=== PATIENT | female | born 1955 | race Caucasian/White ===

== ENCOUNTER → 2018-01-17 16:27 | Outpatient (CLI) | payer OTHER, SELFPAY ==
[2018-01-17 17:47] LABS: Absolute Lymphocyte Count 1.68 X10^3/ul (0.83-4.51); Basophil# 0.02 X10^3/uL; Basophil% 0.3 % (0-1); Eosinophil# 0.07 X10^3/uL; Eosinophils% 1.1 % (0-5); Hematocrit 35.9 % (37-47); Hemoglobin 11.5 g/dl (12.0-15.0); Lymphocyte # 1.68 X10^3/ul (4.0); Lymphocyte % 26.9 % (19-41); Mean Corpuscular Hgb 28.5 pg (27.0-32.0); Mean Corpuscular Volume 88.9 fL (81-99); Mean Platelet Vol. 10.3 fl (6.2-12.0); Monocyte# 0.44 X10^3/uL; Monocyte% 7.1 % (0-10); Neutrophil # 4.02 X10^3/uL (2.7-7.7); Neutrophil % 64.4 % (47-70); Platelet Count 242 K/mm3 (150-450); RBC Distribution Width CV 13.3 % (11.6-14.6); RBC Distribution Width SD 43.2 fl (35.1-43.9); Red Blood Count 4.04 M/mm3 (4.2-5.4); White Blood Count 6.2 K/mm3 (4.4-11.0)
[2018-01-17 17:53] LABS: POSITIVE COUNT NO; POSITIVE DIFFERENTIAL NO; POSITIVE MORPHOLOGY NO
[2018-01-17 18:08] LABS: AST(SGOT) 33 U/L (15-37); Alanine Aminotransfer ALT/SGPT 28 U/L (13-56); Albumin, Serum 3.5 g/dL (3.2-5.0); Alkaline Phosphatase 59 U/L (45-117); Anion Gap 8 (5-15); BUN 15 mg/dL (7-18); BUN/Creat Ratio 21.7 RATIO (10-20); Calcium,Total 9.1 mg/dL (8.5-10.1); Chloride 105 mmol/L (98-107); Creatinine, Serum 0.69 mg/dL (0.55-1.02); EST Glomerular Filtration Rate 92 mL/min (>60); Est Glom Filt Rate - Afr Amer 111 mL/min (>60); Globulin 3.4 g/dL (2.2-4.2); Glucose 102 mg/dL (74-106); Potassium 3.6 mmol/L (3.5-5.1); Protein, Total 6.9 g/dL (6.4-8.2); Sodium Level 141 mmol/L (136-145)
== END ==
PROVIDERS: Family Provider Family Medicine; PCP Family Medicine; Visit Provider Family Medicine
DX: T81.9XXA Unspecified complication of procedure, initial encounter (principal)
CPT/HCPCS: 36415; 80053; 85025

== ENCOUNTER → 2018-07-22 15:01 | Outpatient (CLI) | payer OTHER, SELFPAY ==
--- NOTE | 2018-07-22 15:04 | BI_ITS ---
MAMMOGRAPHY - BILATERAL SCREENING REASON FOR EXAM: Female, 62 years old. Routine annual screening examination. PERTINENT HISTORY: Grandmother with breast cancer. Remote right excisional breast biopsy. TECHNIQUE: Digital bilateral breast mayur (3D mammographic acquisition) in the CC and MLO projections. 2-D mediolateral oblique (MLO) and craniocaudad (CC) views of both breasts were obtained. CAD: Full Field Digital Mammography with Computer Added Detection was performed. COMPARISON: Comparison is made with prior study dated 2017 and November 26, 2015. FINDINGS: Breast Composition: The breasts are heterogeneously dense, which may obscure small masses. There are no dominant masses or suspicious calcifications. Stable appearance of the bilateral axillary lymph nodes. No other significant abnormalities are identified. There has been no significant change since the prior study. BI/SCREENING MAMM (CAD), BILAT IMPRESSION: Stable bilateral screening mammogram. Yearly follow-up mammogram recommended. (A) ASSESSMENT CATEGORY: BIRADS Category 2: Benign. A letter regarding these results will be sent to the patient by the facility within 30 days. Approximately 10% of breast cancers are not detected by mammography. A normal mammogram should not delay biopsy of a clinically suspicious abnormality. [id number] Electronically Signed: Manuel Scott, at 8:27 EDT , Service support ,
== END ==
PROVIDERS: Family Provider Family Medicine; PCP Family Medicine; Referring Provider Nurse Practitioner Women's Health; Visit Provider Nurse Practitioner Women's Health
DX: Z12.31 Encounter for screening mammogram for malignant neoplasm of breast (principal)
CPT/HCPCS: 77063; 77067

== ENCOUNTER 2019-04-04 08:21 | Day surgery (SDC) | payer OTHER, SELFPAY ==
--- NOTE | 2019-03-14 05:40 | HP_ITS ---
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 Is patient in pain?: No Allergies diphenhydramine HCl [From Benadryl] Adverse Reaction (Verified 03/14/19 15:09) Other Medications Cholecalciferol (VIT D3) [Vitamin D3] 2,000 unit PO DAILY 04/25/14 [History Confirmed 03/14/19] Multivitamins,Therapeutic [Multivitamin] 1 tab PO DAILY 04/25/14 [History Confirmed 03/14/19] Lisinopril [Zestril] 10 mg PO DAILY 02/07/17 [History Confirmed 03/14/19] lansoprazole 30 mg capsule,delayed release 30 mg PO DAILY 03/14/19 [History Confirmed 03/14/19] [facility] Medical History (Updated 03/14/19 @ 17:38 by Abhijit Rinaldi MD) Family history of colon cancer in father (Acute) Constipation (Acute) Constipation (Acute) HTN (hypertension) (Chronic) Surgical History History of breast lump/mass excision (Acute) S/P partial hysterectomy (Acute) Family History Father Colon cancer Heart disease Hypertension Thyroid disorder Social History (Updated 03/14/19 @ 17:40 by Abhijit Rinaldi MD) Smoking Status: Never smoker alcohol intake: current alcohol intake frequency: a few times a month HPI HPI HPI: CHAMP ROTH, is a 63 F who presents to the office today for HPI HPI Surgical H&P: Yes HPI: CHAMP ROTH, is a 63 F who presents to the office today for surgical consultation regarding severe progressive constipation. She states that there is been a problem for months. She was seen by her primary at that time Dr. Ellis Dawson who offered her consideration for a colonoscopy. The patient did not want to pursue that several months ago. Apparently because of her progressive problems with constipation she desires to proceed at this time. She presents my office for consultation. The patient already is on MiraLAX a capful daily. She drinks up to 84 ounces of fluid a day. She denies bright red blood per rectum or melena. She complains of some weight gain bloating. She states that she has a very significant problem moving her bowels. I assisted her on January 06, 2013 with a colonoscopy. At that time she was having diarrhea of undetermined origin. A few diverticula were identified. Scope was otherwise normal. It was recommended that she utilize a fiber supplement. She is not currently utilizing fiber supplementation in addition to her MiraLAX. She does have a family history with a father who had a cecal carcinoma. Exam Const General: cooperative, healthy appearing, comfortable, no acute distress Nutritional Appearance: average body habitus Orientation: alert, awake, oriented x3 HENMT Head: normal to inspection Eyes General: appearance normal, both eyes and all related structures Resp Effort & Inspection: normal respiratory effort Auscultation: clear to auscultation bilaterally Cardio Rate: regular rate Rhythm: regular rhythm GI Palpation: soft, no hepatosplenomegaly Auscultation: normal bowel sounds Skin General: no rashes or lesions noted Neuro Cognition: normal cognition Extrem General: no calf tenderness bilaterally Psych Affect: normal affect Assessment & Plan Problems 1. Constipation, unspecified constipation type K59.00 2. Family history of colon cancer in father Z80.0 Plan Severe progressive constipation. I recommended to the patient that she initiate a daily fiber supplementation in addition to her daily MiraLAX. I recommended the patient a colonoscopy with possible biopsy or polypectomy as indicated. Extraordinary careful inspection of the cecum will be pursued. Random biopsies will be obtained as indicated. She has had an opportunity to ask and have questions answered. I anticipate monitored anesthesia care. We will schedule and proceed at her discretion. I anticipate 2 days of bowel prep with magnesium citrate on day 1 and MiraLAX but prepped on day 2 because of her severe constipation. CC: Dr. Sachin Rinaldi M.D., F.A.C.S. Coding Level of Care Code Off vis,est,level 3 Diagnoses Constipation, unspecified constipation type K59.00 ??Constipation type: unspecified constipation type Family history of colon cancer in father Z80.0 03/14/19 1740 <Electronically signed by Abhijit martel MD> Date _ Abhijit Rinaldi MD I have re-examined the patient. There are no clinical changes since date of exam.
[2019-03-14 15:11] VITALS: BMI 25.2
--- NOTE | 2019-04-04 | COLBX_PTH ---
PATIENT: CHAMP ROTH LOC: EN U#:[id number] AGE/SX: 63/F ROOM: RE04/04/[address]: Dr. Abhijit Rinaldi MD : 1955 BED: DIS: 04/04/2019 SPEC #: [id number] RECD: 04/04/19 13:18 STATUS: SOPHY JEREMIAH #: [id number] RACHEL: 04/04/19 00:[address]: Abhijit Rinaldi DEPT: SURGICAL PATHOLOGY RECD BY: Ricky Ludwig ENTERED: 04/04/19 13:19 SP TYPE: COLON BX OTHR DR: Dr. Ellis Stephenson MD Tissues: COLON BIOPSY Procedures: Surgery Specimen Level IV HEADER OPERATION: Colonoscopy (MAC) PRE-OP DIAGNOSIS: Constipation TISSUE SUBMITTED: A - Random colon biopsies, B - Descending colon polyp biopsy MICROSCOPIC DIAGNOSIS A. Colon, random biopsy: Fragments of colonic mucosa, no pathologic diagnosis. B. Descending colon polyp, biopsy: A fragment of colonic mucosa with focal hyperplastic changes. DIANE:frannie 04/05/19 MICROSCOPIC DESCRIPTION Slides are reviewed. GROSS DESCRIPTION A - Received in fixative is one container labeled with the patient's name and designated random colon biopsy. The specimen consists of multiple irregular fragments of light cooper soft tissue that in aggregate measure 1.2 x 1 x 0.1 cm. The specimen is totally submitted in one cassette. B - Received in fixative is one container labeled with the patient's name and designated descending colon polyp. The specimen consists of one irregular fragment of light cooper soft tissue that measures 0.5 x 0.2 x 0.1 cm. The specimen is totally submitted in one cassette. / DIANE:frannie 04/04/19 TC:5 CPT: 55156 x2
[2019-04-04 08:58] VITALS: BP 101/75; PULSE 65; RESP 16; TEMP 36.8; O2SAT 99; BMI 25.2
[2019-04-04] MEDS: Lactated Ringers 1,000 ML 100 ML IV (09:09)
[2019-04-04 10:05] VITALS: BP 101/75; BP 90/65; PULSE 66; RESP 16; TEMP 36.4; O2SAT 98
--- NOTE | 2019-04-04 10:07 | OP.COLON_ITS ---
Patient Name: Leana Mancera Procedure Date: 04/04/2019 9:39 AM Date of : 1955 Age: 63 Procedure: Colonoscopy Indications: Family history of colon cancer in a first-degree relative Providers: Abhijit Rinaldi MD Referring MD: Ellis Stephenson Md Medicines: See the Anesthesia note for documentation of the administered medications Patient Profile: Last Colonoscopy: none. The patient's first colonoscopy is today. Complications: No immediate complications. Procedure: Pre-Anesthesia Assessment: - Prior to the procedure, a History and Physical was performed, and patient medications and allergies were reviewed. The patient's tolerance of previous anesthesia was also reviewed. The risks and benefits of the procedure and the sedation options and risks were discussed with the patient. All questions were answered, and informed consent was obtained. Prior Anticoagulants: The patient has taken no previous anticoagulant or antiplatelet agents. ASA Grade Assessment: II - A patient with mild systemic disease. After reviewing the risks and benefits, the patient was deemed in satisfactory condition to undergo the procedure. After I obtained informed consent, the scope was passed under direct vision. Throughout the procedure, the patient's blood pressure, pulse, and oxygen saturations were monitored continuously. The colonoscope was introduced through the anus and advanced to the cecum, identified by appendiceal orifice and ileocecal valve. The colonoscopy was performed without difficulty. The patient tolerated the procedure well. The quality of the bowel preparation was good. The ileocecal valve and the appendiceal orifice were photographed. Scope In: 9:43:52 AM Scope Withdrawal Time 0 hours 8 minutes 8 seconds Scope Out: 10:01:14 AM Total Procedure Duration Time 0 hours 17 minutes 22 seconds Findings: Hemorrhoids were found on perianal exam. A 7 mm polyp was found in the descending colon. The polyp was sessile. The polyp was removed with a cold biopsy forceps. Resection and retrieval were complete. Scattered diverticula were found in the sigmoid colon and descending colon. Impression: - Hemorrhoids found on perianal exam. - One 7 mm polyp in the descending colon, removed with a cold biopsy forceps. Resected and retrieved. Random biopsies were obtained throughout the colon investigating for microcytic colitis - Diverticulosis in the sigmoid colon and in the descending colon. Recommendation: - Discharge patient to home. - Resume previous diet. - Continue present medications. - Repeat colonoscopy in 5 years for surveillance based on pathology results. - Telephone my office for pathology results in 1 week. Procedure Code(s): --- Professional --- 18528, Colonoscopy, flexible; with biopsy, single or multiple Diagnosis Code(s): --- Professional --- K64.9, Unspecified hemorrhoids D12.4, Benign neoplasm of descending colon Z80.0, Family history of malignant neoplasm of digestive organs K57.30, Diverticulosis of large intestine without perforation or abscess without bleeding CPT copyright 2017 [employer]. All rights reserved. The codes documented in this report are preliminary and upon jewel hole finish opener review may be revised to meet current compliance requirements. Abhijit Rinaldi MD 04/04/2019 10:07:34 AM This report has been signed electronically. Number of Addenda: 0 Note Initiated On: 04/04/2019 9:39 AM
[2019-04-04 10:10] VITALS: BP 101/75; BP 99/56; PULSE 68; RESP 16; O2SAT 100
[2019-04-04 10:15] VITALS: BP 101/75; BP 106/66; PULSE 57; RESP 16; O2SAT 99
[2019-04-04 10:20] VITALS: BP 101/75; BP 113/67; PULSE 56; RESP 16; TEMP 36.6; O2SAT 100
[2019-04-04 10:41] VITALS: BP 101/75
== END 2019-04-04 10:43 | disposition home or self-care (01) ==
LOC: EN 08:22 → AC 08:24
PROVIDERS: Family Provider Family Medicine; PCP Family Medicine; Referring Provider Family Medicine; Visit Provider Surgery
PROC: 0DJD8ZZ Inspection of Lower Intestinal Tract, Via Natural or Artificial Opening Endoscopic (ICD-10-PCS; CPT 45378; principal; 2019-04-04 09:25)
DX: D12.4 Benign neoplasm of descending colon (principal); K64.9 Unspecified hemorrhoids; K57.30 Diverticulosis of large intestine without perforation or abscess without bleeding; K59.00 Constipation, unspecified; I10 Essential (primary) hypertension; G47.30 Sleep apnea, unspecified; Z78.0 Asymptomatic menopausal state; Z79.899 Other long term (current) drug therapy; Z88.8 Allergy status to other drugs, medicaments and biological substances; Z80.0 Family history of malignant neoplasm of digestive organs
CPT/HCPCS: 45380; 88305; J7120

== ENCOUNTER → 2019-06-26 07:55 | Outpatient (CLI) | payer OTHER, SELFPAY ==
[2019-06-26 10:35] LABS: ALB/GLOB Ratio 1.2 RATIO (0.9-2.4); AST(SGOT) 16 U/L (15-37); Alanine Aminotransfer ALT/SGPT 24 U/L (13-56); Albumin, Serum 3.6 g/dL (3.2-5.0); Alkaline Phosphatase 61 U/L (45-117); Anion Gap 4 (5-15); BUN 29 mg/dL (7-18); BUN/Creat Ratio 31.5 RATIO (10-20); Calcium,Total 8.9 mg/dL (8.5-10.1); Chloride 110 mmol/L (98-107); Cholesterol 204 mg/dL (200); Creatinine, Serum 0.92 mg/dL (0.55-1.02); EST Glomerular Filtration Rate 66 mL/min (>60); Est Glom Filt Rate - Afr Amer 79 mL/min (>60); Glucose 93 mg/dL (74-106); High Density Lipoprotein 91 mg/dL; Potassium 4.3 mmol/L (3.5-5.1); Protein, Total 6.6 g/dL (6.4-8.2); Sodium Level 143 mmol/L (136-145); Thyroid Stim Hormone (TSH) 4.73 uIU/mL (0.358-3.74); Triglycerides 63 mg/dL; Very Low Density Lipoprotein 13 mg/dL (5-40)
== END ==
PROVIDERS: PCP Family Medicine; Referring Provider Family Medicine; Visit Provider Family Medicine
DX: I10 Essential (primary) hypertension (principal); L65.9 Nonscarring hair loss, unspecified
CPT/HCPCS: 36415; 80053; 80061; 84443

== ENCOUNTER → 2020-06-28 15:22 | Outpatient (CLI) | payer OTHER, SELFPAY ==
[2020-06-28 17:41] LABS: Absolute Lymphocyte Count 1.79 X10^3/uL (0.83-4.51); Basophil# 0.05 X10^3/uL; Basophil% 0.9 % (0-1); Eosinophil# 0.12 X10^3/uL; Eosinophils% 2.2 % (0-5); Hematocrit 38.9 % (37-47); Hemoglobin 12.5 g/dL (12.0-15.0); Lymphocyte # 1.79 X10^3/ul (4.0); Mean Corp Hgb Conc 32.1 g/dL (32-36); Mean Corpuscular Hgb 29.1 pg (27.0-32.0); Mean Corpuscular Volume 90.7 fL (81-99); Mean Platelet Vol. 10.3 fl (6.2-12.0); Monocyte# 0.45 X10^3/uL; Monocyte% 8.3 % (0-10); NRBC Flagged by Analyzer 0 % (0-5); Neutrophil # 2.99 X10^3/uL (2.7-7.7); Neutrophil % 55.2 % (47-70); Platelet Count 261 K/mm3 (150-450); RBC Distribution Width CV 13.1 % (11.6-14.6); RBC Distribution Width SD 43.5 fl (35.1-43.9); Red Blood Count 4.29 M/mm3 (4.2-5.4); White Blood Count 5.4 K/mm3 (4.4-11.0)
[2020-06-28 17:56] LABS: ALB/GLOB Ratio 1.5 RATIO (0.9-2.4); AST(SGOT) 17 U/L (15-37); Alanine Aminotransfer ALT/SGPT 26 U/L (13-56); Alkaline Phosphatase 60 U/L (45-117); Anion Gap 6 (5-15); BUN 23 mg/dL (7-18); BUN/Creat Ratio 30.3 RATIO (10-20); Calcium,Total 9.2 mg/dL (8.5-10.1); Chloride 103 mmol/L (98-107); Creatinine, Serum 0.76 mg/dL (0.55-1.02); EST Glomerular Filtration Rate 82 mL/min (>60); Est Glom Filt Rate - Afr Amer 99 mL/min (>60); Globulin 2.6 g/dL (2.2-4.2); Glucose 75 mg/dL (74-106); Lipase 121 U/L (73-393); Protein, Total 6.6 g/dL (6.4-8.2); Sodium Level 139 mmol/L (136-145)
== END ==
PROVIDERS: PCP Family Medicine; Referring Provider Family Medicine; Visit Provider Family Medicine
DX: R19.7 Diarrhea, unspecified (principal); R10.9 Unspecified abdominal pain
CPT/HCPCS: 36415; 80053; 83690; 85025; 87506

== ENCOUNTER → 2020-07-04 11:57 | Outpatient (CLI) | payer OTHER, SELFPAY ==
--- NOTE | 2020-07-04 11:59 | CT_ITS ---
STUDY: CT ABDOMEN AND PELVIS WITH CONTRAST REASON FOR EXAM: Female, 64 years old. ABDOMINAL PAIN. 2 week history of diarrhea and vomiting. RADIATION DOSAGE (If Supplied By Facility): CTDIvol = ( 12.60 ) mGy, DLP = ( 785.11 ) mGycm TECHNIQUE: Transaxial images were obtained from the dome of the diaphragm to the symphysis pubis with oral contrast. Oral and amp;amp; IV Gastrografin and amp;amp; 100mL Isovue-300 was administered. Sagittal and coronal images were reconstructed. Individualized dose optimization techniques were used for this CT. COMPARISON: None. FINDINGS: Minimal increased linear markings at the lung bases suggestive of linear atelectasis and/or scarring. The visualized portions of the heart are within normal limits. There is a 1.4 cm x 1.3 cm hypodense nodule in the peripheral lateral aspect of the right lobe of the liver along its inferior aspect. This may represent either a cyst or hemangioma. Normal gallbladder and extrahepatic biliary system. Normal spleen. Normal pancreas. Normal bilateral adrenal glands. Mild degree of right hydronephrosis and right hydroureter down to the region of the pelvis although the distal portion of the right ureter cannot be assessed adequately due to the large amount of beam hardening artifacts. Normal left kidney. Normal visualized stomach. Normal small intestine. Normal colon. The appendix is visualized and appears normal. Normal abdominal aorta. Normal inferior vena cava. Normal retroperitoneum. Normal urinary bladder. Limited visualization of the pelvis due to beam hardening artifact from the bilateral hip prostheses. There is a small umbilical hernia containing fat. There are degenerative changes of the visualized lumbar spine. Grade 1 anterolisthesis of L4 on L5. CT/Abdomen/Pelvis WITH Contrast IMPRESSION: 1.4 cm x 1.3 cm hypodense nodule in the peripheral lateral aspect of the right lobe of liver suggestive of either a small cyst or possible hemangioma. Mild degree of right hydronephrosis and right hydroureter down to the region of the pelvis although the distal portion of the right ureter cannot be adequately assessed due to the large amount of beam hardening artifacts bilateral hip replacements. Electronically Signed: Manuel Scott MD at 14:46 EDT , Service support ,
== END ==
PROVIDERS: PCP Family Medicine; Visit Provider Family Medicine
DX: R10.9 Unspecified abdominal pain (principal)
CPT/HCPCS: 74177; Q9967

== ENCOUNTER → 2020-07-05 | Outpatient (CLI) | payer OTHER, SELFPAY ==
[2020-07-05 17:31] LABS: Bacteria 0 SEEN /hpf (None Seen); Mucous, Urine 0 SEEN /hpf (<or=2+); White Blood Cells 0 SEEN /hpf (0-5)
[2020-07-05 18:23] LABS: Color, Urine Yellow (Yellow); Glucose, Dipstick Normal (Normal); Ketone-Dipstick Negative (Negative); Leukocyte Esterase-Dipstick Negative /ul (Negative); Nitrite-Dipstick Negative (Negative); Occult Blood-Urine 10 /ul (Negative); Protein-Dipstick Negative (Negative); Specific Gravity, Urine 1.015 (1.002-1.030); Urine Bilirubin Dipstick Negative (Negative); Urine Clarity Clear (Clear); Urine Urobilinogen Normal (Normal)
[2020-07-05 18:34] LABS: Red Blood Cells-Urine 0-5 SEEN /hpf (0-5); Squamous Epithelial Cells - UA 0-5 SEEN /hpf (5-10)
== END | disposition home or self-care (01) ==
PROVIDERS: PCP Family Medicine; Referring Provider Family Medicine; Visit Provider Family Medicine
DX: R10.9 Unspecified abdominal pain (principal)
CPT/HCPCS: 81001; 87086

== ENCOUNTER → 2020-07-09 08:58 | Outpatient (CLI) | payer OTHER, SELFPAY ==
--- NOTE | 2020-07-09 09:02 | RAD_ITS ---
STUDY: X-RAY - ABDOMEN/PELVIS REASON FOR EXAM: Female, 64 years old. OTHER HYDRONEPHROSIS/ -- RIGHT HYDROURETERONEPHROSIS ON CT BUT DISTAL UTERER OBSCURED BY ARTIFACT TECHNIQUE: Single AP view of the abdomen / pelvis. COMPARISON: None. FINDINGS: Normal visualized lung bases. There is an abundance of fecal material throughout the colon. Calcified phlebolith in the right hemipelvis. Normal soft tissue structures. Status post bilateral total hip replacements disc space narrowing and degeneration at the L4-L5 level. RAD/Abdomen Single View IMPRESSION: Large amount of fecal material is seen in the colon. Calcified phleboliths in the right hemipelvis. Electronically Signed: Manuel Scott MD at 9:52 EDT , Service support ,
--- NOTE | 2020-07-09 13:35 | RAD_ITS ---
STUDY: INTRAVENOUS UROGRAM. BILATERAL REASON FOR EXAM: Female, 64 years old. OTHER HYDRONEPHROSIS, UNSPECIFIED ABD PAIN TECHNIQUE: 50 cc of ISOVUE 300 was injected intravenously. Intravenous urogram was then obtained. COMPARISON: None. FINDINGS: A bundle tier view was obtained. A large amount of fecal material is seen in the colon. A calcified phlebolith is seen in the right hemipelvis. The patient is status post bilateral total hip replacement. Following intravenous contrast demonstration, there is prompt bilateral symmetrical excretion of contrast. The ureters run a normal course. There is no evidence of obstruction. RAD/Pyelogram No Siddhartha IMPRESSION: No evidence of ureteral obstruction. Electronically Signed: Manuel Scott MD at 14:33 EDT , Service support ,
== END ==
PROVIDERS: PCP Family Medicine; Referring Provider Nurse Practitioner Adult Health; Visit Provider Nurse Practitioner Adult Health
DX: N13.39 Other hydronephrosis (principal); R10.9 Unspecified abdominal pain
CPT/HCPCS: 74018; 74410; Q9967

== ENCOUNTER → 2020-07-26 09:13 | Outpatient (CLI) | payer OTHER, SELFPAY ==
--- NOTE | 2020-07-26 09:19 | US_ITS ---
STUDY: ABDOMINAL ULTRASOUND - RIGHT UPPER QUADRANT REASON FOR VISIT: Female, 64 years old. Right upper quadrant pain TECHNIQUE: Ultrasound evaluation of the right upper quadrant was performed with real-time and static otero-scale imaging. TECHNICAL QUALITY: Adequate. COMPARISON: CT abdomen 04 July 2020, 26 Aug 2004 FINDINGS: Liver: The liver measures 14.3 cm. There is normal echogenicity of the liver. The bile ducts are within normal limits. There is hepatic color flow. The direction of portal flow is hepatopetal. There is a 2 cm hemangioma as seen on prior CT. Gallbladder: Normal distended gallbladder. The gallbladder wall measures 3 mm. There is a negative sonographic Rubio''s sign. There is no pericholecystic fluid. There are no gallstones. Common Bile Duct (C.B.D.): The common bile duct measures 5 mm. Pancreas: Normal size of the head, body and tail of the pancreas. There is normal echogenicity of the pancreas. There is no demonstrated pancreatic mass or cyst. Right Kidney: Normal size of the right kidney. The right kidney measures 10.7 x 5.9 x 4.5 cm. Normal renal cortex. The right cortex measures 1.5 cm. There is no demonstrated renal mass or cyst. There is no right hydronephrosis. There is a 4 mm calcification, possibly vascular versus stone. US/Abdomen Limited IMPRESSION: 1. Unremarkable right upper quadrant ultrasound. Electronically Signed: Yasmin Quiñonez MD at 20:33 EDT Tel , Service support ,
== END ==
PROVIDERS: PCP Family Medicine; Referring Provider Family Medicine; Visit Provider Family Medicine
DX: R10.11 Right upper quadrant pain (principal)
CPT/HCPCS: 76705

== ENCOUNTER → 2021-03-24 07:54 | Outpatient (CLI) | payer OTHER, SELFPAY ==
--- NOTE | 2021-03-24 07:56 | BI_ITS ---
MAMMOGRAPHY - BILATERAL SCREENING REASON FOR EXAM: Female, 65 years old. Routine annual screening examination. PERTINENT HISTORY: Grandmother with breast cancer. Prior right excisional breast biopsy. TECHNIQUE: Digital bilateral breast elida (3D mammographic acquisition) in the CC and MLO projections. 2-D mediolateral oblique (MLO) and craniocaudad (CC) views of both breasts were obtained. CAD: Full Field Digital Mammography with Computer Added Detection was performed. COMPARISON: Comparison is made with prior study dated 07/22/2018 and 04/20/2017. FINDINGS: Breast Composition: The breasts are heterogeneously dense, which may obscure small masses. There are no dominant masses or suspicious calcifications. Stable benign-appearing bilateral axillary lymph nodes. No other significant abnormalities are identified. There has been no significant change since the prior study. BI/SCRN MAMM (CAD)W/ELIDA BILAT IMPRESSION: Stable bilateral screening mammogram. Yearly follow-up mammogram recommended. (A) ASSESSMENT CATEGORY: BIRADS Category 2: Benign. A letter regarding these results will be sent to the patient by the facility within 30 days. Approximately 10% of breast cancers are not detected by mammography. A normal mammogram should not delay biopsy of a clinically suspicious abnormality. [id number] Electronically Signed: Manuel Scott MD at 9:27 EST , Service support ,
== END ==
PROVIDERS: PCP Family Medicine; Referring Provider Nurse Practitioner Women's Health; Visit Provider Nurse Practitioner Women's Health
DX: Z12.31 Encounter for screening mammogram for malignant neoplasm of breast (principal); Z80.3 Family history of malignant neoplasm of breast
CPT/HCPCS: 77063; 77067

== ENCOUNTER → 2021-04-16 10:51 | Outpatient (CLI) | payer OTHER, SELFPAY ==
[2021-04-16 11:56] LABS: NATERA MAILED SPECIMEN
== END ==
PROVIDERS: PCP Family Medicine; Referring Provider Nurse Practitioner Women's Health; Visit Provider Nurse Practitioner Women's Health
DX: Z78.0 Asymptomatic menopausal state (principal); Z80.3 Family history of malignant neoplasm of breast; Z80.0 Family history of malignant neoplasm of digestive organs
CPT/HCPCS: 36415

== ENCOUNTER 2021-07-23 12:41 | Outpatient (CLI) | payer OTHER, SELFPAY ==
[2021-07-23 14:59] LABS: Hematocrit 40.5 % (37-47); Mean Corp Hgb Conc 32.1 g/dL (32-36); Mean Corpuscular Hgb 29.7 pg (27.0-32.0); Mean Corpuscular Volume 92.7 fL (81-99); Mean Platelet Vol. 9.8 fl (6.2-12.0); Platelet Count 259 K/mm3 (150-450); RBC Distribution Width CV 12.7 % (11.6-14.6); RBC Distribution Width SD 43.4 fl (35.1-43.9); Red Blood Count 4.37 M/mm3 (4.2-5.4)
[2021-07-23 15:27] LABS: ALB/GLOB Ratio 1.1 RATIO (0.9-2.4); AST(SGOT) 15 U/L (15-37); Alanine Aminotransfer ALT/SGPT 26 U/L (13-56); Albumin, Serum 3.9 g/dL (3.2-5.0); Alkaline Phosphatase 50 U/L (45-117); Anion Gap 4 (5-15); BUN 21 mg/dL (7-18); BUN/Creat Ratio 26.3 RATIO (10-20); Calcium,Total 9.2 mg/dL (8.5-10.1); Chloride 101 mmol/L (98-107); EST Glomerular Filtration Rate 77 mL/min (>60); Est Glom Filt Rate - Afr Amer 93 mL/min (>60); Globulin 3.4 g/dL (2.2-4.2); Glucose 91 mg/dL (74-106); Potassium 3.9 mmol/L (3.5-5.1); Protein, Total 7.3 g/dL (6.4-8.2); Sodium Level 134 mmol/L (136-145); Thyroid Stim Hormone (TSH) 2.33 uIU/mL (0.358-3.74)
== END 2021-07-23 23:59 | disposition home or self-care (01) ==
LOC: MTLAB 12:42
PROVIDERS: PCP Nurse Practitioner Family; Referring Provider Nurse Practitioner Family; Visit Provider Nurse Practitioner Family
DX: I10 Essential (primary) hypertension (principal); E03.9 Hypothyroidism, unspecified
CPT/HCPCS: 36415; 80053; 84443; 85027

== ENCOUNTER → 2021-09-03 | Outpatient (CLI) | payer OTHER, SELFPAY ==
[2021-09-03 18:10] LABS: Vitamin B12 405 pg/mL (211-911); Vitamin D,25 Hydroxy 26.1 ng/mL
== END | disposition home or self-care (01) ==
LOC: MFPLAB 15:42
PROVIDERS: PCP Family Medicine; Referring Provider Family Medicine; Visit Provider Family Medicine
DX: R53.83 Other fatigue (principal)
CPT/HCPCS: 36415; 82306; 82607

== ENCOUNTER → 2022-01-27 | Outpatient (CLI) | payer MEDICARE, BC, SELFPAY ==
--- NOTE | 2022-01-27 07:43 | CT_ITS ---
STUDY: CT SCAN LOWER EXTREMITY RIGHT REASON FOR EXAM: Female, 66 years old. [facility] protocol RADIATION DOSAGE (If Supplied By Facility): CTDIvol = ( 18.71 ) mGy, DLP = ( 1130.13 ) mGycm. Individualized dose optimization techniques were used for this CT.? TECHNIQUE: Multiple axial tomographic images of the right hip, right knee and right ankle joints were obtained. Coronal and sagittal reconstruction was obtained as well. COMPARISON: None. FINDINGS: Imaging of the right hip joint was obtained. There is evidence of a total right hip replacement. There is good alignment. No significant abnormality is seen. Imaging of the right knee joint was obtained. Moderate degree of joint space narrowing involving both the medial and lateral compartments of the knee joint more prominent on the lateral side. Degenerative spur formation along the distal lateral femoral condyle. Small joint effusion. Imaging of the ankle joint was obtained. There is good alignment. No significant abnormality is seen. CT/Extremity Lower without Contra IMPRESSION: Moderate degree of joint space narrowing with degenerative changes involving the medial and lateral compartments of the knee joint with small joint effusion. Electronically Signed: Manuel Scott MD at 15:38 EDT ,
--- NOTE | 2022-01-27 08:37 | RAD_ITS ---
STUDY: X-RAY CHEST REASON FOR EXAM: Female, 66 years old. PRE-OP TECHNIQUE: PA or AP and lateral COMPARISON: None. FINDINGS: The lungs are clear and expanded. There is no demonstrated pleural abnormality. Normal size heart. Normal mediastinum and valeria. Normal visualized pulmonary arteries. Normal visualized aortic arch and descending thoracic aorta. Mild degenerative changes mid and lower thoracic spine. Normal visualized ribs, clavicles, and shoulders. There is no demonstrated abnormality of the visualized soft tissue structures of the upper abdomen. RAD/Chest PA and Lateral IMPRESSION: No acute cardiopulmonary disease. Electronically Signed: Brian Birmingham MD, JOELLE at 10:24 EDT ,
[2022-01-27 10:14] LABS: Absolute Lymphocyte Count 1.38 X10^3/uL (0.83-4.51); Absolute Neutrophil Count 2.2 X10^3/uL (2.0-7.7); Basophil# 0.03 X10^3/uL; Basophil% 0.7 % (0-1); Eosinophil# 0.09 X10^3/uL; Eosinophils% 2.2 % (0-5); Hematocrit 41.4 % (37-47); Hemoglobin 13.4 g/dL (12.0-15.0); Lymphocyte # 1.38 X10^3/ul (0.83-4.51); Lymphocyte % 33.7 % (19-41); Mean Corp Hgb Conc 32.4 g/dL (32-36); Mean Corpuscular Hgb 29.8 pg (27.0-32.0); Mean Corpuscular Volume 92.2 fL (81-99); Mean Platelet Vol. 9.8 fl (6.2-12.0); Monocyte# 0.34 X10^3/uL; Monocyte% 8.3 % (0-10); NRBC Flagged by Analyzer 0 % (0-5); Neutrophil # 2.24 X10^3/uL (2.7-7.7); Neutrophil % 54.9 % (47-70); Platelet Count 241 K/mm3 (150-450); RBC Distribution Width CV 13.1 % (11.6-14.6); RBC Distribution Width SD 44.2 fl (35.1-43.9); Red Blood Count 4.49 M/mm3 (4.2-5.4); White Blood Count 4.1 K/mm3 (4.4-11.0)
[2022-01-27 11:00] LABS: ALB/GLOB Ratio 1.1 RATIO (0.9-2.4); AST(SGOT) 15 U/L (15-37); Alanine Aminotransfer ALT/SGPT 33 U/L (13-56); Albumin, Serum 3.7 g/dL (3.2-5.0); Alkaline Phosphatase 59 U/L (45-117); BUN 29 mg/dL (7-18); BUN/Creat Ratio 35.5 RATIO (10-20); Calcium,Total 9.1 mg/dL (8.5-10.1); Chloride 105 mmol/L (98-107); Cholesterol 216 mg/dL (200); Creatinine, Serum 0.82 mg/dL (0.55-1.02); EST Glomerular Filtration Rate 75 mL/min (>60); Est Glom Filt Rate - Afr Amer 91 mL/min (>60); Globulin 3.4 g/dL (2.2-4.2); Glucose 85 mg/dL (74-106); Potassium 4.2 mmol/L (3.5-5.1); Protein, Total 7.1 g/dL (6.4-8.2); Sodium Level 140 mmol/L (136-145); Triglycerides 51 mg/dL
[2022-01-27 11:01] LABS: Anion Gap 5 (5-15); High Density Lipoprotein 91 mg/dL; Very Low Density Lipoprotein 10 mg/dL (5-40)
== END | disposition home or self-care (01) ==
PROVIDERS: Nurse Practitioner Family; PCP Family Medicine; Referring Provider Physician Assistant Surgical; Visit Provider Physician Assistant Surgical
DX: Z01.810 Encounter for preprocedural cardiovascular examination (principal); M21.061 Valgus deformity, not elsewhere classified, right knee
CPT/HCPCS: 36415; 71046; 73700; 80053; 80061; 85025

== ENCOUNTER → 2022-05-26 | Outpatient (CLI) | payer MEDICARE, BC, SELFPAY ==
[2022-05-26 12:40] LABS: Absolute Lymphocyte Count 1.17 X10^3/uL (0.83-4.51); Absolute Neutrophil Count 2.8 X10^3/uL (2.0-7.7); Basophil# 0.03 X10^3/uL; Basophil% 0.7 % (0-1); Eosinophil# 0.09 X10^3/uL; Hematocrit 39.6 % (37-47); Hemoglobin 12.4 g/dL (12.0-15.0); Lymphocyte # 1.17 X10^3/ul (0.83-4.51); Lymphocyte % 26.6 % (19-41); Mean Corp Hgb Conc 31.3 g/dL (32-36); Mean Corpuscular Hgb 28.6 pg (27.0-32.0); Mean Corpuscular Volume 91.5 fL (81-99); Mean Platelet Vol. 9.7 fl (6.2-12.0); Monocyte# 0.32 X10^3/uL; Monocyte% 7.3 % (0-10); NRBC Flagged by Analyzer 0 % (0-5); Neutrophil # 2.78 X10^3/uL (2.7-7.7); Neutrophil % 63.2 % (47-70); Platelet Count 240 K/mm3 (150-450); RBC Distribution Width CV 13.3 % (11.6-14.6); RBC Distribution Width SD 44.9 fl (35.1-43.9); Red Blood Count 4.33 M/mm3 (4.2-5.4); White Blood Count 4.4 K/mm3 (4.4-11.0)
[2022-05-26 12:41] LABS: Erythrocyte Sedimentation Rate 3 mm/hr (0-30)
[2022-05-26 13:07] LABS: Vitamin B12 475 pg/mL (211-911)
[2022-05-26 13:33] LABS: ALB/GLOB Ratio 1.2 RATIO (0.9-2.4); AST(SGOT) 12 U/L (15-37); Alanine Aminotransfer ALT/SGPT 21 U/L (13-56); Albumin, Serum 3.7 g/dL (3.2-5.0); Alkaline Phosphatase 66 U/L (45-117); Anion Gap 7 (5-15); BUN 19 mg/dL (7-18); BUN/Creat Ratio 30.6 RATIO (10-20); CRP 3.93 mg/L (0.0-3.0); Calcium,Total 9.2 mg/dL (8.5-10.1); Chloride 108 mmol/L (98-107); Creatinine, Serum 0.62 mg/dL (0.55-1.02); EST Glomerular Filtration Rate 103 mL/min (>60); Est Glom Filt Rate - Afr Amer 124 mL/min (>60); Globulin 3.2 g/dL (2.2-4.2); Glucose 89 mg/dL (74-106); Magnesium 2.3 mg/dL (1.6-2.6); Potassium 4.4 mmol/L (3.5-5.1); Protein, Total 6.9 g/dL (6.4-8.2); Rheumatoid Factor < 10.0 IU/mL (<15); Sodium Level 142 mmol/L (136-145); Thyroid Stim Hormone (TSH) 3.71 uIU/mL (0.358-3.74)
[2022-05-27 11:38] LABS: CCP IgG Antibodies 5 units (0-19)
[2022-05-27 18:48] LABS: ANTINUCLEAR ANTIBODIES DIRECT Negative (Negative)
== END | disposition home or self-care (01) ==
LOC: MFPLAB 10:33
PROVIDERS: PCP Family Medicine; Referring Provider Family Medicine; Visit Provider Family Medicine
DX: M79.10 Myalgia, unspecified site (principal)
CPT/HCPCS: 36415; 80053; 82607; 83735; 84443; 85025; 85652; 86038; 86140; 86200; 86431

== ENCOUNTER → 2022-06-23 | Outpatient (CLI) | payer MEDICARE, BC, SELFPAY ==
[2022-06-23] MEDS: Zolpidem Tartrate 5 MG Tablet PO (19:40)
== END | disposition home or self-care (01) ==
LOC: SL 20:04
PROVIDERS: PCP Family Medicine; Referring Provider Internal Medicine Critical Care Medicine; Visit Provider Internal Medicine Critical Care Medicine
DX: G47.33 Obstructive sleep apnea (adult) (pediatric) (principal)
CPT/HCPCS: 95810

== ENCOUNTER → 2022-08-18 | Outpatient (CLI) | payer MEDICARE, BC, SELFPAY | END | disposition home or self-care (01) | LOC: SL 14:26 | PROVIDERS: PCP Family Medicine; Referring Provider Nurse Practitioner Acute Care; Visit Provider Nurse Practitioner Acute Care | DX: G47.10 Hypersomnia, unspecified (principal) | CPT/HCPCS: 95806 ==

== ENCOUNTER → 2022-08-19 | Outpatient (CLI) | payer MEDICARE, BC, SELFPAY ==
--- NOTE | 2022-08-19 12:55 | RAD_ITS ---
STUDY: X-RAY - RIGHT WRIST REASON FOR EXAM: Female, 66 years old. pain and swelling TECHNIQUE: 3 view(s) of the wrist were obtained. COMPARISON: None. FINDINGS: Normal visualized distal radius and ulna. Normal radiocarpal articulation. Normal distal radioulnar articulation. Normal carpal bones. Normal carpal articulations. Normal carpometacarpal articulation of the thumb. Normal second through fifth carpometacarpal articulations. Normal visualized metacarpal bones. The soft tissue structures are unremarkable. There is no demonstrated acute fracture. RAD/Wrist min 3 Views IMPRESSION: No definite acute or significant abnormality seen. Electronically Signed: Cristopher Adkins MD at 21:38 EDT ,
[2022-08-19 15:31] LABS: Absolute Neutrophil Count 8.6 X10^3/uL (2.0-7.7); Basophil# 0.02 X10^3/uL; Basophil% 0.2 % (0-1); Hematocrit 39.3 % (37-47); Hemoglobin 12.7 g/dL (12.0-15.0); Lymphocyte % 5.4 % (19-41); Mean Corp Hgb Conc 32.3 g/dL (32-36); Mean Corpuscular Hgb 29.9 pg (27.0-32.0); Mean Corpuscular Volume 92.5 fL (81-99); Mean Platelet Vol. 10.2 fl (6.2-12.0); Monocyte# 0.16 X10^3/uL; Monocyte% 1.7 % (0-10); NRBC Flagged by Analyzer 0 % (0-5); Neutrophil # 8.59 X10^3/uL (2.7-7.7); Neutrophil % 92.5 % (47-70); POSITIVE DIFFERENTIAL YES; Platelet Count 247 K/mm3 (150-450); RBC Distribution Width CV 13.5 % (11.6-14.6); RBC Distribution Width SD 45.7 fl (35.1-43.9); Red Blood Count 4.25 M/mm3 (4.2-5.4); White Blood Count 9.3 K/mm3 (4.4-11.0)
[2022-08-19 15:39] LABS: Differential Indicated SCAN CRITERIA MET
[2022-08-19 16:03] LABS: Differential Comment SCANNED
== END | disposition home or self-care (01) ==
LOC: MTLAB 12:53
PROVIDERS: PCP Family Medicine; Referring Provider Family Medicine; Visit Provider Family Medicine
DX: M25.531 Pain in right wrist (principal); M25.431 Effusion, right wrist
CPT/HCPCS: 36415; 73110; 85025

== ENCOUNTER → 2022-08-20 | Outpatient (CLI) | payer MEDICARE, BC, SELFPAY ==
[2022-08-20 13:41] LABS: Erythrocyte Sedimentation Rate 20 mm/hr (0-30)
== END | disposition home or self-care (01) ==
LOC: LAB 12:47
PROVIDERS: PCP Family Medicine; Referring Provider Specialist; Visit Provider Specialist
DX: Z47.1 Aftercare following joint replacement surgery (principal); Z96.651 Presence of right artificial knee joint
CPT/HCPCS: 36415; 85652; 86140

== ENCOUNTER → 2022-08-21 | Outpatient (CLI) | payer MEDICARE, BC, SELFPAY ==
[2022-08-21 12:34] LABS: Pathologist Comment May follow
[2022-08-21 13:45] LABS: Synovial Fld Mononuclear WBC # 1.205 10^3/ul; Synovial Fld Mononuclear WBC % 47.4 %; Synovial Fld Polynuclear WBC # 1.339 10^3/uL; Synovial Fld Polynuclear WBC % 52.6 %
[2022-08-21 13:50] LABS: RBC /Synovial Fluid 0.017 10^6/uL (0)
[2022-08-21 14:43] LABS: AUTO B FLUID DILUENT BKGD CT WBC <0.1 RBC <0.01 (W<.1,R<.01); Lymph 16 %; Monocyte /Synovial Fluid 37 %; Neutrophil 46 % (0-25); Plasma Cell /Synovial Fluid 1 %
[2022-08-21 14:44] LABS: Appearance /Synovial Fluid Cloudy (CLEAR); Body Fluid QC Type(s) BF1Q; CRYSTALS, BODY FLUID NO CRYSTALS SEEN; Color / Synovial Fluid Yellow (Pale Yellow); Source / Synovial Fluid RIGHT KNEE; Source- Body Fluid SYNOVIAL
[2022-08-25 09:33] LABS: Pathologist Review Reviewed
== END | disposition home or self-care (01) ==
LOC: LABSPEC 12:27
PROVIDERS: PCP Family Medicine; Referring Provider Specialist; Visit Provider Specialist
DX: M25.561 Pain in right knee (principal); Z96.651 Presence of right artificial knee joint
CPT/HCPCS: 87015; 87070; 87075; 87101; 87116; 87205; 87206; 89050; 89051; 89060

== ENCOUNTER → 2023-02-24 | Outpatient (CLI) | payer MEDICARE, BC, SELFPAY ==
--- NOTE | 2023-02-24 10:24 | BI_ITS ---
MAMMOGRAPHY - BILATERAL SCREENING REASON FOR EXAM: Female, 67 years old. Routine annual screening examination. PERTINENT HISTORY: Sister with breast cancer. Grandmother with breast cancer. Prior right excisional breast biopsy. TECHNIQUE: Digital bilateral breast elida (3D mammographic acquisition) in the CC and MLO projections. 2-D mediolateral oblique (MLO) and craniocaudad (CC) views of both breasts were obtained. CAD: Full Field Digital Mammography with Computer Added Detection was performed. COMPARISON: Comparison is made with prior study dated March 24, 2021 and July 22, 2018. FINDINGS: Breast Composition: The breasts are heterogeneously dense, which may obscure small masses. There are no dominant masses or suspicious calcifications. Stable small bilateral benign-appearing axillary lymph nodes. No other significant abnormalities are identified. There has been no significant change since the prior study. BI/SCRN MAMM (CAD)W/ELIDA BILAT IMPRESSION: Stable bilateral screening mammogram. Yearly follow-up mammogram recommended. (A) ASSESSMENT CATEGORY: BIRADS Category 2: Benign. A letter regarding these results will be sent to the patient by the facility within 30 days. Approximately 10% of breast cancers are not detected by mammography. A normal mammogram should not delay biopsy of a clinically suspicious abnormality. [id number] Electronically Signed: Manuel Scott MD at 12:51 EST ,
== END | disposition home or self-care (01) ==
LOC: OPBI 10:23
PROVIDERS: PCP Family Medicine; Referring Provider Nurse Practitioner Women's Health; Visit Provider Nurse Practitioner Women's Health
DX: Z12.31 Encounter for screening mammogram for malignant neoplasm of breast (principal); Z80.3 Family history of malignant neoplasm of breast
CPT/HCPCS: 77063; 77067

== ENCOUNTER 2023-04-20 08:08 | Observation (INO) | payer MEDICARE, BC, SELFPAY ==
[2023-04-20] VITALS (14 sets, daily range): BP systolic 91–161; BP diastolic 57–92; PULSE 53–71; RESP 12–20; TEMP 36.4–37.1; O2SAT 95–99; BMI 28.4
--- NOTE | 2023-04-20 08:13 | NURSING ---
STROKE ALERT CALLED
--- NOTE | 2023-04-20 08:16 | ED.VIS.STROK ---
HPI History of Present Illness Chief Complaint: Neuro S/Sx Informant: patient Narrative Narrative: Patient presents with visual changes after a pop feeling in her head. She drove herself in. Patient went to work this morning. She was feeling normally. She felt a popping sensation in her left head somewhere. She states she lost some vision in both eyes but cannot tell if it was 1 quadrant or not. But it was more involving the left. That lasted very briefly. Now her vision is a little bit blurry on the left but very mild. She does not and never did have any other neurologic deficits. No nausea vomiting. No chest pain. Patient was seen quickly as she came into room 1. More details will be discussed when we get her back from CT which is being expedited due to her concerning story. [facility] Medical History Autoimmune disorder Constipation Constipation Family history of colon cancer in father HTN (hypertension) Palindromic rheumatism Sleep apnea Home Medications cholecalciferol (vitamin D3) 25 mcg (1,000 unit) tablet 2,000 unit PO DAILY 04/25/14 [History Last Taken Unknown] hydrochlorothiazide 25 mg tablet 25 mg PO DAILY 04/16/21 [History Last Taken 04/20/23] lisinopril 10 mg tablet 20 mg PO DAILY 04/16/21 [History Last Taken 04/20/23] hydroxychloroquine 200 mg tablet 200 mg PO DAILY 09/28/22 [History Last Taken 04/20/23] estradiol 0.01% (0.1 mg/gram) vaginal cream See Rx Instructions vaginal .COMPLEX #42.5 grams 03/23/23 [Rx Last Taken Unknown] Allergy/AdvReac Type Severity Reaction Status Date / Time diphenhydramine HCl AdvReac Other Verified 04/20/23 08:12 [From Benadryl] Family History Father Colon cancer Heart disease Hypertension Thyroid disorder Mother Breast cancer Unknown Breast cancer Brother Alcoholism Sister Autoimmune disease Aunt Breast cancer Sister Breast cancer, Onset Age: 60 Surgical History H/O bilateral hip replacements History of breast lump/mass excision History of tonsillectomy S/P partial hysterectomy Total knee replacement status Social History household members: significant other current occupational status: employed current occupation: [employer] Smoking Status: Never smoker alcohol intake: current alcohol intake frequency: a few times a month substance use type: does not use diet: other what type of physical activity do you participate in: walking, yoga and other frequency: 3-4 times per week seatbelt use: always do you feel safe at home: Yes additional social history: single ROS ROS ED Constitutional Constitutional ED: Denies chills or fever(s) Eyes Eyes: Reports change in vision ENT ENT ED: Denies sore throat Cardiovascular Cardiovascular: Denies chest pain, palpitations or racing heartbeat Respiratory/Chest Respiratory/Chest: Denies cough or dyspnea Gastrointestinal Gastrointestinal: Denies nausea or vomiting Musculoskeletal Musculoskeletal: Denies back pain or neck pain Integumentary Denies rash Neurologic Neurologic: Reports headache(s), paresthesias and other Details: Patient developed some left facial and arm paresthesias after she was here. But they also resolved over the later part of her stay to ; Denies weakness Endocrine Endocrinology: Denies polydipsia or polyuria Hematologic/Lymphatic Hematologic/Lymphatic: Denies easy bleeding or easy bruising Allergic/Immunologic Allergic/Immunologic ED: Denies urticaria EXAM Physical Exam Narrative Exam Narrative: CONSTITUTIONAL: Patient is nontoxic in appearance. The patient looks comfortable. Work of breathing looks normal. HEENT: No notable trauma. Mucous membranes moist. No facial drooping. EYES: No conjunctival injection. No proptosis. No notable photophobia. Range of motion is good. Gross visual kim are normal. She states that her left eye seems fuzzy but it is diffuse. But it is not a quadrant or hemianopsia. NECK:No JVD. No stridor. CARDIOVASCULAR: Regular rate. Regular rhythm. No notable murmur. No JVD. Not tachycardic or irregular. RESPIRATORY: No respiratory distress. Breathing is unlabored. No wheezes. No rhonchi. No rales. No pain with a deep breath. No chest wall tenderness. GASTROINTESTINAL: Not distended. Bowel sounds are normal. No tenderness. GENITOURINARY: No tenderness over the bladder. No CVA tenderness. MUSCULOSKELETAL: Atraumatic. No peripheral edema. No pallor. Normal pulses x 4. NEUROLOGICAL: Patient is alert and appropriate. No focal deficit noted. She looks concern for these symptoms which is understandable. Despite having complaints of some blurring vision she does not meet points on an NIH stroke scale. But her symptoms are still concerning and she is getting CT and CTA because aneurysm is also a possibility. SKIN: No noted rashes. No diaphoresis. PSYCHIATRIC: Patient is calm. Mood is appropriate. Const Vital Signs: 04/20/23 08:09 04/20/23 08:22 04/20/23 08:39 Temperature 97.7 F L Temperature Source Oral Pulse Rate 71 69 Respiratory Rate 14 20 H Blood Pressure 156/92 H 161/71 H Blood Pressure Mean 113 101 Pulse Ox 99 Oxygen Delivery Method Room Air 04/20/23 08:48 04/20/23 09:08 04/20/23 09:18 Temperature Temperature Source Pulse Rate 65 55 L 59 L Respiratory Rate 17 14 14 Blood Pressure 146/70 H 156/72 H 140/71 H Blood Pressure Mean 95 100 94 Pulse Ox 97 96 96 Oxygen Delivery Method Room Air Room Air Room Air 04/20/23 09:38 04/20/23 10:00 Temperature Temperature Source Pulse Rate 55 L 53 L Respiratory Rate 14 14 Blood Pressure 149/76 H 140/79 H Blood Pressure Mean 100 99 Pulse Ox 97 97 Oxygen Delivery Method Room Air MDM MDM MDM Narrative Medical decision making narrative: After I saw the patient she developed a little tingling sensation in her arm and face. But no weakness. At most she had an NIH of 1. But toward the end of her stay she had an NIH of 0. Stroke neurologist talk with her about possible considering TNK with the visual symptoms. But her visual symptoms are more a generalized sense of blurriness and no field cut. And her numbness is gone. We agreed not to use TNK at this time as her symptoms were improving and mild. Patient CBC is overall normal including platelets. Patient's electrolytes show minimally low potassium at 3.4 which is not likely the source of her symptoms. Her troponin is negative at 5. My independent interpretation of her CT of the head and her CT angiogram showed no acute process. I did look at both of these images as soon as they were done. Final reading is also negative. Patient will be admitted for further workup. Lab Data Attestation: I reviewed the patient's lab results. Labs: Laboratory Results - last 24 hr 04/20/23 08:15 WBC 4.7 RBC 4.56 Hgb 13.3 Hct 41.2 MCV 90.4 MCH 29.2 MCHC 32.3 RDW Std Deviation 41.5 RDW Coeff of Lucrecia 12.6 Plt Count 234 MPV 9.4 Immature Gran % (Auto) 0.400 Neut % (Auto) 58.9 Lymph % (Auto) 29.7 [place] % (Auto) 7.7 Eos % (Auto) 2.2 Baso % (Auto) 1.1 H Absolute Neuts (auto) 2.7 Absolute Lymphs (auto) 1.38 Nucleated RBC % 0 PT 12.2 INR 0.9 APTT 25.2 Sodium 136 Potassium 3.4 L Chloride 101 Carbon Dioxide 28.0 Anion Gap 7 BUN 34 H Creatinine 0.99 Estim Creat Clear Calc 58.42 Est GFR (MDRD) Af Amer 72 Est GFR (MDRD) Non-Af 60 BUN/Creatinine Ratio 34.4 H Glucose 110 H Calcium 9.4 Troponin I High Sens 5 Radiography Diagnostic Testing: Clinical Impression(s) from Imaging Studies Brain CT 04/20/23 08:18 IMPRESSION: 1. Chronic involutional changes of the brain. 2. Concern for stroke/positive symptomatology should be further evaluated with CT brain perfusion/CTA or MRI of the brain for further assessment. N.B. : The above Results were Read Back by Min Torres MD to Valeriy Ralph MD, and understanding confirmed on 04/20/2023 08:38:19 (ET). Electronically Signed: Min Torres MD at 8:39 EST Reading Location ID and State: [facility] / [place] , Service support , ADDENDUM: 04/20/23 0846 IMPRESSION: 1. Chronic involutional changes of the brain. 2. Concern for stroke/positive symptomatology should be further evaluated with CT brain perfusion/CTA or MRI of the brain for further assessment. N.B. : The above Results were Read Back by Min Torres MD to Valeriy Ralph MD, and understanding confirmed on 04/20/2023 08:38:19 (ET). Electronically Signed: Min Torres MD at 8:39 EST , Head/Neck CTA 04/20/23 08:18 IMPRESSION: 1. Normal [place] without a demonstrated aneurysm or thrombus or hemodynamically significant stenosis. 2. Normal bilateral cervical carotid and vertebral arteries. N.B. : The above Results were Read Back by Min Torres MD to Valeriy Ralph MD, and understanding confirmed on 04/20/2023 09:01:19 (ET). Electronically Signed: Min Torres MD at 9:02 EST , ADDENDUM: 04/20/23 0909 IMPRESSION: 1. Normal [place] without a demonstrated aneurysm or thrombus or hemodynamically significant stenosis. 2. Normal bilateral cervical carotid and vertebral arteries. N.B. : The above Results were Read Back by Min Torres MD to Valeriy Ralph MD, and understanding confirmed on 04/20/2023 09:01:19 (ET). Electronically Signed: Min Torres MD at 9:02 EST , Chest X-Ray 04/20/23 08:55 IMPRESSION: Cardiomegaly with mild hyperinflation and no acute or active cardiopulmonary disease. Electronically Signed: Asaf Stuart MD at 9:22 EST , EKG Initial EKG: Comments: My independent interpretation patient's EKG was sinus rhythm with slightly bradycardic rate at 52. No ventricular ectopy. No acute ST elevation or depression. VT interval is slightly long showing first-degree AV block. But QRS duration and QTc are normal. Management Discussion w/another healthcare provider: Hospitalist, Commissions Specialist and Radiologist Discharge Plan Triage Chief Complaint: Neuro S/Sx ED Provider: Valeriy Ralph Dx/Rx/DC Orders Clinical Impression: Brain TIA, Headache, History of hypertension Prescriptions: No Action hydrochlorothiazide 25 mg tablet 25 mg PO DAILY hydroxychloroquine 200 mg tablet 200 mg PO DAILY estradiol 0.01 % (0.1 mg/gram) cream See Rx Instructions vaginal .COMPLEX Qty: 42.5 2RF Rx Instructions: small amount as directed vaginal every other day X 4 weeks then twice a week; cholecalciferol (vitamin D3) 1,000 UNIT tablet 2,000 unit PO DAILY Patient Comments: vitamin D lisinopril 10 mg tablet 20 mg PO DAILY Primary Care Provider: Taylor Carbone Referrals: Taylor Carbone, DO [Primary Care Provider] - Disposition Disposition: Acute Care [facility]
--- NOTE | 2023-04-20 08:18 | CT_ITS ---
STUDY: CTA HEAD AND NECK WITH CONTRAST REASON FOR EXAM: Female, 67 years old. Neuro deficit, acute, stroke suspected RADIATION DOSAGE (If Supplied By Facility): CTDIvol = ( 16.89 ) mGy, DLP = ( 859.70 ) mGycm TECHNIQUE: CT angiography was performed with a multi-detector CT scanner. Data acquisition was obtained from the skull base through the vertex following intravenous administration of IV 100mL [id number]-[id number]. MIP images were reconstructed from the axial data set. Post-processing of the angiographic images was performed, with multiplanar reformation and 3D reconstruction. Individualized dose optimization techniques were used for this CT. COMPARISON: Head CT dated April 20, 2023. FINDINGS: A small hypodense nodule is present in the posterior aspect of the right lobe of the thyroid gland. Normal bilateral petrous carotid arteries. Normal right cavernous carotid artery with a normal supraclinoid bifurcation. There is calcified plaque formation of the left cavernous carotid artery, without a cross-sectional luminal stenosis. Normal right A1 segments of the anterior cerebral artery. Normal left A1 segments of the anterior cerebral artery. Normal intact anterior communicating artery (ACOM). Normal bilateral A2 segments of the anterior cerebral arteries. Normal right M1 and M2 segments of the middle cerebral arteries, with a normal M1 bifurcation. Normal left M1 and M2 segments of the middle cerebral arteries, with a normal M1 bifurcation. Normal right posterior communicating artery (PCOM). Normal left posterior communicating artery (PCOM). Normal bilateral vertebral arteries. Normal basilar artery with a normal basilar bifurcation. The visualized bilateral superior cerebellar (SCA) arteries are normal. Normal bilateral P1, P2 and visualized P3 segments of the posterior cerebral arteries. There is no demonstrated aneurysm of the [place]. There is no demonstrated abnormality of the visualized brain. AORTIC ARCH: Normal visualized aortic arch. Normal origins of the brachiocephalic, left common carotid, and left subclavian arteries. RIGHT CAROTID ARTERIES: Normal right common carotid artery (CCA). Normal right common carotid bulb. Normal origin of the right internal carotid (ICA) artery without a hemodynamically significant stenosis. Normal visualized cervical portion of the right internal carotid artery. Normal origin of the right external carotid artery (ECA). LEFT CAROTID ARTERIES: Normal left common carotid artery (CCA). Normal left common carotid bulb. Normal origin of the left internal carotid (ICA) artery without a hemodynamically significant stenosis. Normal visualized cervical portion of the left internal carotid artery. Normal origin of the left external carotid artery (ECA). VERTEBRAL ARTERIES: Normal bilateral vertebral arteries. CT/STROKE CTA Head AND Neck W/Con IMPRESSION: 1. Normal [place] without a demonstrated aneurysm or thrombus or hemodynamically significant stenosis. 2. Normal bilateral cervical carotid and vertebral arteries. N.B. : The above Results were Read Back by Min Torres MD to Valeriy Ralph MD, and understanding confirmed on 04/20/2023 09:01:19 (ET). Electronically Signed: Min Torres MD at 9:02 EST ,
--- NOTE | 2023-04-20 08:18 | CT_ITS ---
STUDY: STROKE PROTOCOL CT BRAIN WITHOUT CONTRAST REASON FOR EXAM: Female, 67 years old. Neuro deficit, acute, stroke suspected RADIATION DOSAGE (If Supplied By Facility): CTDIvol = ( ) mGy, DLP = ( ) mGycm TECHNIQUE: Transaxial CT imaging of the brain was performed without administration of intravenous contrast material. Individualized dose optimization techniques were used for this CT. COMPARISON: Head CT dated February 07, 2017 FINDINGS: Normal soft tissue structures. Normal calvarium. There is moderate cerebral atrophy with widening of the extra-axial spaces and ventricular dilatation and frontal lobe predominance. Normal white matter tracts of the cerebral hemispheres. Normal basal ganglia and thalami. Normal brainstem. Normal cerebellum. There is no demonstrated asymmetric dense artery sign or sulcal effacement or parenchymal edema. There is no intracranial hemorrhage. There are no findings of an acute ischemic infarction. Normal visualized paranasal sinuses. ASPECTS Score for Acute Strokes: 10 CT/STROKE Brain/Head without Cont IMPRESSION: 1. Chronic involutional changes of the brain. 2. Concern for stroke/positive symptomatology should be further evaluated with CT brain perfusion/CTA or MRI of the brain for further assessment. N.B. : The above Results were Read Back by Min Torres MD to Valeriy Ralph MD, and understanding confirmed on 04/20/2023 08:38:19 (ET). Electronically Signed: Min Torres MD at 8:39 EST ,
--- NOTE | 2023-04-20 08:19 | NURSING ---
FAXED FACESHEET TO [facility]
[2023-04-20 08:31] LABS: Absolute Lymphocyte Count 1.38 X10^3/uL (0.83-4.51); Absolute Neutrophil Count 2.7 X10^3/uL (2.0-7.7); Basophil# 0.05 X10^3/uL; Basophil% 1.1 % (0-1); Eosinophils% 2.2 % (0-5); Hematocrit 41.2 % (37-47); Hemoglobin 13.3 g/dL (12.0-15.0); Lymphocyte # 1.38 X10^3/ul (0.83-4.51); Lymphocyte % 29.7 % (19-41); Mean Corp Hgb Conc 32.3 g/dL (32-36); Mean Corpuscular Hgb 29.2 pg (27.0-32.0); Mean Corpuscular Volume 90.4 fL (81-99); Mean Platelet Vol. 9.4 fl (6.2-12.0); Monocyte# 0.36 X10^3/uL; Monocyte% 7.7 % (0-10); NRBC Flagged by Analyzer 0 % (0-5); Neutrophil # 2.74 X10^3/uL (2.7-7.7); Neutrophil % 58.9 % (47-70); Platelet Count 234 K/mm3 (150-450); RBC Distribution Width CV 12.6 % (11.6-14.6); RBC Distribution Width SD 41.5 fl (35.1-43.9); Red Blood Count 4.56 M/mm3 (4.2-5.4); White Blood Count 4.7 K/mm3 (4.4-11.0)
--- NOTE | 2023-04-20 08:38 | ED.RN ---
pt states that her vision gets fuzzy when her bp is elevated
--- NOTE | 2023-04-20 08:39 | ED.RN ---
pt states did not sleep well last night, when she did fall asleep she did not wear her mask.
--- OUTSIDE RECORDS SUMMARY | 2023-04-20 08:46 | XMS RPT_ITS | CCD ---
Author Name Unknown Address [address] [place] [address] [address] [place] [address] Organization [facility] Care Team Providers Care Corporate Accounting Manager Name Role Phone Taran Tyler MD Primary Care Provider [phone] JULIÁN EPPS Referring Unavailable TARAN TYLER Primary Care Unavailable TARAN TYLER Primary Care Unavailable JULIÁN EPPS Attending Unavailable TARAN TYLER Primary Care Unavailable JULIÁN EPPS Attending Unavailable Allergies Allergy Classification Reported Allergen(s) Allergy Type Date of Onset Reaction(s) Facility (4 sources) diphenhydrAMINE; Translations: [DIPHENHYDRAMINE HCL] Drug Allergy 12-15-2012 Other: See Comments [facility] Medications Completed/Discontinued Medications Medication Drug Class(es) Dates Sig (Normalized) Sig (Original) amLODIPine 2.5 mg oral tablet (1 source) Dihydropyridine Calcium Channel Jose Alejandro End: 08-31-2022 take 1 tablet by mouth once daily at bedtime amLODIPine (NORVASC) 2.5 mg tablet Take 2.5 mg by mouth daily at bedtime. 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 Other non-traumatic joint disorders (2 sources) Palindromic rheumatism, unspecified site; 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-2022 Chronic Residual codes; unclassified (2 sources) Obstructive sleep apnea (adult) (pediatric); Translations: [Obstructive sleep apnea (adult) (pediatric)] Onset: 08-28-2022 Chronic Past or Other Problems Problem Classification Problem Date Documented Da te Episodic/Chronic Nonmalignant breast conditions (2 sources) Solitary cyst of breast; Translations: [Solitary cyst of unspecified breast] Onset: 03-26-2014 03-26-2014 Episodic Other screening for suspected conditions (not mental disorders or infectious disease) (2 sources) Mammography abnormal; Translations: [Other abnormal and inconclusive findings on diagnostic imaging of breast] Onset: 09-11-2010 09-11-2010 Episodic Residual codes; unclassified (2 sources) Family history of polyp of colon; Translations: [Family history of colonic polyps] Onset: 12-15-2012 12-15-2012 Episodic Results Test Name Value Interpretation Reference Range Facil ity Vital Signs Date Time Vital Sign Value Performing Clinician Faci lity 08-31-2022 11:30-0400 Body height 172.7 cm Julián Epps MD Work Phone: [facility] 08-31-2022 11:30-0400 Body temperature 97.7 [degF] Julián Epps MD Work Phone: [facility] 08-31-2022 11:30-0400 Body weight 84.37 kg Julián Epps MD Work Phone: [facility] 08-31-2022 11:30-0400 Diastolic blood pressure 81 mm[Hg] Julián Epps MD Work Phone: [facility] 08-31-2022 11:30-0400 Heart rate 58 /min Julián Epps MD Work Phone: [facility] 08-31-2022 11:30-0400 Systolic blood pressure 121 mm[Hg] Julián Epps MD Work Phone: [facility] Encounters Encounter Date Encounter Type Care Provider Facility Start: 01-19-2023 Refill Julián ventura MD Work Phone: [facility] Procedures Date Procedure Procedure Detail Performing Clinician Start: 11-26-2015 Mammography Julián Epps MD Work Phone: Start: 12-20-2014 Lipid 1996 panel - S geena or Plasma Julián Epps MD Work Phone: Start: 01-06-2013 Colonoscopy Julián Epps MD Work Phone: Plan of Treatment Date Care Activity Detail Author Start: 09-01-2025 Diabetes Screening Diabetes Screenin g [facility] Start: 12-23-2023 BP Controlled (<130/80) BP Controlle d (<130/80) [facility] Start: 01-06-2023 Colonoscopy COLONOSCOPY [facility] Start: 01-06-2023 COLORECTAL CANCER SCREENING COLORECTAL CANCER SCREENING [facility] Start: 12-18-2022 Influenza vaccination C [facility] Start: 08-31-2022 End: 10-31-2022 C reactive protein [Mass/volume] in Serum or Plasma C-REACTIVE PROTEIN (CRP) Lab Routine Palindromic rheumatism Expected: 08/31/2022, Expires: 10/31/2022 [facility] Work Phone: Immunizations Immunization Date Immunization Notes Care Provider Fa cility 03-26-2021 influenza virus vacc ine, unspecified formulation Julián Epps MD Work Phone: [facility] Payers Date Payer Category Payer Medicare [id number] 2021 Medicare MEDICARE MEDICAR E A AND B [id number] 2021-Present [phone] [address] [address] [place] [address] Medicare [id number] 2021 Unknown [id number] 2021 Unknown ANTHE[place] DIC[place] SUPPLE[place] [id number] 2021-Present [phone] [address] [place] [address] Indemnity [id number] 1955 Unknown [id number] Social History Date Type Detail Facility Start: 06-12-2013 Tobacco smoking stat us CTIS Never smoked tobacco [facility] Start: 06-12-2013 Tobacco use and exposure Smoke less tobacco non-user [facility] Start: 08-31-2022 Alcohol intake Current drinke r of alcohol (finding) [facility] Start: 08-31-2022 Alcohol Comment Once a week: wine [facility] Start: 1955 Sex Assigned At Not on file [facility] Start: 08-31-2022 History of Social function [facility] Start: 08-31-2022 Tobacco use panel [facility] National Score (1-10 0), lower number is lower risk 66 [facility] Note 01-19-2023 Telephone Encounter - Homa Bass LPN - 01/19/2023 7:32 AM EDT Note Date & Type Note Facility 01-19-2023 Miscellaneous Notes Formattin g of this note is different from the original. Patient [facility] [employer] message requesting the following refill Refill(s) Requested: Requested Prescriptions Pending Prescriptions Disp Refills hydrOXYchloroQUINE (PLAQUENIL) 200 mg tablet 60 tablet 2 Sig: Take 1 tablet by mouth two times a day. ALLERGIES Allergen Reactions Benadryl [Diphenhyd* Other: See Comments knocks me out (home) [phone] (cell) Last Office Visit Date: 12/22/2022 Last Distance Health Visit: Visit date not found Future Appointment: Visit date not found The patients preferred pharmacy has been captured for this encounter? yes Request is for script(s) to be escript to pharmacy. Homa Bass LPN documented in this encounter [facility] Progress note 12-22-2022 Note Date & Type Note Facility 12-22-2022 Note HNO ID: [id number] Author: Julián Epps MD Service: ? Author Type: Physician Type: Progress Notes Filed: 12/22/2022 1:09 PM Note Text: This note was created using NoteWriter. Subjective Leana Mancera is a 67 year old female. Not sure how she is doing * Last three day not with pain Most of the pains she has are in the wrist hand More on left side Not used aleve in last few days Was doing yard work and not with any far Avoiding inflammatory food Not with any ETOH use .. Not with any of those severe Inflammatory polyarthropathy pain Chills easy now Now with 90 degree weather ad will still use sweater . Review of Systems Objective Blood Pressure 97/52 Pulse 67 Temperature 36.4 ?C (97.6 ?F) (Temporal) Height 172.7 cm (5' 8 ) Weight 84.4 kg (186 lb) Oxygen Saturation 95% Body Mass Index 28.28 kg/m? Physical Exam Vitals reviewed. Constitutional: General: She is not in acute distress. Appearance: Normal appearance. She is not ill-appearing or toxic-appearing. Cardiovascular: Rate and Rhythm: Normal rate and regular rhythm. Heart sounds: Normal heart sounds. No murmur heard. No friction rub. No gallop. Pulmonary: Effort: No respiratory distress. Breath sounds: Normal breath sounds. No stridor. No wheezing or rhonchi. Abdominal: General: There is no distension. Palpations: Abdomen is soft. There is no mass. Tenderness: There is no abdominal tenderness. Hernia: No hernia is present. Musculoskeletal: Right shoulder: Normal. Left shoulder: Normal. Right elbow: Normal. Left elbow: Normal. Right wrist: Normal. Left wrist: Normal. Right hand: Normal. Left hand: Normal. Cervical back: No rigidity or tenderness. Thoracic back: Normal. Lumbar back: Normal. Right hip: Normal. Left hip: Normal. Right knee: Normal. Left knee: Normal. Right ankle: Normal. Left ankle: Normal. Right foot: Normal. Left foot: Normal. Comments: Dip pip enlargement Lymphadenopathy: Cervical: No cervical adenopathy. Skin: Findings: No rash. Neurological: Mental Status: She is alert. Assessment and Plan First visit 08/31/22 right handed Palindromic Rheumatism ( pseudoseptic arthritis ) (cannot excluded pseudogout) Quantiferon M. Tuberculosis negative 09/08 2022 Hep C ab, Hep B S Ag neg. 08/25/21 right knee aspirate culture crystal neg, wbc 90968, esr 20 (<30 ) crp 54 ( <3 ) , wbc 9300 normal. 06/11 RF CCP TEMITOPE neg CRP 3.93 ( < 3 ) 2014 1,25 [place] D 63 normal 09/08 esr 10 crp normal, uric 5.7 '''' 2015 chest xr normal 02/07 chest xr Degenerative disc disease TS (( Eric 04/2020, retired from [employer] and did not get better) ( 09/08 severe pain in right wrist pain 08/18/22 onset , numbness, thought had gout and went to PCP, night before was playing pickle ball 08/17/22, no inj, but at home was shivering, could not get warm, took hot shower felt something was wrong, shivering better during night time in blanket , PCP thought may be infection , labs done, and then right knee which was replaced started hurting, and then she called ortho, labs ordered and then next day, right knee fluid drained, no infection but fluid in the knee inflammatory 08/31/22 (( Right knee replacement in 02/07 and dealing with eric, and has started napping, not a caron )) (( 09/08 thinks body is hurting all over, like in a flare ) (( left wrist hurting also not severe started few day, hand are not hurting ) (( wrist right is somewhat better, using aleve 2 ever 5-6 hour ) (( never with gout ) 09/08 would be diff in future to differentiate from infection, OK to suppress disease activity for now. TT plaquenil 200 mg bid 08/31/22 ( 18 month and see clinical course, if no flare 18 months stop ) 08/31/22 (01/09 not consuming sugar / gluten ) 12/22/22 see in one year and cut back to once a day and stop if not flare. Drug and disease monitoring 2015 wbc 4000 low diff not done. 2016 CK 70 09/08 cbc cmp normal 2014 Vit B 1 11 normal, B12 419 normal Neck pain (( 09/08 : ;05/11 onset , annoying pain, worse than low back pain, 8/10, all day long, worse in, wakes up with it. )) TT 08/31/22 Back pain (( 09/08: ;years, attributes to lifting patients, exercise stable ) 08/31/22 Shoulder pain (( 08/09 onset, crunching sound, no swelling , attributes to exercise ) ( no elbow pains ) 08/31/22 Hip replacement (( 2016 bilateral replaced ) (( 09/08 no pain ) Right knee replacement 02/07 done. (09/08 Initially hurt but then OK, has done proper rehab )) (( 08/20/22 right knee started hurting, was not red or hot, but twinges of needle kind of pain, 20 cc removed ) (08/31/22 still not better in right knee, still with pain on wt bearing ) 08/31/22 ( no left knee pain ) ( no ankle feet pain, never with gout ) Paresthesia 2014 ( ) 2015 myocardial perfusion scan normal EF 66% [address] head : Relatively mild white matter abnormalities involving the c (more content not included)... [facility] Progress note 08-31-2022 Note Date & Type Note Facility 08-31-2022 Note HNO ID: [id number] Author: Julián Epps MD Service: ? Author Type: Physician Type: Progress Notes Filed: 09/03/2022 6:31 PM Note Text: This note was created using Loopbackriter. Subjective Leana Mancera is a 66 year old female. ( 09/08 severe pain in right wrist pain 08/18/22 onset , numbness, thought had gout and went to PCP, night before was playing pickle ball 08/17/22, no inj, but at home was shivering, could not get warm, took hot shower felt something was wrong, shivering better during night time in blanket , PCP thought may be infection , labs done, and then right knee which was replaced started hurting, and then she called ortho, labs ordered and then next day, right knee fluid drained, no infection but fluid in the knee inflammatory 08/31/22 (( Right knee replacement in 02/07 and dealing with fatique, and has started napping, not a caron )) (( 09/08 thinks body is hurting all over, like in a flare ) (( left wrist hurting also not severe started few day, hand are not hurting ) (( wrist right is somewhat better, using aleve 2 ever 5-6 hour ) (( never with gout ) Never with this issue before in life . Not much in terms of medical fu before. No history of recurrent oral or genital ulcers, no history of superficial or deep vein thrombosis, no history of iritis, uveitis, no history of erythema nodosum is there. No history of Hidradenitis Suppurativa . Patient with no new onset headaches, jaw claudication, abnormal tongue sensation, scalp tenderness, or episodes of diplopia or visual loss. Is not running any low grade fevers etc. Review of Systems Objective Blood Pressure 121/81 Pulse (Abnormal) 58 Temperature 36.5 ?C (97.7 ?F) Height 172.7 cm (5' 8 ) Weight 84.4 kg (186 lb) Body Mass Index 28.28 kg/m? Physical Exam Vitals reviewed. Constitutional: General: She is not in acute distress. Appearance: Normal appearance. She is not ill-appearing or toxic-appearing. HENT: Nose: No congestion or rhinorrhea. Mouth/Throat: Pharynx: No oropharyngeal exudate or posterior oropharyngeal erythema. Eyes: General: Right eye: No discharge. Left eye: No discharge. Cardiovascular: Rate and Rhythm: Normal rate and regular rhythm. Heart sounds: Normal heart sounds. No murmur heard. No friction rub. No gallop. Pulmonary: Effort: No respiratory distress. Breath sounds: Normal breath sounds. No stridor. No wheezing or rhonchi. Abdominal: General: There is no distension. Palpations: There is no mass. Tenderness: There is no abdominal tenderness. Hernia: No hernia is present. Musculoskeletal: Right shoulder: Normal. Left shoulder: Normal. Right elbow: Normal. Left elbow: Normal. Right wrist: Normal. Left wrist: Normal. Right hand: Normal. Left hand: Normal. Cervical back: No rigidity or tenderness. Thoracic back: Normal. Lumbar back: Normal. Right hip: Normal. Left hip: Normal. Right knee: Normal. Left knee: Normal. Right lower leg: No edema. Left lower leg: No edema. Right ankle: Normal. Left ankle: Normal. Right foot: Normal. Left foot: Normal. Comments: Dip pip enlargement 1st cmc enlargement No sign of septic arthritis Right knee no warmth Lymphadenopathy: Cervical: No cervical adenopathy. Skin: Findings: No rash. Neurological: Mental Status: She is alert. Assessment and Plan First visit 08/31/22 Palindromic Rheumatism ( pseudoseptic arthritis ) (cannot excluded pseudogout / polyarticular gout either ) (( Eric 04/2020, retired from [employer] and did not get better) Quantiferon M. Tuberculosis negative 09/08 2022 Hep C ab, Hep B S Ag neg. 08/25/21 right knee aspirate culture crystal neg, wbc 25563, esr 20 (<30 ) crp 54 ( <3 ) , wbc 9300 normal. 06/11 RF CCP TEMITOPE neg CRP 3.93 ( < 3 ) 2014 1,25 [place] D 63 normal 09/08 esr 10 crp normal, uric acid 5.7 2015 chest xr normal 02/07 chest xr Degenerative disc disease TS ( 09/08 severe pain in right wrist pain 08/18/22 onset , numbness, thought had gout and went to PCP, night before was playing pickle ball 08/17/22, no inj, but at home was shivering, could not get warm, took hot shower felt something was wrong, shivering better during night time in blanket , PCP thought may be infection , labs done, and then right knee which was replaced started hurting, and then she called ortho, labs ordered and then next day, right knee fluid drained, no infection but fluid in the knee inflammatory 08/31/22 (( Right knee replacement in 02/07 and dealing with fatique, and has started napping, not a caron )) (( 09/08 thinks body is hurting all over, like in a flare ) (( left wrist hurting also not severe started few day, hand are not hurting ) (( wrist right is somewhat better, using aleve 2 ever 5-6 hour ) (( never with gout ) 09/08 would be diff in future to differentiate from infection, OK to suppress disease activity for now. TT plaquenil 200 (more content not included)... [facility] History of Present illness Narrative 08-31-2022 Julián Epps MD - 08/31/2022 11:33 AM EDT Note Date & Type Note Facility 08-31-2022 History of Presen t illness Narrative This note was created using Loopbackriter. Subjective Leana Mancera is a 66 year old female. ( 09/08 severe pain in right wrist pain 08/18/22 onset , numbness, thought had gout and went to PCP, night before was playing pickle ball 08/17/22, no inj, but at home was shivering, could not get warm, took hot shower felt something was wrong, shivering better during night time in blanket , PCP thought may be infection , labs done, and then right knee which was replaced started hurting, and then she called ortho, labs ordered and then next day, right knee fluid drained, no infection but fluid in the knee inflammatory 08/31/22 (( Right knee replacement in 02/07 and dealing with fatique, and has started napping, not a caron )) (( 09/08 thinks body is hurting all over, like in a flare ) (( left wrist hurting also not severe started few day, hand are not hurting ) (( wrist right is somewhat better, using aleve 2 ever 5-6 hour ) (( never with gout ) Never with this issue before in life . Not much in terms of medical fu before. No history of recurrent oral or genital ulcers, no history of superficial or deep vein thrombosis, no history of iritis, uveitis, no history of erythema nodosum is there. No history of Hidradenitis Suppurativa . Patient with no new onset headaches, jaw claudication, abnormal tongue sensation, scalp tenderness, or episodes of diplopia or visual loss. Is not running any low grade fevers etc. Review of Systems Objective Blood Pressure 121/81 Pulse (Abnormal) 58 Temperature 36.5 C (97.7 F) Height 172.7 cm (5' 8 ) Weight 84.4 kg (186 lb) Body Mass Index 28.28 kg/m Physical Exam Vitals reviewed. Constitutional: General: She is not in acute distress. Appearance: Normal appearance. She is not ill-appearing or toxic-appearing. HENT: Nose: No congestion or rhinorrhea. Mouth/Throat: Pharynx: No oropharyngeal exudate or posterior oropharyngeal erythema. Eyes: General: Right eye: No discharge. Left eye: No discharge. Cardiovascular: Rate and Rhythm: Normal rate and regular rhythm. Heart sounds: Normal heart sounds. No murmur heard. No friction rub. No gallop. Pulmonary: Effort: No respiratory distress. Breath sounds: Normal breath sounds. No stridor. No wheezing or rhonchi. Abdominal: General: There is no distension. Palpations: There is no mass. Tenderness: There is no abdominal tenderness. Hernia: No hernia is present. Musculoskeletal: Right shoulder: Normal. Left shoulder: Normal. Right elbow: Normal. Left elbow: Normal. Right wrist: Normal. Left wrist: Normal. Right hand: Normal. Left hand: Normal. Cervical back: No rigidity or tenderness. Thoracic back: Normal. Lumbar back: Normal. Right hip: Normal. Left hip: Normal. Right knee: Normal. Left knee: Normal. Right lower leg: No edema. Left lower leg: No edema. Right ankle: Normal. Left ankle: Normal. Right foot: Normal. Left foot: Normal. Comments: Dip pip enlargement 1st cmc enlargement No sign of septic arthritis Right knee no warmth Lymphadenopathy: Cervical: No cervical adenopathy. Skin: Findings: No rash. Neurological: Mental Status: She is alert. Assessment and Plan First visit 08/31/22 Palindromic Rheumatism ( pseudoseptic arthritis ) (cannot excluded pseudogout / polyarticular gout either ) (( Eric 04/2020, retired from [employer] and did not get better) 08/25/21 right knee aspirate culture crystal neg, wbc 58698, esr 20 (<30 ) crp 54 ( <3 ) , wbc 9300 normal. 06/11 RF CCP TEMITOPE neg CRP 3.93 ( < 3 ) 2014 1,25 [place] D 63 normal 2015 chest xr normal 02/07 chest xr Degenerative disc disease TS ( 09/08 severe pain in right wrist pain 08/18/22 onset , numbness, thought had gout and went to PCP, night before was playing pickle ball 08/17/22, no inj, but at home was shivering, could not get warm, took hot shower felt something was wrong, shivering better during night time in blanket , PCP thought may be infection , labs done, and then right knee which was replaced started hurting, and then she called ortho, labs ordered and then next day, right knee fluid drained, no infection but fluid in the knee inflammatory 08/31/22 (( Right knee replacement in 02/07 and dealing with fatique, and has started napping, not a caron )) (( 09/08 thinks body is hurting all over, like in a flare ) (( left wrist hurting also not severe started few day, hand are not hurting ) (( wrist right is somewhat better, using aleve 2 ever 5-6 hour ) (( never with gout ) 09/08 would be diff in future to differentiate from infection, OK to suppress disease activity for now. TT Rheumatoid arthritis 200 mg bid 08/31/22 ( 18 month and see clinical course, if no flare 18 months stop ) 08/31/22 Drug and disease monitoring 2015 wbc 4000 low diff not done. 2016 CK 70 2014 Vit B 1 11 normal, B12 419 normal Neck pain (( 09/08 : ;05/11 onset , annoying pain, worse than low back pain, 8/10, all day long, worse in, wakes up with it. 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 (09/08 Initially hurt but then OK, has done proper rehab )) (( 08/20/22 right knee started hurting, was not red or hot, but twinges of needle kind of pain, 20 cc removed ) (08/31/22 still not better in right knee, still with pain on wt bearing ) 08/31/22 ( no left knee pain ) ( no ankle feet pain, never with gout ) Paresthesia 2014 ( ) 2016 myocardial perfusion scan normal EF 66% [address] head : Relatively mild white matter abnormalities involving the cerebral and cerebellar hemispheres as described above. chronic microvascular disease ((2014 right side of face numb, could not talk, went to [facility], BP was jorge a high, stroke stephenson all negative ) TT 08/31/22 Episcleritis 12/08 ( left eye , used steroid eye drop, , ) 08/31/22 HTN 2014 onset JACK 2014 diagnosed on CPAP . Wt issue 08/31/22 Ht 5'8 186 08/31/22 Colonoscopy 2012 normal. Brief Personal and family history: ( same partner 2009 no chance of STD ) 08/31/22 Never smoked, parents smoked till she was in college 08/31/22 Diet : 09/08 watching diet , 09/08 few glasses of wine per day 09/08 physically active. 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 Gastrointestinal intolerance issues discussed, can take with food or after food to lessen the chances of same. Hepatic and hematologic toxicity of the drug explained. Rare cases of pancreatitis and hepatitis reported with the drug. Change in the color of the urine explained to patient. Headaches, dizziness also possible, hemolysis possible. Patient understood and verbalized understanding. sulfasalazine Risk and benefit of methotrexate discussed in detail with patient. Use the pill empty stomach. Do not use bactrim while on this pill. Stressed the total need for avoidance of alcohol. Possible side effects include but are not limited to rashes, GI distress, alopecia, infections, hematologic and hepatic toxicity, painful mucosal ulcerations. Photosensitivity can be there. Flu like symptoms, feeling tired on the day of ingestion. Stressed the need for close laboratory monitoring to access for hematologic and hepatic side effects. Blood test to be done initially every 4 weeks and then if doing good to be prolonged to every 8-12 weeks and not beyond that. ( [employer] [employer] recommends monitoring CBC, Creatinine and LFT at least every three months) . Risk and benefit of plaquenil treatment reinforced with patient including the need for yearly opthalmologic exam. Patient make aware of the risk of retinal toxicity with plaquenil. To take this pill with food. ( other rare side effects include hypo-hyper pigmentation, pyschosis ) ( exceptionally rare side effects are proximal muscle weakness and cardiomyopathy. Nausea and vomit are common side effects, can cut back on dose if this happens, if cannot tolerate nausea then may have to stop the drugs. [employer] [employer] guidelines:A baseline fundus examination should be performed to rule out preexisting maculopathy. Begin annual screening after 5 years for patients on acceptable doses and without major risk factors.( 5 mg per kg body wt or 6.5 mg per kg ideal body wt ) documented in this encounter [facility] Evaluation note Note Date & Type Note Facility documented in this encounter [facility] Summary Purpose Family History No Family History Records FoundNo Family History Records FoundNo Family History Records Found Advance Directives No Advanced Directives Records FoundNo Advanced Directives Records FoundNo Advanced Directives Records Found Additional Source Comments INFORMATION SOURCE (unrecogn ized section and content) DATE CREATED AUTHOR AUTHOR'S ORGANIZ ATION 09/02/2022 [facility] DATE CREATED AUTHOR AUTHOR'S ORGANIZ ATION 12/22/2022 [facility] Source Comments (unrecognize d section and content) In the event this informatio n is protected by the Federal Confidentiality of Alcohol and Drug Abuse Patient Records regulations: The Federal rules restrict any use of the information to criminally investigate or prosecute any alcohol or drug abuse patient[facility] event this information is protected by the Federal Confidentiality of Alcohol and Drug Abuse Patient Records regulations: The Federal rules restrict any use of the information to criminally investigate or prosecute any alcohol or drug abuse patient.[facility] Reason for Visit (unrecogniz ed section and content) Reason Onset Date Comments Refill Request 01/19/2023 Care Teams (unrecognized sec tion and content) Corporate Accounting Manager Relationship Specialty Start Date End Date Taran Tyler MD PCP - General Family Medicine 12/24/15 FOR RECORDS PERTAINING TO PATIENTS WHO ARE OR HAVE BEEN ENROLLED IN A CHEMICAL DEPENDENCY/SUBSTANCEABUSE PROGRAM, SOME INFORMATION MAY BE OMITTED. This clinical summary was aggregated from multiple sources. Caution should be exercised in using it in the provision of clinical care. This summary normalizes information from multiple sources, and as a consequence, information in this document may materially change the coding, format and clinical context of patient data. In addition, data may be omitted in some cases. CLINICAL DECISIONS SHOULD BE BASED ON THE PRIMARY CLINICAL RECORDS. [facility] [place] [facility]. provides no warranty or guarantee of the accuracy or completeness of information in this document.
[2023-04-20 08:52] LABS: Partial Thromboplast Time 25.2 Seconds (24.1-36.2)
--- NOTE | 2023-04-20 08:55 | RAD_ITS ---
STUDY: X-RAY CHEST REASON FOR EXAM: Female, 67 years old. Neurological deficit. Suspected stroke. TECHNIQUE: Single frontal view of the chest. COMPARISON: January 27, 2022 FINDINGS: Mild hyperinflation. There is no demonstrated pleural abnormality. Mild cardiomegaly. Normal mediastinum and valeria. Normal visualized pulmonary arteries. Aortic tortuosity. Normal visualized thoracic spine. Normal visualized ribs, clavicles, and shoulders. No abnormality of the visualized soft tissue structures of the upper abdomen. RAD/Chest 1 View IMPRESSION: Cardiomegaly with mild hyperinflation and no acute or active cardiopulmonary disease. Electronically Signed: Asaf Stuart MD at 9:22 EST ,
[2023-04-20 08:56] LABS: International Normalized Ratio 0.9; Prothrombin Time (Protime)PT. 12.2 SECONDS (11.7-14.9)
[2023-04-20 09:09] LABS: Anion Gap 7 (5-15); BUN 34 mg/dL (7-18); BUN/Creat Ratio 34.4 RATIO (10-20); Calcium,Total 9.4 mg/dL (8.5-10.1); Chloride 101 mmol/L (98-107); Creatinine, Serum 0.99 mg/dL (0.55-1.02); EST Glomerular Filtration Rate 60 mL/min (>60); Est Glom Filt Rate - Afr Amer 72 mL/min (>60); Estimated Creatinine Clearance 58.42 ml/min; Glucose 110 mg/dL (74-106); Potassium 3.4 mmol/L (3.5-5.1); Sodium Level 136 mmol/L (136-145); Troponin-I HS 5 pg/mL (3.0-54.0)
--- NOTE | 2023-04-20 10:06 | NURSING ---
DR EDWARD VERDE
--- NOTE | 2023-04-20 10:11 | NURSING ---
PCU OBS EDWARD TIA
--- NOTE | 2023-04-20 10:15 | MRI_ITS ---
STUDY: MRI BRAIN WITHOUT CONTRAST REASON FOR EXAM: Female, 67 years old. stroke, temporarily lost vision today in lt eye, headache, felt pop in head TECHNIQUE: Standardized multiplanar fat and water weighted pulse sequences were obtained. COMPARISON: Head CT dated April 20, 2023 FINDINGS: There is moderate cerebral atrophy with widening of the extra-axial spaces and ventricular dilatation. There are a limited number of small white matter hyperintensities, distributed throughout the deep white matter tracts of the cerebral hemispheres, consistent with mild chronic white matter ischemic changes. There is no evidence for recent intracranial ischemia or other cause of cytotoxic edema on diffusion weighted imaging (DWI). Normal T2* images of the brain without demonstrated susceptibility artifact. There is no demonstrated hemosiderin stain. Normal bilateral basal ganglia. Normal thalami. There is no extra-axial fluid accumulation. Normal flow voids within the major intracranial circulation suggesting patency by spin echo criteria. Normal sella turcica, pituitary gland, infundibular stalk, optic chiasm and hypothalamus. Normal tectal plate and pineal gland. Normal midbrain, adina and medulla. Normal cerebellum. Normal basal cisterns. Normal bilateral temporal bones. Normal bilateral internal auditory canals. No demonstrated orbital abnormality, within the constraints of a routine brain study. Normal visualized paranasal sinuses. Normal calvarium and skull base. Normal visualized soft tissue structures. Normal visualized upper cervical spine. MRI/Brain without Contrast IMPRESSION: Involutional changes of the brain, as described above. Electronically Signed: Min Torres MD at 13:01 EST ,
--- NOTE | 2023-04-20 10:15 | ECHOD_ITS ---
Reason For Study: TIA/STROKE Procedure This was a 2D Doppler, Color Flow transthoracic echocardiogram. Exam performed portable in patient room. Left Ventricle Normal size and thickness. The left ventricular ejection fraction is 65 %. Normal diastololic function. Right Ventricle Normal right ventricle. Atria The left and right atria are normal. Bubble contrast study is suspicious for tiny PFO. Mitral Valve The mitral valve is structurally normal. No prolapse or stenosis seen. Tricuspid Valve Trivial tricuspid valve insufficiency. Normal pulmonary artery pressure. Aortic Valve Trisinus/trileaflet aortic valve. Mild (1+) aortic valve insufficiency. Pulmonic Valve The pulmonic valve is not well visualized. Great Vessels Normal sized aortic root. Pericardium/Pleural No pericardial effusion. Medication Performed a rapid injection of agitated mix of 9 cc saline and 1cc air to assess for atrial septal defect. MMode/2D Measurements & Calculations LVIDd: 4.7 cm IVSd: 0.93 cm Ao root diam: 3.2 cm LVIDs: 3.0 cm LVPWd: 0.88 cm RVDd: 3.6 cm FS: 36.5 % LAV(MOD-bp): 33.0 ml LVAd ap4: 31.1 cm2 SV(MOD-sp4): 66.8 ml LAV(MOD-bp) Indexed: 16.3 ml/m2 LVLd ap4: 8.1 cm LAV(MOD-sp2): 36.8 ml EDV(MOD-sp4): 98.7 ml LAV(MOD-sp4): 28.8 ml EDV(sp4-el): 101.4 ml LVAs ap4: 15.7 cm2 LVLs ap4: 6.5 cm ESV(MOD-sp4): 31.9 ml ESV(sp4-el): 32.2 ml EF(MOD-sp4): 67.7 % EF(sp4-el): 68.2 % SV(sp4-el): 69.2 ml LA A4 area: 13.0 cm2 LA dimension(2D): 3.3 cm RA A4 area: 11.3 cm2 Time Measurements MV dec time: 0.22 sec Doppler Measurements & Calculations MV E max dayron: 80.9 cm/sec Lat Peak E' Dayron: 13.7 cm/sec Med Peak E' Dayron: 9.9 cm/sec MV A max dayron: 71.4 cm/sec E/E' lat: 5.9 E/E' med: 8.2 MV E/A: 1.1 Ao V2 max: 143.2 cm/sec AI max dayron: 395.3 cm/sec LV V1 max: 125.2 cm/sec Ao max P.2 mmHg AI max P.5 mmHg LV V1 max P.3 mmHg AI dec slope: 139.7 cm/sec2 AI P1/2t: 828.4 msec PA V2 max: 92.5 cm/sec TR max dayron: 268.9 cm/sec TR max P.9 mmHg ECHO/Echo Complete Interpretation Summary The left ventricular ejection fraction is 65 %. Bubble contrast study is suspicious for tiny PFO. Recommend GUILLE for further kayla luation if clinically indicated. Mild (1+) aortic valve insufficiency. Ordering Physician: Summer Ruiz Referring Physician: MAN DREW Performed By: Berenice Raphael RDCS
[2023-04-20 10:50] LABS: CRP < 2.90 mg/L (0.0-3.0)
[2023-04-20 10:53] LABS: Erythrocyte Sedimentation Rate 8 mm/hr (0-30)
--- OUTSIDE RECORDS SUMMARY | 2023-04-20 11:20 | XMS RPT_ITS | CCD ---
Author Name Unknown Address [address] [place] [address] [address] [place] [address] Organization [facility] Care Team Providers Care Backend Java Developer Name Role Phone Taran Tyler MD Primary Care Provider JULIÁN EPPS Referring Unavailable TARAN TYLER Primary Care Unavailable TARAN TYLER Primary Care Unavailable JULIÁN EPPS Attending Unavailable TARAN TYLER Primary Care Unavailable JULIÁN EPPS Attending Unavailable Allergies Allergy Classification Reported Allergen(s) Allergy Type Date of Onset Reaction(s) Facility (4 sources) diphenhydrAMINE; Translations: [DIPHENHYDRAMINE HCL] Drug Allergy 12-15-2012 Other: See Comments [facility] Medications Completed/Discontinued Medications Medication Drug Class(es) [...] 172.7 cm Julián Epps MD Work Phone: [facility] 08-31-2022 11:30-0400 Body temperature 97.7 [degF] Julián Epps MD Work Phone: [facility] 08-31-2022 11:30-0400 Body weight 84.37 kg Julián Epps MD Work Phone: [facility] 08-31-2022 11:30-0400 Diastolic blood pressure 81 mm[Hg] Julián Epps MD Work Phone: [facility] 08-31-2022 11:30-0400 Heart rate 58 /min Julián Epps MD Work Phone: [facility] 08-31-2022 11:30-0400 Systolic blood pressure 121 mm[Hg] Julián Epps MD Work Phone: [facility] Encounters Encounter Date Encounter Type Care Provider Facility Start: 01-19-2023 Refill Julián ventura MD Work Phone: [facility] Procedures Date Procedure Procedure Detail Performing Clinician Start: 11-26-2015 Mammography Julián Epps MD Work Phone: Start: 12-20-2014 Lipid 1996 panel - S geena or Plasma Julián Epps MD Work Phone: Start: 01-06-2013 Colonoscopy Julián Epps MD Work Phone: Plan of Treatment Date Care Activity Detail Author Start: 09-01-2025 Diabetes Screening Diabetes Screenin g [facility] Start: 12-23-2023 BP Controlled (<130/80) BP Controlle d (<130/80) [facility] Start: 01-06-2023 Colonoscopy COLONOSCOPY [facility] Start: 01-06-2023 COLORECTAL CANCER SCREENING COLORECTAL CANCER SCREENING [facility] Start: 12-18-2022 Influenza vaccination C [facility] Start: 08-31-2022 End: 10-31-2022 C reactive protein [Mass/volume] in Serum or Plasma C-REACTIVE PROTEIN (CRP) Lab Routine Palindromic rheumatism Expected: 08/31/2022, Expires: 10/31/2022 [facility] Work Phone: Immunizations Immunization Date Immunization Notes Care Provider Fa cility 03-26-2021 influenza virus vacc ine, unspecified formulation Julián Epps MD Work Phone: [facility] Payers Date Payer Category Payer Medicare [id number] 2021 Medicare MEDICARE MEDICAR E A AND B [id number] 2021-Present [phone] [address] [address] [place] [address] Medicare [id number] 2021 Unknown [id number] 2021 Unknown [place] [id number] 2021-Present [phone] [address] [place] [address] Indemnity [id number] 1955 Unknown [id number] Social History Date Type Detail Facility Start: 06-12-2013 Tobacco smoking stat us TNIS Never smoked tobacco [facility] Start: 06-12-2013 Tobacco use and exposure Smoke less tobacco non-user [facility] Start: 08-31-2022 Alcohol intake Current drinke r of alcohol (finding) [facility] Start: 08-31-2022 Alcohol Comment Once a week: wine [facility] Start: 1955 Sex Assigned At Not on file [facility] Start: 08-31-2022 History of Social function [facility] Start: 08-31-2022 Tobacco use panel [facility] National Score (1-10 0), lower number is lower risk 67 [facility] Note 01-19-2023 Telephone Encounter - Homa Bass LPN - 01/19/2023 7:32 AM EDT Note Date & Type Note Facility 01-19-2023 Miscellaneous Notes Formattin g of this note is different from the original. Patient BetterLessonhart message requesting the following refill Refill(s) Requested: Requested Prescriptions Pending Prescriptions Disp Refills hydrOXYchloroQUINE (PLAQUENIL) 200 mg tablet 60 tablet 2 Sig: Take 1 tablet by mouth two times a day. ALLERGIES Allergen Reactions Benadryl [Diphenhyd* Other: See Comments knocks me out (home) [phone] (cell) Last Office Visit Date: 12/22/2022 Last Distance Health Visit: Visit date not found Future Appointment: Visit date not found The patients preferred pharmacy has been captured for this encounter? yes Request is for script(s) to be escript to pharmacy. Homa Bass LPN documented in this encounter [facility] Progress note 12-22-2022 Note Date & Type Note Facility 12-22-2022 Note HNO ID: [id number] Author: Julián Epps MD Service: ? Author [...] right knee aspirate culture crystal neg, wbc 10360, esr 20 (<30 ) crp 54 ( <3 ) , wbc 9300 normal. 06/11 RF CCP TEMITOPE neg CRP 3.93 ( < 3 ) 2014 1,25 [place] D 63 normal 09/08 esr 10 crp normal, uric 5.7 '''' 2015 chest xr normal 02/07 chest xr Degenerative disc disease TS (( Eric 04/2020, retired from [employer] and did not get better) ( [...] Type Note Facility 08-31-2022 Note HNO ID: [id number] Author: Julián Epps MD Service: ? Author Type: Physician Type: Progress Notes Filed: 09/03/2022 6:31 PM Note Text: This note was created using [employer]. Subjective Leana Mancera is a 66 year [...] either ) (( Eric 04/2020, retired from [employer] and did not get better) Quantiferon M. Tuberculosis negative 09/08 2022 Hep C ab, Hep B S Ag neg. 08/25/21 right knee aspirate culture crystal neg, wbc 10232, esr 20 (<30 ) crp 54 ( [...] illness Narrative This note was created using [employer]. Subjective Lenaa Mancera is a 66 year old female. 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 ( [place] [employer] recommends monitoring CBC, Creatinine [...] then may have to stop the drugs. [employer] [employer] guidelines:A baseline fundus examination should be performed to rule out preexisting maculopathy. Begin annual screening after 5 years for patients on acceptable doses and without major risk factors.( 5 mg per kg body wt or 6.5 mg per kg ideal body wt ) documented in this encounter [facility] Evaluation note Note Date & Type Note Facility documented in this encounter [facility] Summary Purpose Family History No Family History Records FoundNo Family History Records FoundNo Family History Records Found Advance Directives No Advanced Directives Records FoundNo Advanced Directives Records FoundNo Advanced Directives Records Found Additional Source Comments INFORMATION SOURCE (unrecogn ized section and content) DATE CREATED AUTHOR AUTHOR'S ORGANIZ ATION 09/02/[address] [facility] DATE CREATED AUTHOR AUTHOR'S ORGANIZ ATION 12/22/2022 [facility] Source Comments (unrecognize d section and content) In the event this informatio n is protected by the Federal Confidentiality of Alcohol and Drug Abuse Patient Records regulations: The Federal rules restrict any use of the information to criminally investigate or prosecute any alcohol or drug abuse patient.[facility] event this information is protected by the Federal Confidentiality of Alcohol and Drug Abuse Patient Records regulations: The Federal rules restrict any use of the information to criminally investigate or prosecute any alcohol or drug abuse patient.[facility] Reason for Visit (unrecogniz ed section and content) Reason Onset Date Comments Refill Request 01/19/2023 Care Teams (unrecognized sec tion and content) Backend Java Developer Relationship Specialty Start Date End Date Taran [...] BE BASED ON THE PRIMARY CLINICAL RECORDS. [facility] [employer] [employer] [facility]. provides no warranty or guarantee of the accuracy or completeness of information in this document.
[2023-04-20] MEDS: LORazepam 1 MG Tablet PO (11:39)
[2023-04-20 11:50] LABS: Hemoglobin A1c 5.1 % (3.8-5.6)
[2023-04-20] MEDS: Potassium Chloride Oral Tablet 20 MEQ 40 MEQ PO (14:22)
--- NOTE | 2023-04-20 15:27 | PCM.HP.STD ---
HPI - General General Date of Admission: 04/20/23 Date of Service: 04/20/23 Chief Complaint: Blurred vision/left face tingling HPI Narrative CHAMP ROTH, is a 67 F who presented to the emergency department at [facility] on 04/20/2022 with acute onset blurred vision and left face tingling. 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 She did indicate she had a restless night sleep which is atypical for her but otherwise was feeling okay. When she got to work she was getting ready to scan the patient when she felt a pop in the left side of her head temporal region after which she had acute onset headache and blurred vision in her left eye. After arrival to the emergency department she developed some tingling in her left face. She stated she did scan the patient but when the pop occurred and her headache started she felt very lightheaded and it sounds as if she had vertiginous symptoms. She stated she almost passed out. She never lost consciousness and was able to scan her next patient and then came to the emergency department. NIH on arrival was 1 for left facial tingling. She had no visual field but did complain of blurred vision in the eye. By the time I evaluated her her headache was resolving and she was feeling much better. Her vision was almost back to baseline and the tingling in her left face had resolved. She does have a history of hyper tension and is with her antihypertensive regimen at home she was recently diagnosed with rheumatoid arthritis and takes Plaquenil at baseline. She does states she has a history of migraine headaches that started when she started her period. She did say she had improvement in her migraine history as she got older and at the time of menopause her migraines returned however they were visual impairment only with no resultant headache. She states the visual loss that she had with this event were nothing like the visual losses she had experienced previously with migraines. She also indicates she does not get headaches frequently. Vital signs on presentation showed a temperature of 97.7, blood pressure was 156/92, heart rate was 71, respiratory was 14 and oxygen saturation was 99% on room air was unremarkable. Coags were normal. Chemistry panel revealed mild hypokalemia with potassium of 3.4 but was otherwise unremarkable. We obtained a hemoglobin A1c which was 5.1. Troponin was 5. I added on inflammatory markers in the form of CRP and ESR. They were both completely normal at less than 2.9 and 8 respectively. EKG was normal sinus rhythm without any ST-T wave changes concerning for acute ischemia and normal intervals. CT of the brain showed chronic involutional changes but no acute findings. CT of the head and neck showed normal [place] without any demonstrated aneurysm or thrombus or hemodynamically significant stenosis and normal bilateral carotid and vertebral artery exam. Chest x-ray had no acute findings. Stroke alert was called at presentation and she was evaluated by stroke neurologist from [facility]. The risk and benefits of tenecteplase use in the setting of her presentation were discussed with the patient and they elected not to proceed with any tenecteplase. [facility] Medical History Autoimmune disorder Constipation Constipation Family history of colon cancer in father HTN (hypertension) Palindromic rheumatism Sleep apnea Home Medications cholecalciferol (vitamin D3) 25 mcg (1,000 unit) tablet 2,000 unit PO DAILY 04/25/14 [History Last Taken Unknown] hydrochlorothiazide 25 mg tablet 25 mg PO DAILY 04/16/21 [History Last Taken 04/20/23] lisinopril 10 mg tablet 20 mg PO DAILY 04/16/21 [History Last Taken 04/20/23] hydroxychloroquine 200 mg tablet 200 mg PO DAILY 09/28/22 [History Last Taken 04/20/23] estradiol 0.01% (0.1 mg/gram) vaginal cream See Rx Instructions vaginal .COMPLEX #42.5 grams 03/23/23 [Rx Last Taken Unknown] Allergy/AdvReac Type Severity Reaction Status Date / Time diphenhydramine HCl AdvReac Other Verified 04/20/23 08:12 [From Benadryl] Family History Father Colon cancer Heart disease Hypertension Thyroid disorder Mother Breast cancer Unknown Breast cancer Brother Alcoholism Sister Autoimmune disease Aunt Breast cancer Sister Breast cancer, Onset Age: 60 Surgical History H/O bilateral hip replacements History of breast lump/mass excision History of tonsillectomy S/P partial hysterectomy Total knee replacement status Social History household members: significant other current occupational status: employed current occupation: [employer] Smoking Status: Never smoker alcohol intake: current alcohol intake frequency: a few times a month substance use type: does not use diet: other what type of physical activity do you participate in: walking, yoga and other frequency: 3-4 times per week seatbelt use: always do you feel safe at home: Yes additional social history: single ROS Constitutional Constitutional: Denies anorexia, change in weight, chills, fatigue, fever(s), malaise, night sweats, weakness or other Eyes Eyes: Denies blurry vision, change in eye color, change in vision, discharge from eye(s), double vision, erythema, eye pain, loss of vision or other ENT HEENT: Denies abnormal hearing, dysphagia, ear pain, epistaxis, headache(s), hearing loss, nasal congestion, nasal discharge, post nasal drip, sinus pressure, sore throat or other Cardiovascular Cardiovascular: Reports other Details: Presyncope ; Denies chest pain, claudication, dyspnea on exertion, edema, lightheadedness, orthopnea, palpitations, paroxysmal nocturnal dyspnea, rapid heart rate or syncope Respiratory/Chest Respiratory/Chest: Denies cough, dyspnea, excessive phlegm production, hemoptysis, productive cough, shortness of breath at rest, shortness of breath with exertion, wheezing or other Gastrointestinal Gastrointestinal: Denies abdominal pain, coffee ground emesis, constipation, diarrhea, dyspepsia, hematemesis, hematochezia, loose stools, melena, nausea, vomiting or other Genitourinary Genitourinary: Denies burning urination, difficulty urinating, dysuria, hematuria, nocturia, urinary frequency, urinary hesitancy, urinary incontinence, urinary urgency or other Musculoskeletal Musculoskeletal: Denies arthralgias, back pain, joint pain, joint stiffness, joint swelling, myalgias, neck pain or other Neurologic Neurologic: Reports headache(s), tingling and other Details: Blurred vision predominantly in left eye and tingling in left face Psychiatric Psychiatric: Denies anxiety, depression, homicidal ideation, suicidal ideation or other Endocrine Endocrinology: Denies change in body appearance, cold intolerance, excessive sweating, heat intolerance, polydipsia, polyuria or other Hematologic/Lymphatic Hematologic/Lymphatic: Denies anemia, easy bleeding, easy bruising, lymphadenopathy or other Allergic/Immunologic Allergic/Immunologic: Denies rhinitis, hives, eczemia, asthma or other Vital Signs Vital Signs Vital Signs: 04/20/23 08:09 04/20/23 08:22 04/20/23 08:39 Temperature 97.7 F L Temperature Source Oral Pulse Rate 71 69 Respiratory Rate 14 20 H Respiratory Effort Respiratory Depth Respiratory Pattern Blood Pressure 156/92 H 161/71 H Blood Pressure Mean 113 101 Blood Pressure Source Blood Pressure Position Blood Pressure Location Pulse Ox 99 Oxygen Delivery Method Room Air 04/20/23 08:48 04/20/23 09:08 04/20/23 09:18 Temperature Temperature Source Pulse Rate 65 55 L 59 L Respiratory Rate 17 14 14 Respiratory Effort Respiratory Depth Respiratory Pattern Blood Pressure 146/70 H 156/72 H 140/71 H Blood Pressure Mean 95 100 94 Blood Pressure Source Blood Pressure Position Blood Pressure Location Pulse Ox 97 96 96 Oxygen Delivery Method Room Air Room Air Room Air 04/20/23 09:38 04/20/23 10:00 04/20/23 11:41 Temperature 97.7 F L Temperature Source Oral Pulse Rate 55 L 53 L 54 L Respiratory Rate 14 14 12 Respiratory Effort Respiratory Depth Respiratory Pattern Blood Pressure 149/76 H 140/79 H 139/76 H Blood Pressure Mean 100 99 97 Blood Pressure Source Monitor Blood Pressure Position Supine Blood Pressure Location Left Arm Pulse Ox 97 97 98 Oxygen Delivery Method Room Air Room Air 04/20/23 10:44 04/20/23 11:20 04/20/23 11:41 Temperature 97.7 F L Temperature Source Oral Pulse Rate 59 L 54 L Respiratory Rate 14 12 Respiratory Effort Respiratory Depth Respiratory Pattern Blood Pressure 140/71 H 139/76 H Blood Pressure Mean 94 97 Blood Pressure Source Monitor Blood Pressure Position Sitting Blood Pressure Location Left Arm Pulse Ox 96 98 98 Oxygen Delivery Method Room Air Room Air Room Air 04/20/23 14:00 Temperature Temperature Source Pulse Rate Respiratory Rate Respiratory Effort Normal Respiratory Depth Normal Respiratory Pattern Normal Blood Pressure Blood Pressure Mean Blood Pressure Source Blood Pressure Position Blood Pressure Location Pulse Ox Oxygen Delivery Method Room Air Weight Weight: 87.3 kg Body Mass Index (BMI) 28.4 Physical Exam Const alert, oriented x3, no apparent distress, healthy appearing and well nourished Constitutional Narrative: Overweight, upper middle-aged, white female, sitting up in bed, family at bedside, patient appears comfortable and nontoxic HEENT normocephalic, head/scalp atraumatic, hearing grossly normal bilaterally and moist oral mucous membranes HEENT Narrative: Mallampati 3, no thrush, dentition is good Eyes PERRL, EOMs intact bilaterally and conjunctivae normal Eyes Narrative: No scleral icterus Neck no lymphadenopathy and supple Neck Narrative: Trachea midline, no thyroid enlargement Resp normal respiratory effort, no retractions, no use of accessory muscles and clear to auscultation bilaterally Auscultation: Negative for rales, rhonchi or wheezes Cardio regular rate, regular rhythm, S1 normal heart sound, S2 normal heart sound, no murmurs, no rub, no gallops and no clicks GI normal to inspection, nondistended, normoactive bowel sounds, soft to palpation and non-tender Extremity no clubbing, cyanosis or edema Extremity Narrative: Pedal pulses are 2+ Skin no wounds, skin turgor normal, no jaundice, no petechiae and no mottling Neuro oriented x3, CN's II-XII intact bilaterally, moves all extremities and no focal motor deficits Speech: speech normal Motor Exam: strength 5/5 throughout Psych affect normal Psych Narrative: Eye contact is good, patient interacts appropriately Results Lab / Micro Data 04/20/23 08:15 04/20/23 08:15 Labs: Laboratory Results - last 24 hr 04/20/23 08:15: WBC 4.7, RBC 4.56, Hgb 13.3, Hct 41.2, MCV 90.4, MCH 29.2, MCHC 32.3, RDW Std Deviation 41.5, RDW Coeff of [place] 12.6, Plt Count 234, MPV 9.4, Immature Gran % (Auto) 0.400, Neut % (Auto) 58.9, Lymph % (Auto) 29.7, [place] % (Auto) 7.7, Eos % (Auto) 2.2, Baso % (Auto) 1.1 H, Absolute Neuts (auto) 2.7, Absolute Lymphs (auto) 1.38, Nucleated RBC % 0, ESR 8, PT 12.2, INR 0.9, APTT 25.2, Sodium 136, Potassium 3.4 L, Chloride 101, Carbon Dioxide 28.0, Anion Gap 7, BUN 34 H, Creatinine 0.99, Estim Creat Clear Calc 58.42, Est GFR (MDRD) Af Amer 72, Est GFR (MDRD) Non-Af 60, BUN/Creatinine Ratio 34.4 H, Glucose 110 H, Hemoglobin A1c 5.1, Calcium 9.4, Troponin I High Sens 5, C-React Prot Ext Range < 2.90 Imagaing Radiology Impression Brain CT 04/20/23 08:18 IMPRESSION: 1. Chronic involutional changes of the brain. 2. Concern for stroke/positive symptomatology should be further evaluated with CT brain perfusion/CTA or MRI of the brain for further assessment. N.B. : The above Results were Read Back by Min Torres MD to Valeriy Ralph MD, and understanding confirmed on 04/20/2023 08:38:19 (ET). Electronically Signed: Min Torres MD at 8:39 EST , ADDENDUM: 04/20/23 0846 IMPRESSION: 1. Chronic involutional changes of the brain. 2. Concern for stroke/positive symptomatology should be further evaluated with CT brain perfusion/CTA or MRI of the brain for further assessment. N.B. : The above Results were Read Back by Min Torres MD to Valeriy Ralph MD, and understanding confirmed on 04/20/2023 08:38:19 (ET). Electronically Signed: Min Torres MD at 8:39 EST , Head/Neck CTA 04/20/23 08:18 IMPRESSION: 1. Normal [place] without a demonstrated aneurysm or thrombus or hemodynamically significant stenosis. 2. Normal bilateral cervical carotid and vertebral arteries. N.B. : The above Results were Read Back by Min Torres MD to Valeriy Ralph MD, and understanding confirmed on 04/20/2023 09:01:19 (ET). Electronically Signed: Min Torres MD at 9:02 EST , ADDENDUM: 04/20/23 0909 IMPRESSION: 1. Normal [place] without a demonstrated aneurysm or thrombus or hemodynamically significant stenosis. 2. Normal bilateral cervical carotid and vertebral arteries. N.B. : The above Results were Read Back by Min Torres MD to Valeriy Ralph MD, and understanding confirmed on 04/20/2023 09:01:19 (ET). Electronically Signed: Min Torres MD at 9:02 EST , Chest X-Ray 04/20/23 08:55 IMPRESSION: Cardiomegaly with mild hyperinflation and no acute or active cardiopulmonary disease. Electronically Signed: Asaf Stuart MD at 9:22 EST , Brain MRI 04/20/23 10:15 IMPRESSION: Involutional changes of the brain, as described above. Electronically Signed: Min Torres MD at 13:01 EST , Assessment & Plan Assessment/Plan (1) Blurred vision: (2) Left facial numbness: PLAN: Plan Patient with blurred vision and left facial numbness -Vision is almost back to baseline and facial numbness has resolved -NIH on presentation was 1 and currently 0 -CT of the brain and CTA of the head and neck were unremarkable -Check MRI -Continue aspirin -Continue high intensity dose statin -Hemoglobin A1c was within normal limits -Echocardiogram is pending -Check lipids -Hold antihypertensives and allow for some permissive hypertension -PRNs available for stroke parameters -PT/OT consultation -Patient passed dysphagia screen -I did obtain inflammatory markers which were unremarkable -Neurology consultation pending Hypertension -Hold antihypertensives and allow for some permissive hypertension with the above -PRNs available -If no stroke found and NIH is are stable will restart antihypertensives tomorrow JACK -Patient is compliant with CPAP at baseline -Continue CPAP nocturnally RA -Continue home Plaquenil Vitamin D deficiency -Continue home vitamin D supplementation DVT prophylaxis -Subcu Lovenox -CODE STATUS Full code Charges/Coding Visit Charges Inpatient E&M: 24217 Init Hosp L2
[2023-04-20] MEDS: Atorvastatin Calcium 80 MG Tablet PO (20:38)
[2023-04-21 01:05] VITALS: BP 116/72; PULSE 50; RESP 16; TEMP 36.6; O2SAT 97
[2023-04-21] MEDS: Acetaminophen 325 MG Tablet 650 MG PO (02:39)
[2023-04-21 02:40] VITALS: BP 112/49; PULSE 50; RESP 16; TEMP 36.6; O2SAT 95
[2023-04-21 05:00] VITALS: BMI 27.8
[2023-04-21 05:32] VITALS: BMI 27.8
[2023-04-21 05:51] LABS: Absolute Lymphocyte Count 1.55 X10^3/uL (0.83-4.51); Absolute Neutrophil Count 2.4 X10^3/uL (2.0-7.7); Basophil# 0.04 X10^3/uL; Basophil% 0.9 % (0-1); Eosinophil# 0.18 X10^3/uL; Eosinophils% 3.9 % (0-5); Hematocrit 38.3 % (37-47); Hemoglobin 12.3 g/dL (12.0-15.0); Lymphocyte # 1.55 X10^3/ul (0.83-4.51); Lymphocyte % 33.8 % (19-41); Mean Corp Hgb Conc 32.1 g/dL (32-36); Mean Corpuscular Hgb 29.4 pg (27.0-32.0); Mean Corpuscular Volume 91.4 fL (81-99); Mean Platelet Vol. 9.8 fl (6.2-12.0); Monocyte# 0.42 X10^3/uL; Monocyte% 9.2 % (0-10); NRBC Flagged by Analyzer 0 % (0-5); Neutrophil # 2.38 X10^3/uL (2.7-7.7); Platelet Count 227 K/mm3 (150-450); RBC Distribution Width CV 12.8 % (11.6-14.6); RBC Distribution Width SD 42.6 fl (35.1-43.9); Red Blood Count 4.19 M/mm3 (4.2-5.4); White Blood Count 4.6 K/mm3 (4.4-11.0)
[2023-04-21 06:48] LABS: Anion Gap 2 (5-15); BUN 25 mg/dL (7-18); BUN/Creat Ratio 32.1 RATIO (10-20); Calcium,Total 8.7 mg/dL (8.5-10.1); Chloride 107 mmol/L (98-107); Cholesterol 201 mg/dL (200); Creatinine, Serum 0.78 mg/dL (0.55-1.02); EST Glomerular Filtration Rate 79 mL/min (>60); Est Glom Filt Rate - Afr Amer 95 mL/min (>60); Estimated Creatinine Clearance 57.83 ml/min; Glucose 113 mg/dL (74-106); High Density Lipoprotein 94 mg/dL; Magnesium 2.2 mg/dL (1.6-2.6); Phosphorus 3.4 mg/dL (2.5-4.9); Potassium 4.1 mmol/L (3.5-5.1); Sodium Level 139 mmol/L (136-145); Triglycerides 32 mg/dL; Very Low Density Lipoprotein 6 mg/dL (5-40)
[2023-04-21 08:26] VITALS: BP 118/67; PULSE 60; RESP 14; TEMP 36.1; O2SAT 97
[2023-04-21] MEDS: Aspirin 81 MG TAB.CHEW PO (09:48)
[2023-04-21] MEDS: Hydroxychloroquine 200 MG Tablet PO (09:48)
[2023-04-21] MEDS: Cholecalciferol (VIT D3) 25 MCG TABLET (1,000 UNITS) 50 MCG PO (09:48)
[2023-04-21 11:25] VITALS: BP 114/87; PULSE 55; RESP 12; TEMP 36.7; O2SAT 97
--- NOTE | 2023-04-21 12:01 | PN.NEURO_ITS ---
Objective Data Objective Data Vital Signs: Vital Signs Temp Pulse Resp BP Pulse Ox O2 Del Method 97.0 F L 60 14 118/67 97 Room Air 04/21/23 08:26 04/21/23 08:26 04/21/23 08:26 04/21/23 08:26 04/21/23 08:26 04/21/23 08:26 Oxygen Delivery Method Room Air Weight: 85.5 kg Body Mass Index (BMI) 27.8 Intake & Output: Intake and Output for Last 24 Hours 04/19/23 04/20/23 04/21/23 23:59 23:59 23:59 Intake Total 390 / 390 Balance 390 / 390 Lab / Micro Data 04/21/23 05:12 04/21/23 05:12 Labs: Laboratory Results - last 24 hr 04/21/23 05:12: WBC 4.6, RBC 4.19 L, Hgb 12.3, Hct 38.3, MCV 91.4, MCH 29.4, MCHC 32.1, RDW Std Deviation 42.6, RDW Coeff of [place] 12.8, Plt Count 227, MPV 9.8, Immature Gran % (Auto) 0.200, Neut % (Auto) 52.0, Lymph % (Auto) 33.8, [place] % (Auto) 9.2, Eos % (Auto) 3.9, Baso % (Auto) 0.9, Absolute Neuts (auto) 2.4, Absolute Lymphs (auto) 1.55, Nucleated RBC % 0, Sodium 139, Potassium 4.1, Chloride 107, Carbon Dioxide 30.0, Anion Gap 2 L, BUN 25 H, Creatinine 0.78, Estim Creat Clear Calc 57.83, Est GFR (MDRD) Af Amer 95, Est GFR (MDRD) Non-Af 79, BUN/Creatinine Ratio 32.1 H, Glucose 113 H, Calcium 8.7, Phosphorus 3.4, Magnesium 2.2, Triglycerides 32, Cholesterol 201 H, LDL Cholesterol 101, VLDL Cholesterol 6, HDL Cholesterol 94 Radiography Diagnostic Testing: Radiology Impression Brain MRI 04/20/23 10:15 IMPRESSION: Involutional changes of the brain, as described above. Electronically Signed: Min Torres MD at 13:01 EST , Echocardiogram 04/20/23 10:15 Interpretation Summary The left ventricular ejection fraction is 65 %. Bubble contrast study is suspicious for tiny PFO. Recommend GUILLE for further evaluation if clinically indicated. Mild (1+) aortic valve insufficiency. Ordering Physician: Summer Ruiz Referring Physician: MAN DREW Performed By: Berenice Raphael RDCS Physical Exam Narrative NIHSS-0 Neuro Neuro Narrative: Neurological examination: General: The patient appears nutritionally appropriate, well-groomed, and appears comfortable in no acute distress. Mental Status: The patient?s mental status was normal including orientation. Language was intact. Cranial nerves: Visual kim full, extra-ocular motion was intact. Face motion symmetric. Bilateral shoulder shrug was intact. Tongue was midline with normal movement. There was no dysarthria. Motor: Normal strength in all four extremities. No pronator drift. Sensation: Intact light touch bilaterally, no extinction. Coordination: Bilateral finger to nose was normal. There was no dysmetria. Gait: deferred Subject: Neurology Subjective No acute events. Patient feels back to baseline. She feels symptoms resolved after about 12 hours. Assessment and Plan: Stroke Assessment/Plan CHAMP ROTH is a 67 yo right handed F with a history of hypertension and remote complicated hormonal migraines (visual squiggly lines associated with her periods, decades ago) presents for evaluation of headache and left sided numbness, onset 04/21/2023 at 615a while at work ([employer]). She had a pop in her brain and then felt dizzy (light-headed) and felt her knees buckle and developed NAVA 10/10 and left face/arm numbness. She presented to [place] [facility] where initial NIHSS-[address] brain and CTA head/neck were negative. She was admitted. MRI DWI brain negative. Of note patient has a remote history of complicated migraines associated with her periods. Neurological examination shows nonfocal exam, NIHSS-0. Neuroimaging shows negative CT/CTA/MRI brain Assessment: Complicated migraine Plan: No change in home meds. Stroke ruled out with negative MRI brain DWI. No further stroke work-up recommended. Discharge home today with follow-up with PCP. No restrictions in activity recommended. Messaged primary team Dr. Summer Ruiz with my recommendations.
--- NOTE | 2023-04-21 13:20 | PCM.DC.SUM ---
Providers Date of Admission: 04/20/23 Date of Discharge: 04/21/23 Primary Care Physician: Man Carbone DO Consultations 04/20/23 11:24 Consult: Tele-Neurology Routine Consulting Provider: [facility] Reason for Consult: Acute Ischemic Stroke/TIA EMERGENT Consult: No MD Notified: Yes Date Notified: 04/20/23 Time Notified: 11:39 Method of Notification: Answering Service Reason For Visit: BLURRED VISION R/O STROKE Diagnosis Discharge Diagnosis (1) Blurred vision: Status: Acute Code(s): H53.8 - Other visual disturbances (2) Left facial numbness: Status: Acute Code(s): R20.0 - Anesthesia of skin Medications at Discharge Home Medications cholecalciferol (vitamin D3) 25 mcg (1,000 unit) tablet 2,000 unit PO DAILY 04/25/14 hydrochlorothiazide 25 mg tablet 25 mg PO DAILY 04/16/21 lisinopril 10 mg tablet 20 mg PO DAILY 04/16/21 hydroxychloroquine 200 mg tablet 200 mg PO DAILY 09/28/22 estradiol 0.01% (0.1 mg/gram) vaginal cream See Rx Instructions vaginal .COMPLEX #42.5 grams 03/23/23 Hospital Course Procedures 2-D Echocardiogram and - (MRI brain/CT brain/CTA head and neck) Summary of Care Provided Minutes Spent on Discharge: 37 Hospital Course: CHAMP ROTH, is a 67 F who presented to the emergency department at [facility] on 04/20/2022 with acute onset blurred vision and left face tingling. 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 She did indicate that she had a restless night sleep which is atypical for her but otherwise she was feeling okay. When she got to work, she indicated she was ready to scan the patient and felt a pop on the left side of her temporal region after which she had an acute onset headache and blurred vision in her left eye. After arrival to the emergency department she developed some tingling in her left face as well. She did report that she scanned the patient she was performing the MRI on after she heard the pop and then started feeling very lightheaded. It sounded as if that her symptoms were vertiginous however she does indicate she and was passed out. She never lost consciousness and was able to finish the scan and then came to the emergency department. NIH on arrival was 1 for left facial tingling. She had no visual field cut but did complain of blurred vision in the left eye predominantly. By the time I evaluated her her headache was resolving and she was feeling better overall. She still was complaining of some mild blurred vision however the tingling in her left face have resolved. She did report a history of migraine headache that started when she started menses. She did report improvement in her migraine history as she got older and by the time of menopause her migraines returned but were usually visual impairment only with scotomas and no resultant headache. She reported that her visual loss with this event is nothing like previous visual issues she has had with previous migraines. Vital signs on presentation showed a temperature of 97.7, blood pressure was 156/92, heart rate was 71, respiratory was 14 and oxygen saturation was 99% on room air was unremarkable. Coags were normal. Chemistry panel revealed mild hypokalemia with potassium of 3.4 but was otherwise unremarkable. We obtained a hemoglobin A1c which was 5.1. Troponin was 5. I added on inflammatory markers in the form of CRP and ESR. They were both completely normal at less than 2.9 and 8 respectively. EKG was normal sinus rhythm without any ST-T wave changes concerning for acute ischemia and normal intervals. CT of the brain showed chronic involutional changes but no acute findings. CT of the head and neck showed normal ho-chunk of [place] without any demonstrated aneurysm or thrombus or hemodynamically significant stenosis and normal bilateral carotid and vertebral artery exam. Chest x-ray had no acute findings. She was admitted to PCU and monitored on telemetry with no abnormal findings. MRI of the brain was performed and was negative for any acute infarct. Echocardiogram was performed and showed an EF of 65% with normal diastolic function. The patient does have a PFO that is small however in the absence of stroke no further workup needs performed at this time, and mild aortic valve insufficiency. She was reevaluated by neurology who feels that this is likely related to complex migraine and recommended discharge home with no changes in her home regimen. We did obtain a hemoglobin A1c and lipid panel per stroke workup. Hemoglobin A1c was 5.1, and her lipid panel showed a total cholesterol of 200, LDL of 100, HDL of 94 and triglycerides of 32. I did get CRP and sed rate and both were completely unremarkable. She was able to be discharged home with no medication changes on 04/21/2023. They did not recommend she have ongoing neurology follow-up and did recommend following up with her primary care physician within the next 2 to 4 weeks. Discharge diagnoses: Complex migraine-resolved Blurred vision-resolved Left facial tingling/numbness-resolved Hypertension JACK Rheumatoid arthritis Vitamin D deficiency Physical Exam Narrative Patient states her vision is back to baseline, no further face tingling/numbness and her headache has resolved. Const alert, oriented x3, no apparent distress, healthy appearing and well nourished Constitutional Narrative: Overweight, upper middle-aged, white female, sitting up in a chair at the bedside, watching television, appears comfortable and nontoxic General Appearance: cooperative, comfortable, well kempt and well developed Orientation / Consciousness: awake, oriented to person, oriented to place and oriented to time Exam Limitations: no limitations Nutritional Appearance: overweight HEENT normocephalic, head/scalp atraumatic, hearing grossly normal bilaterally and moist oral mucous membranes HEENT Narrative: Mallampati 3, no thrush Eyes PERRL and conjunctivae normal Eyes Narrative: No scleral icterus Neck no lymphadenopathy and supple Neck Narrative: Trachea midline, no thyroid enlargement Resp normal respiratory effort, no retractions, no use of accessory muscles and clear to auscultation bilaterally Auscultation: Negative for rales, rhonchi or wheezes Cardio regular rate, regular rhythm, S1 normal heart sound, S2 normal heart sound, no murmurs, no rub, no gallops and no clicks GI normal to inspection, nondistended, normoactive bowel sounds, soft to palpation and non-tender Extremity no clubbing, cyanosis or edema Extremity Narrative: Pedal pulses are 2+ Skin no wounds, skin turgor normal, no jaundice, no petechiae and no mottling Neuro oriented x3, CN's II-XII intact bilaterally, moves all extremities and no focal motor deficits Speech: speech normal Motor Exam: strength 5/5 throughout Psych affect normal Psych Narrative: Eye contact is good, patient interacts appropriately Weight / BMI Weight Weight: 85.5 kg Body Mass Index (BMI) 27.8 ABG / Lab / Microbiology Data 04/21/23 05:12 04/21/23 05:12 Laboratory: Laboratory Results - last 24 hr 04/21/23 05:12: WBC 4.6, RBC 4.19 L, Hgb 12.3, Hct 38.3, MCV 91.4, MCH 29.4, MCHC 32.1, RDW Std Deviation 42.6, RDW Coeff of Lucrecia 12.8, Plt Count 227, MPV 9.8, Immature Gran % (Auto) 0.200, Neut % (Auto) 52.0, Lymph % (Auto) 33.8, [place] % (Auto) 9.2, Eos % (Auto) 3.9, Baso % (Auto) 0.9, Absolute Neuts (auto) 2.4, Absolute Lymphs (auto) 1.55, Nucleated RBC % 0, Sodium 139, Potassium 4.1, Chloride 107, Carbon Dioxide 30.0, Anion Gap 2 L, BUN 25 H, Creatinine 0.78, Estim Creat Clear Calc 57.83, Est GFR (MDRD) Af Amer 95, Est GFR (MDRD) Non-Af 79, BUN/Creatinine Ratio 32.1 H, Glucose 113 H, Calcium 8.7, Phosphorus 3.4, Magnesium 2.2, Triglycerides 32, Cholesterol 201 H, LDL Cholesterol 101, VLDL Cholesterol 6, HDL Cholesterol 94 Radiography Diagnostic Testing: Radiology Impression Echocardiogram 04/20/23 10:15 Interpretation Summary The left ventricular ejection fraction is 65 %. Bubble contrast study is suspicious for tiny PFO. Recommend GUILLE for further evaluation if clinically indicated. Mild (1+) aortic valve insufficiency. Ordering Physician: Summer Ruiz Referring Physician: MAN CARBONE Performed By: Berenice Raphael RDCS D/C Instructions Discharge Diet: Low fat / Low cholesterol Discharge Activity: Return to Normal Activity Meaningful Use Info Meaningful Use Diagnoses (Choose all that apply): None applicable Discharge Plan Admission Admit Date/Time: 04/20/23 10:07 Primary Reason for Your Visit: Blurred vision/left facial tingling/numbness Attending Provider: Summer Ruiz Primary Care Provider: Man Carbone Consulting Providers: Aries Blair; Tiara Salcedo; Ava Alejandro; Diana Busby; Lakeisha Head; Alejandro Dickson; Chika Momin; Fahad Savage; Sharif Talavera; Marilee Bell; Ibrahima Sanders; Ruby Florence; Abdirizak Max; Elma Mehta; Valeriy Panchal; Constance Sainz; Rivas Hull; Ara Ruiz; Garfield Avila Discharge Orders/Prescriptions Prescriptions: Continued hydrochlorothiazide 25 mg tablet 25 mg PO DAILY hydroxychloroquine 200 mg tablet 200 mg PO DAILY estradiol 0.01 % (0.1 mg/gram) cream See Rx Instructions vaginal .COMPLEX Qty: 42.5 2RF Rx Instructions: small amount as directed vaginal every other day X 4 weeks then twice a week; cholecalciferol (vitamin D3) 1,000 UNIT tablet 2,000 unit PO DAILY Patient Comments: vitamin D lisinopril 10 mg tablet 20 mg PO DAILY Referrals / Follow Up: Man Carbone DO [Primary Care Provider] - Within 2 Weeks Disposition Disposition (needs filled in before D/C Order can be placed): Home, Self Care Charges/Coding Visit Charges Inpatient E&M: 64759 Disch Hosp >30min
[2023-04-21 13:22] VITALS: BP 114/87; PULSE 55; RESP 12; TEMP 36.7; O2SAT 97
--- NOTE | 2023-04-21 13:32 | CASEMGMT ---
Patient has order for discharge. RN CM in to discuss needs at discharge. Patient denies needs or help at discharge. Patient had no further questions or concerns.
--- NOTE | 2023-04-21 13:39 | CASEMGMT ---
Met with patient to complete CANTU form. CANTU form explained to patient who voiced understanding and signed form. Original form placed in pt?s chart and copy provided to patient. Ariadna Colmenares, Discharge Planning Asst
--- NOTE | 2023-04-21 13:47 | CHAPLAIN ---
Type of Pastoral Visit _x__ Initial Visit ___ Follow-up Visit ___ On-call Visit ___ General Patient Visit ___ Spiritual Assessment ___ Family Conference ___ Bereavement ___ Rapid Response ___ Code Blue ___ Other (describe below) Pastoral Care Referral From _x__ Patient ___ Family ___ Nurse ___ Physician ___ Vessel Operator ___ Heat And Vent Aircraft Mechanic ___ Other (describe below) Sacrament/Intervention _x__ Active listening ___ Anointing ___ Spiritism ___ Bereavement ___ Communion ___ [place] exploration ___ _x__ Life review _x__ Prayer ___ Reconciliation ___ Sacrament of Sick _x__ Supportive presence ___ Wedding ___ Other (describe below) Pastoral Comments patient was welcoming and began to ask questions of this supervisor tower; directing the conversation back to the patient the pt responds with details about reason of her admission, prospects of going home, and hopes of leaving tomorrow for [place]; SO came into the room and joined in the conversation; pt has some minimal remaining symptoms and will accept whatever will be even if postponing the trip ; prayer was requested;
--- NOTE | 2023-04-21 13:58 | CASEMGMT ---
SW did not complete a PHQ9 as patient did not have a Stroke. Damaris SALGADO
== END 2023-04-21 13:22 | disposition home or self-care (01) ==
LOC: ED 09:05 → PCU 10:28
PROVIDERS: Admitting Provider Internal Medicine; Emergency Provider Emergency Medicine; PCP Family Medicine; Visit Provider Internal Medicine
DX: G43.109 Migraine with aura, not intractable, without status migrainosus (principal); M06.9 Rheumatoid arthritis, unspecified; E87.6 Hypokalemia; I10 Essential (primary) hypertension; E55.9 Vitamin D deficiency, unspecified; H53.8 Other visual disturbances; G47.33 Obstructive sleep apnea (adult) (pediatric); R29.701 NIHSS score 1; Z79.899 Other long term (current) drug therapy
CPT/HCPCS: 36415; 70450; 70496; 70498; 70551; 71045; 80048; 80061; 83036; 83735; 84100; 84484; 85025; 85610; 85652; 85730; 86140; 93005; 93306; 94668; 99221; 99285; Q9967; A4216; G0378

== ENCOUNTER → 2023-04-26 | Outpatient (CLI) | payer MEDICARE, BC, SELFPAY ==
[2023-04-26 10:56] LABS: T4 Free Direct 0.96 ng/dL (0.76-1.46)
[2023-04-27 04:07] LABS: Thyroid Peroxidase AB < 9 IU/mL (0-34)
== END | disposition home or self-care (01) ==
LOC: LAB 10:06
PROVIDERS: PCP Family Medicine; Referring Provider Internal Medicine Endocrinology, Diabetes & Metabolism; Visit Provider Internal Medicine Endocrinology, Diabetes & Metabolism
DX: E04.1 Nontoxic single thyroid nodule (principal); D89.89 Other specified disorders involving the immune mechanism, not elsewhere classified
CPT/HCPCS: 36415; 84439; 84443; 86376

== ENCOUNTER → 2023-04-29 | Outpatient (CLI) | payer MEDICARE, BC, SELFPAY ==
--- NOTE | 2023-04-29 12:17 | US_ITS ---
EXAM: US SOFT TISSUES HEAD AND NECK, THYROID CLINICAL INDICATION: right nodule by CT -- TR classification please TECHNIQUE: Silva scale and color doppler imaging was performed of the thyroid gland. COMPARISON: No relevant prior studies available. FINDINGS: LEFT THYROID LOBE: Left thyroid lobe measures 4.6 x 1.5 x 1.4 cm. Normal echogenicity. 9 x 7 x 5 mm nodule noted posterior to the left thyroid lobe suggestive of enlarged parathyroid gland. RIGHT THYROID LOBE: Right thyroid lobe measures 5.6 x 1.7 x 1.9 cm. Normal echogenicity. Well-defined 1.6 x 1.1 x 1.1 cm solid tissue nodule noted posterior to the right thyroid lobe suggestive of an enlarged parathyroid gland. ISTHMUS: Normal. No thyroid nodules are present. US/Thyroid IMPRESSION: Enlarged parathyroid glands noted bilaterally suggestive of adenomas. Correlate with parathyroid hormone levels. Normal thyroid gland. Electronically Signed: aKne Castañeda MD at 13:15 EST ,
[2023-04-30 11:41] LABS: PTHIN 43.8 pg/mL (18.4-80.1)
== END | disposition home or self-care (01) ==
PROVIDERS: PCP Family Medicine; Referring Provider Internal Medicine Endocrinology, Diabetes & Metabolism; Visit Provider Internal Medicine Endocrinology, Diabetes & Metabolism
DX: E04.1 Nontoxic single thyroid nodule (principal); D35.1 Benign neoplasm of parathyroid gland; E55.9 Vitamin D deficiency, unspecified
CPT/HCPCS: 36415; 76536; 82306; 83970

== ENCOUNTER → 2023-05-11 | Outpatient (CLI) | payer MEDICARE, BC, SELFPAY ==
--- NOTE | 2023-05-11 14:22 | BD_ITS ---
STUDY: DUAL ENERGY X-RAY ABSORPTIOMETRY / DXA REASON FOR EXAM: Female, 67 years old. Screening for osteoporosis TECHNIQUE: Bone Mineral Density (BMD) measurements of lumbar spine and left forearm were obtained. COMPARISON: None. FINDINGS: Lumbar Spine (L1-L4): g/cm2 (1.161) / T-score (1.0) / Z-score (2.9) Findings are suggestive of normal bone density with a low fracture risk. Left Forearm: g/cm2 (0.689) / T-score (2.0) / Z-score (3.7) BD/Dexa Bone Density Study IMPRESSION: The patient is considered normal as outlined below according to World Evan Organization (WHO) criteria with a low fracture risk. Reference Information: The T-score is the number of standard deviations above or below the standard which is normal for young adults at their peak bone mineral density. The World Health Organization (WHO) interprets the T-scores as follows: Above -1 Normal bone density Between -1 and -2.5 Osteopenia Equal to / or below -2.5 Osteoporosis As a practical clinical guideline, osteopenia may be graded as follows: Mild -1 through -1.5 Moderate -1.6 through -2.0 Severe -2.1 through -2.4 The Z-score is the number of standard deviations above or below age-matched controls. A Z-score of less than -1.5 would be considered abnormal. References: 1. NIH Osteoporosis and Related Bone Diseases www osteo.org 2. International Society for Clinical Densitometry www iscd.org 3. National Osteoporosis Foundation www nof.org Electronically Signed: Manuel Scott MD at 16:20 EST ,
--- OUTSIDE RECORDS SUMMARY | 2023-05-11 14:44 | XMS RPT_ITS | CCD ---
Author Name Unknown Address [address] [place] [address] Organization [facility] Care Team Providers Care Coin Purse Framer Name Role Phone Taran Tyler MD Primary Care Provider TARAN TYLER Primary Care Unavailable JULIÁN EPPS Attending Unavailable TARAN TYLER Primary Care Unavailable JULIÁN EPPS Attending Unavailable JULIÁN EPPS Referring Unavailable TARAN TYLER Primary Care Unavailable CHRISTEL VINCENT Attending Unavailable TARAN TYLER Primary Care Unavailable Allergies Allergy Classification Reported Allergen(s) Allergy Type Date of Onset Reaction(s) Facility (5 sources) diphenhydrAMINE; Translations: [DIPHENHYDRAMINE HCL] Drug Allergy 12-15-2012 Other: See Comments [facility] Medications Completed/Discontinued Medications Medication Drug Class(es) Dates Sig (Normalized) Sig (Original) amLODIPine 2.5 mg oral tablet (1 source) Dihydropyridine Calcium Channel Jose Alejandro End: 08-31-2022 take 1 tablet by mouth once daily at bedtime amLODIPine (NORVASC) 2.5 mg tablet Take 2.5 mg by mouth daily at bedtime. 0 08/31/2022 Discontinued (Course of therapy completed) Problems Active Problems Problem Classification Problem Date Documented Date Episodic/Chronic Conditions associated with dizziness or vertigo (1 source) Dizziness and giddiness; Translations: [Dizziness] Onset: 04-23-2023 Episodic Essential hypertension (2 sources) Hypertensive disorder; Translations: [Essential (primary) hypertension] 12-24-2015 Chronic Headache; including migraine (1 source) Headache; including migraine; Translations: [Nonintractable episodic headache, unspecified headache type] Onset: 04-23-2023 Nonspecific chest pain (2 sources) Chest pain; Translations: [Chest pain, unspecified] 12-24-2015 Episodic Other nervous system disorders (1 source) Attention and concentration deficit; Translations: [Difficulty concentrating] Onset: 04-23-2023 Chronic Other nervous system disorders (1 source) Anesthesia of skin; Translations: [Left facial numbness] Onset: 04-23-2023 Episodic Other non-traumatic joint disorders (1 source) Palindromic rheumatism; 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, 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 Other non-traumatic joint disorders (2 sources) Palindromic rheumatism, unspecified site; 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-2022 Chronic Residual codes; unclassified (2 sources) Obstructive sleep apnea (adult) (pediatric); Translations: [Obstructive sleep apnea (adult) (pediatric)] Onset: 08-28-2022 Chronic Thyroid disorders (1 source) Nontoxic single thyroid nodule; Translations: [Right thyroid nodule] Onset: 04-23-2023 Chronic Past or Other Problems Problem Classification [...] 172.7 cm Julián Epps MD Work Phone: [facility] 08-31-2022 11:30-0400 Body temperature 97.7 [degF] Julián Epps MD Work Phone: [facility] 08-31-2022 11:30-0400 Body weight 84.37 kg Julián Epps MD Work Phone: [facility] 08-31-2022 11:30-0400 Diastolic blood pressure 81 mm[Hg] Julián Epps MD Work Phone: [facility] 08-31-2022 11:30-0400 Heart rate 58 /min Julián Epps MD Work Phone: [facility] 08-31-2022 11:30-0400 Systolic blood pressure 121 mm[Hg] Julián Epps MD Work Phone: [facility] Encounters Encounter Date Encounter Type Care Provider Facility Start: 04-23-2023 End: 04-23-2023 Emergency department patient visit CHRISTEL VINCENT Facility:[facility] Start: 01-19-2023 Refill Julián ventura MD Work Phone: [facility] Procedures Date Procedure Procedure Detail Performing Clinician Start: 11-26-2015 Mammography Julián Epps MD Work Phone: Start: 12-20-2014 Lipid 1996 panel - S geena or Plasma Julián Epps MD Work Phone: Start: 01-06-2013 Colonoscopy Julián Epps MD Work Phone: Plan of Treatment Date Care Activity Detail Author Start: 09-01-2025 Diabetes Screening Diabetes Screenin g [facility] Start: 12-23-2023 BP Controlled (<130/80) BP Controlle d (<130/80) [facility] Start: 01-06-2023 Colonoscopy COLONOSCOPY [facility] Start: 01-06-2023 COLORECTAL CANCER SCREENING COLORECTAL CANCER SCREENING [facility] Start: 12-18-2022 Influenza vaccination [facility] Start: 08-31-2022 End: 10-31-2022 C reactive protein [Mass/volume] in Serum or Plasma C-REACTIVE PROTEIN (CRP) Lab Routine Palindromic rheumatism Expected: 08/31/2022, Expires: 10/31/2022 [facility] Work Phone: Immunizations Immunization Date Immunization Notes Care Provider Fa cility 03-26-2021 influenza virus vacc ine, unspecified formulation Julián Epps MD Work Phone: [facility] Payers Date Payer Category Payer Medicare [id number] 2021 Medicare MEDICARE MEDICAR E A AND B [id number] 2021-Present [phone] [place] [address] Medicare [id number] 2021 Unknown [id number] 2021 Unknown [employer] DIC[employer] SUPPLEMENT [id number] 2021-Present [phone] [address] [place] [address] Indemnity [id number] 1955 Unknown [id number] Social History Date Type Detail Facility [facility]: [facility] Start: 06-12-2013 Tobacco use and exposure Smoke less tobacco non-user [facility] Start: 08-31-2022 Alcohol intake Current drinke r of alcohol (finding) [facility] Start: 08-31-2022 Alcohol Comment Once a week: wine Cl [facility] Start: 1955 Sex Assigned At Not on file [facility] Start: 08-31-2022 History of Social function [facility] Start: 08-31-2022 Tobacco use panel [facility] National Score (1-10 0), lower number is lower risk 66 [facility] Note 01-19-2023 Telephone Encounter - Homa Bass LPN - 01/19/2023 7:32 AM EDT Note Date & Type Note Facility 01-19-2023 Miscellaneous Notes Formattin g of this note is different from the original. Patient MyChart message requesting the following refill Refill(s) Requested: Requested Prescriptions Pending Prescriptions Disp Refills hydrOXYchloroQUINE (PLAQUENIL) 200 mg tablet 60 tablet 2 Sig: Take 1 tablet by mouth two times a day. ALLERGIES Allergen Reactions Benadryl [Diphenhyd* Other: See Comments knocks me out (home) [phone] (cell) Last Office Visit Date: 12/22/2022 Last [facility] Health Visit: Visit date not found Future Appointment: Visit date not found The patients preferred pharmacy has been captured for this encounter? yes Request is for script(s) to be escript to pharmacy. Homa Bass LPN documented in this encounter [facility] Progress note 12-22-2022 Note Date & Type Note Facility 12-22-2022 Note HNO ID: [id number] Author: Julián Epps MD Service: ? Author Type: Physician Type: Progress Notes Filed: 12/22/2022 1:09 PM Note Text: This note was created using [employer]. Subjective Champ Roth is a 67 year old female. Not [...] right knee aspirate culture crystal neg, wbc 06310, esr 20 (<30 ) crp 54 ( <3 ) , wbc 9300 normal. 06/11 RF CCP TEMITOPE neg CRP 3.93 ( < 3 ) 2014 1,25 [place] D 63 normal 09/08 esr 10 crp normal, uric 5.7 '''' 2015 chest xr normal 02/07 chest xr Degenerative disc disease TS (( Fatique 04/2020, retired from [employer] [facility] and did not get better) ( [...] annoying pain, worse than low back pain, 11/26, all day long, worse in, wakes up [...] 2015 myocardial perfusion scan normal EF 66% [address] head : Relatively mild white matter abnormalities involving the c (more content not included)... [facility] Progress note 08-31-2022 Note Date & Type Note Facility 08-31-2022 Note HNO ID: [id number] Author: Julián Epps MD Service: ? Author Type: Physician Type: Progress Notes Filed: 09/03/2022 6:31 PM Note Text: This note was created using NoteWriter. Severino Roth is a 66 year old female. ( [...] pseudogout / polyarticular gout either ) (( Fatique 04/2020, retired from [employer] [facility] and did not get better) Quantiferon M. Tuberculosis negative 09/08 2022 Hep C ab, Hep B S Ag neg. 08/25/21 right knee aspirate culture crystal neg, wbc 67602, esr 20 (<30 ) crp 54 ( [...] TT plaquenil 200 (more content not included)... [facility] History of Present illness Narrative 08-31-2022 Julián Epps MD - 08/31/2022 11:33 AM EDT Note Date & Type Note Facility 08-31-2022 History of Presen t illness Narrative This note was created using [employer]. Subjective Champ Roth is a 66 year old female. ( [...] pseudogout / polyarticular gout either ) (( Yael 04/2020, retired from [employer] and did not get better) 08/25/21 right knee aspirate culture crystal neg, wbc 82358, esr 20 (<30 ) crp 54 ( [...] low diff not done. 2016 CK 70 2015 Vit B 1 11 normal, B12 419 [...] feet pain, never with gout ) Paresthesia 2015 ( ) 2016 myocardial perfusion scan normal EF 66% [address] head : Relatively mild white matter abnormalities involving the cerebral and cerebellar hemispheres as described above. chronic microvascular disease ((2015 right side of face numb, could not talk, went to [facility], BP was jorge a high, stroke stephenson all negative ) TT 08/31/22 Episcleritis 12/08 ( left eye , used steroid eye drop, , ) 08/31/22 HTN 2015 onset JACK 2014 diagnosed on CPAP . Wt issue 08/31/22 Ht 5'8 186 08/31/22 Colonoscopy 2012 normal. Brief Personal and family history: ( same partner 2009 no chance of STD ) 08/31/22 Never smoked, parents smoked till she was in college 08/31/22 Diet : 09/08 watching diet , 09/08 few glasses of wine per day 09/08 physically active. [employer] :: ; Family member with autoimmune disease [...] 8-12 weeks and not beyond that. ( [employer] recommends monitoring CBC, Creatinine [...] then may have to stop the drugs. [employer] guidelines:A baseline fundus examination should be performed to rule out preexisting maculopathy. Begin annual screening after 5 years for patients on acceptable doses and without major risk factors.( 5 mg per kg body wt or 6.5 mg per kg ideal body wt ) documented in this encounter [facility] Evaluation note Note Date & Type Note Facility documented in this encounter [facility] Summary Purpose Family History No Family History Records FoundNo Family History Records FoundNo Family History Records FoundNo Family History Records Found Advance Directives No Advanced Directives Records FoundNo Advanced Directives Records FoundNo Advanced Directives Records FoundNo Advanced Directives Records Found Additional Source Comments INFORMATION SOURCE (unrecogn ized section and content) DATE CREATED AUTHOR AUTHOR'S ORGANIZ ATION 12/22/2022 [facility] DATE CREATED AUTHOR AUTHOR'S ORGANIZ ATION 04/24/2023 [facility] DATE CREATED AUTHOR AUTHOR'S ORGANIZ ATION 04/24/2023 [facility] Source Comments (unrecognize d section and content) In the event this informatio n is protected by the Federal Confidentiality of Alcohol and Drug Abuse Patient Records regulations: The Federal rules restrict any use of the information to criminally investigate or prosecute any alcohol or drug abuse patient.[facility] the event this information is protected by the Federal Confidentiality of Alcohol and Drug Abuse Patient Records regulations: The Federal rules restrict any use of the information to criminally investigate or prosecute any alcohol or drug abuse patient.[facility] Reason for Visit (unrecogniz ed section and content) Reason Onset Date Comments Refill Request 01/19/2023 Care Teams (unrecognized sec tion and content) Coin Purse Framer Relationship Specialty Start Date End Date Taran [...] BE BASED ON THE PRIMARY CLINICAL RECORDS. [employer] [facility]. provides no warranty or guarantee of the accuracy or completeness of information in this document.
== END | disposition home or self-care (01) ==
LOC: OPBD 14:19
PROVIDERS: PCP Family Medicine; Referring Provider Nurse Practitioner Women's Health; Visit Provider Nurse Practitioner Women's Health
DX: M81.0 Age-related osteoporosis without current pathological fracture (principal)
CPT/HCPCS: 77080

== ENCOUNTER → 2023-06-22 | Outpatient (CLI) | payer MEDICARE, BC, SELFPAY ==
--- OUTSIDE RECORDS SUMMARY | 2023-06-22 15:43 | XMS RPT_ITS | CCD ---
Author Name Unknown Address [address] [place] [address] Organization [facility] Care Team Providers Care Braille Operator Name Role Phone Taran Tyler MD Primary Care Provider TARAN TYLER Primary Care Unavailable JULIÁN EPPS Attending Unavailable TARAN TYLER Primary Care Unavailable JULIÁN EPPS Attending Unavailable TINA PALACIO Attending Unavailable TARAN TYLER Primary Care Unavailable TINA PALACIO Referring Unavailable TARAN TYLER Primary Care Unavailable OJ RON Attending Unavailable JULIÁN EPPS Referring Unavailable TARAN TYLER Primary Care Unavailable TARAN TYLER Primary Care Unavailable TARAN GALICIA Attending Unavailable Allergies Allergy Classification Reported Allergen(s) Allergy Type Date of Onset Reaction(s) Facility (5 sources) diphenhydrAMINE; Translations: [DIPHENHYDRAMINE HCL] Drug Allergy 3 Other: See Comments [facility] (1 source) [id number] ANTIMIGRAINE AGENTS; Translations: [[id number] ANTIMIGRAINE AGENTS] Propensity to adverse reactions to drug (disorder) 4 [facility] Repository Medications Completed/Discontinued Medications Medication Drug Class(es) Dates [...] Translations: [Dizziness] Onset: 04-23-2023 Episodic Essential hypertension (3 sources) Hypertensive disorder; Translations: [Essential (primary) hypertension] Onset: 12-24-2015 12-24-2015 Chronic Headache; including migraine (1 source) Migraine with aura, not intractable, without status migrainosus; Translations: [Complicated migraine] Onset: 05-15-2023 Chronic Headache; including migraine (1 source) Headache; [...] [Left facial numbness] Onset: 04-23-2023 Episodic Other nervous system disorders (1 source) Other symptoms and signs involving cognitive functions and awareness; Translations: [Brain fog] Onset: 05-15-2023 Episodic Other non-traumatic joint disorders (1 source) [...] Date Time Vital Sign Value Performing Clinician Frank mcdaniel 08-31-2022 11:30-0400 Body height 172.7 cm Julián Epps MD Work Phone: [facility] 08-31-2022 11:30-0400 Body temperature 97.7 [degF] Julián Epps MD Work Phone: [facility] 08-31-2022 11:30-0400 Body weight 84.37 kg Julián Epps MD Work Phone: [facility] 08-31-2022 11:30-0400 Diastolic blood pressure 81 mm[Hg] Julián Epps MD Work Phone: [facility] 08-31-2022 11:30-0400 Heart rate 58 /min Julián Epps MD Work Phone: [facility] 08-31-2022 11:30-0400 Systolic blood pressure 121 mm[Hg] Julián Epps MD Work Phone: [facility] Encounters Encounter Date Encounter Type Care Provider Facility Start: 05-15-2023 End: 05-16-2023 Emergency department patient visit TARAN TYLER Facility:[facility] Start: 04-26-2023 End: 04-26-2023 ambulatory TINA PALACIO Facility:[facility] Start: 04-23-2023 End: 04-23-2023 Emergency department patient visit TINA PALACIO Facility:[facility] Start: 01-19-2023 Refill Julián ventura MD Work Phone: [facility] [place] [facility] Procedures Date Procedure Procedure Detail Performing Clinician Start: 11-26-2015 Mammography Julián Epps MD Work Phone: Start: 12-20-2014 Lipid 1996 panel - S geena or Plasma Julián Epps MD Work Phone: Start: 01-06-2013 Colonoscopy Julián Epps MD Work Phone: Plan of Treatment Date Care Activity Detail Author Start: 09-01-2025 Diabetes Screening Diabetes Screenin g [facility] Start: 12-23-2023 BP Controlled (<130/80) BP Controlle d (<130/80) [facility] Start: 01-06-2023 Colonoscopy COLONOSCOPY [facility] Start: 01-06-2023 COLORECTAL CANCER SCREENING COLORECTAL CANCER SCREENING [facility] Start: 12-18-2022 Influenza vaccination C [facility] Start: 08-31-2022 End: 10-31-2022 C reactive protein [Mass/volume] in Serum or Plasma C-REACTIVE PROTEIN (CRP) Lab Routine Palindromic rheumatism Expected: 08/31/2022, Expires: 10/31/[address] [facility] Work Phone: Immunizations Immunization Date Immunization Notes Care Provider Fa cility 03-26-2021 influenza virus vacc ine, unspecified formulation Inderfarhat Epps MD Work Phone: [facility] Payers Date Payer Category Payer Medicare [id number] 2021 Medicare MEDICARE MEDICAR E A AND B [id number] 2021-Present [phone] [address] [address] [place] [address] Medicare [id number] 2021 Unknown [id number] 2021 Unknown [employer] DIC[employer] SUPPLEMENT [id number] 2021-Present [phone] [address] [place] [address] Indemnity [id number] 1955 Unknown [id number] Social History Date Type Detail Facility Start: 06-12-2013 Tobacco smoking stat us RIIS Never smoked tobacco [facility] Start: 06-12-2013 Tobacco use and exposure Smoke less tobacco non-user [facility] Start: 05-15-2023 Alcohol intake Current drinke r of alcohol (finding) [facility] Start: 08-31-2022 Alcohol Comment Once a week: wine [facility] Start: 1955 Sex Assigned At Not on file C [facility] Start: 08-31-2022 History of Social function [facility] Start: 08-31-2022 Tobacco use panel [facility] National Score (1-10 0), lower number is lower risk 66 [facility] Progress note 04-26-2023 Note Date & Type Note Facility 04-26-2023 Note HNO ID: [id number] Author: OJ RON MD Service: ? Author Type: Physician Type: Progress Notes Filed: 04/26/2023 13:58 Note Text: General Neurology Outpatient Clinic - new patient evaluation Date: April 26, 2023 Patient Name: Champ Roth Referring physician: Tina Palacio [facility]note 3[facility] [address] Primary physician: Taran Tyler ([facility]) [address] [place] [id number] Reason for Evaluation: Headaches HPI: The pt is a 67yo Right handed female with hx of - HTN - GERD - JACK - RA Presenting for ED follow-up of headaches. Accompanied by her partner, Jorge Per EMR, patient was at OSH 04/20/2023 for evaluation of acute onset blurred visoin, left facial tingling. Had felt a pop left temporal area followed by OS blurred vision and acute onset headahe. Facial tingling started in ED. patient went to [facility] 04/23/2023 with left sided facial numbness, dizziness, 'fuzzy headachness', difficulty walking (felt drunk). Had prior admission to [facility] 04/20/2023 for stroke eval, diagnosed with complex migraine given normal MRI brain. Patient woke on 04/23/2023 with headache associated with above symptoms as well as distorted vision, trouble concentrating, slow to find words. CTH NAP, CTA HANDN without LVO. Per patient, she has a history of ocular migraines as a teenager without any headache components. She gets them rarely now. The week before Chan, she did have bronchitis and was on a Z-pack antibiotics and OTC Nyquil night in it. She just took one dose of the Nyquil. She's had a chronic tendency for insomnia every 1-2x/week. On 04/19/2023 she had a typical insomnia bout and woke even more tired than usual on 04/20/2023. She went to work and was going to check in a patient when she felt a painless exploding sensation in her head associated with painless OS>OD vision loss and BLE weakness. [place] like a 'pop'. These symptoms lasted a few seconds.. The exploding sensation didn't hurt and wasn't associated with a sound but was so intense she physically went to her knees. They passed though and she was able to check in the patient. 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 She did feel like her legs still weren't 100% strong. A few minutes later, however, she did develop a headache, holocephalic but particular bilateral temples. Not throbbing or pulsating, just intense. She developed concurrent left face numbness and so decided to go to the ER for evaluation. Estimates facial numbness lasting 5 hours. She was checked out for a stroke but MRI was negative. She did receive Ativan for the MRI and had subsequent hypotension with SBP in the 90s which is atypical for her. Her headache was mostly resolved (intensity 1/10) when she was discharged. She felt well enough to attend a basketball game. On 04/21/2023 evening, she was packing for a trip to [place] when she started feeling off cognitively. She checked her BP and it was high at 165/96 so she took a dose of lisinopril. About 15min later, she felt nauseous, lightheaded, and like she'd faint. Her BP was 96/55. The headache returned at that time and she had facial numbness again for 2 days. She went back to the hospital and repeat CTH, CTA HANDN was unrevealing. She took one dose of maxalt on 04/22/2023 and felt that it helped. She started amitriptyline 10mg qhs for insomnia on 04/23/2023. The headache was going on 04/24/2023 and she has felt mostly (though not 100%) back to baseline since that time. 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 She had facial numbness associated with speech changes while working at [employer]. Prior neurological workup: 04/23/2023 CTH, CTA HANDN 12/19/14 MRI brain wwo OUTPATIENT MEDICATIONS Current Facility-Administered Medications on File Prior to Visit Medication iv contrast (radiology procedure) NaCl 0.9% 1,000 mL iv bolus NaCl 0.9% iv flush bag Current Outpatient Medications on File Prior to Visit Medication Sig hydrOXYchloroQUINE (PLAQUENIL) 200 mg tablet Take 1 tablet by mouth two times a day. naproxen sodium (ALEVE ORAL) Take 1 tablet by mouth once daily. ibuprofen (MOTRIN) 200 mg tablet Take 200 mg by mouth every 6 hours as needed for pain. lisinopril (ZESTRIL) 10 mg tablet Take 10 mg by mouth once daily. hydroCHLOROthiazide (HYDRODIURIL, ESIDRIX) 25 mg tablet Take 25 mg by mouth once daily. MEDICAL HISTORY PAST MEDICAL HISTORY Diagnosis Date Chest pain Esophageal reflux Gastroesophageal reflux Hypertension SURGICAL HISTORY PAST SURGICAL HISTORY Procedure Laterality Date ADENOIDECTOMY PRIMARY Adenoidectomy ARTHRP ACETBLR/PROX FEM PROSTC AGRFT/ALGRFT Bilateral COLONOSCOPY FLX DX W/COLLJ SPEC WHEN PFRMD normal colonscopy DILATION AND CURETTAGE DXAND/THER NONOBSTETRIC Dilation AND curettage EXC BREAST LES PREOP PLMT RAD MARKER OPEN 1 LES 04-30-14 RIGHT NUCLEAR STRESS L (more content not included)... [facility] Note 01-19-2023 Telephone Encounter - Homa Bass LPN - 01/19/2023 7:32 AM EDT Note Date & Type Note Facility 01-19-2023 Miscellaneous Notes Formattin g of this note is different from the original. Patient RedKLEVERhart message requesting the following refill Refill(s) Requested: Requested Prescriptions Pending Prescriptions Disp Refills hydrOXYchloroQUINE (PLAQUENIL) 200 mg tablet 60 tablet 2 Sig: Take 1 tablet by mouth two times a day. ALLERGIES Allergen Reactions Benadryl [Diphenhyd* Other: See Comments knocks me out (home) [phone] (cell) Last Office Visit Date: 12/22/2022 Last Distance Health Visit: Visit date not found Future Appointment: Visit date not found The patients preferred pharmacy has been captured for this encounter? yes Request is for script(s) to be escript to pharmacy. Homa Bass LPN documented in this encounter [facility] Progress note 12-22-2022 Note Date & Type Note Facility 12-22-2022 Note HNO ID: [id number] Author: Julián Epps MD Service: ? Author Type: Physician Type: Progress Notes Filed: 12/22/2022 1:09 PM Note Text: This note was created using [employer]. Subjective Champ Roth is a 67 year [...] right knee aspirate culture crystal neg, wbc [id number], esr 20 (<30 ) crp 54 ( <3 ) , wbc 9300 normal. 06/11 RF CCP TEMITOPE neg CRP 3.93 ( < 3 ) 2014 1,25 [place] D 63 normal 09/08 esr 10 crp normal, uric 5.7 '''' 2015 chest xr normal 02/07 chest xr Degenerative disc disease TS (( Fatique 04/2020, retired from [employer] and did not get better) ( [...] c (more content not included)... [facility] Progress note 08-31-2022 Note Date & Type Note Facility 08-31-2022 Note HNO ID: [id number] Author: Julián Epps MD Service: ? Author Type: Physician Type: Progress Notes Filed: 09/03/2022 6:31 PM Note Text: This note was created using [employer]. Severino Roth is a 66 year old [...] pseudogout / polyarticular gout either ) (( Ninorandal 04/2020, retired from [employer] and did not get better) Quantiferon M. Tuberculosis negative 09/08 2022 Hep C ab, Hep B S Ag neg. 08/25/21 right knee aspirate culture crystal neg, wbc 45859, esr 20 (<30 ) crp 54 ( [...] 200 (more content not included)... [facility] History of Present illness Narrative 08-31-2022 Julián Epps MD - 08/31/2022 11:33 AM EDT Note Date & Type Note Facility 08-31-2022 History of Presen t illness Narrative This note was created using [employer]. 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 ( [employer] recommends monitoring CBC, Creatinine [...] then may have to stop the drugs. [employer] guidelines:A baseline fundus examination should be performed to rule out preexisting maculopathy. Begin annual screening after 5 years for patients on acceptable doses and without major risk factors.( 5 mg per kg body wt or 6.5 mg per kg ideal body wt ) documented in this encounter [facility] Evaluation note Note Date & Type Note Facility documented in this encounter [facility] Summary Purpose Family History No Family History Records FoundNo Family History Records FoundNo Family History Records FoundNo Family History Records Found Advance Directives No Advanced Directives Records FoundNo Advanced Directives Records FoundNo Advanced Directives Records FoundNo Advanced Directives Records Found Additional Source Comments INFORMATION SOURCE (unrecogn ized section and content) DATE CREATED AUTHOR AUTHOR'S ORGANIZ ATION 12/22/2022 [facility] DATE CREATED AUTHOR AUTHOR'S ORGANIZ ATION 04/24/2023 [facility] DATE CREATED AUTHOR AUTHOR'S ORGANIZ ATION 05/19/2023 [facility] Source Comments (unrecognize d section and content) In the event this informatio n is protected by the Federal Confidentiality of Alcohol and Drug Abuse Patient Records regulations: The Federal rules restrict any use of the information to criminally investigate or prosecute any alcohol or drug abuse patient.[facility] the event this information is protected by the Federal Confidentiality of Alcohol and Drug Abuse Patient Records regulations: The Federal rules restrict any use of the information to criminally investigate or prosecute any alcohol or drug abuse patient.[facility] Reason for Visit (unrecogniz ed section and content) Reason Onset Date Comments Refill Request 01/19/2023 Care Teams (unrecognized sec tion and content) Braille Operator Relationship Specialty Start Date End Date Taran [...] BE BASED ON THE PRIMARY CLINICAL RECORDS. [facility]. provides no warranty or guarantee of the accuracy or completeness of information in this document.
--- NOTE | 2023-06-22 16:46 | STRESSREP ---
Stress Test Report Exercise stress test. 67-year-old lady with a history of dyspnea on exertion Stress protocol: Resting EKG demonstrates sinus bradycardia with a rate of 57 bpm resting blood pressure is 98/62 mmHg. The patient exercised according to the regular Yahir protocol for a total duration of 6 minutes attaining a maximum heart rate of 137 bpm which was 88% of maximum predicted heart rate; the maximum workload was 7 metabolic equivalents. At rest there were no ST or T wave changes noted to suggest ischemia and at peak exercise upsloping ST changes only were noted which did not meet the criteria for ischemia. Patient experienced mild shortness of breath with exertion. No clinical angina was noted the test was terminated due to the target heart rate being achieved/fatigue. The peak blood pressure was 150/72 mmHg. Rate-pressure product was 20,500. Conclusion: Stress test with no EKG criteria for ischemia at a moderate workload
== END | disposition home or self-care (01) ==
LOC: CVS 13:02
PROVIDERS: PCP Family Medicine; Referring Provider Internal Medicine Cardiovascular Disease; Visit Provider Internal Medicine Cardiovascular Disease
DX: R06.09 Other forms of dyspnea (principal); G47.30 Sleep apnea, unspecified; I10 Essential (primary) hypertension
CPT/HCPCS: 93017; 93788

== ENCOUNTER 2023-11-23 00:46 | Emergency (ER) | payer MEDICARE, BC, SELFPAY ==
[2023-11-23 00:48] VITALS: BP 109/81; PULSE 66; RESP 18; TEMP 35.8; O2SAT 94; BMI 29.3
--- NOTE | 2023-11-23 01:09 | CT_ITS ---
EXAM: CT ABDOMEN AND PELVIS WITH INTRAVENOUS CONTRAST CLINICAL INDICATION: vomiting, diffuse abd discomfort TECHNIQUE: Helically acquired images were obtained of the abdomen and pelvis with intravenous contrast. This CT exam was performed using one or more of the following dose reduction techniques: automated exposure control, adjustment of the mA and/or kV according to patient size, and/or use of iterative reconstruction technique. CONTRAST: 100 cc of Isovue-370 IV. RADIATION DOSE: CTDIvol = 16.39 mGy, DLP = 1004.72 mGy-cm COMPARISON: No relevant prior studies available. FINDINGS: LOWER THORAX: Unremarkable. Lung bases are clear. No cardiomegaly. No significant pericardial effusion. ABDOMEN: LIVER: Irregular subcapsular mass measuring 2 x 1.4 x 1.5 cm in the periphery of the right lobe of the liver in segment 5. This likely represents a hemangioma but imaging characteristics are not definitive. GALLBLADDER AND BILE DUCTS: Unremarkable. No calcified gallstones. No gallbladder distention or wall edema. No intra- or extrahepatic biliary ductal dilation. PANCREAS: Unremarkable. No focal cystic or solid mass. SPLEEN: Unremarkable. Normal size without focal cystic or solid mass. ADRENALS: Unremarkable. No nodules. KIDNEYS AND URETERS: Unremarkable. Normal renal size and position. No hydronephrosis. STOMACH AND BOWEL: Unremarkable. No stomach or bowel distention. No focal inflammatory change. PELVIS: APPENDIX: Normal appendix. BLADDER: Unremarkable. REPRODUCTIVE: Unremarkable as visualized. No mass. ABDOMEN and PELVIS: INTRAPERITONEAL SPACE: Unremarkable. No ascites or other fluid collection. No free air. BONES/JOINTS: Bilateral total hip arthroplasties. Components appear well seated. No suspicious lytic or blastic abnormality. SOFT TISSUES: Unremarkable. No discrete abdominal or pelvic wall hernia. VASCULATURE: Unremarkable. Abdominal aorta is non-dilated. LYMPH NODES: Unremarkable. No enlarged lymph nodes. CT/Abdomen/Pelvis W IV Cont ONLY IMPRESSION: 1. No acute abdominal pelvic abnormality. 2. Irregular subcapsular mass measuring 2 x 1.4 x 1.5 cm in the periphery of the right lobe of the liver in segment 5. This likely represents a hemangioma but imaging characteristics are not definitive. Consider hepatic MR for further evaluation. Electronically Signed: Bj De Los Santos MD at 3:00 EDT ,
--- NOTE | 2023-11-23 01:09 | EDS_ITS ---
HPI HPI - GI History of Present Illness Chief Complaint: Constipation Informant: patient Narrative Narrative: 67-year-old female presents because of abdominal fullness without pain, feels constipated, and states she has not had a bowel movement in 6 days. She has a longstanding history of constipation but usually able to deal with it by eating fiber, taking MiraLAX, but she has never gone this long without a bowel movement. She feels very uncomfortable. Today she started having nausea and vomiting. No hematemesis or bright red blood per rectum. She denies any anal pain or rectal discomfort right now. No fevers or chills. No problems urinating. No pain in her back. She has not tried any enemas. [facility] Medical History GERD (gastroesophageal reflux disease) Hypercholesteremia Depression Parathyroid adenoma Thyroid nodule History of hypertension Autoimmune disorder Palindromic rheumatism Sleep apnea Constipation HTN (hypertension) Home Medications ?Medication ?Instructions ?Recorded ?Last Taken ?Type cholecalciferol (vitamin D3) 25 2,000 unit PO DAILY vitamin 04/25/14 Unknown History mcg (1,000 unit) tablet estradiol 0.01% (0.1 mg/gram) See Rx Instructions vaginal 03/23/23 Unknown Rx vaginal cream .COMPLEX hormone #42.5 grams hydrochlorothiazide 25 mg tablet 12.5 mg PO DAILY PRN diuretic 06/16/23 Unknown History lisinopril 10 mg tablet 5 mg PO DAILY blood pressure 06/16/23 Unknown History Allergy/AdvReac Type Severity Reaction Status Date / Time diphenhydramine HCl (From AdvReac Other Verified 11/23/23 00:52 Benadryl) Family History Father Colon cancer Heart disease Hypertension Thyroid disorder Afib Hx of CABG Mother Breast cancer Afib Mitral valve disease Unknown Breast cancer Brother Alcoholism Sister Autoimmune disease Aunt Breast cancer Sister Breast cancer, Onset Age: 60 Surgical History Total knee replacement status H/O bilateral hip replacements History of tonsillectomy History of breast lump/mass excision S/P partial hysterectomy Social History household members: significant other current occupational status: employed current occupation: [employer] Smoking Status: Never smoker alcohol intake: current alcohol intake frequency: a few times a month substance use type: does not use diet: other what type of physical activity do you participate in: walking, yoga and other frequency: 3-4 times per week seatbelt use: always do you feel safe at home: Yes additional social history: single ROS ROS ED Constitutional Constitutional ED: Denies chills or fever(s) Eyes Eyes: Denies change in vision or diplopia ENT ENT ED: Denies rhinorrhea or sore throat Cardiovascular Cardiovascular: Denies chest pain or palpitations Respiratory/Chest Respiratory/Chest: Denies cough or dyspnea Gastrointestinal Gastrointestinal: Reports constipation, nausea and vomiting; Denies abdominal pain or diarrhea Genitourinary Genitourinary ED: Denies dysuria or hematuria Musculoskeletal Musculoskeletal: Denies back pain or neck pain Integumentary Denies abscess or rash Neurologic Neurologic: Denies headache(s), paresthesias or weakness Psychiatric Psychiatric: Denies suicidal thoughts EXAM Physical Exam Const Vital Signs: 11/23/23 00:48 Temperature 96.5 F L Temperature Source Temporal Pulse Rate 66 Respiratory Rate 18 Blood Pressure 109/81 H Blood Pressure Mean 90 Pulse Ox 94 Oxygen Delivery Method Room Air Positive well nourished and well developed General Appearance ED: well developed and NAD HEENT Reports moist mucous membranes normocephalic and atraumatic Eyes PERRL and EOMs intact bilaterally Neck full ROM and supple Resp normal respiratory effort and clear to auscultation bilaterally Cardio regular rate, regular rhythm and no murmurs GI non-tender and non-distended GI Narrative: Declines rectal Auscultation: normoactive bowel sounds Palpation: soft Back/Spine no CVA tenderness General Back: other FROM Extremity normal to inspection General Extremety ED: Negative for edema, pulses abnormal or tenderness General Extremity: Negative for edema or pulses abnormal Neuro oriented x3, CN's II-XII intact bilaterally and no sensory deficits noted Sensorium / Orientation: awake and alert Motor Exam: strength 5/5 throughout Psych mental status grossly normal and thought process normal Skin no rashes or lesions noted and no wounds MDM MDM MDM Narrative Medical decision making narrative: Discussed my recommendation for soapsuds enema. She does not want to do an enema here, she states she would prefer to do that at home, and is requesting a CT scan. I advised her that we can do that, but it is typically easier to treat constipation with a soapsuds enema, and if her symptoms improved she can avoid emergent CT scan. 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 She wants to know if there is any anatomic reason that she is having constipation and if she has a bowel obstruction. She tells me she has had no history of any abdominal surgeries, although her history shows a partial hysterectomy; we talked about the typical symptoms of a bowel obstruction, which usually cause significant pain and she is not having that, and in addition the fact that a normal CT scan does not rule out colon cancer which she states she also understands and still wants to have the CT scan which I am willing to perform for her. She states if it is normal and/or shows constipation, she prefers to be discharged home and to do an enema at home which certainly is okay too; I advised her that if we do the CT scan, it is best to do with IV contrast, hence obtaining some basic laboratories and placing an IV and she is amenable to that. Labs unremarkable, CT performed I reviewed the images and the result which I agree with. It is negative/normal except for a small subcapsular 2 cm right hepatic lobe peripheral mass that may be a hemangioma but according to the radiologist, imaging characteristics are not definitive and so he is recommending hepatic MRI for further evaluation. This can be done as an outpatient. Discussed with the patient she still does not want any emergent treatments here, we discussed increasing her dose of MiraLAX and drinking plenty of water to try to do a flush from above while doing an enema which she is amenable to doing at home and following up. Lab Data Attestation: I reviewed the patient's lab results. Labs: Laboratory Results - last 24 hr 11/23/23 01:21 WBC 5.3 RBC 4.16 L Hgb 12.2 Hct 37.5 MCV 90.1 MCH 29.3 MCHC 32.5 RDW Std Deviation 44.7 H RDW Coeff of Lucrecia 13.4 Plt Count 203 MPV 9.5 Immature Gran % (Auto) 0.200 Neut % (Auto) 52.2 Lymph % (Auto) 36.2 [place] % (Auto) 8.4 Eos % (Auto) 2.4 Baso % (Auto) 0.6 Absolute Neuts (auto) 2.8 Absolute Lymphs (auto) 1.93 Nucleated RBC % 0 Sodium 142 Potassium 4.0 Chloride 106 Carbon Dioxide 29.0 Anion Gap 7 BUN 23 H Creatinine 0.96 Estim Creat Clear Calc 62.43 Est GFR (MDRD) Af Amer 74 Est GFR (MDRD) Non-Af 61 BUN/Creatinine Ratio 23.8 H Glucose 100 Calcium 8.9 Total Bilirubin 0.30 AST 21 ALT 30 Alkaline Phosphatase 58 Total Protein 6.6 Albumin 3.5 Globulin 3.1 Albumin/Globulin Ratio 1.1 Radiography Diagnostic Testing: Clinical Impression(s) from Imaging Studies Abdomen/Pelvis CT 11/23/23 01:09 IMPRESSION: 1. No acute abdominal pelvic abnormality. 2. Irregular subcapsular mass measuring 2 x 1.4 x 1.5 cm in the periphery of the right lobe of the liver in segment 5. This likely represents a hemangioma but imaging characteristics are not definitive. Consider hepatic MR for further evaluation. Electronically Signed: Bj De Los Santos MD at 3:00 EDT , Discharge Plan Triage Chief Complaint: Constipation Other Complaint: Abd Pain ED Provider: Alek Saul Dx/Rx/DC Orders Clinical Impression: Constipation, Liver mass, right lobe Instructions: Understanding Hemangioma, ED Constipation (Adult) Prescriptions: No Action hydrochlorothiazide 25 mg tablet 12.5 mg PO DAILY PRN (Reason: diuretic) estradiol 0.01 % (0.1 mg/gram) cream See Rx Instructions vaginal .COMPLEX Qty: 42.5 2RF Rx Instructions: small amount as directed vaginal every other day X 4 weeks then twice a week; cholecalciferol (vitamin D3) 1,000 UNIT tablet 2,000 unit PO DAILY Patient Comments: vitamin D lisinopril 10 mg tablet 5 mg PO DAILY Primary Care Provider: Clement Oneal Referrals: Clement Oneal MD [Primary Care Provider] - As soon as possible Print Language: Kiswahili Disposition Disposition: Home, Self Care
[2023-11-23 01:29] LABS: Absolute Lymphocyte Count 1.93 X10^3/uL (0.83-4.51); Absolute Neutrophil Count 2.8 X10^3/uL (2.0-7.7); Basophil# 0.03 X10^3/uL; Basophil% 0.6 % (0-1); Eosinophil# 0.13 X10^3/uL; Eosinophils% 2.4 % (0-5); Hematocrit 37.5 % (37-47); Hemoglobin 12.2 g/dL (12.0-15.0); Lymphocyte # 1.93 X10^3/ul (0.83-4.51); Lymphocyte % 36.2 % (19-41); Mean Corp Hgb Conc 32.5 g/dL (32-36); Mean Corpuscular Hgb 29.3 pg (27.0-32.0); Mean Corpuscular Volume 90.1 fL (81-99); Mean Platelet Vol. 9.5 fl (6.2-12.0); Monocyte# 0.45 X10^3/uL; Monocyte% 8.4 % (0-10); NRBC Flagged by Analyzer 0 % (0-5); Neutrophil # 2.78 X10^3/uL (2.7-7.7); Neutrophil % 52.2 % (47-70); Platelet Count 203 K/mm3 (150-450); RBC Distribution Width CV 13.4 % (11.6-14.6); RBC Distribution Width SD 44.7 fl (35.1-43.9); Red Blood Count 4.16 M/mm3 (4.2-5.4); White Blood Count 5.3 K/mm3 (4.4-11.0)
[2023-11-23 02:06] LABS: ALB/GLOB Ratio 1.1 RATIO (0.9-2.4); AST(SGOT) 21 U/L (15-37); Alanine Aminotransfer ALT/SGPT 30 U/L (13-56); Albumin, Serum 3.5 g/dL (3.2-5.0); Alkaline Phosphatase 58 U/L (45-117); Anion Gap 7 (5-15); BUN 23 mg/dL (7-18); BUN/Creat Ratio 23.8 RATIO (10-20); Calcium,Total 8.9 mg/dL (8.5-10.1); Chloride 106 mmol/L (98-107); Creatinine, Serum 0.96 mg/dL (0.55-1.02); EST Glomerular Filtration Rate 61 mL/min (>60); Est Glom Filt Rate - Afr Amer 74 mL/min (>60); Estimated Creatinine Clearance 62.43 ml/min; Globulin 3.1 g/dL (2.2-4.2); Glucose 100 mg/dL (74-106); Protein, Total 6.6 g/dL (6.4-8.2); Sodium Level 142 mmol/L (136-145)
[2023-11-23 03:23] VITALS: BP 126/71; PULSE 71; RESP 16; TEMP 36.5; O2SAT 97
== END 2023-11-23 03:24 | disposition home or self-care (01) ==
PROVIDERS: Emergency Provider Emergency Medicine; PCP Family Medicine; Visit Provider Emergency Medicine
DX: K59.00 Constipation, unspecified (principal); R16.0 Hepatomegaly, not elsewhere classified; I10 Essential (primary) hypertension; Z79.899 Other long term (current) drug therapy; Z80.0 Family history of malignant neoplasm of digestive organs
CPT/HCPCS: 74177; 80053; 85025; 99283; Q9967; A4216

== ENCOUNTER → 2024-01-18 | Outpatient (CLI) | payer MEDICARE, BC, SELFPAY ==
[2024-01-18 12:19] LABS: Absolute Lymphocyte Count 1.28 X10^3/uL (0.83-4.51); Absolute Neutrophil Count 2.7 X10^3/uL (2.0-7.7); Basophil# 0.04 X10^3/uL; Basophil% 0.9 % (0-1); Eosinophils% 2.3 % (0-5); Hematocrit 40.6 % (37-47); Hemoglobin 13.4 g/dL (12.0-15.0); Lymphocyte # 1.28 X10^3/ul (0.83-4.51); Lymphocyte % 28.9 % (19-41); Mean Corpuscular Hgb 29.9 pg (27.0-32.0); Mean Corpuscular Volume 90.6 fL (81-99); Mean Platelet Vol. 9.7 fl (6.2-12.0); Monocyte# 0.28 X10^3/uL; Monocyte% 6.3 % (0-10); NRBC Flagged by Analyzer 0 % (0-5); Neutrophil # 2.71 X10^3/uL (2.7-7.7); Neutrophil % 61.1 % (47-70); Platelet Count 235 K/mm3 (150-450); RBC Distribution Width CV 12.9 % (11.6-14.6); RBC Distribution Width SD 42.5 fl (35.1-43.9); Red Blood Count 4.48 M/mm3 (4.2-5.4); White Blood Count 4.4 K/mm3 (4.4-11.0)
[2024-01-18 12:20] LABS: Erythrocyte Sedimentation Rate 5 mm/hr (0-30)
[2024-01-18 12:50] LABS: ALB/GLOB Ratio 1.2 RATIO (0.9-2.4); AST(SGOT) 19 U/L (15-37); Alanine Aminotransfer ALT/SGPT 33 U/L (13-56); Alkaline Phosphatase 68 U/L (45-117); Anion Gap 5 (5-15); BUN 23 mg/dL (7-18); BUN/Creat Ratio 26.5 RATIO (10-20); CRP < 2.90 mg/L (0.0-3.0); Calcium,Total 9.8 mg/dL (8.5-10.1); Chloride 102 mmol/L (98-107); Creatinine, Serum 0.87 mg/dL (0.55-1.02); EST Glomerular Filtration Rate 69 mL/min (>60); Est Glom Filt Rate - Afr Amer 84 mL/min (>60); Free T3 2.6 pg/mL (2.18-3.98); Globulin 3.3 g/dL (2.2-4.2); Glucose 89 mg/dL (74-106); LDH 181 U/L (84-246); Potassium 3.9 mmol/L (3.5-5.1); Protein, Total 7.3 g/dL (6.4-8.2); Sodium Level 137 mmol/L (136-145); T4 Free Direct 0.97 ng/dL (0.76-1.46)
[2024-01-21 14:10] LABS: ACCA 17 units (0-90); ALCA 2 units (0-60); AMCA 22 units (0-100); Albumin 4.1 g/dL (2.9-4.4); Alpha-1-Globulins 0.2 g/dL (0.0-0.4); Alpha-2-Globulins 0.8 g/dL (0.4-1.0); Cytoplasmic Ab (C-ANCA) <1:20 titer (Neg:<1:20); Endomysial Antibody IgA Negative (Negative); Gamma Globulin 0.8 g/dL (0.4-1.8); Immunoglobulin A 143 mg/dL (87-352); Immunoglobulin E 13 IU/mL (6-495); Immunoglobulin G 763 mg/dL (586-1602); Immunoglobulin M 93 mg/dL (26-217); Perinuclear Ab (P-ANCA) <1:20 titer (Neg:<1:20); gASCA 1 units (0-50); t-Transglutaminase IgA <2 U/mL (0-3)
[2024-01-21 15:08] LABS: Anti-Centromere B Ab <0.2 AI (0.0-0.9); Anti-Chromatin <0.2 AI (0.0-0.9); Anti-Jo <0.2 AI (0.0-0.9); Anti-Scleroderma-70 AB <0.2 AI (0.0-0.9); Anti-dsDNA Ab 3 IU/mL (0-9); Beef <0.10 kU/L (Class 0); Chocolate <0.10 kU/L (Class 0); Codfish <0.10 kU/L (Class 0); Corn <0.10 kU/L (Class 0); Egg, Whole <0.10 kU/L (Class 0); Milk (Cow) <0.10 kU/L (Class 0); Mussels <0.10 kU/L (Class 0); Peanut <0.10 kU/L (Class 0); Pork <0.10 kU/L (Class 0); RNP Ab <0.2 AI (0.0-0.9); SJOGREN'S Anti-SS-A test < 0.2 AI (0.0-0.9); SJOGREN'S Anti-SS-B test < 0.2 AI (0.0-0.9); Salmon <0.10 kU/L (Class 0); Shrimp <0.10 kU/L (Class 0); Smith Ab <0.2 AI (0.0-0.9); Soybean <0.10 kU/L (Class 0); Tuna <0.10 kU/L (Class 0); Wheat <0.10 kU/L (Class 0)
== END | disposition home or self-care (01) ==
LOC: LAB 11:20
PROVIDERS: PCP Family Medicine
DX: E03.9 Hypothyroidism, unspecified (principal); K59.00 Constipation, unspecified; K29.70 Gastritis, unspecified, without bleeding
CPT/HCPCS: 36415; 80053; 82784; 82785; 83516; 83615; 84165; 84439; 84443; 84481; 85025; 85652; 86003; 86005; 86036; 86037; 86140; 86225; 86235; 86255; 86334; 86671

== ENCOUNTER → 2024-01-22 | Outpatient (CLI) | payer MEDICARE, BC, SELFPAY ==
--- NOTE | 2024-01-22 10:30 | RAD_ITS ---
STUDY: X-RAY - ABDOMEN/PELVIS REASON FOR EXAM: Female, 68 years old. CONSTIPATION, STITZ MARKER CHECK TECHNIQUE: Single AP view of the abdomen / pelvis. COMPARISON: CT abdomen and pelvis November 23, 2023 FINDINGS: Normal visualized lung bases. Increased stool throughout the colon. Bilateral total hip arthroplasties. The visualized liver, spleen and kidneys are grossly normal in size and morphology. Normal soft tissue structures. Degenerative disc disease and spondylosis L4-5. RAD/Abdomen Single View IMPRESSION: Increased stool. No Sitzmarks markers are noted. Electronically Signed: Freddie Valencia MD at 23:58 EDT ,
[2024-01-24 20:07] LABS: Anti-Centromere B Ab <0.2 AI (0.0-0.9); Anti-Chromatin <0.2 AI (0.0-0.9); Anti-Jo <0.2 AI (0.0-0.9); Anti-Scleroderma-70 AB <0.2 AI (0.0-0.9); Anti-dsDNA Ab 3 IU/mL (0-9); RNP Ab <0.2 AI (0.0-0.9); SJOGREN'S Anti-SS-A test < 0.2 AI (0.0-0.9); SJOGREN'S Anti-SS-B test < 0.2 AI (0.0-0.9); Smith Ab <0.2 AI (0.0-0.9)
[2024-01-27 07:09] LABS: ACCA 67 units (0-90); ALCA 4 units (0-60); AMCA 28 units (0-100); Alpha-1-Globulins 0.2 g/dL (0.0-0.4); Alpha-2-Globulins 0.7 g/dL (0.4-1.0); Cytoplasmic Ab (C-ANCA) <1:20 titer (Neg:<1:20); Gamma Globulin 0.7 g/dL (0.4-1.8); Immunoglobulin A 132 mg/dL (87-352); Immunoglobulin G 758 mg/dL (586-1602); Immunoglobulin M 86 mg/dL (26-217); PROEL- TOTAL PROTEIN 6.5 g/dL (6.0-8.5); Perinuclear Ab (P-ANCA) <1:20 titer (Neg:<1:20); QNTFERON TB Mitogen Value > 10.00 IU/mL (.); QNTFERON TB Nil Value 0.03 IU/mL (.); QNTFERON TB1+ Ag Value 0.06 IU/mL (.); QNTFERON TB2+ Ag Value 0.08 IU/mL (.); QNTIFERON TB Positive Criteria Negative (Negative); gASCA 1 units (0-50)
== END | disposition home or self-care (01) ==
LOC: LAB 10:18 → RAD 10:28
PROVIDERS: PCP Family Medicine
DX: K59.04 Chronic idiopathic constipation (principal)
CPT/HCPCS: 36415; 74018; 82784; 83516; 84165; 86036; 86037; 86225; 86235; 86334; 86480; 86671

== ENCOUNTER → 2024-01-24 | Outpatient (CLI) | payer MEDICARE, BC, SELFPAY ==
[2024-01-27 19:07] LABS: Calprotectin, Stool 70 ug/g (0-120)
[2024-01-28 00:07] LABS: Pancreatic Elastase, Fecal > 800 (>200)
== END | disposition home or self-care (01) ==
LOC: LABSPEC 13:54
PROVIDERS: PCP Family Medicine
DX: E03.9 Hypothyroidism, unspecified (principal); K59.00 Constipation, unspecified; K58.9 Irritable bowel syndrome, unspecified
CPT/HCPCS: 82653; 83630; 83993

== ENCOUNTER 2024-03-07 05:55 | Day surgery (SDC) | payer MEDICARE, BC, SELFPAY ==
[2024-03-07 06:20] VITALS: BP 91/64; PULSE 75; RESP 16; TEMP 36.9; O2SAT 99; BMI 29.5
--- NOTE | 2024-03-07 06:37 | HP.PCM_ITS ---
History and Physical Date of Admission: 03/07/24 Chief Complaint: Constipation, bloating Details: CHAMP ROTH, is a 68 F who presents to the office today for establishment with [facility] with complaints abdominal bloating and constipation. She reports a visit to the emergency department on 11/23/23 for no bowel movement over [address] showed no acute abdominal or pelvic abnormality, but did show a subcapsular mass in the right lobe of the liver, possibly a hemangioma. ER physician offered SSE but she refused. 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 She was then advised to consume 1/2 a bottle of Miralax, as for a colonoscopy prep, and she reports clearing her abdomen of stool after that. Today, she states that it's been 6 days since her last BM and she's attempted to use Miralax daily dosing without results. She reports taking a probiotic, eating plenty of fiber with her meals and she is active with bicycling. She denies difficulty chewing, swallowing, excessive gas, hematochezia and melena. She reports history of GERD, last EGD showed small hiatal hernia, gastric polyps, and tissue changes at gastroesophageal junction(negative for Ascencio's). Colonoscopy showed diverticulosis, internal nonbleeding hemorrhoids, and 2 1-3mm polyps(one being tubular adenoma). ROS Const Constitutional: Positive for fatigue and decreased energy; No abnormal sleep pattern Eyes Eyes: No change in vision ENT ENT: No abnormal hearing or difficulty swallowing Resp Respiratory: No cough Cardio Cardiology: No chest pain at rest, chest pain with exertion or leg pain with exertion Gastro GI: Positive for bloating, change in bowel habits, constipation, heartburn and nausea/dyspepsia; No coffee ground emesis, diarrhea, difficulty swallowing, feeling full early, excessive flatus, incontinent of stools, Vomiting blood/hematemesis, Blood in stool, loose stools, Black,tarry stools, pain with swallowing or vomiting Genitourinary-Female: No difficulty urinating Musc Musculoskeletal: No abnormal gait or leg pain with exertion Skin Skin: No yellowing of the eye or itchy eyes Neuro Neurology: No abnormal gait or abnormal hearing Psych Psychiatric: No abnormal sleep pattern Endo Endocrine: Positive for change in body appearance and fatigue Aller/Imm Allergy/Immunologic: No food intolerance or itchy eyes Odilon/Lymp Hematologic/Lymphatic: No easy bleeding or easy bruising Exam Const General: cooperative, healthy appearing and comfortable Nutritional Appearance: average body habitus and overweight Orientation: alert HENMS Head: normal to inspection Ears: hearing grossly normal bilaterally Nose: external nose normal Face and sinus: normal facial exam and face symmetric Mouth: oral mucosae normal Eyes General: appearance normal, both eyes and all related structures Sclera: sclerae normal Neck Neck: normal visual inspection and full ROM Neck mass: No Chest Chest palpation & inspection: normal inspection of the chest Resp Effort & Inspection: normal respiratory effort, able to speak in complete sentences and symmetric chest movement GI Inspection: normal to inspection and distended Auscultation: normal bowel sounds Palpation: soft and no hepatosplenomegaly Skin General: no rashes or lesions noted Neuro General: patient alert, patient awake and patient oriented x3 Cognition: normal cognition Speech: speech normal Gait: normal gait Motor: muscle tone normal throughout Extrem General: full ROM Psych Appearance: well kempt Mood: congruent mood Affect: normal affect Speech and Movement: speech and movement normal Attitude: cooperative Thought Process: normal Assessment and Plan Assessment and Plan (1) Constipation: Status: Acute Qualifiers: Constipation type: unspecified constipation type Qualified Code(s): K59.00 - Constipation, unspecified Plan: CHAMP ROTH, is a 68 F who presents to the office today for establishment with [facility] with complaints abdominal bloating and constipation. She reports a visit to the emergency department on 11/23/23 for no bowel movement over [address] showed no acute abdominal or pelvic abnormality, but did show a subcapsular mass in the right lobe of the liver, possibly a hemangioma. Differential diagnoses include: pelvic floor dysfunction, IBS-D, IBD, CIC. * order blood for allergy, hormone, IBS/D panel, inflammatory markers * order stool for enzymes and inflammatory markers * sitz marker study to evaluate pelvic floor dysfunction * increase omeprazole to 40mg PO BID * recommend psyllium husk 1tsp PO daily x7days, then 1tsp PO BID x7days * continue probiotics daily * she will call office at end of 2wks of psyllium to notify of bowel status * call her with results * office follow-up Orders: Orders Allergen, Food Profile 14 Today E03.9 - Hypothyroidism, unspecified, K59.00 - Constipation, unspecified TEMITOPE Comprehensive Panel Today E03.9 - Hypothyroidism, unspecified, K59.00 - Constipation, unspecified ANCA Today E03.9 - Hypothyroidism, unspecified, K59.00 - Constipation, unspecified Calprotectin, Stool Today E03.9 - Hypothyroidism, unspecified, K59.00 - Constipation, unspecified CBC W/Diff, Automated Today E03.9 - Hypothyroidism, unspecified, K29.70 - Gastritis, unspecified, without bleeding, K59.00 - Constipation, unspecified Celiac Disease Profile Today E03.9 - Hypothyroidism, unspecified, K59.00 - Constipation, unspecified Comprehensive Metabolic Profil Today E03.9 - Hypothyroidism, unspecified, K59.00 - Constipation, unspecified CRP Today E03.9 - Hypothyroidism, unspecified, K59.00 - Constipation, unspecified Erythrocyte Sed Rate Today E03.9 - Hypothyroidism, unspecified, K59.00 - Constipation, unspecified Free T3 Today E03.9 - Hypothyroidism, unspecified, K59.00 - Constipation, unspecified IBD Expanded Profile Today E03.9 - Hypothyroidism, unspecified, K59.00 - Constipation, unspecified LICO + Protein Elect, Serum Today E03.9 - Hypothyroidism, unspecified, K59.00 - Constipation, unspecified Immunoglobulins G/A/M/E Today E03.9 - Hypothyroidism, unspecified, K59.00 - Constipation, unspecified LDH Today E03.9 - Hypothyroidism, unspecified, K59.00 - Constipation, unspecified Pancreatic Elastase, Fecal Today E03.9 - Hypothyroidism, unspecified, K59.00 - Constipation, unspecified Stool Lactoferrin/WBC Today E03.9 - Hypothyroidism, unspecified, K58.9 - Irritable bowel syndrome, unspecified, K59.00 - Constipation, unspecified T4 Free Direct Today E03.9 - Hypothyroidism, unspecified, K59.00 - Constipation, unspecified Thyroid Stim Hormone (TSH) Today E03.9 - Hypothyroidism, unspecified, K59.00 - Constipation, unspecified Abdomen Single View 01/22/24 K59.00 - Constipation, unspecified Abdomen Single View 01/24/24 K59.00 - Constipation, unspecified Medications: New omeprazole 40 mg PO BID 60 caps 2RF Coding Level of Care Code New Pt Off vis,new,level 4 Patient Type New Medical Decision Making Moderate Complexity Diagnoses Constipation, unspecified constipation type K59.00 Constipation type: unspecified constipation type I have examined the patient and the H&P has been reviewed. There are no clinical changes since date of exam.
[2024-03-07] MEDS: Lactated Ringers 1,000 ML 15 ML IV (06:48)
--- NOTE | 2024-03-07 06:54 | PCM.PRE.AN2 ---
ASA Classification* ASA Classification ASA Classification: 2 Assessment & Plan Anesthesia* Anesthesia Assessment Anesthesia Assessment: Discussed sedation and/or anesthesia options, risks, benefits, and alternatives with patient/parents/legal guardian/POA. Questions invited. The patient/parents/legal guardian/POA seems to understand and agrees to proceed with anesthesia plan. Reviewed the physical assessment, medical history, allergy history and patient home medications list prior to surgery/procedure/anesthetic and documented any changes. Performed airway and anesthesia risk assessments. Anesthesia Type Anesthesia Type: MAC Anesthesia Focused Assessment* Temperature: 98.4 F Pulse Rate: 75 Blood Pressure: 91/64 Respiratory Rate: 16 Pulse Ox: 99 Airway Assessment Mouth opens: >3 cm Mallampati Score: II Focused Labs Anesthesia Preop lab: CBC WBC 4.4 K/mm3 (4.4-11.0) 01/18/24 11:23 RBC 4.48 M/mm3 (4.2-5.4) 01/18/24 11:23 Hgb 13.4 g/dL (12.0-15.0) 01/18/24 11:23 Hct 40.6 % (37-47) 01/18/24 11:23 Plt Count 235 K/mm3 (150-450) 01/18/24 11:23 CHEMISTRY Potassium 3.9 mmol/L (3.5-5.1) 01/18/24 11:23 Sodium 137 mmol/L (136-145) 01/18/24 11:23 Magnesium 2.2 mg/dL (1.6-2.6) 04/21/23 05:12 Phosphorus 3.4 mg/dL (2.5-4.9) 04/21/23 05:12 BUN 23 mg/dL (7-18) H 01/18/24 11:23 Creatinine 0.87 mg/dL (0.55-1.02) 01/18/24 11:23 Glucose 89 mg/dL (74-106) 01/18/24 11:23 TSH 3.110 uIU/mL (0.358-3.740) 01/18/24 11:23 COAG PT 12.2 SECONDS (11.7-14.9) 04/20/23 08:15 Pre-Assessment Diagnosis/Proposed Procedure Planned Operative Procedure(s): cscope Anesthesia History Anesthesia History - child monitor: Anesthesia History - child monitor Hx Hospitalization Yes: 04/2023 - rule out 03/01/24 12:46 stroke Any Problems With Anesthesia Yes: ASPIRATION POST OP 03/01/24 12:46 AFTER TAKING BENADRYL, SEVERE N&V, SENSITIVE TO ANESTHES Cholinesterase deficiency No 03/01/24 12:46 You/Your Family Experience No 03/01/24 12:46 fever (hyperthermia) with Relationship Recent Exposure to Contagious No 03/07/24 06:20 Disease Does patient have nerve No 03/01/24 12:46 stimulator Patient instructed to have device shut off --Does patient have Pacemaker No 03/07/24 06:20 or ICD? When Was Last Pacemaker Check QUESTION #4 FULL TEXT: You/Your Family Experience fever (hyperthermia) with Anesthesia Last Oral Intake Last Oral intake: Last Oral Intake NPO since 23:00 03/07/24 06:20 Meds taken in AM with sips of No 03/07/24 06:20 water? Meds patient instructed to take am of surgery PONV PONV - child monitor: PONV - child monitor Female Yes 03/01/24 12:46 HX of Motion Sickness Yes 03/01/24 12:46 HX of N/V After Surgery Yes 03/01/24 12:46 Non-Smoker Yes 03/01/24 12:46 Duration of Surgery greater No 03/01/24 12:46 than 60 minutes Number of Risk Factors 4 03/01/24 12:46 PONV Score Severe Risk 03/01/24 12:46 Height & Weight Height & Weight: Anesthesia: Height & Weight Height 5 ft 6 in 03/07/24 06:20 Weight: 83 kg 03/07/24 06:20 Body Mass Index (BMI) 29.5 03/07/24 06:20 Respiratory Assessment Respiratory Assessment - child monitor: Respiratory Tract Infection Hx - child monitor Hx Respiratory Tract Infection No 03/01/24 12:46 STOP Sleep Apnea STOP Sleep Apnea - child monitor: STOP Sleep Apnea - child monitor Hx Hypertension Yes: CONTROLLED WITH MED 03/01/24 12:46 Hx Sleep Apnea Yes 03/01/24 12:46 CPAP Yes 03/01/24 12:46 BIPAP No 03/01/24 12:46 Do you snore loudly (louder than talking or can be heard Do you often feel tired/ fatigued/ sleepy during daytime? Has anyone observed you stop breathing during sleep? STOP Results Positive 03/01/24 12:46 QUESTION #5 FULL TEXT : Do you snore loudly (louder than talking or can be heard through closed doors)? 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 Specify any problems Hx of Preganancy in last 3 N/A 03/01/24 12:46 Months Nurse Filling Out Transfusion NBUCHER 03/01/24 12:46 & Questions: Date: 03/01/24 03/01/24 12:46 Time: 12:47 03/01/24 12:46 Patient unable to answer at this time (ie. confused, unrespo /Reproduction History /Reproductive History - child monitor: /Reproductive Hx- child monitor Hx Now Gestational Age (in weeks): EDC: Hx Hx Para Hx Section SAB No 03/01/24 12:46 Active Medications Active Medications: Current Medications Generic Name Dose Route Start Last Admin Trade Name Freq PRN Reason Stop Dose Admin Lactated Ringer's 1,000 mls @ 15 mls/hr 03/07/24 07:00 03/07/24 06:48 IV 03/10/24 01:39 15 mls/hr .Q48H NÉSTOR Administration Protocol PFS Medical History Wears glasses PONV (postoperative nausea and vomiting) CPAP (continuous positive airway pressure) dependence Non-smoker History of echocardiogram History of stress test Cardiology follow-up encounter GERD (gastroesophageal reflux disease) Hypercholesteremia Depression Parathyroid adenoma Thyroid nodule History of hypertension Autoimmune disorder Palindromic rheumatism Sleep apnea Constipation HTN (hypertension) Home Medications ?Medication ?Instructions ?Recorded ?Last Taken ?Type cholecalciferol (vitamin D3) 25 2,000 unit PO DAILY vitamin 04/25/14 Unknown History mcg (1,000 unit) tablet hydrochlorothiazide 25 mg tablet 12.5 mg PO DAILY PRN diuretic 06/16/23 Unknown History lisinopril 10 mg tablet 20 mg PO DAILY blood pressure 06/16/23 Unknown History omeprazole 40 mg capsule,delayed 40 mg PO BID #60 caps 01/18/24 Unknown Rx release Allergy/AdvReac Type Severity Reaction Status Date / Time diphenhydramine HCl (From AdvReac Other Verified 03/07/24 06:20 Benadryl) Family History Father Colon cancer Heart disease Hypertension Thyroid disorder Afib Hx of CABG Mother Breast cancer Afib Mitral valve disease Unknown Breast cancer Brother Alcoholism Sister Autoimmune disease Aunt Breast cancer Sister Breast cancer, Onset Age: 60 Surgical History Total knee replacement status H/O bilateral hip replacements History of tonsillectomy History of breast lump/mass excision S/P partial hysterectomy Social History household members: significant other current occupational status: employed current occupation: [employer] Smoking Status: Never smoker alcohol intake: current alcohol intake frequency: a few times a month substance use type: does not use diet: other what type of physical activity do you participate in: walking, yoga and other frequency: 3-4 times per week seatbelt use: always do you feel safe at home: Yes additional social history: single Review of Systems (Anesthesia) ROS Narrative System reviewed and no additional complaints, except as documented.
[2024-03-07 06:55] VITALS: BP 91/64; PULSE 75; RESP 16; TEMP 36.9; O2SAT 99
[2024-03-07 07:50] VITALS: BP 109/78; BP 125/72; BP 91/64; PULSE 64; PULSE 67; RESP 14; TEMP 36.7; O2SAT 100
--- NOTE | 2024-03-07 07:50 | OP.CCLET_ITS ---
03/07/2024 Clement Oneal Md Re : Colonoscopy procedure for Leana Castillor Kimmy This procedure was performed on Thursday, March 07, 2024. My impressions and recommendations are as follows: Impressions : - Diverticulosis in the recto-sigmoid colon and in the sigmoid colon. - The examination was otherwise normal on direct and retroflexion views. - No specimens collected. Recommendations : - Discharge patient to home. - Resume previous diet. - Continue present medications. - Repeat colonoscopy in 5 years for surveillance. My findings are described in the full procedure note, which is enclosed. If I can be of further assistance, please feel free to contact me at . Sincerely, Irineo Shepard, 03/07/2024 7:49:52 AM This report has been signed electronically.
--- NOTE | 2024-03-07 07:50 | OP.COLON_ITS ---
Patient Name: Leana Mancera Procedure Date: 03/07/2024 7:26 AM Date of : 1955 Age: 68 Procedure: Colonoscopy Indications: Change in bowel habits, Change in stool caliber, Constipation, Obstipation Providers: Irineo Shepard DO Referring MD: Clement Oneal Md Medicines: Monitored Anesthesia Care Patient Profile: This is a 68 year old female. Refer to note in patient chart for documentation of history and physical. Last Colonoscopy: within the past 6 months. Complications: No immediate complications. Procedure: Pre-Anesthesia Assessment: - Prior to the procedure, a History and Physical was performed, and patient medications and allergies were reviewed. The patient is competent. The risks and benefits of the procedure and the sedation options and risks were discussed with the patient. All questions were answered and informed consent was obtained. Patient identification and proposed procedure were verified by the physician in the pre-procedure area. Mental Status Examination: alert and oriented. Airway Examination: normal oropharyngeal airway and neck mobility. Respiratory Examination: clear to auscultation. CV Examination: normal. ASA Grade Assessment: II - A patient with mild systemic disease. After reviewing the risks and benefits, the patient was deemed in satisfactory condition to undergo the procedure. The anesthesia plan was to use monitored anesthesia care (MAC). Immediately prior to administration of medications, the patient was re-assessed for adequacy to receive sedatives. The heart rate, respiratory rate, oxygen saturations, blood pressure, adequacy of pulmonary ventilation, and response to care were monitored throughout the procedure. The physical status of the patient was re-assessed after the procedure. After I obtained informed consent, the scope was passed under direct vision. Throughout the procedure, the patient's blood pressure, pulse, and oxygen saturations were monitored continuously. The Colonoscope was introduced through the anus and advanced to the cecum, identified by appendiceal orifice and ileocecal valve. The colonoscopy was performed without difficulty. The patient tolerated the procedure well. The quality of the bowel preparation was adequate. The ileocecal valve, appendiceal orifice, and rectum were photographed. Scope In: 7:36:29 AM Scope Withdrawal Time 0 hours 8 minutes 24 seconds Scope Out: 7:46:58 AM Total Procedure Duration Time 0 hours 10 minutes 29 seconds Findings: The perianal and digital rectal examinations were normal. A few small and large-mouthed diverticula were found in the recto-sigmoid colon and sigmoid colon. The exam was otherwise without abnormality on direct and retroflexion views. Impression: - Diverticulosis in the recto-sigmoid colon and in the sigmoid colon. - The examination was otherwise normal on direct and retroflexion views. - No specimens collected. Recommendation: - Discharge patient to home. - Resume previous diet. - Continue present medications. - Repeat colonoscopy in 5 years for surveillance. Procedure Code(s): --- Professional --- 24285, Colonoscopy, flexible; diagnostic, including collection of specimen(s) by brushing or washing, when performed (separate procedure) CPT copyright 2021 [employer]. All rights reserved. The codes documented in this report are preliminary and upon die hardener review may be revised to meet current compliance requirements. Irineo Shepard DO 03/07/2024 7:49:52 AM This report has been signed electronically. Number of Addenda: 0 Note Initiated On: 03/07/2024 7:26 AM
--- NOTE | 2024-03-07 07:55 | PCM.POST.ANE ---
Anesthesia: Postop Eval I Current Vital Signs Temperature: 98 F Pulse Rate: 62 Blood Pressure: 109/78 Respiratory Rate: 16 Pulse Ox: 100 Oxygen Delivery Method: Room Air Assessment Airway patent: Yes Spontaneous unlabored respirations: Yes Mental status: Awake and Calm nausea: No Vomiting: No Anesthesia Complication: No Fluid Hydration Crystalloid volume administer (ml): 800 Total IV fluid infused: 800 Progress Note Anesthesia document: Postop Eval 1 completed: Yes
[2024-03-07 07:56] VITALS: BP 109/78; PULSE 62; RESP 16; TEMP 36.6; O2SAT 100
[2024-03-07 08:03] VITALS: BP 127/76; BP 91/64; PULSE 53; RESP 14; TEMP 36.5; O2SAT 100
[2024-03-07 08:19] VITALS: BP 91/64
--- NOTE | 2024-03-07 15:42 | PCM.POSTANE2 ---
Anesthesia Postop Eval I Sum Postop Eval Completion status Anesthesia document: Postop Eval 1 completed: Yes Anesthesia Postop Eval I Summary Anesthesia Postop Eval I Summary: Anesthesia Postop Eval I: Assessment Summary Airway patent Yes 03/07/24 07:56 [email or web address] Spontaneous unlabored Yes 03/07/24 07:56 [email or web address] respirations Mental status Awake,Calm 03/07/24 07:56 [email or web address] nausea No 03/07/24 07:56 [email or web address] Vomiting No 03/07/24 07:56 [email or web address] Anesthesia Postop Eval I: Fluid Summary Crystalloid volume administer 800 03/07/24 07:56 [email or web address] (ml) Colloids volume administered ( ml) Blood Product volume administered (ml) Total IV fluid infused 800 03/07/24 07:56 [email or web address] Anesthesia Postop Eval I: Summary Notes Anesthesia Complication No 03/07/24 07:56 [email or web address] Anesthesia Complication Comment: Post-operative progress note Anesthesia: Postop Eval II Evaluation Mental status: Awake and Calm Pain Level: 0 nausea: No Vomiting: No Complications Anesthesia Complication: No
== END 2024-03-07 08:24 | disposition home or self-care (01) ==
LOC: EN 05:57 → AC 05:58
PROVIDERS: PCP Family Medicine; Referring Provider Family Medicine; Visit Provider Internal Medicine Gastroenterology
PROC: 0DJD8ZZ Inspection of Lower Intestinal Tract, Via Natural or Artificial Opening Endoscopic (ICD-10-PCS; CPT 45378; principal; 2024-03-07 06:55)
DX: K57.30 Diverticulosis of large intestine without perforation or abscess without bleeding (principal); K59.00 Constipation, unspecified; K21.9 Gastro-esophageal reflux disease without esophagitis; R19.5 Other fecal abnormalities; I10 Essential (primary) hypertension; E66.3 Overweight; Z68.29 Body mass index [BMI] 29.0-29.9, adult; Z79.899 Other long term (current) drug therapy; Z80.0 Family history of malignant neoplasm of digestive organs
CPT/HCPCS: 45378; J7120; A4216

== ENCOUNTER → 2024-05-30 | Outpatient (CLI) | payer MEDICARE, BC, SELFPAY ==
--- NOTE | 2024-05-30 07:28 | MRI_ITS ---
PROCEDURE: MRI ABD WITH AND W/O CONTRAST REASON FOR EXAM: Liver hemangioma. TECHNIQUE: Multiplanar, multisequence MRI of the upper abdomen without and with intravenous gadolinium-based contrast. CONTRAST: 16 cc Clariscan. COMPARISON: CT abdomen/pelvis from 11/23/2023. FINDINGS: Lung bases are clear. There is a focal area of T2-weighted hyperintense signal in the lateral periphery of the right hepatic lobe measuring approximately 17 x 13 mm. The lesion demonstrates hypointense T1-weighted signal on precontrast imaging. On postcontrast imaging, there is mild nodular peripheral enhancement on early phase. Additional delayed imaging demonstrates central filling of the lesion on postcontrast imaging and most likely relates to a hemangioma. The spleen, pancreas, gallbladder, biliary system, and adrenal glands are unremarkable. Abdominal aorta demonstrates a normal caliber. Bilateral kidneys enhance homogeneously without hydronephrosis. No free fluid is seen within the abdomen. There is levoscoliosis of the lumbar spine. MRI/MRI Abd WITH and W/O Contrast IMPRESSION: Hepatic lesion as above most likely relates to a hemangioma. Reading Location: [facility]
== END | disposition home or self-care (01) ==
LOC: MRI 07:12
PROVIDERS: PCP Family Medicine; Referring Provider Nurse Practitioner Acute Care; Visit Provider Nurse Practitioner Acute Care
DX: K76.9 Liver disease, unspecified (principal); R14.0 Abdominal distension (gaseous)
CPT/HCPCS: 74183; A9575; A4216

== ENCOUNTER → 2024-06-07 | Outpatient (CLI) | payer MEDICARE, BC, SELFPAY ==
--- NOTE | 2024-06-07 13:39 | BI_ITS ---
PROCEDURE: SCRN MAMM (CAD)W/ELIDA BILAT REASON FOR EXAM: Screening mammogram TECHNIQUE: Bilateral diagnostic digital breast tomosynthesis with 2D and 3D images. Computer aided detection. COMPARISON: Prior exam(s) 02/24/2023 FINDINGS: There are scattered areas of fibroglandular density. No suspicious masses, suspicious cluster of calcifications, architectural distortion or secondary sign of malignancy is identified in either breast. Benign vascular calcifications are seen in both breasts. A stable, 6 mm, benign-appearing intramammary lymph node is seen in the superior outer, far posterior aspect of the right breast. BI/SCRN MAMM (CAD)W/ELIDA BILAT IMPRESSION: BI-RADS 2: BENIGN. RECOMMEND ANNUAL MAMMOGRAPHIC SCREENING. Follow-up code: Routine Follow-up Reading Location: [id number]
== END | disposition home or self-care (01) ==
LOC: OPBI 13:38
PROVIDERS: PCP Family Medicine; Referring Provider Nurse Practitioner Women's Health; Visit Provider Nurse Practitioner Women's Health
DX: Z12.31 Encounter for screening mammogram for malignant neoplasm of breast (principal)
CPT/HCPCS: 77063; 77067

== ENCOUNTER → 2025-04-11 | Outpatient (CLI) | payer MEDICARE, BC, SELFPAY ==
--- OUTSIDE RECORDS SUMMARY | 2025-04-11 10:43 | XMS RPT_ITS | CCD ---
Author Organization [facility] Care Team Providers Care Airway Controller Name Role Phone Dr. Taran Stephenson Primary Care Provider Dr. Taran Stephenson Referring Provider Segundo COMMISSION SPECIALIST, COMMISSION SPECIALIST-C Meg Attending Provider DO Man Carbone Primary Care Provider [phone] DO Man Carbone Referring Provider Dr. Celestino Bartholomew Attending Provider Bentley COMMISSION SPECIALIST, COMMISSION SPECIALIST-C Marie Attending Provider [phone] Taran Tyler MD Primary Care Provider DO Man Carbone Primary Care Provider DO Man Carbone Referring Provider Segundo COMMISSION SPECIALIST, COMMISSION SPECIALIST-C Meg Attending Provider [phone] Dr. Iris Garcia Attending Provider Dr. Valeriy Ralph Emergency Provider [phone] Dr. Summer Ruiz Admit Provider Dr. Summer Ruiz Attending Provider Dr. Summer Ruiz Other Provider MD Aries Blair Other Provider Unavailable Dr. Tiara Salcedo Other Provider MD Ava Alejandro Other Provider Unavailable Dr. Diana Busby Other Provider Dr. Lakeisha Head Other Provider Dr. Alejandro Dickson Other Provider [phone] Chika Momin Other Provider Dr. Fahad Savage Other Provider Dr. Sharif Talavera Other Provider MD Marilee Bell Other Provider Dr. Suzanne Sanders Other Provider Dr. Ruby Florence Other Provider Dr. Abdirizak Max Other Provider Dr. Elma Mehta Other Provider Dr. Valeriy Panchal Other Provider [phone] Constance Sainz Other Provider Dr. Rivas Hull Other Provider Dr. Ara Ruiz Other Provider Unavailable MD Damián Avilachristian Other Provider Unavailable Dr. Kevin Solomon Attending Provider Dr. Javier Hartman Attending Provider Dr. Javier Hartman Referring Provider [phone] Javier Hartman Other Provider Stefanie HARTLEY, [facility] Primary Care Provider JULIÁN NICHOLS Attending Unavailable NICHOLS, INDERPRMARICHUY Referring Unavailable STEFANIE, CHALON Primary Care Unavailable NICHOLS, AURORAPRMARICHUY Attending Unavailable JAYSON, TARAN Melissa Primary Care Unavailable LARA SEGAL Attending Unavailabl DEBBI Venegas Referring Unavailable STEFANIE, CHALON Primary Care Unavailable TINA VINCENT Attending Unavailable JAYSON, TARAN K Primary Care Unavailable OJ RON Attending Unavailable TINA VINCENT Referring Unavailable TYLER, TARAN K Primary Care Unavailable DEBBI PATEL Attending Unavailable STEFANIE, CHALON Primary Care Unavailable TARAN GALICIA Attending Unavailable TYLER, TARAN K Primary Care Unavailable DEBBI PATEL Attending Unavailable STEFANIE, CHALON Primary Care Unavailable Nu Swanson Attending Unavailable Sky, Nu Referring Unavailable Stefanie, Chalon Primary Care Unavailable Sky Nu Attending Unavailable Swanson, Nu Referring Unavailable Stefanie, Chalon Primary Care Unavailable Alek Saul Attending Unavailable Stefanie, Chalon Primary Care Unavailable Friend, Irineo Attending Unavailable Stefanie, Chalon Referring Unavailable Stefanie, Chalon Primary Care Unavailable Segundo COMMISSION SPECIALIST, Meg Attending Unavailable Segundo COMMISSION SPECIALIST, Meg Referring Unavailable Stefanie, Chalon Primary Care Unavailable Man Carbone Referring Unavailable Kvng COMMISSION SPECIALIST, Varsha Attending Unavailable Man Carbone Primary Care Unavailable Nu Swanson Attending Unavailable Stefanie, Chalon Primary Care Unavailable Stefanie, Chalon Referring Unavailable Tona, Man M Referring Unavailable Kevin Solomon Attending Unavailable Stefanie, Chalon Primary Care Unavailable Lara Smith Attending Unavailable Stefanie, Chalon Referring Unavailable Stefanie, Chalon Primary Care Unavailable Stefanie, Chalon Referring Unavailable Stefanie, Chalon Primary Care Unavailable Friend, Irineo Consulting Unavailable Friend, Irineo Attending Unavailable Kvng COMMISSION SPECIALIST, Varsha Attending Unavailable TonaMan Referring Unavailable Stefanie, Chalon Primary Care Unavailable Lara Smith Attending Unavailable Lara Smith Referring Unavailable Stefanie, Chalon Primary Care Unavailable Nu Swanson Attending Unavailable Swanson Nu Referring Unavailable Stefanie, Chalon Primary Care Unavailable North HARTLEY, Coco Masterson Unavailable [phone] NONE, NONE Unavailable Unavailable Jayson HARTLEY, Taran Torres Unavailable Allergies Allergy Classification Reported Allergen(s) Allergy Type Date of Onset Reaction(s) Facility (20 sources) diphenhydrAMINE; Translations: [DIPHENHYDRAMINE HCL] Drug Allergy 12-16-19 13 Other: See Comments [facility] (9 sources) [id number] Antimigraine Agents; Translations: [[id number]-[id number] ANTIMIGRAINE AGENTS] Propensity to adverse reactions to drug 04-26-19 24 Contraindicati on[facility] Work Phone: (2 sources) [id number] Antimigraine Agents Propensity to adverse reactions to drug 04-26-19 24 Contraindicati on[facility] Work Phone: (2 sources) diphenhydrAMINE Drug Allergy 12-15-19 14 [email or web address] (2 sources) GENERAL ANESTHETIC Drug allergy (disorder) 01-19-20 18 [facility] Medications Current Medications Medication Drug Class(es) Dates Sig (Normalized) Sig (Original) amitriptyline hydrochloride 10 mg oral tablet (11 sources) Tricyclic Antidepressant Start: 04-26-2023 End: 04-26-2023 Amitriptyline Discontinued MG PO April 26, 2023 12:00am April 26, 2023 9:39am Start: 04-22-2023 End: 11-25-2023 take 10 mg by mouth at bedtime Amitriptyline Active 10 MG PO AT BEDTIME April 26, 2023 9:37am aspirin 81 mg delayed release oral tablet (15 sources) Platelet Aggregation Inhibitor, Nonsteroidal Anti-inflammatory Drug Start: 05-19-2017 aspirin 81 mg tablet,delayed release (DR/EC) 1 tablet once a day active Donn Lucio LPN [facility] [place] [facility] Start: 02-07-2017 End: 03-14-2019 take 81 mg by mouth once daily Aspirin Discontinued 81 MG PO DAILY@0800 February 06, 2017 11:00pm March 14, 2019 3:10pm cholecalciferol 0.025 mg oral tablet (20 sources) Vitamin D Start: 04-25-2014 take 2000 [IU] by mouth once daily Cholecalciferol (Vitamin D3) Active 2000 UNIT PO DAILY April 25, 2014 12:00am Start: 09-11-2010 End: 08-31-2022 take 1 capsule by mouth once daily Cholecalciferol, Vitamin D3, 50 mcg (2,000 unit) cap Take 1 capsule by mouth once daily. 0 09/11/2010 08/31/2022 Discontinued (Course of therapy completed) take 1 tablet by ernie once daily cholecalciferol (VITAMIN D-3) 50 mcg (2,000 unit) tablet Take 2,000 Units by mouth once daily. Active Comment on above: Take 1 capsule by mo [facility] once daily. estradiol 0.1 mg/ml vaginal cream (15 sources) Estrogen Start: 03-23-2023 Estradiol Active 0 VAGINAL .COMPLEX 42.5 March 23, 2023 12:00am small amount as directed vaginal every other day X 4 weeks then twice a week; Start: 12-17-2015 End: 08-31-2022 estradiol (ESTRACE) 0.01 % ( 0.1 mg/gram) vaginal cream Indications: Postmenopausal atrophic vaginitis Use small amount at vaginal opening 2-3 nights per week 1 Tube 2 12/17/2015 08/31/2022 Discontinued (Course of therapy completed) estradiol (ESTRA CE) 0.01 % (0.1 mg/gram) vaginal cream Use 1 g vaginally one time a week. Active Comment on above: Use small amount at vaginal opening 2-3 nights per week hydroCHLOROthiazide 25 mg oral tablet (20 sources) Thiazide Diuretic Start: End: 024 take 12.5 mg by mouth once daily Hydrochlorothiazide Active 12.5 MG PO DAILY June 16, 2023 11:45am Start: 04-16-2021 End: 05-10-2023 take 25 mg by mouth once daily Hydrochlorothiazide Discontinued 25 MG PO DAILY April 16, 2021 12:00am May 10, 2023 10:58am Start: 02-07-2017 End: 03-14-2019 take 12.5 mg by mouth once daily Hydrochlorothiazide Discontinued 12.5 MG PO DAILY February 06, 2017 11:00pm March 14, 2019 3:10pm hydroCHLOROthiaz lino (HYDRODIURIL, ESIDRIX) 25 mg tablet Take 12.5 mg by mouth once daily. Active Comment on above: Take 25 mg by mouth once daily. hydroxychloroquine sulfate 200 mg oral tablet (14 sources) Antimalarial, Antirheumatic Agent Start: 2024 take 1 tablet by mouth twice daily hydrOXYchloroQUINE (PLAQUENIL) 200 mg tablet Take 1 tablet by mouth two times a day. 60 tablet 2 12/21/2024 Active Start: 05-10-2023 take 400 mg by mouth twice daily Hydroxychloroquine Active 400 MG PO TWICE A DAY May 10, 2023 10:55am Start: 09-28-2022 End: 05-10-2023 take 200 mg by mouth once daily Hydroxychloroquine Discontinued 200 MG PO DAILY September 27, 2022 11:00pm May 10, 2023 10:58am Start: 08-31-2022 End: 11-25-2023 take 1 tablet by mouth twice daily hydrOXYchloroQUINE (PLAQUENIL) 200 mg tablet Take 1 tablet by mouth two times a day. 60 tablet 2 01/19/2023 11/25/2023 Discontinued (Discontinued by Patient) Comment on above: Take 1 tablet by ernie th twice daily. Take 1 tablet by ernie th two times a day. Take 200 mg by mouth twice daily. levothyroxine sodium 0.075 mg oral tablet (3 sources) l-Thyroxine Start: 4 take 75 ug by mouth once daily Levothyroxine Active 75 MCG PO DAILY April 30, 2023 12:00am lisinopril 10 mg oral tablet (20 sources) Angiotensin Converting Enzyme Inhibitor Start: 4 take 5 mg by mouth once daily Lisinopril Active 5 MG PO DAILY June 16, 2023 11:46am Start: 04-16-2021 End: 06-16-2023 take 20 mg by mouth once daily Lisinopril Discontinued 20 MG PO DAILY April 16, 2021 10:10am June 16, 2023 11:47am Start: 04-16-2021 take 5 mg by mouth once daily Lisinopril Active 5 MG PO DAILY April 16, 2021 10:10am Start: 02-07-2017 End: 04-16-2021 take 10 mg by mouth once daily Lisinopril Discontinued 10 MG PO DAILY February 06, 2017 11:00pm April 16, 2021 10:10am Start: 06-23-2016 End: 08-31-2022 take 1 tablet by mouth once daily lisinopril (ZESTRIL, PRINIVIL) 5 mg tablet Take 1 tablet by mouth once daily. 90 tablet 3 06/23/2016 08/31/2022 Discontinued (Course of therapy completed) take 1 tablet by ernie th once daily lisinopril 20 mg tablet 1 tablet by mouth once a day active Donna Ryder [facility] take 5 mg by mouth once daily li sinopril (ZESTRIL) 10 mg tablet Take 5 mg by mouth once daily. Active Comment on above: Take 10 mg by mouth once daily. Take 1 tablet by ernie th once daily. Multivitamin With Folic Acid (13 sources) Start: 04-25-2014 take 1 tablet by mouth once daily Multivitamin With Folic Acid Active 1 TABLET PO DAILY April 25, 2014 4:08pm Start: 04-25-2014 End: 09-28-2022 take 1 tablet by mouth once daily Multivitamin With Folic Acid Discontinued 1 TABLET PO DAILY April 25, 2014 12:00am September 28, 2022 9:01am Start: 04-25-2014 take 1 tablet by ernie th once daily Multivitamin With Folic Acid Active 1 TABLET PO DAILY April 25, 2014 1:00am omeprazole 20 mg delayed release oral capsule (5 sources) Proton Pump Inhibitor Start: 01-10-2024 End: 05-09-2024 take 1 capsule by mouth once daily omeprazole (PRILOSEC) 20 mg capsule Take 1 capsule by mouth once daily. 30 capsule 3 01/10/2024 Active take 1 capsule by mouth once hawa ly omeprazole 40 mg capsule,delayed release 1 capsule by mouth once a day active Donna Ryder [facility] [place] [facility] phentermine hydrochloride 37.5 mg oral tablet (2 sources) Sympathomimetic Amine Anorectic take 1 tablet by mouth once daily phentermine 37.5 mg tablet TAKE 1 TABLET BY MOUTH EVERY DAY active Sariah Grewal [facility] polyethylene glycol 3350 611569 mg / potassium chloride 2970 mg / sodium bicarbonate 6740 mg / sodium chloride 5860 mg / sodium sulfate 42979 mg powder for oral solution (1 source) Osmotic Laxative Start: 11-25-19 End: 11-25-19 peg 3350-Electrolytes (GOLYTELY) 236-22.74-6.74 -5.86 gram suspension Indications: Constipation, unspecified constipation type Take 4,000 mL by mouth one time only for 1 dose. Refer to printed prep instructions from your provider. 4000 mL 0 11/25/2023 11/25/2023 Active predniSONE 20 mg oral tablet (1 source) Start: 01-04-20 25 take 3 tablets by mouth once daily, then take 3 tablets by mouth once daily, then take 2 tablets by mouth once daily, then take 1 tablet by mouth once daily prednisone 20 mg tablet Take 3 tablet by mouth once a day as directed Take 3 tablets by mouth daily for 6 days, then 2 tablets daily for 3 days, then 1 tablet daily for 3 days. Do not take other NSAIDs while taking prednisone active Lou Luna ARTILLERY SPECIALIST-TUBING SUPERVISOR, [address] [address] Spondylolisthesis, lumbar region [facility] Psyllium (2 sources) Start: 01-19-20 METAMUCIL CAPSULE once a day as directed active Donn Lucio LPN [facility] rizatriptan 10 mg oral tablet (5 sources) Serotonin-1b and Serotonin-1d Receptor Agonist Start: 06-16-19 Rizatriptan Active 10 MG PO June 16, 2023 11:46am Start: 04-26-2023 End: 06-16-2023 Rizatriptan Discontinued MG PO April 26, 2023 12:00am June 16, 2023 11:47am Vitamin D3 50 mcg (2,000 uni t) capsule (2 sources) Start: 2013 Vitamin D3 50 mcg (2,000 unit) capsule 1 capsule once a day active Donn Lucio LPN [facility] Completed/Discontinued Medications Medication Drug Class(es) Dates Sig (Normalized) Sig (Original) amLODIPine 2.5 mg oral tablet (1 source) Dihydropyridine Calcium Channel Jose Alejandro End: 08-31-2022 take 1 tablet by mouth once daily at bedtime amLODIPine (NORVASC) 2.5 mg tablet Take 2.5 mg by mouth daily at bedtime. 0 08/31/2022 Discontinued (Course of therapy completed) Comment on above: Take 2.5 mg by mouth daily at bedtime. B INFANTIS/B ANI/B JULIÁN/B BIFID (PROBIOTIC 4X ORAL) (1 source) End: 08-31-2022 B INFANTIS/B ANI/B JULIÁN/B BIFID (PROBIOTIC 4X ORAL) Take by mouth. 0 08/31/2022 Discontinued (Course of therapy completed) Comment on above: Take by mouth. Biotin (9 sources) Start: 05-10-2023 End: 06-16-2023 take 5000 ug by mouth once daily Biotin Discontinued 5000 MCG PO DAILY May 10, 2023 12:00am June 16, 2023 11:45am Start: 05-10-2023 take 5000 ug by mout h once daily Biotin Active 5000 MCG PO DAILY May 10, 2023 12:00am Start: 09-28-2022 End: 04-20-2023 take 1 mg by mouth once daily Biotin Discontinued 1 MG PO DAILY September 27, 2022 11:00pm April 20, 2023 9:39am calcium chloride 0.0014 meq/ml / potassium chloride 0.004 meq/ml / sodium chloride 0.103 meq/ml / sodium lactate 0.028 meq/ml injectable solution (1 source) Start: 12-31-2023 End: 12-31-2023 take 30 mL intravenously every hour 30 mL/hr, INTRAVENOUS, CONTINUOUS, Starting on Wed12/31/23 at 0700, Until Wed12/31/23 at 0939, Preprocedure folic acid 0.8 mg oral tablet (2 sources) Start: 05-10-2023 End: 06-16-2023 take 0.8 mg by mouth once daily Folic Acid Discontinued 0.8 MG PO DAILY May 10, 2023 12:00am June 16, 2023 11:45am ibuprofen 200 mg oral tablet (2 sources) Nonsteroidal Anti-inflammatory Drug End: 11-25-2023 take 1 tablet by mouth every six hours as needed ibuprofen (MOTRIN) 200 mg tablet Take 200 mg by mouth every 6 hours as needed for pain. 0 11/25/2023 Discontinued (Discontinued by Patient) Comment on above: Take 200 mg by mouth every 6 hours as needed for pain. lansoprazole 30 mg delayed release oral capsule (13 sources) Proton Pump Inhibitor Start: 03-14-2019 End: 04-16-2021 take 1 capsule by mouth once daily Lansoprazole (Prevacid) 30 mg capsule,delayed release(DR/EC) Discontinued 30 MG PO DAILY March 14, 2019 12:00am April 16, 2021 10:09am Multivitamin preparation (2 sources) Start: 05-10-2023 End: 06-16-2023 take 1 tablet by mouth once daily Multivitamin Discontinued 1 TABLET PO DAILY May 10, 2023 12:00am June 16, 2023 11:46am Start: 05-10-2023 take 1 tablet by ernie once daily Multivitamin Active 1 TABLET PO DAILY May 10, 2023 12:00am Naproxen (2 sources) Nonsteroidal Anti-inflammatory Drug End: 11-25-2023 take 1 tablet by mouth once daily naproxen sodium (ALEVE ORAL) Take 1 tablet by mouth once daily. 0 11/25/2023 Discontinued (Discontinued by Patient) take 1 tablet by mouth once junior y naproxen sodium (ALEVE ORAL) Take 1 tablet by mouth once daily. 0 Active Comment on above: Take 1 tablet by ernie th once daily. Polyethylene Glycols (1 source) End: 08-31-2022 POLYETHYLENE GLYCOL 3350 (MIRALAX ORAL) Take by mouth. Prn 0 08/31/2022 Discontinued (Course of therapy completed) Comment on above: Take by mouth. Prn Turmeric Root Extract (7 sources) Start: 09-28-2022 End: 04-20-2023 take 500 mg by mouth once daily Turmeric Root Extract Discontinued 500 MG PO DAILY September 27, 2022 11:00pm April 20, 2023 9:42am Start: 09-28-2022 take 500 mg by mouth once junior y Turmeric Root Extract Active 500 MG PO DAILY September 27, 2022 11:00pm Problems Active Problems Problem Classification Problem Date Documented Da te Episodic/Chronic Administrative/social admission (8 sources) General problem AND/OR complaint; Translations: [Persons encountering health services in other specified circumstances] 08-27-2022 Episodic Blindness and vision defects (10 sources) Blurring of visual image; Translations: [Other visual disturbances] 04-20-2023 Episodic Digestive congenital anomalies (1 source) Congenital redundant colon; Translations: [Other specified congenital malformations of intestine] 01-10-2024 Chronic Disorders of lipid metabolism (2 sources) Hypercholesterolemia; Translations: [Pure hypercholesterolemia, unspecified] 05-10-2023 Chronic Esophageal disorders (12 sources) Gastroesophageal reflux disease; Translations: [Gastro-esophageal reflux disease without esophagitis] Onset: 4 05-10-2023 Chronic Essential hypertension (20 sources) Elevated blood pressure; Translations: [Essential (primary) hypertension] Onset: 6 02-08-2017 Chronic Headache; including migraine (1 source) Migraine with aura, not intractable, without status migrainosus; Translations: [Complicated migraine] Onset: 4 Chronic Headache; including migraine (20 sources) Headache; Translations: [Headache] 02-08-2017 Episodic Headache; including migraine (1 source) Headache; including migraine; Translations: [Nonintractable episodic headache, unspecified headache type] Onset: 4 Immunity disorders (7 sources) Autoimmune disease; Translations: [Other specified disorders involving the immune mechanism, not elsewhere classified] 09-28-2022 Chronic Menopausal disorders (20 sources) Atrophic vaginitis; Translations: [Postmenopausal atrophic vaginitis] Chronic Mood disorders (2 sources) Depressive disorder; Translations: [Depression] 05-10-2023 Chronic Nonspecific chest pain (10 sources) Chest pain; Translations: [Chest pain, unspecified] 12-24-2015 Episodic Osteoarthritis (4 sources) Osteoarthritis of right knee joint; Translations: [Unilateral primary osteoarthritis, right knee] Onset: 8 02-19-2021 Chronic Other and unspecified benign neoplasm (4 sources) Parathyroid adenoma; Translations: [Benign neoplasm of parathyroid gland] 04-29-2023 Episodic Other and unspecified benign neoplasm (1 source) History of polyp of colon; Translations: [Personal history of colonic polyps] 12-31-2023 Episodic Other and unspecified benign neoplasm (1 source) Personal history of colonic polyps; Translations: [Personal history of colonic polyps] Onset: Episodic Other and unspecified benign neoplasm (1 source) Adenomatous polyp of colon ; Translations: [Benign neoplasm of colon, unspecified] 01-07-2024 Episodic Other and unspecified benign neoplasm (1 source) Benign neoplasm of colon, unspecified; Translations: [Adenomatous polyp of colon, unspecified part of colon] Onset: 4 Episodic Other circulatory disease (6 sources) H/O: hypertension; Translations: [Personal history of other diseases of the circulatory system] 04-20-2023 Episodic Other circulatory disease (2 sources) Personal history of other diseases of the circulatory system; Translations: [Personal history of other diseases of circulatory system] 04-20-2023 Episodic Other connective tissue disease (4 sources) History of repair of hip joint; Translations: [Presence of left artificial hip joint] Onset: 8 02-04-2018 Chronic Other disorders of stomach and duodenum (2 sources) Functional dyspepsia; Translations: [Upset stomach] Onset: 4 Episodic Other female genital disorders (2 sources) Pelvic hematoma; Translations: [Other specified conditions associated with female genital organs and menstrual cycle] Onset: 5 02-14-2025 Episodic Other gastrointestinal disorders (1 source) Chronic idiopathic constipation; Translations: [Chronic idiopathic constipation] Onset: 4 Chronic Other liver diseases (1 source) Liver disease, unspecified; Translations: [Liver disease, unspecified] Onset: 5 Chronic Other lower respiratory disease (1 source) Dyspnea on exertion; Translations: [Other forms of dyspnea] 06-17-2023 Episodic Other nervous system disorders (1 source) Attention and concentration deficit; Translations: [Difficulty concentrating] Onset: 4 Chronic Other nervous system disorders (5 sources) Numbness of face; Translations: [Anesthesia of skin] 04-20-2023 Episodic Other non-traumatic joint disorders (4 sources) Palindromic rheumatism; 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, 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 Other non-traumatic joint disorders (1 source) Palindromic rheumatism, unspecified site; 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] Onset: 4 Chronic Residual codes; unclassified (11 sources) Obstructive sleep apnea syndrome; Translations: [Obstructive sleep apnea (adult) (pediatric)] 06-04-2022 Chronic Residual codes; unclassified (6 sources) Obstructive sleep apnea (adult) (pediatric); Translations: [Obstructive sleep apnea (adult)(pediatric)] Onset: 3 06-04-2022 Chronic Residual codes; unclassified (3 sources) Hypersomnia, unspecified; Translations: [Hypersomnia, unspecified] 08-04-2022 Chronic Residual codes; unclassified (2 sources) Sleep apnea; Translations: [Sleep apnea, unspecified] 05-10-2023 Chronic Residual codes; unclassified (13 sources) Family history of breast cancer; Translations: [Family history of malignant neoplasm of breast] 05-05-2021 Episodic Residual codes; unclassified (13 sources) Family history of cancer of colon; Translations: [Family history of malignant neoplasm of digestive organs] 03-14-2019 Episodic Residual codes; unclassified (7 sources) Family history of malignant neoplasm of breast; Translations: [Family history of malignant neoplasm of breast] Episodic Residual codes; unclassified (1 source) Family history of malignant neoplasm of digestive organs; Translations: [Family history of malignant neoplasm of gastrointestinal tract] Episodic Thyroid disorders (10 sources) Thyroid nodule; Translations: [Nontoxic single thyroid nodule] Onset: 04-26-2023 Chronic Transient cerebral ischemia (4 sources) Transient cerebral ischemia; Translations: [Transient cerebral ischemic attack, unspecified] 04-20-2023 Chronic Past or Other Problems Problem Classification Problem Date Documented Da te Episodic/Chronic Conditions associated with dizziness or vertigo (1 source) Dizziness and giddiness; Translations: [Dizziness] Onset: 04-23-2023 Episodic Fracture of upper limb (2 sources) Elbow fracture; Translations: [Unspecified fracture of lower end of right humerus, initial encounter for closed fracture] Onset: 12-26-2018 12-26-2018 Episodic Gastritis and duodenitis (1 source) Gastritis, unspecified, without bleeding; Translations: [Gastritis, unspecified, without bleeding] Onset: 01-18-2024 Episodic Joint disorders and dislocations; trauma-related (2 sources) Acute meniscal tear, lateral; Translations: [Other tear of lateral meniscus, current injury, right knee, initial encounter] Onset: 02-19-2021 02-19-2021 Episodic Nausea and vomiting (9 sources) Nausea; Translations: [Nausea] Onset: 11-25-2023 11-25-2023 Episodic Nonmalignant breast conditions (20 sources) Solitary cyst of breast; Translations: [Solitary cyst of unspecified breast] Onset: 03-26-2014 03-26-2014 Episodic Other acquired deformities (2 sources) Lumbar spondylolisthesis; Translations: [Spondylolisthesis, lumbar region] Onset: 05-19-2017 05-19-2017 Episodic Other connective tissue disease (2 sources) Trochanteric bursitis, right hip; Translations: [Enthesopathy of hip region] Onset: 09-27-2024 09-28-2024 Episodic Other connective tissue disease (2 sources) Trochanteric bursitis of left hip; Translations: [Trochanteric bursitis, left hip] Onset: 09-18-2024 09-28-2024 Episodic Other disorders of stomach and duodenum (7 sources) Upset stomach; Translations: [Functional dyspepsia] Onset: 12-31-2023 11-25-2023 Episodic Other gastrointestinal disorders (20 sources) Constipation; Translations: [Constipation, unspecified] Onset: 12-31-2023 03-14-2019 Episodic Other gastrointestinal disorders (3 sources) Constipation, unspecified; Translations: [Constipation, unspecified constipation type] Onset: 11-25-2023 Episodic Other gastrointestinal disorders (1 source) Other fecal abnormalities; Translations: [Other fecal abnormalities] Onset: 04-04-2024 Episodic Other nervous system disorders (6 sources) Anesthesia of skin; Translations: [Disturbance of skin sensation] Onset: 04-23-2023 04-21-2023 Episodic Other nervous system disorders (1 source) Other symptoms and signs involving cognitive functions and awareness; Translations: [Brain fog] Onset: 05-15-2023 Episodic Other non-traumatic joint disorders (2 sources) Hip pain; Translations: [Pain in left hip] Onset: 11-29-2019 11-30-2019 Episodic Other screening for suspected conditions (not mental disorders or infectious disease) (13 sources) Mammography abnormal; Translations: [Other abnormal and inconclusive findings on diagnostic imaging of breast] Onset: 09-11-2010 09-11-2010 Episodic Residual codes; unclassified (11 sources) Family history of polyp of colon; Translations: [Family history of colonic polyps] Onset: 12-15-2012 12-15-2012 Episodic Residual codes; unclassified (1 source) Family history of colonic polyps; Translations: [Family history of colonic polyps] Onset: 12-15-2012 Episodic Residual codes; unclassified (2 sources) Menopause present; Translations: [Asymptomatic menopausal state] Onset: 11-29-2018 11-29-2018 Episodic Spondylosis; intervertebral disc disorders; other back problems (4 sources) Myofascial pain syndrome of lower back; Translations: [Low back pain] Onset: 05-12-2018 05-12-2018 Episodic Superficial injury; contusion (2 sources) Contusion of elbow; Translations: [Contusion of elbow] Onset: 12-26-2018 12-26-2018 Episodic Results Test Name Value Interpretation Reference Range Facility Relevant diagnostic tests/la boratory data Narrativeon 02-14-2025 Fall risk assessment yes LUIZA [facility] Work Phone: MEDS REVIEW Done [email or web address] Work Phone: [facility] REVIEWD Medications reviewed with changes [email or web address] Work Phone: MRI HX of the lumbar spine on 01/01/2025 at [facility] [email or web address] Work Phone: Relevant diagnostic tests/la boratory data Narrativeon 01-03-2025 Fall risk assessment no LUIZA [facility] [employer] Work Phone: MEDS REVIEW Done [email or web address] Work Phone: [facility] REVIEWD Medications reviewed without changes [employer] [facility] Work Phone: MRI HX of the back on 01/01/2025 at [facility] Work Phone: Cardiology Visit Reporton Cardiology Visit Report [facility] [address] [place] [address] OFFICE VISIT Date of Service: 07/25/24 MR#: [id number] Acct: [id number] Name: LEANA MANCERA Rep #: [id number] : 1955 Provider: GEM hebert Age/Sex: 68/F Location: [facility] Status: Signed HPI HPI History of Present Illness Details: This is a pleasant 68-year-old lady who presents to the office today for a cardiovascular follow-up visit. She has no previous cardiac history who says that she had presented to the emergency room in April of 2023 with blurred vision and left-sided headache and some nausea. Her blood pressure was noted to be elevated neurology consulted was executed and her MRI demonstrated no evidence of acute infarct. She had an echocardiogram which demonstrated a small PFO and she was discharged with a diagnosis of a complex migraine. She has continued to have blood pressures which have been fluctuating and she is concerned about this diagnosis of migraine. She had had some palpitations and wanted to investigate this further and therefore presented to cardiology for further evaluation and management. She underwent a stress test on which was noted to be normal. Patient's most recent event monitor demonstrated normal sinus rhythm with first-degree AV block, and an average heart rate of 71 bpm. She did have 3 episodes of atrial tachycardia with the longest/fastest 8 beats at average 107 bpm 235 bpm. PACs 0.1%, PVCs less than 0.1%. She did undergo a 24-hour ambulatory blood pressure monitor on 06/25/2023 which demonstrated an overall blood pressure of 115/65. From a cardiac standpoint, the patient is doing well. She does acknowledge a rare/occasional flutter. She denies chest pain, pressure or heaviness. She denies SOB, Orthopnea, and PND. She does not have bleeding issues; no blood in urine, stool, or nosebleeds. She denies any decrease in energy level, myalgias, or claudication. She does not have edema, or sudden weight gain. She denies lightheadedness, dizziness, syncopal or near syncopal episodes, and headaches. 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 Is patient in pain?: No Allergies diphenhydramine HCl (From Benadryl) Adverse Reaction (Verified 07/25/24 09:35) Other Medications ???Medication ???Instructions ???Recorded ???Confirmed ???Type cholecalciferol (vitamin D3) 25 2,000 unit PO DAILY vitamin 07/25/24 History mcg (1,000 unit) tablet lisinopril 10 mg tablet 20 mg PO DAILY blood pressure 05/2107/25/24 History omeprazole 40 mg capsule,delayed 40 mg PO BID #180 caps 05/10/24 Rx release NOW enzymes PO 07/25/24 History hydrochlorothiazide 12.5 mg capsule 12.5 mg PO QAM PRN 07/25/2412/11 History Ejection fraction %: 65 Have you fallen in the past year?: No PFSH Medical History (Reviewed 07/25/24 @ 09:35 by Varsha Calderon COMMISSION SPECIALIST, COMMISSION SPECIALIST-C) Steven's thyroiditis Wears glasses PONV (postoperative nausea and vomiting) CPAP (continuous positive airway pressure) dependence Non-smoker History of echocardiogram History of stress test Cardiology follow-up encounter GERD (gastroesophageal reflux disease) Hypercholesteremia Depression Parathyroid adenoma History of hypertension Autoimmune disorder Palindromic rheumatism Sleep apnea Constipation HTN (hypertension) Surgical History Total knee replacement status H/O bilateral hip replacements History of tonsillectomy History of breast lump/mass excision S/P partial hysterectomy Family History Father Colon cancer Heart disease Hypertension Thyroid disorder Afib Hx of CABG Mother Breast cancer Afib Mitral valve disease Unknown Breast cancer Brother Alcoholism Sister Autoimmune disease Aunt Breast cancer Sister Breast cancer, Onset Age: 60 Social History household members: significant other current occupational status: employed current occupation: [employer] Smoking Status: Never smoker alcohol intake: current alcohol intake frequency: a few times a month substance use type: does not use diet: other what type of physical activity do you participate in: walking, yoga and other frequency: 3-4 times per week seatbelt use: always do you feel safe at home: Yes additional social history: single ROS Const Const: Negat (more content not included)... Normal [facility] SCRN MAMM (CAD)W/ELIDA BILATo n 06-07-2024 SCRN MAMM (CAD)W/ELIDA BILAT [facility] Imaging Services [address] [place] [address] SCRN MAMM (CAD)W/ELIDA BILAT MR#: [id number] Acct: [id number] Name: LEANA MANCERA Rep #: [id number] : 1955 F 68 From: Gayathri Banks PCP: Dr. Clement Oneal MD Status: REG CLI Study: SCRN MAMM (CAD)W/ELIDA BILAT Date of Exam: 05/20 01/11 Exam# [id number] Ordering Dr: Meg Raymond NP COMMISSION SPECIALIST -C PROCEDURE: SCRN MAMM (CAD)W/ELIDA BILAT REASON FOR EXAM: Screening mammogram TECHNIQUE: Bilateral diagnostic digital breast tomosynthesis with 2D and 3D images. Computer aided detection. COMPARISON: Prior exam(s) 02/24/2023 FINDINGS: There are scattered areas of fibroglandular density. No suspicious masses, suspicious cluster of calcifications, architectural distortion or secondary sign of malignancy is identified in either breast. Benign vascular calcifications are seen in both breasts. A stable, 6 mm, benign-appearing intramammary lymph node is seen in the superior outer, far posterior aspect of the right breast. BI/SCRN MAMM (CAD)W/ELIDA BILAT IMPRESSION: BI-RADS 2: BENIGN. RECOMMEND ANNUAL MAMMOGRAPHIC SCREENING. Follow-up code: Routine Follow-up Reading Location: [id number] CC: GEM Raymond; Dr. Clement Oneal MD Evp General Counsel: Signed Normal [facility] MRI Abd WITH and W/O Contras ton 05-30-2024 MRI Abd WITH and W/O Contrast [facility] Imaging Services [address] [place] [id number] MRI Abd WITH and W/O Contrast MR#: [id number] Acct: [id number] Name: LEANA MANCERA Rep #: [id number] : 1955 F 68 From: [facility] DO PCP: Dr. Clement Oneal MD Status: REG CLI Study: MRI Abd WITH and W/O Contrast Date of Exam: Exam# [id number] Ordering Dr: Lara Smith PROCEDURE: MRI ABD WITH AND W/O CONTRAST REASON FOR EXAM: Liver hemangioma. TECHNIQUE: Multiplanar, multisequence MRI of the upper abdomen without and with intravenous gadolinium-based contrast. CONTRAST: 16 cc Clariscan. COMPARISON: CT abdomen/pelvis from 11/23/2023. FINDINGS: Lung bases are clear. There is a focal area of T2-weighted hyperintense signal in the lateral periphery of the right hepatic lobe measuring approximately 17 x 13 mm. The lesion demonstrates hypointense T1-weighted signal on precontrast imaging. On postcontrast imaging, there is mild nodular peripheral enhancement on early phase. Additional delayed imaging demonstrates central filling of the lesion on postcontrast imaging and most likely relates to a hemangioma. The spleen, pancreas, gallbladder, biliary system, and adrenal glands are unremarkable. Abdominal aorta demonstrates a normal caliber. Bilateral kidneys enhance homogeneously without hydronephrosis. No free fluid is seen within the abdomen. There is levoscoliosis of the lumbar spine. MRI/MRI Abd WITH and W/O Contrast IMPRESSION: Hepatic lesion as above most likely relates to a hemangioma. [facility] CC: GEM Smith; Dr. Clement Oneal MD Evp General Counsel: Signed Normal [facility] Endocrinology Visit Reporton 05-29-2024 Endocrinology Visit Report [facility] [address] [place] [address] OFFICE VISIT Date of Service: 05/29/24 MR#: [id number] Acct: [id number] Name: LEANA MANCERA Rep #: [id number] : 1955 Provider: Imelda Haider Age/Sex: 68/F [facility] Status: Signed Intake Vital Signs 04/26/23 09:14 03/07/24 06:20 05/10/24 13:04 05/29/24 13:29 Height 5 ft 9 in 5 ft 6 in 5 ft 6 in 5 ft 6 in Weight: 192 lb 6 oz BMI 31.0 BP 105/73 Blood Pressure Location Lt brachial Position Sitting Pulse 78 Pulse Source Monitor Pulse Oximetry (%) 94 Oxygen Delivery Method room air Intake Visit Reasons: 1 Y FU, RS 04/25 Chief Complaint: Steven's Is patient in pain?: No Allergies diphenhydramine HCl (From Benadryl) Adverse Reaction (Verified 05/29/24 13:30) Other Medications ???Medication ???Instructions ???Recorded ???Confirmed ???Type cholecalciferol (vitamin D3) 25 2,000 unit PO DAILY vitamin 05/29/24 History mcg (1,000 unit) tablet hydrochlorothiazide 25 mg tablet 12.5 mg PO DAILY PRN diuretic 05/2105/29/24 History lisinopril 10 mg tablet 20 mg PO DAILY blood pressure 05/2105/29/24 History diazepam 5 mg tablet (Valium) 5 mg PO ONCE MRI claustrophobia #1 05/10/24 05/29/24 Rx TAB omeprazole 40 mg capsule,delayed 40 mg PO BID #180 caps 05/10/24 Rx release Have you fallen in the past year?: No PFSH Medical History (Updated 05/30/24 @ 08:[address] Kevin Solomon MD) Steven's thyroiditis Wears glasses PONV (postoperative nausea and vomiting) CPAP (continuous positive airway pressure) dependence Non-smoker History of echocardiogram History of stress test Cardiology follow-up encounter GERD (gastroesophageal reflux disease) Hypercholesteremia Depression Parathyroid adenoma History of hypertension Autoimmune disorder Palindromic rheumatism Sleep apnea Constipation HTN (hypertension) Surgical History Total knee replacement status H/O bilateral hip replacements History of tonsillectomy History of breast lump/mass excision S/P partial hysterectomy Family History Father Colon cancer Heart disease Hypertension Thyroid disorder Afib Hx of CABG Mother Breast cancer Afib Mitral valve disease Unknown Breast cancer Brother Alcoholism Sister Autoimmune disease Aunt Breast cancer Sister Breast cancer, Onset Age: 60 Social History household members: significant other current occupational status: employed current occupation: [employer] Smoking Status: Never smoker alcohol intake: current alcohol intake frequency: a few times a month substance use type: does not use diet: other what type of physical activity do you participate in: walking, yoga and other frequency: 3-4 times per week seatbelt use: always do you feel safe at home: Yes additional social history: single Female Reproductive History Menstrual Ab spontaneous: 2 HPI HPI Chief Complaint: Steven's Details: LEANA MANCERA, is a 68 F who presents to the office today for follow up. She has Steven's thyroiditis. Ultrasound one year ago shows no nodules. TSH in January was normal. She tried taking levothyroxine, but it did not help her feel better. She has digestive issues and systemic arthritis. She is working on eating a healthier diet. ROS Const Constitutional: Positive for fatigue; No weight change ENT ENT: No dizziness/vertigo Cardio Cardiology: No chest pain at rest, chest pain with exertion, shortness of breath or palpitations Musc Musculoskeletal: Positive for myalgias Gastro GI: Positive for bloating and constipation Skin Skin: No wounds Endo Endocrine: Positive for fatigue; No weight change Exam Const General: cooperative, healthy appearing, comfortable, no acute distress, well developed and not cushingoid Nutritional Appearance: well nourished Orientation: alert, awake and oriented x3 HENMT Head: normal to inspection Ears: hearing grossly normal bilaterally Nose: external nose normal Mouth: oral mucosae normal Eyes General: appearance normal, both eyes and all related structures Alignment and Position: alignment normal Periorbital: periorbital findings normal Eyelids: eyelids normal Conjunctivae: conjunctivae normal Neck Neck: normal visual inspection Neck mass: No Thyroid: thyroid normal Lymphatic: no lymphadenopathy noted Chest Chest palpation inspection: normal inspection of the chest Resp Effort Inspection: normal respiratory effort, able to speak in complete sentences, symmetric chest (more content not included)... Normal [facility] Gastroenterology Visit Repor ton 05-10-2024 Gastroenterology Visit Report [facility] [address] 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 Is patient in pain?: No Allergies diphenhydramine HCl (From Benadryl) Adverse Reaction (Verified 05/10/24 13:03) Other Medications ???Medication ???Instructions ???Recorded ???Confirmed ???Type cholecalciferol (vitamin D3) 25 2,000 unit PO DAILY vitamin 04/25/14 05/10/24 History mcg (1,000 unit) tablet hydrochlorothiazide 25 mg tablet 12.5 mg PO DAILY PRN diuretic 06/16/23 05/10/24 History lisinopril 10 mg tablet 20 mg PO DAILY blood pressure 06/16/23 05/10/24 History diazepam 5 mg tablet (Valium) 5 mg PO ONCE MRI claustrophobia #1 05/10/24 05/10/24 Rx TAB omeprazole 40 mg capsule,delayed 40 mg PO BID #180 caps 05/10/24 05/10/24 Rx release Have you fallen in the past year?: No Nurse's Note: Still having constipation and bloating. Changed her diet and is starting to figure out what she can eat. Is losing inches and some weight, not alot. Saw Dr. Martinez regarding her cough recently and he thought it was related to acid reflux. [facility] Medical History Wears glasses PONV (postoperative nausea and vomiting) CPAP (continuous positive airway pressure) dependence Non-smoker History of echocardiogram History of stress test Cardiology follow-up encounter GERD (gastroesophageal reflux disease) Hypercholesteremia Depression Parathyroid adenoma Thyroid nodule History of hypertension Autoimmune disorder Palindromic rheumatism Sleep apnea Constipation HTN (hypertension) Surgical History Total knee replacement status H/O bilateral hip replacements History of tonsillectomy History of breast lump/mass excision S/P partial hysterectomy Family History Father Colon cancer Heart disease Hypertension Thyroid disorder Afib Hx of CABG Mother Breast cancer Afib Mitral valve disease Unknown Breast cancer Brother Alcoholism Sister Autoimmune disease Aunt Breast cancer Sister Breast cancer, Onset Age: 60 Social History household members: significant other current occupational status: employed current occupation: [employer] Smoking Status: Never smoker alcohol intake: current alcohol intake frequency: a few times a month substance use type: does not use diet: other what type of physical activity do you participate in: walking, yoga and other frequency: 3-4 times per week seatbelt use: always do you feel safe at home: Yes additional social history: single Female Reproductive History Menstrual Ab spontaneous: 2 HPI HPI Chief Complaint: Constipation, bloating Details: LEANA MANCERA, is a 68 F who presents to the office today for IBD panel - revealed positive pANCA - and she was told she has UC and colonoscopy was to stage it Colon 03/07/2024 - Diverticulosis in the recto-sigmoid colon and in the sigmoid colon. - The examination was otherwise normal on direct and retroflexion views. - No specimens collected. Cough is from acid reflux After a lab test revealed a positive pANCA she was told she has Ulcerative Colitis. COLON 12/31/2023 poor bowel prep cecal tubular adenoma EGD 12/31/2023 neg. for Ascencio's, H. pylori and celiac sprue; fundic gland polyp - small hiatal hernia - gastric polyps - went to [facility] [place] October 2023 - this is when she developed constipation - prior to this her bowel habits were like clockwork every day - she complains of abdominal distension - no matter what she eats she has bloating - she reports this was a biking trip and was eating a lot of fruits and vegetables, fish and nuts - denies any diarrhea - Metamucil BID (powder 1-2tbsp) - because she was thinking she had UC she has been concentrating on her fiber intake - with high fruits and vegetables - the past 2 weeks she reports having a BM every day 2-3x, formed stools, 75% of her stools are nice and formed - drinking 60-80 ounces of water daily - bloating is not improving with a BM - nausea infrequent - cough and loss of voice at time - saw ENT who (more content not included)... Normal [facility] Colonoscopy Reporton 024 Colonoscopy Report [facility] Medical Records Department [address] [place] [address] Colonoscopy Report MR#: [id number] Acct: [id number] Name: LEANA MANCERA Rep #: [id number] : 1955 68 From: Irineo Friend DO PCP: Dr. Clement Oneal MD Status:REG [facility] Patient Name: Leana Mancera Procedure Date: 03/07/2024 7:26 AM Date of : 1955 Age: 68 Procedure: Colonoscopy Indications: Change in bowel habits, Change in stool caliber, Constipation, Obstipation Providers: Irineo Shepard DO Referring MD: Clement Oneal Md Medicines: Monitored Anesthesia Care Patient Profile: This is a 68 year old female. Refer to note in patient chart for documentation of history and physical. Last Colonoscopy: within the past 6 months. Complications: No immediate complications. Procedure: Pre-Anesthesia Assessment: - Prior to the procedure, a History and Physical was performed, and patient medications and allergies were reviewed. The patient is competent. The risks and benefits of the procedure and the sedation options and risks were discussed with the patient. All questions were answered and informed consent was obtained. Patient identification and proposed procedure were verified by the physician in the pre-procedure area. Mental Status Examination: alert and oriented. Airway Examination: normal oropharyngeal airway and neck mobility. Respiratory Examination: clear to auscultation. CV Examination: normal. ASA Grade Assessment: II - A patient with mild systemic disease. After reviewing the risks and benefits, the patient was deemed in satisfactory condition to undergo the procedure. The anesthesia plan was to use monitored anesthesia care (MAC). Immediately prior to administration of medications, the patient was re-assessed for adequacy to receive sedatives. The heart rate, respiratory rate, oxygen saturations, blood pressure, adequacy of pulmonary ventilation, and response to care were monitored throughout the procedure. The physical status of the patient was re-assessed after the procedure. After I obtained informed consent, the scope was passed under direct vision. Throughout the procedure, the patient's blood pressure, pulse, and oxygen saturations were monitored continuously. The Colonoscope was introduced through the anus and advanced to the cecum, identified by appendiceal orifice and ileocecal valve. The colonoscopy was performed without difficulty. The patient tolerated the procedure well. The quality of the bowel preparation was adequate. The ileocecal valve, appendiceal orifice, and rectum were photographed. Scope In: 7:36:29 AM Scope Withdrawal Time 0 hours 8 minutes 24 seconds Scope Out: 7:46:58 AM Total Procedure Duration Time 0 hours 10 minutes 29 seconds Findings: The perianal and digital rectal examinations were normal. A few small and large-mouthed diverticula were found in the recto-sigmoid colon and sigmoid colon. The exam was otherwise without abnormality on direct and retroflexion views. Impression: - Diverticulosis in the recto-sigmoid colon and in the sigmoid colon. - The examination was otherwise normal on direct and retroflexion views. - No specimens collected. Recommendation: - Discharge patient to home. - Resume previous diet. - Continue present medications. - Repeat colonoscopy in 5 years for surveillance. Procedure Code(s): --- Professional --- 10863, Colonoscopy, flexible; diagnostic, including collection of specimen(s) by brushing or washing, when performed (separate procedure) CPT copyright 2021 [employer]. All rights reserved. The codes documented in this report are preliminary and upon data coder operator review may be revised to meet current compliance requirements. Irineo Shepard DO 03/07/2024 7:49:52 AM This report has been signed electronically. Number of Addenda: 0 Note Initiated On: 03/07/2024 7:26 AM 03/07/24 0750 Date Irineo Shepard DO Cosigner Signature: Date (if indicated) CC: Dr. Clement Oneal MD; Irineo Shepard DO Date Dictated: 03/07/24 0726 Date Transcribed: Evp General Counsel: YVETTE Signed [facility] MR/POSTOP.Mercedes 03-07-2024 [facility] Medical Records Department [address] [place] [address] Anesthesia Postop Eval I 03/07/24 0755 MR#: [id number] Acct: [id number] Name: LEANA MANCERA Rep #: [id number] : 1955 68 From: Asaf Keenan PCP: Dr. Clement Oneal MD Status:REG SD Y Race: C Location: [place] [address] Anesthesia: Postop Eval I Current Vital Signs Temperature: 98 F Pulse Rate: 62 Blood Pressure: 109/78 Respiratory Rate: 16 Pulse Ox: 100 Oxygen Delivery Method: Room Air Assessment Airway patent: Yes Spontaneous unlabored respirations: Yes Mental status: Awake and Calm nausea: No Vomiting: No Anesthesia Complication: No Fluid Hydration Crystalloid volume administer (ml): 800 Total IV fluid infused: 800 Progress Note Anesthesia document: Postop Eval 1 completed: Yes 03/07/24 075 Date Asaf Rsos Signature: Date CC: Signed Normal [facility] MR/[id number] 03-07-2024 [facility] Medical Records Department [address] [place] [address] Anesthesia Postop Eval II 03/07/24 1542 MR#: [id number] Acct: [id number] Name: LEANA MANCERA Rep #: [id number] : 1955 68 From: Kevin Francis MD PCP: Dr. Clement Oneal MD Status:[facility] Y Race: C Location: EN Anesthesia Postop Eval I Sum Postop Eval Completion status Anesthesia document: Postop Eval 1 completed: Yes Anesthesia Postop Eval I Summary Anesthesia Postop Eval I Summary: Anesthesia Postop Eval I: Assessment Summary Airway patent Yes 03/07/24 07:56 [email or web address] Spontaneous unlabored Yes 03/07/24 07:56 [email or web address] respirations Mental status Awake,Calm 03/07/24 07:56 [email or web address] nausea No 03/07/24 07:56 [email or web address] Vomiting No 03/07/24 07:56 [email or web address] Anesthesia Postop Eval I: Fluid Summary Crystalloid volume administer 800 03/07/24 07:56 [email or web address] (ml) Colloids volume administered ( ml) Blood Product volume administered (ml) Total IV fluid infused 800 03/07/24 07:56 [email or web address] Anesthesia Postop Eval I: Summary Notes Anesthesia Complication No 03/07/24 07:56 [email or web address] Anesthesia Complication Comment: Post-operative progress note Anesthesia: Postop Eval II Evaluation Mental status: Awake and Calm Pain Level: 0 nausea: No Vomiting: No Complications Anesthesia Complication: No 03/07/24 1543 Date Kevin Tito HARTLEY Cosigner Signature: Date CC: Signed Normal [facility] L7000.0750on 01-28-2024 P ELASTASE,FECA > 800 Normal >200 [facility] Comment on above: Result Comment: Resu lt Units: ug Elast./g Severe Pancreatic Insufficiency: <100 Moderate Pancreatic Insufficiency: 100 - 200 Normal: >200 Performed at: [address] [id number] [employer]: Rigo Pyle MD, Phone: [phone] Performed By: #### L 7000.0750, L7000.0700, M100.0605 ####[facility] [address] [place], [address] ANCAon 01-27-2024 Atypical pANCA 1:160 Abnormal Neg:<1:20 [facility] Comment on above: Order Comment: N Result Comment: The atypical pANCA pattern has been observed in a significant percentage of patients with ulcerative colitis, primary sclerosing cholangitis and autoimmune hepatitis. Performed at: [address] [id number] [employer]: Vic Rodriguez PhD, Phone: [phone] Performed at: [address] [id number] [employer]: Rigo Pyle MD, Phone: [phone] Performed By: #### L 2100.0000, L3100.3425, L3100.5440, L3300.1200, L3400.8000 ####[facility] [address] [place], [address] Cytoplasmic Ab <1:20 Normal Neg:<1:20 [facility] Comment on above: Order Comment: N Performed By: #### L 2100.0000, L3100.3425, L3100.5440, L3300.1200, L3400.8000 ####[facility] [address] [place], [address] Perinuclear Ab. <1:20 Normal Neg:<1:20 [facility] Comment on above: Order Comment: N Result Comment: The presence of positive fluorescence exhibiting P-ANCA or C-ANCA patterns alone is not specific for the diagnosis of Iggy's Granulomatosis (WG) or microscopic polyangiitis. Decisions about treatment should not be based solely on ANCA IFA results. The International ANCA Group Consensus recommends follow up testing of positive sera with both VT- 3 and MPO-ANCA enzyme immunoassays. As many as 5% serum samples are positive only by EIA. Ref. AM J Clin Pathol 1999;111:507-513. Performed By: #### L 2100.0000, L3100.3425, L3100.5440, L3300.1200, L3400.8000 ####[facility] [address] [place], [address] Calprotectin, Stoolon [address] 70 ug/g Normal 0-120 [facility] Comment on above: Result Comment: Conc entration Interpretation Follow-Up < 5 - 50 ug/g Normal None >50 -120 ug/g Borderline Re-evaluate in 4-6 weeks >120 ug/g Abnormal Repeat as clinically indicated Performed at: [facility] [address] [id number] [employer]: Rigo Pyle MD, Phone: [phone] Performed By: #### L 7000.0750, L7000.0700, M100.0605 ####[facility] [address] [place], [address] LICO + Protein Elect, Serumon 01-27-2024 Albumin [Mass/Vol] 4.0 g/dL Normal 2.9-4.4 [facility] Comment on above: Order Comment: N Performed By: #### L 2100.0000, L3100.3425, L3100.5440, L3300.1200, L3400.8000 ####[facility] [address] [place], [address] Albumin/Globulin [Mass ratio] 1.7 {ratio} Normal 0.7-1.7 [facility] Comment on above: Order Comment: N Performed By: #### L 2100.0000, L3100.3425, L3100.5440, L3300.1200, L3400.8000 ####[facility] [address] [place], [address] IIRON-7-URXP 0.2 g/dL Normal 0.0-0.4 [facility] Comment on above: Order Comment: N Performed By: #### L 2100.0000, L3100.3425, L3100.5440, L3300.1200, L3400.8000 ####[facility] [address] [place], [address] AUCSX-0-GLGG 0.7 g/dL Normal 0.4-1.0 [facility] Comment on above: Order Comment: N Performed By: #### L 2100.0000, L3100.3425, L3100.5440, L3300.1200, L3400.8000 ####[facility] [address] [place], [address] BETA GLOBULIN 1.0 g/dL Normal 0.7-1.3 [facility] Comment on above: Order Comment: N Performed By: #### L 2100.0000, L3100.3425, L3100.5440, L3300.1200, L3400.8000 ####[facility] [address] [place], [address] GAMMA GLOBULIN 0.7 g/dL Normal 0.4-1.8 [facility] Comment on above: Order Comment: N Performed By: #### L 2100.0000, L3100.3425, L3100.5440, L3300.1200, L3400.8000 ####[facility] [address] [place], [address] Globulin (S) [Mass/Vol] 2.5 g/dL Normal 2.2-3.9 [facility] Comment on above: Order Comment: N Performed By: #### L 2100.0000, L3100.3425, L3100.5440, L3300.1200, L3400.8000 ####[facility] [address] [place], [place], [phone] LICO RESULT,S Comment Normal . [facility] Comment on above: Order Comment: N Result Comment: No m onoclonality detected. Performed By: #### L 2100.0000, L3100.3425, L3100.5440, L3300.1200, L3400.8000 ####[facility] [address] [place], [place], [phone] IMMUNOGLOB A QN 132 mg/dL Normal 87-352 [facility] Comment on above: Order Comment: N Performed By: #### L 2100.0000, L3100.3425, L3100.5440, L3300.1200, L3400.8000 ####[facility] [address] [place], [phone] IMMUNOGLOB G QN 758 mg/dL Normal 586-1602 [facility] Comment on above: Order Comment: N Performed By: #### L 2100.0000, L3100.3425, L3100.5440, L3300.1200, L3400.8000 ####[facility] [address] [place], [address] IMMUNOGLOB M QN 86 mg/dL Normal 26-217 [facility] Comment on above: Order Comment: N Performed By: #### L 2100.0000, L3100.3425, L3100.5440, L3300.1200, L3400.8000 ####[facility] [address] [place], [address] M-Servando Not Observed Normal Not Observed [facility] Comment on above: Order Comment: N Performed By: #### L 2100.0000, L3100.3425, L3100.5440, L3300.1200, L3400.8000 ####[facility] [address] [place], [address] NOTE: Comment Normal . [facility] Comment on above: Order Comment: N Result Comment: Prot ein electrophoresis scan will follow via computer, mail, or cleaner and trimmer delivery. Performed By: #### L 2100.0000, L3100.3425, L3100.5440, L3300.1200, L3400.8000 ####[facility] [address] [place], [phone] Protein [Mass/Vol] 6.5 g/dL Normal 6.0-8.5 [facility] Comment on above: Order Comment: N Performed By: #### L 2100.0000, L3100.3425, L3100.5440, L3300.1200, L3400.8000 ####[facility] [address] [place], [phone] L2100.0000on 01-27-2024 ACCA 67 units Normal 0-90 [facility] Comment on above: Order Comment: N Result Comment: Nega tive: <80 Equivocal: 80-90 Positive: >90 Performed By: #### L 2100.0000, L3100.3425, L3100.5440, L3300.1200, L3400.8000 ####[facility] [address] [place], [address] ALCA 4 units Normal 0-60 [facility] Comment on above: Order Comment: N Result Comment: Nega tive:<55 Equivocal: 55-60 Positive: >60 Performed By: #### L 2100.0000, L3100.3425, L3100.5440, L3300.1200, L3400.8000 ####[facility] [address] [place], [address] AMCA 28 units Normal 0-100 [facility] Comment on above: Order Comment: N Result Comment: Nega tive: <90 Equivocal: 90-100 Positive: >100 This test was developed and its performance characteristics determined by [facility]. It has not been cleared or approved by the Food and Drug Administration. The FDA has determined that such clearance or approval is not necessary. Performed By: #### L 2100.0000, L3100.3425, L3100.5440, L3300.1200, L3400.8000 ####[facility] [address] [place], [address] Atypical pANCA Positive Abnormal Negative [facility] Comment on above: Order Comment: N Performed By: #### L 2100.0000, L3100.3425, L3100.5440, L3300.1200, L3400.8000 ####[facility] [address] [place], [address] COMMENT Comment Abnormal . [facility] Comment on above: Order Comment: N Result Comment: Sugg estive of Ulcerative Colitis Performed By: #### L 2100.0000, L3100.3425, L3100.5440, L3300.1200, L3400.8000 ####[facility] [address] [place], [address] Tyler 1 units Normal 0-50 [facility] Comment on above: Order Comment: N Result Comment: Nega tive: <45 Equivocal: 45-50 Positive: >50 Performed By: #### L 2100.0000, L3100.3425, L3100.5440, L3300.1200, L3400.8000 ####[facility] [address] [place], [address] Quantiferon TB-Gold+on 01-26 QFT MITOGEN CLEMENTE > 10.00 Normal . [facility] Comment on above: Order Comment: N Performed By: #### L 2100.0000, L3100.3425, L3100.5440, L3300.1200, L3400.8000 ####[facility] [address] [place], [address] QFT NIL VALUE 0.03 IU/mL Normal . [facility] Comment on above: Order Comment: N Performed By: #### L 2100.0000, L3100.3425, L3100.5440, L3300.1200, L3400.8000 ####[facility] [address] [place], [address] QFT TB GOLD+ Comment Normal . [facility] Comment on above: Order Comment: N Result Comment: Trip tiFERON-TB Gold Plus is a qualitative indirect test for M tuberculosis infection (including disease) and is intended for use in conjunction with risk assessment, radiography, and other medical and diagnostic evaluations. The QuantiFERON-TB Gold Plus result is determined by subtracting the Nil value from either TB antigen (Ag) value. The Mitogen tube serves as a control for the test. Performed By: #### L 2100.0000, L3100.3425, L3100.5440, L3300.1200, L3400.8000 ####[facility] [address] [place], [address] QFT TB POS CRIT Negative Normal Negative [facility] Comment on above: Order Comment: N Result Comment: No r esponse to M tuberculosis antigens detected. Infection with M tuberculosis is unlikely, but high risk individuals should be considered for additional testing (ATS/IDSA/CDC Clinical Practice Guidelines, 2017). The reference range is an Antigen minus Nil result of <0.35 IU/mL. The specimen received for QuantiFERON testing was incubated by the ordering institution. Specific procedures outlined in our Directory of Services and in the package insert for the QuantiFERON Gold (In Tube) test must be followed to enable for proper stimulation of cells for the production of interferon gamma. Chemiluminescence immunoassay methodology Performed By: #### L 2100.0000, L3100.3425, L3100.5440, L3300.1200, L3400.8000 ####[facility] [address] [place], [address] QFT TB1+ AG CLEMENTE 0.06 IU/mL Normal . [facility] Comment on above: Order Comment: N Performed By: #### L 2100.0000, L3100.3425, L3100.5440, L3300.1200, L3400.8000 ####[facility] [address] [place], [address] QFT TB2+ AG CLEMENTE 0.08 IU/mL Normal . [facility] Comment on above: Order Comment: N Performed By: #### L 2100.0000, L3100.3425, L3100.5440, L3300.1200, L3400.8000 ####[facility] [address] [place], [address] TEMITOPE Comprehensive Panelon TEMITOPE TABLE Comment Normal . [facility] Comment on above: Result Comment: Auto antibody Disease Association Condition Frequency --------- Antinuclear Antibody, SLE, mixed connective Direct (TEMITOPE-D) tissue diseases --------- dsDNA SLE 40 - 60% --------- Chromatin Drug induced SLE 90% SLE 48 - 97% --------- SSA (Ro) SLE 25 - 35% Sjogren's Syndrome 40 - 70% Lupus 100% --------- SSB (La) SLE 10% Sjogren's Syndrome 30% --------- Sm (anti-Mace) SLE 15 - 30% --------- ELECTRIC SYSTEM OPERATOR Mixed Connective Tissue Disease 95% (U1 nRNP, SLE 30 - 50% anti-ribonucleoprotein) Polymyositis and/or Dermatomyositis 20% --------- Scl-70 (antiDNA Scleroderma (diffuse) 20 - 35% topoisomerase) Crest 13% --------- Mendy-1 Polymyositis and/or Dermatomyositis 20 - 40% --------- Centromere B Scleroderma - Crest variant 80% Performed at: [facility] [id number] [employer]: Vic Rodriguez PhD, Phone: [phone] Performed By: #### L 2100.0000, L3100.3425, L3100.5440, L3300.1200, L3400.8000 ####[facility] [address] [place], [address] ANTI-CENT B AB <0.2 Normal 0.0-0.9 [facility] Comment on above: Performed By: #### L 2100.0000, L3100.3425, L3100.5440, L3300.1200, L3400.8000 ####[facility] [address] [place], [address] ANTI-DNA (DS)AB 3 IU/mL Normal 0-9 [facility] Comment on above: Result Comment: Nega tive <5 Equivocal 5 - 9 Positive >9 Performed By: #### L 2100.0000, L3100.3425, L3100.5440, L3300.1200, L3400.8000 ####[facility] [address] [place], [address] ANTI-MENDY-1 <0.2 Normal 0.0-0.9 [facility] Comment on above: Performed By: #### L 2100.0000, L3100.3425, L3100.5440, L3300.1200, L3400.8000 ####[facility] [address] [place], [address] ANTI-SS-A < 0.2 Normal 0.0-0.9 [facility] Comment on above: Performed By: #### L 2100.0000, L3100.3425, L3100.5440, L3300.1200, L3400.8000 ####[facility] [address] [place], [address] ANTI-SS-B < 0.2 Normal 0.0-0.9 [facility] Comment on above: Performed By: #### L 2100.0000, L3100.3425, L3100.5440, L3300.1200, L3400.8000 ####[facility] [address] [place], [address] ANTICHROMATIN <0.2 Normal 0.0-0.9 [facility] Comment on above: Performed By: #### L 2100.0000, L3100.3425, L3100.5440, L3300.1200, L3400.8000 ####[facility] [address] [place], [address] ANTISCLERODERM <0.2 Normal 0.0-0.9 [facility] Comment on above: Performed By: #### L 2100.0000, L3100.3425, L3100.5440, L3300.1200, L3400.8000 ####[facility] [address] [place], [address] ELECTRIC SYSTEM OPERATOR Ab <0.2 Normal 0.0-0.9 [facility] Comment on above: Performed By: #### L 2100.0000, L3100.3425, L3100.5440, L3300.1200, L3400.8000 ####[facility] [address] [place], [address] MACE Ab <0.2 Normal 0.0-0.9 [facility] Comment on above: Performed By: #### L 2100.0000, L3100.3425, L3100.5440, L3300.1200, L3400.8000 ####[facility] [address] [place], [address] Stool Lactoferrin/WBCon 10-0 WBCST Normal Reference Ran ge = Negative Fecal WBC Lactoferrin Negative: No Fecal WBC Lactoferrin present Normal [facility] Comment on above: Performed By: #### L 7000.0750, L7000.0700, M100.0605 ####[facility] [address] [place], [address] Abdomen Single Viewon 2023 Abdomen Single View [facility] Imaging Services [address] [place], [place] [address] Abdomen Single View MR#: [id number] Acct: [id number] Name: LEANA MANCERA Rep #: [id number] : 1955 F 68 From: Freddie Moralez PCP: Dr. Clement Oneal MD Status: REG CLI Study: Abdomen Single View Date of Exam: 01/22/24 Exam# [id number] Ordering Dr: Nu Swanson [id number] STUDY: X-RAY - ABDOMEN/PELVIS REASON FOR EXAM: Female, 68 years old. CONSTIPATION, STITZ MARKER CHECK TECHNIQUE: Single AP view of the abdomen / pelvis. COMPARISON: CT abdomen and pelvis November 23, 2023 FINDINGS: Normal visualized lung bases. Increased stool throughout the colon. Bilateral total hip arthroplasties. The visualized liver, spleen and kidneys are grossly normal in size and morphology. Normal soft tissue structures. Degenerative disc disease and spondylosis L4-5. RAD/Abdomen Single View IMPRESSION: Increased stool. No Sitzmarks markers are noted. Electronically Signed: Freddie Vlaencia MD at 23:58 EDT , CC: GEM Swanson; Dr. Clement Oneal MD Evp General Counsel: Signed Normal [facility] ETMITOPE Comprehensive Panelon TEMITOPE TABLE Comment Normal . [facility] Comment on above: Result Comment: Auto antibody Disease Association Condition Frequency --------- Antinuclear Antibody, SLE, mixed connective Direct (TEMITOPE-D) tissue diseases --------- dsDNA SLE 40 - 60% --------- Chromatin Drug induced SLE 90% SLE 48 - 97% --------- SSA (Ro) SLE 25 - 35% Sjogren's Syndrome 40 - 70% Lupus 100% --------- SSB (La) SLE 10% Sjogren's Syndrome 30% --------- Sm (anti-Mace) SLE 15 - 30% --------- ELECTRIC SYSTEM OPERATOR Mixed Connective Tissue Disease 95% (U1 nRNP, SLE 30 - 50% anti-ribonucleoprotein) Polymyositis and/or Dermatomyositis 20% --------- Scl-70 (antiDNA Scleroderma (diffuse) 20 - 35% topoisomerase) Crest 13% --------- Mendy-1 Polymyositis and/or Dermatomyositis 20 - 40% --------- Centromere B Scleroderma - Crest variant 80% Performed By: #### L 101.9900, L500.4050, L100.0100, L3300.1200, L501.13653, L3200.1100, L501.9520, L506.0400, L2100.0000, L504.2610, L3100.3425, L5500.0550, L3410.2400, L501.6710, L3100.5440 ####[facility] [address] [facility] [place], [address] ANTI-CENT B AB <0.2 Normal 0.0-0.9 [facility] Comment on above: Performed By: #### L 101.9900, L500.4050, L100.0100, L3300.1200, L501.18909, L3200.1100, L501.9520, L506.0400, L2100.0000, L504.2610, L3100.3425, L5500.0550, L3410.2400, L501.6710, L3100.5440 ####[facility] [address] [facility] [place], [address] ANTI-DNA (DS)AB 3 IU/mL Normal 0-9 [facility] Comment on above: Result Comment: Nega tive <5 Equivocal 5 - 9 Positive >9 Performed By: #### L 101.9900, L500.4050, L100.0100, L3300.1200, L501.91471, L3200.1100, L501.9520, L506.0400, L2100.0000, L504.2610, L3100.3425, L5500.0550, L3410.2400, L501.6710, L3100.5440 ####[facility] [address] [place], [address] ANTI-MENDY-1 <0.2 Normal 0.0-0.9 [facility] Comment on above: Performed By: #### L 101.9900, L500.4050, L100.0100, L3300.1200, L501.93823, L3200.1100, L501.9520, L506.0400, L2100.0000, L504.2610, L3100.3425, L5500.0550, L3410.2400, L501.6710, L3100.5440 ####[facility] [address] [place], [address] ANTI-SS-A < 0.2 Normal 0.0-0.9 [facility] Comment on above: Performed By: #### L 101.9900, L500.4050, L100.0100, L3300.1200, L501.94267, L3200.1100, L501.9520, L506.0400, L2100.0000, L504.2610, L3100.3425, L5500.0550, L3410.2400, L501.6710, L3100.5440 ####[facility] [address] [place], [address] ANTI-SS-B < 0.2 Normal 0.0-0.9 [facility] Comment on above: Performed By: #### L 101.9900, L500.4050, L100.0100, L3300.1200, L501.52934, L3200.1100, L501.9520, L506.0400, L2100.0000, L504.2610, L3100.3425, L5500.0550, L3410.2400, L501.6710, L3100.5440 ####[facility] [address] [place], [place], [address] ANTICHROMATIN <0.2 Normal 0.0-0.9 [facility] Comment on above: Performed By: #### L 101.9900, L500.4050, L100.0100, L3300.1200, L501.37294, L3200.1100, L501.9520, L506.0400, L2100.0000, L504.2610, L3100.3425, L5500.0550, L3410.2400, L501.6710, L3100.5440 ####[facility] [address] [place], [address] ANTISCLERODERM <0.2 Normal 0.0-0.9 [facility] Comment on above: Performed By: #### L 101.9900, L500.4050, L100.0100, L3300.1200, L501.64282, L3200.1100, L501.9520, L506.0400, L2100.0000, L504.2610, L3100.3425, L5500.0550, L3410.2400, L501.6710, L3100.5440 ####[facility] [address] [place], [place], [address] ELECTRIC SYSTEM OPERATOR Ab <0.2 Normal 0.0-0.9 [facility] Comment on above: Performed By: #### L 101.9900, L500.4050, L100.0100, L3300.1200, L501.71170, L3200.1100, L501.9520, L506.0400, L2100.0000, L504.2610, L3100.3425, L5500.0550, L3410.2400, L501.6710, L3100.5440 ####[facility] [address] [place], [place], [address] MACE Ab <0.2 Normal 0.0-0.9 [facility] Comment on above: Performed By: #### L 101.9900, L500.4050, L100.0100, L3300.1200, L501.97951, L3200.1100, L501.9520, L506.0400, L2100.0000, L504.2610, L3100.3425, L5500.0550, L3410.2400, L501.6710, L3100.5440 ####[facility] [address] [place], [address] ANCAon 01-21-2024 Atypical pANCA <1:20 Normal Neg:<1:20 [facility] Comment on above: Order Comment: N Result Comment: The atypical pANCA pattern has been observed in a significant percentage of patients with ulcerative colitis, primary sclerosing cholangitis and autoimmune hepatitis. Performed at: [facility] [address] [id number] [employer]: Vic Rodriguez PhD, Phone: [phone] Performed at: [facility] [address] [id number] [employer]: Rigo Pyle MD, Phone: [phone] Performed By: #### L 101.9900, L500.4050, L100.0100, L3300.1200, L501.87726, L3200.1100, L501.9520, L506.0400, L2100.0000, L504.2610, L3100.3425, L5500.0550, L3410.2400, L501.6710, L3100.5440 ####[facility] [address] [place], [place], [id number] Cytoplasmic Ab <1:20 Normal Neg:<1:20 [facility] Comment on above: Order Comment: N Performed By: #### L 101.9900, L500.4050, L100.0100, L3300.1200, L501.28033, L3200.1100, L501.9520, L506.0400, L2100.0000, L504.2610, L3100.3425, L5500.0550, L3410.2400, L501.6710, L3100.5440 ####[facility] [address] [address] [place], [place], [id number] Perinuclear Ab. <1:20 Normal Neg:<1:20 [facility] Comment on above: Order Comment: N Result Comment: The presence of positive fluorescence exhibiting P-ANCA or C-ANCA patterns alone is not specific for the diagnosis of Iggy's Granulomatosis (WG) or microscopic polyangiitis. Decisions about treatment should not be based solely on ANCA IFA results. The International ANCA [employer] Consensus recommends follow up testing of positive sera with both VT- 3 and MPO-ANCA enzyme immunoassays. As many as 5% serum samples are positive only by EIA. Ref. AM J Clin Pathol 1999;111:507-513. Performed By: #### L 101.9900, L500.4050, L100.0100, L3300.1200, L501.37465, L3200.1100, L501.9520, L506.0400, L2100.0000, L504.2610, L3100.3425, L5500.0550, L3410.2400, L501.6710, L3100.5440 ####[facility] [address] [place], [address] Celiac Disease Profileon ENDOMYSIAL IGA Negative Normal Negative [facility] Comment on above: Order Comment: N Performed By: #### L 101.9900, L500.4050, L100.0100, L3300.1200, L501.63166, L3200.1100, L501.9520, L506.0400, L2100.0000, L504.2610, L3100.3425, L5500.0550, L3410.2400, L501.6710, L3100.5440 ####[facility] [address] [place], [place], [id number] tTG IGA <2 Normal 0-3 [facility] Comment on above: Order Comment: N Result Comment: Nega tive 0 - 3 Weak Positive 4 - 10 Positive >10 Tissue Transglutaminase (tTG) has been identified as the endomysial antigen. Studies have demonstr- ated that endomysial IgA antibodies have over 99% specificity for gluten sensitive enteropathy. Performed By: #### L 101.9900, L500.4050, L100.0100, L3300.1200, L501.15862, L3200.1100, L501.9520, L506.0400, L2100.0000, L504.2610, L3100.3425, L5500.0550, L3410.2400, L501.6710, L3100.5440 ####[facility] [address] [place], [address] LICO + Protein Elect, Serumon 01-21-2024 Albumin [Mass/Vol] 4.1 g/dL Normal 2.9-4.4 [facility] Comment on above: Order Comment: N Performed By: #### L 101.9900, L500.4050, L100.0100, L3300.1200, L501.29829, L3200.1100, L501.9520, L506.0400, L2100.0000, L504.2610, L3100.3425, L5500.0550, L3410.2400, L501.6710, L3100.5440 ####[facility] [address] [place], [place], [address] Albumin/Globulin [Mass ratio] 1.5 {ratio} Normal 0.7-1.7 [facility] Comment on above: Order Comment: N Performed By: #### L 101.9900, L500.4050, L100.0100, L3300.1200, L501.69507, L3200.1100, L501.9520, L506.0400, L2100.0000, L504.2610, L3100.3425, L5500.0550, L3410.2400, L501.6710, L3100.5440 ####[facility] [address] [place], [address](951) BLDMU-2-WBWV 0.2 g/dL Normal 0.0-0.4 [facility] Comment on above: Order Comment: N Performed By: #### L 101.9900, L500.4050, L100.0100, L3300.1200, L501.63045, L3200.1100, L501.9520, L506.0400, L2100.0000, L504.2610, L3100.3425, L5500.0550, L3410.2400, L501.6710, L3100.5440 ####[facility] [address] [place], [address] JSGCH-6-VZBA 0.8 g/dL Normal 0.4-1.0 [facility] Comment on above: Order Comment: N Performed By: #### L 101.9900, L500.4050, L100.0100, L3300.1200, L501.30545, L3200.1100, L501.9520, L506.0400, L2100.0000, L504.2610, L3100.3425, L5500.0550, L3410.2400, L501.6710, L3100.5440 ####[facility] [address] [place], [phone] BETA GLOBULIN 1.1 g/dL Normal 0.7-1.3 [facility] Comment on above: Order Comment: N Performed By: #### L 101.9900, L500.4050, L100.0100, L3300.1200, L501.59121, L3200.1100, L501.9520, L506.0400, L2100.0000, L504.2610, L3100.3425, L5500.0550, L3410.2400, L501.6710, L3100.5440 ####[facility] [address] [place], [place], [address] GAMMA GLOBULIN 0.8 g/dL Normal 0.4-1.8 [facility] Comment on above: Order Comment: N Performed By: #### L 101.9900, L500.4050, L100.0100, L3300.1200, L501.10609, L3200.1100, L501.9520, L506.0400, L2100.0000, L504.2610, L3100.3425, L5500.0550, L3410.2400, L501.6710, L3100.5440 ####[facility] [address] [place], [place], [address] Globulin (S) [Mass/Vol] 2.9 g/dL Normal 2.2-3.9 [facility] Comment on above: Order Comment: N Performed By: #### L 101.9900, L500.4050, L100.0100, L3300.1200, L501.07713, L3200.1100, L501.9520, L506.0400, L2100.0000, L504.2610, L3100.3425, L5500.0550, L3410.2400, L501.6710, L3100.5440 ####[facility] [address] [place], [place], [address] LICO RESULT,S Comment Normal . [facility] Comment on above: Order Comment: N Result Comment: No m onoclonality detected. Performed By: #### L 101.9900, L500.4050, L100.0100, L3300.1200, L501.57910, L3200.1100, L501.9520, L506.0400, L2100.0000, L504.2610, L3100.3425, L5500.0550, L3410.2400, L501.6710, L3100.5440 ####[facility] [address] [place], [address] IMMUNOGLOB A QN 143 mg/dL Normal 87-352 [facility] Comment on above: Order Comment: N Performed By: #### L 101.9900, L500.4050, L100.0100, L3300.1200, L501.59829, L3200.1100, L501.9520, L506.0400, L2100.0000, L504.2610, L3100.3425, L5500.0550, L3410.2400, L501.6710, L3100.5440 ####[facility] [address] [place], [address] IMMUNOGLOB G QN 763 mg/dL Normal 586-1602 [facility] Comment on above: Order Comment: N Performed By: #### L 101.9900, L500.4050, L100.0100, L3300.1200, L501.30937, L3200.1100, L501.9520, L506.0400, L2100.0000, L504.2610, L3100.3425, L5500.0550, L3410.2400, L501.6710, L3100.5440 ####[facility] [address] [place], [address] IMMUNOGLOB M QN 93 mg/dL Normal 26-217 [facility] Comment on above: Order Comment: N Performed By: #### L 101.9900, L500.4050, L100.0100, L3300.1200, L501.30394, L3200.1100, L501.9520, L506.0400, L2100.0000, L504.2610, L3100.3425, L5500.0550, L3410.2400, L501.6710, L3100.5440 ####[facility] [address] [place], [place], [phone] M-Servando Not Observed Normal Not Observed [facility] Comment on above: Order Comment: N Performed By: #### L 101.9900, L500.4050, L100.0100, L3300.1200, L501.26303, L3200.1100, L501.9520, L506.0400, L2100.0000, L504.2610, L3100.3425, L5500.0550, L3410.2400, L501.6710, L3100.5440 ####[facility] [address] [place], [place], [address] NOTE: Comment Normal . [facility] Comment on above: Order Comment: N Result Comment: Prot ein electrophoresis scan will follow via computer, mail, or cleaner and trimmer delivery. Performed By: #### L 101.9900, L500.4050, L100.0100, L3300.1200, L501.03171, L3200.1100, L501.9520, L506.0400, L2100.0000, L504.2610, L3100.3425, L5500.0550, L3410.2400, L501.6710, L3100.5440 ####[facility] [address] [place], [place], [phone] Protein [Mass/Vol] 7.0 g/dL Normal 6.0-8.5 [facility] Comment on above: Order Comment: N Performed By: #### L 101.9900, L500.4050, L100.0100, L3300.1200, L501.34666, L3200.1100, L501.9520, L506.0400, L2100.0000, L504.2610, L3100.3425, L5500.0550, L3410.2400, L501.6710, L3100.5440 ####[facility] [address] [place], [place], [address] Immunoglobulins G/A/M/Jude IMMUNOGLOB E QN 13 IU/mL Normal 6-495 [facility] Comment on above: Order Comment: N Performed By: #### L 101.9900, L500.4050, L100.0100, L3300.1200, L501.83293, L3200.1100, L501.9520, L506.0400, L2100.0000, L504.2610, L3100.3425, L5500.0550, L3410.2400, L501.6710, L3100.5440 ####[facility] [address] [place], [place], [address] L2100.0000on 01-21-2024 ACCA 17 units Normal 0-90 [facility] Comment on above: Order Comment: N Result Comment: Nega tive: <80 Equivocal: 80-90 Positive: >90 Performed By: #### L 101.9900, L500.4050, L100.0100, L3300.1200, L501.99622, L3200.1100, L501.9520, L506.0400, L2100.0000, L504.2610, L3100.3425, L5500.0550, L3410.2400, L501.6710, L3100.5440 ####[facility] [address] [place], [place], [id number] ALCA 2 units Normal 0-60 [facility] Comment on above: Order Comment: N Result Comment: Nega tive:<55 Equivocal: 55-60 Positive: >60 Performed By: #### L 101.9900, L500.4050, L100.0100, L3300.1200, L501.32294, L3200.1100, L501.9520, L506.0400, L2100.0000, L504.2610, L3100.3425, L5500.0550, L3410.2400, L501.6710, L3100.5440 ####[facility] [address] [place], [address] AMCA 22 units Normal 0-100 [facility] Comment on above: Order Comment: N Result Comment: Nega tive: <90 Equivocal: 90-100 Positive: >100 This test was developed and its performance characteristics determined by [facility]. It has not been cleared or approved by the Food and Drug Administration. The FDA has determined that such clearance or approval is not necessary. Performed By: #### L 101.9900, L500.4050, L100.0100, L3300.1200, L501.19429, L3200.1100, L501.9520, L506.0400, L2100.0000, L504.2610, L3100.3425, L5500.0550, L3410.2400, L501.6710, L3100.5440 ####[facility] [address] [place], [address] Atypical pANCA Positive Abnormal Negative [facility] Comment on above: Order Comment: N Performed By: #### L 101.9900, L500.4050, L100.0100, L3300.1200, L501.77725, L3200.1100, L501.9520, L506.0400, L2100.0000, L504.2610, L3100.3425, L5500.0550, L3410.2400, L501.6710, L3100.5440 ####[facility] [address] [place], [place], [phone] COMMENT Comment Abnormal . [facility] Comment on above: Order Comment: N Result Comment: Sugg estive of Ulcerative Colitis Performed By: #### L 101.9900, L500.4050, L100.0100, L3300.1200, L501.60337, L3200.1100, L501.9520, L506.0400, L2100.0000, L504.2610, L3100.3425, L5500.0550, L3410.2400, L501.6710, L3100.5440 ####[facility] [address] [place], [place], [address] Tyler 1 units Normal 0-50 [facility] Comment on above: Order Comment: N Result Comment: Nega tive: <45 Equivocal: 45-50 Positive: >50 Performed By: #### L 101.9900, L500.4050, L100.0100, L3300.1200, L501.94751, L3200.1100, L501.9520, L506.0400, L2100.0000, L504.2610, L3100.3425, L5500.0550, L3410.2400, L501.6710, L3100.5440 ####[facility] [address] [place], [place], [address] L5500.0550on 01-21-2024 BEEF <0.10 Normal Class 0 [facility] Comment on above: Performed By: #### L 101.9900, L500.4050, L100.0100, L3300.1200, L501.87526, L3200.1100, L501.9520, L506.0400, L2100.0000, L504.2610, L3100.3425, L5500.0550, L3410.2400, L501.6710, L3100.5440 ####[facility] [address] [place], [address] CHOCOLATE <0.10 Normal Class 0 [facility] Comment on above: Performed By: #### L 101.9900, L500.4050, L100.0100, L3300.1200, L501.64211, L3200.1100, L501.9520, L506.0400, L2100.0000, L504.2610, L3100.3425, L5500.0550, L3410.2400, L501.6710, L3100.5440 ####[facility] [address] [place], [place], [address] CODFISH <0.10 Normal Class 0 [facility] Comment on above: Performed By: #### L 101.9900, L500.4050, L100.0100, L3300.1200, L501.22697, L3200.1100, L501.9520, L506.0400, L2100.0000, L504.2610, L3100.3425, L5500.0550, L3410.2400, L501.6710, L3100.5440 ####[facility] [address] [place], [place], [address] COMMENT Comment Normal . [facility] Comment on above: Result Comment: Julio tello of Specific IgE Class Description of Class ----- < 0.10 0 Negative 0.10 - 0.31 0/I Equivocal/Low 0.32 - 0.55 I Low 0.56 - 1.40 II Moderate 1.41 - 3.90 III High 3.91 - 19.00 IV Very High 19.01 - 100.00 V Very High >100.00 Very High Performed By: #### L 101.9900, L500.4050, L100.0100, L3300.1200, L501.91577, L3200.1100, L501.9520, L506.0400, L2100.0000, L504.2610, L3100.3425, L5500.0550, L3410.2400, L501.6710, L3100.5440 ####[facility] [address] [place], [address] CORN <0.10 Normal Class 0 [facility] Comment on above: Performed By: #### L 101.9900, L500.4050, L100.0100, L3300.1200, L501.03726, L3200.1100, L501.9520, L506.0400, L2100.0000, L504.2610, L3100.3425, L5500.0550, L3410.2400, L501.6710, L3100.5440 ####[facility] [address] [place], [address] EGG, WHOLE <0.10 Normal Class 0 [facility] Comment on above: Result Comment: Perf ormed at: [address] [id number] [employer]: Vci Rodriguez PhD, Phone: [phone] Performed at: [facility] [address] [id number] [employer]: Rigo Pyle MD, Phone: [phone] Performed By: #### L 101.9900, L500.4050, L100.0100, L3300.1200, L501.45587, L3200.1100, L501.9520, L506.0400, L2100.0000, L504.2610, L3100.3425, L5500.0550, L3410.2400, L501.6710, L3100.5440 ####[facility] [address] [facility] [place], [address] MILK (COW) <0.10 Normal Class 0 [facility] Comment on above: Performed By: #### L 101.9900, L500.4050, L100.0100, L3300.1200, L501.32690, L3200.1100, L501.9520, L506.0400, L2100.0000, L504.2610, L3100.3425, L5500.0550, L3410.2400, L501.6710, L3100.5440 ####[facility] [address] [facility] [place], [address] MUSSELS <0.10 Normal Class 0 [facility] Comment on above: Performed By: #### L 101.9900, L500.4050, L100.0100, L3300.1200, L501.76547, L3200.1100, L501.9520, L506.0400, L2100.0000, L504.2610, L3100.3425, L5500.0550, L3410.2400, L501.6710, L3100.5440 ####[facility] [address] [place], [place], [address] PEANUT <0.10 Normal Class 0 [facility] Comment on above: Performed By: #### L 101.9900, L500.4050, L100.0100, L3300.1200, L501.25590, L3200.1100, L501.9520, L506.0400, L2100.0000, L504.2610, L3100.3425, L5500.0550, L3410.2400, L501.6710, L3100.5440 ####[facility] [address] [place], [place], [id number] PORK <0.10 Normal Class 0 [facility] Comment on above: Performed By: #### L 101.9900, L500.4050, L100.0100, L3300.1200, L501.18454, L3200.1100, L501.9520, L506.0400, L2100.0000, L504.2610, L3100.3425, L5500.0550, L3410.2400, L501.6710, L3100.5440 ####[facility] [address] [place], [place], [address] SALMON <0.10 Normal Class 0 [facility] Comment on above: Performed By: #### L 101.9900, L500.4050, L100.0100, L3300.1200, L501.55199, L3200.1100, L501.9520, L506.0400, L2100.0000, L504.2610, L3100.3425, L5500.0550, L3410.2400, L501.6710, L3100.5440 ####[facility] [address] [place], [place], [address] SHRIMP <0.10 Normal Class 0 [facility] Comment on above: Performed By: #### L 101.9900, L500.4050, L100.0100, L3300.1200, L501.39765, L3200.1100, L501.9520, L506.0400, L2100.0000, L504.2610, L3100.3425, L5500.0550, L3410.2400, L501.6710, L3100.5440 ####[facility] [address] [place], [place], [address] SOYBEAN <0.10 Normal Class 0 [facility] Comment on above: Performed By: #### L 101.9900, L500.4050, L100.0100, L3300.1200, L501.77428, L3200.1100, L501.9520, L506.0400, L2100.0000, L504.2610, L3100.3425, L5500.0550, L3410.2400, L501.6710, L3100.5440 ####[facility] [address] [place], [place], [address] TUNA <0.10 Normal Class 0 [facility] Comment on above: Performed By: #### L 101.9900, L500.4050, L100.0100, L3300.1200, L501.85415, L3200.1100, L501.9520, L506.0400, L2100.0000, L504.2610, L3100.3425, L5500.0550, L3410.2400, L501.6710, L3100.5440 ####[facility] [address] [place], [place], [address] WHEAT <0.10 Normal Class 0 [facility] Comment on above: Performed By: #### L 101.9900, L500.4050, L100.0100, L3300.1200, L501.29469, L3200.1100, L501.9520, L506.0400, L2100.0000, L504.2610, L3100.3425, L5500.0550, L3410.2400, L501.6710, L3100.5440 ####[facility] [address] [place], [address] CBC W/Diff, Automatedon 10-0 -2023 Absolute Lymph 1.28 X10 3/uL Normal 0.83-4.51 [facility] Comment on above: Performed By: #### L 101.9900, L500.4050, L100.0100, L3300.1200, L501.16576, L3200.1100, L501.9520, L506.0400, L2100.0000, L504.2610, L3100.3425, L5500.0550, L3410.2400, L501.6710, L3100.5440 #### [facility] [address] [place], [address] Absolute Neut 2.7 X10 3/uL Normal 2.0-7.7 [facility] Comment on above: Performed By: #### L 101.9900, L500.4050, L100.0100, L3300.1200, L501.74194, L3200.1100, L501.9520, L506.0400, L2100.0000, L504.2610, L3100.3425, L5500.0550, L3410.2400, L501.6710, L3100.5440 #### [facility] [address] [place], [address] Basophils/100 WBC (Bld) 0.9 % Normal 0-1 [facility] Comment on above: Performed By: #### L 101.9900, L500.4050, L100.0100, L3300.1200, L501.51646, L3200.1100, L501.9520, L506.0400, L2100.0000, L504.2610, L3100.3425, L5500.0550, L3410.2400, L501.6710, L3100.5440 #### [facility] [address] [facility] [place], [address] Eosinophils/100 WBC (Bld) 2.3 % Normal 0-5 [facility] Comment on above: Performed By: #### L 101.9900, L500.4050, L100.0100, L3300.1200, L501.43136, L3200.1100, L501.9520, L506.0400, L2100.0000, L504.2610, L3100.3425, L5500.0550, L3410.2400, L501.6710, L3100.5440 #### [facility] [address] [place], [address] Erythrocyte distribution width (RBC) [Ratio] 12.9 % Normal 11.6-14.6 [facility] Comment on above: Performed By: #### L 101.9900, L500.4050, L100.0100, L3300.1200, L501.81832, L3200.1100, L501.9520, L506.0400, L2100.0000, L504.2610, L3100.3425, L5500.0550, L3410.2400, L501.6710, L3100.5440 #### [facility] [address] [place], [address] Hematocrit (Bld) [Volume fraction] 40.6 % Normal 37-47 [facility] Comment on above: Performed By: #### L 101.9900, L500.4050, L100.0100, L3300.1200, L501.20791, L3200.1100, L501.9520, L506.0400, L2100.0000, L504.2610, L3100.3425, L5500.0550, L3410.2400, L501.6710, L3100.5440 #### [facility] [address] [facility] [place], [address] Hemoglobin (Bld) [Mass/Vol] 13.4 g/dL Normal 12.0-15.0 [facility] Comment on above: Performed By: #### L 101.9900, L500.4050, L100.0100, L3300.1200, L501.53253, L3200.1100, L501.9520, L506.0400, L2100.0000, L504.2610, L3100.3425, L5500.0550, L3410.2400, L501.6710, L3100.5440 #### [facility] [address] [place], [address] IG% 0.500 Normal 0.0-0.9 [facility] Comment on above: Result Comment: IG% - Immature Granulocytes (promyelocytes, myelocytes and metamyelocytes) > 1% indicates that a LEFT SHIFT is Present. Performed By: #### L 101.9900, L500.4050, L100.0100, L3300.1200, L501.64222, L3200.1100, L501.9520, L506.0400, L2100.0000, L504.2610, L3100.3425, L5500.0550, L3410.2400, L501.6710, L3100.5440 #### [facility] [address] [place], [address] Lymphocytes/100 WBC (Bld) 28.9 % Normal 19-41 [facility] Comment on above: Performed By: #### L 101.9900, L500.4050, L100.0100, L3300.1200, L501.38405, L3200.1100, L501.9520, L506.0400, L2100.0000, L504.2610, L3100.3425, L5500.0550, L3410.2400, L501.6710, L3100.5440 #### [facility] [address] [place], [address] MCH (RBC) [Entitic mass] 29.9 pg Normal 27.0-32.0 [facility] Comment on above: Performed By: #### L 101.9900, L500.4050, L100.0100, L3300.1200, L501.99720, L3200.1100, L501.9520, L506.0400, L2100.0000, L504.2610, L3100.3425, L5500.0550, L3410.2400, L501.6710, L3100.5440 #### [facility] [address] [facility] [place], [address] MCHC (RBC) [Mass/Vol] 33.0 g/dL Normal 32-36 [facility] Comment on above: Performed By: #### L 101.9900, L500.4050, L100.0100, L3300.1200, L501.19397, L3200.1100, L501.9520, L506.0400, L2100.0000, L504.2610, L3100.3425, L5500.0550, L3410.2400, L501.6710, L3100.5440 #### [facility] [address] [facility] [place], [address] MCV (RBC) [Entitic vol] 90.6 fL Normal 81-99 [facility] Comment on above: Performed By: #### L 101.9900, L500.4050, L100.0100, L3300.1200, L501.75871, L3200.1100, L501.9520, L506.0400, L2100.0000, L504.2610, L3100.3425, L5500.0550, L3410.2400, L501.6710, L3100.5440 #### [facility] [address] [facility] [place], [address] Monocytes/100 WBC (Bld) 6.3 % Normal 0-10 [facility] Comment on above: Performed By: #### L 101.9900, L500.4050, L100.0100, L3300.1200, L501.70924, L3200.1100, L501.9520, L506.0400, L2100.0000, L504.2610, L3100.3425, L5500.0550, L3410.2400, L501.6710, L3100.5440 #### [facility] [address] [place], [address] Neutrophils/100 WBC (Bld) 61.1 % Normal 47-70 [facility] Comment on above: Performed By: #### L 101.9900, L500.4050, L100.0100, L3300.1200, L501.40831, L3200.1100, L501.9520, L506.0400, L2100.0000, L504.2610, L3100.3425, L5500.0550, L3410.2400, L501.6710, L3100.5440 #### [facility] [address] [place], [address] Nucleated RBC (Bld) [#/Vol] 0 10*3/uL Normal 0-5 [facility] Comment on above: Performed By: #### L 101.9900, L500.4050, L100.0100, L3300.1200, L501.54841, L3200.1100, L501.9520, L506.0400, L2100.0000, L504.2610, L3100.3425, L5500.0550, L3410.2400, L501.6710, L3100.5440 #### [facility] [address] [place], [address] Platelet mean volume (Bld) [Entitic vol] 9.7 fL Normal 6.2-12.0 [facility] Comment on above: Performed By: #### L 101.9900, L500.4050, L100.0100, L3300.1200, L501.88058, L3200.1100, L501.9520, L506.0400, L2100.0000, L504.2610, L3100.3425, L5500.0550, L3410.2400, L501.6710, L3100.5440 #### [facility] [address] [place], [address] Platelets (Bld) [#/Vol] 235 10*3/uL Normal 150-450 [facility] Comment on above: Performed By: #### L 101.9900, L500.4050, L100.0100, L3300.1200, L501.03093, L3200.1100, L501.9520, L506.0400, L2100.0000, L504.2610, L3100.3425, L5500.0550, L3410.2400, L501.6710, L3100.5440 #### [facility] [address] [place], [address] RBC (Bld) [#/Vol] 4.48 10*6/uL Normal 4.2-5.4 [facility] Comment on above: Performed By: #### L 101.9900, L500.4050, L100.0100, L3300.1200, L501.64254, L3200.1100, L501.9520, L506.0400, L2100.0000, L504.2610, L3100.3425, L5500.0550, L3410.2400, L501.6710, L3100.5440 #### [facility] [address] [place], [address] RDW SD 42.5 fl Normal 35.1-43.9 [facility] Comment on above: Performed By: #### L 101.9900, L500.4050, L100.0100, L3300.1200, L501.42998, L3200.1100, L501.9520, L506.0400, L2100.0000, L504.2610, L3100.3425, L5500.0550, L3410.2400, L501.6710, L3100.5440 #### [facility] [address] [place], [address] WBC (Bld) [#/Vol] 4.4 10*3/uL Normal 4.4-11.0 [facility] Comment on above: Performed By: #### L 101.9900, L500.4050, L100.0100, L3300.1200, L501.66409, L3200.1100, L501.9520, L506.0400, L2100.0000, L504.2610, L3100.3425, L5500.0550, L3410.2400, L501.6710, L3100.5440 #### [facility] [address] [place], [address] CRPon 01-18-2024 C-REACTIVE PROT < 2.90 Normal 0.0-3.0 [facility] Comment on above: Order Comment: 1 Result Comment: C-Re active Protein (CRP) provides useful information for the diagnosis, therapy and monitoring of inflammatory processes and associated diseases. For the evaluation of Relative Risk for Cardiovascular Disease, a High Sensitivity CRP (HSCRP) should be ordered. Performed By: #### L 101.9900, L500.4050, L100.0100, L3300.1200, L501.40645, L3200.1100, L501.9520, L506.0400, L2100.0000, L504.2610, L3100.3425, L5500.0550, L3410.2400, L501.6710, L3100.5440 ####[facility] [facility] [address] [place], [address] Comprehensive Metabolic Prof ilon 01-18-2024 Albumin [Mass/Vol] 4.0 g/dL Normal 3.2-5.0 [facility] Comment on above: Order Comment: 1 Performed By: #### L 101.9900, L500.4050, L100.0100, L3300.1200, L501.81842, L3200.1100, L501.9520, L506.0400, L2100.0000, L504.2610, L3100.3425, L5500.0550, L3410.2400, L501.6710, L3100.5440 ####[facility] [address] [place], [address] Albumin/Globulin [Mass ratio] 1.2 {ratio} Normal 0.9-2.4 [facility] Comment on above: Order Comment: 1 Performed By: #### L 101.9900, L500.4050, L100.0100, L3300.1200, L501.43957, L3200.1100, L501.9520, L506.0400, L2100.0000, L504.2610, L3100.3425, L5500.0550, L3410.2400, L501.6710, L3100.5440 ####[facility] [address] [place], [address] ALK P 68 U/L Normal 45-117 [facility] Comment on above: Order Comment: 1 Performed By: #### L 101.9900, L500.4050, L100.0100, L3300.1200, L501.09632, L3200.1100, L501.9520, L506.0400, L2100.0000, L504.2610, L3100.3425, L5500.0550, L3410.2400, L501.6710, L3100.5440 ####[facility] [address] [place], [address] ALT [Catalytic activity/Vol] 33 U/L Normal 13-56 [facility] Comment on above: Order Comment: 1 Performed By: #### L 101.9900, L500.4050, L100.0100, L3300.1200, L501.36461, L3200.1100, L501.9520, L506.0400, L2100.0000, L504.2610, L3100.3425, L5500.0550, L3410.2400, L501.6710, L3100.5440 ####[facility] [address] [place], [place], [phone] AST [Catalytic activity/Vol] 19 U/L Normal 15-37 [facility] Comment on above: Order Comment: 1 Performed By: #### L 101.9900, L500.4050, L100.0100, L3300.1200, L501.51417, L3200.1100, L501.9520, L506.0400, L2100.0000, L504.2610, L3100.3425, L5500.0550, L3410.2400, L501.6710, L3100.5440 ####[facility] [address] [place], [place], [phone] Bilirubin [Mass/Vol] 0.50 mg/dL Normal 0.20-1.00 [facility] Comment on above: Order Comment: 1 Result Comment: For patients on eltrombopag therapy, use of Dimension [place] TBIL is not recommended. Performed By: #### L 101.9900, L500.4050, L100.0100, L3300.1200, L501.47219, L3200.1100, L501.9520, L506.0400, L2100.0000, L504.2610, L3100.3425, L5500.0550, L3410.2400, L501.6710, L3100.5440 ####[facility] [address] [place], [address](105) BUN/CRE 26.5 RATIO High 10-20 [facility] Comment on above: Order Comment: 1 Performed By: #### L 101.9900, L500.4050, L100.0100, L3300.1200, L501.94270, L3200.1100, L501.9520, L506.0400, L2100.0000, L504.2610, L3100.3425, L5500.0550, L3410.2400, L501.6710, L3100.5440 ####[facility] [address] [place], [place], [phone](882) CA,Total 9.8 mg/dL Normal 8.5-10.1 [facility] Comment on above: Order Comment: 1 Performed By: #### L 101.9900, L500.4050, L100.0100, L3300.1200, L501.19865, L3200.1100, L501.9520, L506.0400, L2100.0000, L504.2610, L3100.3425, L5500.0550, L3410.2400, L501.6710, L3100.5440 ####[facility] [address] [place], [place], [phone] Chloride [Moles/Vol] 102 mmol/L Normal 98-107 [facility] Comment on above: Order Comment: 1 Performed By: #### L 101.9900, L500.4050, L100.0100, L3300.1200, L501.33572, L3200.1100, L501.9520, L506.0400, L2100.0000, L504.2610, L3100.3425, L5500.0550, L3410.2400, L501.6710, L3100.5440 ####[facility] [address] [place], [place], [phone](216) CO2 [Moles/Vol] 30.0 mmol/L Normal 21.0-32.0 [facility] Comment on above: Order Comment: 1 Performed By: #### L 101.9900, L500.4050, L100.0100, L3300.1200, L501.29138, L3200.1100, L501.9520, L506.0400, L2100.0000, L504.2610, L3100.3425, L5500.0550, L3410.2400, L501.6710, L3100.5440 ####[facility] [address] [place], [place], [phone] Creatinine [Mass/Vol] 0.87 mg/dL Normal 0.55-1.02 [facility] Comment on above: Order Comment: 1 Result Comment: The validity of the calculated GFR GFRAA in patients over 70 years has not been determined. Clinical correlation is essential. Performed By: #### L 101.9900, L500.4050, L100.0100, L3300.1200, L501.69254, L3200.1100, L501.9520, L506.0400, L2100.0000, L504.2610, L3100.3425, L5500.0550, L3410.2400, L501.6710, L3100.5440 ####[facility] [address] [place], [place], [phone] EST GFR - AA 84 mL/min Normal >60 [facility] Comment on above: Order Comment: 1 Result Comment: Afri can [place] GFR Calc Performed By: #### L 101.9900, L500.4050, L100.0100, L3300.1200, L501.29337, L3200.1100, L501.9520, L506.0400, L2100.0000, L504.2610, L3100.3425, L5500.0550, L3410.2400, L501.6710, L3100.5440 ####[facility] [address] [place], [place], [phone] GAP 5 Normal 5-15 [facility] Comment on above: Order Comment: 1 Performed By: #### L 101.9900, L500.4050, L100.0100, L3300.1200, L501.38244, L3200.1100, L501.9520, L506.0400, L2100.0000, L504.2610, L3100.3425, L5500.0550, L3410.2400, L501.6710, L3100.5440 ####[facility] [address] [place], [address] GFR/1.73 sq M.predicted among non-blacks MDRD (S/P/Bld) [Vol rate/Area] 69 mL/min/{1.73_m2} Normal >60 [facility] Comment on above: Order Comment: 1 Result Comment: Non- GFR Calc Performed By: #### L 101.9900, L500.4050, L100.0100, L3300.1200, L501.33602, L3200.1100, L501.9520, L506.0400, L2100.0000, L504.2610, L3100.3425, L5500.0550, L3410.2400, L501.6710, L3100.5440 ####[facility] [address] [place], [address] Globulin (S) [Mass/Vol] 3.3 g/dL Normal 2.2-4.2 [facility] Comment on above: Order Comment: 1 Performed By: #### L 101.9900, L500.4050, L100.0100, L3300.1200, L501.80503, L3200.1100, L501.9520, L506.0400, L2100.0000, L504.2610, L3100.3425, L5500.0550, L3410.2400, L501.6710, L3100.5440 ####[facility] [address] [place], [address] Glucose [Mass/Vol] 89 mg/dL Normal 74-106 [facility] Comment on above: Order Comment: 1 Performed By: #### L 101.9900, L500.4050, L100.0100, L3300.1200, L501.63045, L3200.1100, L501.9520, L506.0400, L2100.0000, L504.2610, L3100.3425, L5500.0550, L3410.2400, L501.6710, L3100.5440 ####[facility] [address] [place], [address] Potassium [Moles/Vol] 3.9 mmol/L Normal 3.5-5.1 [facility] Comment on above: Order Comment: 1 Performed By: #### L 101.9900, L500.4050, L100.0100, L3300.1200, L501.85742, L3200.1100, L501.9520, L506.0400, L2100.0000, L504.2610, L3100.3425, L5500.0550, L3410.2400, L501.6710, L3100.5440 ####[facility] [address] [place], [place], [phone] Sodium [Moles/Vol] 137 mmol/L Normal 136-145 [facility] Comment on above: Order Comment: 1 Performed By: #### L 101.9900, L500.4050, L100.0100, L3300.1200, L501.81594, L3200.1100, L501.9520, L506.0400, L2100.0000, L504.2610, L3100.3425, L5500.0550, L3410.2400, L501.6710, L3100.5440 ####[facility] [address] [place], [address] T PROT 7.3 g/dL Normal 6.4-8.2 [facility] Comment on above: Order Comment: 1 Performed By: #### L 101.9900, L500.4050, L100.0100, L3300.1200, L501.12401, L3200.1100, L501.9520, L506.0400, L2100.0000, L504.2610, L3100.3425, L5500.0550, L3410.2400, L501.6710, L3100.5440 ####[facility] [address] [place], [place], [phone] Urea nitrogen [Mass/Vol] 23 mg/dL High 7-18 [facility] Comment on above: Order Comment: 1 Performed By: #### L 101.9900, L500.4050, L100.0100, L3300.1200, L501.72148, L3200.1100, L501.9520, L506.0400, L2100.0000, L504.2610, L3100.3425, L5500.0550, L3410.2400, L501.6710, L3100.5440 ####[facility] [address] [place], [address] Erythrocyte Sed Rateon 01-17 SED RATE 5 mm/hr Normal 0-30 [facility] Comment on above: Performed By: #### L 101.9900, L500.4050, L100.0100, L3300.1200, L501.35584, L3200.1100, L501.9520, L506.0400, L2100.0000, L504.2610, L3100.3425, L5500.0550, L3410.2400, L501.6710, L3100.5440 #### [facility] [address] [place], [place], [address] Free T3on 01-18-2024 Free T3 [Mass/Vol] 2.6 pg/mL Normal 2.18-3.98 [facility] Comment on above: Order Comment: 1 Performed By: #### L 101.9900, L500.4050, L100.0100, L3300.1200, L501.24634, L3200.1100, L501.9520, L506.0400, L2100.0000, L504.2610, L3100.3425, L5500.0550, L3410.2400, L501.6710, L3100.5440 ####[facility] [address] [place], [place], [address] Gastroenterology Visit Repor ton 01-18-2024 Gastroenterology Visit Report [facility] [address] [place] [address] OFFICE VISIT Date of Service: 01/18/24 MR#: [id number] Acct: [id number] Name: LEANA MANCERA Rep #: [id number] : 1955 Provider: GEM blount Age/Sex: 68/F Location: [facility] Status: Signed Intake Vital Signs 11/23/23 00:48 Height 5 ft 6 in Intake Visit Reasons: REDUNDANT COLON, CONSTIPATION Chief Complaint: Constipation, bloating Allergies diphenhydramine HCl (From Benadryl) Adverse Reaction (Verified 11/23/23 00:52) Other Have you fallen in the past year?: No Nurse's Note: OV 01.18.24 Pt here for constipation. Had a colonoscopy and EGD . Takes miralax and senna prn. PFSH Medical History GERD (gastroesophageal reflux disease) Hypercholesteremia Depression Parathyroid adenoma Thyroid nodule History of hypertension Autoimmune disorder Palindromic rheumatism Sleep apnea Constipation HTN (hypertension) Surgical History Total knee replacement status H/O bilateral hip replacements History of tonsillectomy History of breast lump/mass excision S/P partial hysterectomy Family History (Reviewed 07/27/23 @ 09:25 by Varsha Calderon COMMISSION SPECIALIST, COMMISSION SPECIALIST-C) Father Colon cancer Heart disease Hypertension Thyroid disorder Afib Hx of CABG Mother Breast cancer Afib Mitral valve disease Unknown Breast cancer Brother Alcoholism Sister Autoimmune disease Aunt Breast cancer Sister Breast cancer, Onset Age: 60 Social History household members: significant other current occupational status: employed current occupation: [employer] Smoking Status: Never smoker alcohol intake: current alcohol intake frequency: a few times a month substance use type: does not use diet: other what type of physical activity do you participate in: walking, yoga and other frequency: 3-4 times per week seatbelt use: always do you feel safe at home: Yes additional social history: single Female Reproductive History Menstrual Ab spontaneous: 2 HPI HPI Chief Complaint: Constipation, bloating Details: LEANA MANCERA, is a 68 F who presents to the office today for establishment with [facility] with complaints abdominal bloating and constipation. She reports a visit to the emergency department on 11/23/23 for no bowel movement over [address] showed no acute abdominal or pelvic abnormality, but did show a subcapsular mass in the right lobe of the liver, possibly a hemangioma. ER physician offered SSE but she refused. 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 She was then advised to consume 1/2 a bottle of Miralax, as for a colonoscopy prep, and she reports clearing her abdomen of stool after that. Today, she states that it's been 6 days since her last BM and she's attempted to use Miralax daily dosing without results. She reports taking a probiotic, eating plenty of fiber with her meals and she is active with bicycling. She denies difficulty chewing, swallowing, excessive gas, hematochezia and melena. She reports history of GERD, last EGD showed small hiatal hernia, gastric polyps, and tissue changes at gastroesophageal junction(negative for Ascencio's). Colonoscopy showed diverticulosis, internal nonbleeding hemorrhoids, and 2 1-3mm polyps(one being tubular adenoma). ROS Const Constitutional: Positive for fatigue and decreased energy; No abnormal sleep pattern Eyes Eyes: No change in vision ENT ENT: No abnormal hearing or difficulty swallowing Resp Respiratory: No cough Cardio Cardiology: No chest pain at rest, chest pain with exertion or leg pain with exertion Gastro GI: Positive for bloating, change in bowel habits, constipation, heartburn and nausea/dyspepsia; No coffee ground emesis, diarrhea, difficulty swallowing, feeling full early, excessive flatus, incontinent of stools, Vomiting blood/hematemesis, Blood in stool, loose stools, Black,tarry stools, pain with swallowing or vomiting Genitourinary-Female: No difficulty urinating Musc Musculoskeletal: No abnormal gait or leg pain with exertion Skin Skin: No yellowing of the eye or itchy eyes Neuro Neurology: No abnormal gait or abnormal hearing Psych Psychiatric: No abnormal sleep pattern Endo Endocrine: Positive for change in body appearance and fatigue Aller/Imm Allergy/Immunologic: No food intolerance or itchy eyes Odilon/Lymp Hematologic/Lymphatic: No easy bleeding or easy bruising Exam Const General: cooperative, healthy appearing and comfortable Nutritional Appearance: average body habitus and overweight Orientation: alert HENFL Head: normal t (more content not included)... Normal [facility] LDHon 01-18-2024 LDH 181 U/L Normal 84-246 [facility] Comment on above: Order Comment: 1 Performed By: #### L 101.9900, L500.4050, L100.0100, L3300.1200, L501.84892, L3200.1100, L501.9520, L506.0400, L2100.0000, L504.2610, L3100.3425, L5500.0550, L3410.2400, L501.6710, L3100.5440 ####[facility] [address] [place], [place], [phone] T4 Free Directon 01-18-2024 T4 FREE DIRECT 0.97 ng/dL Normal 0.76-1.46 [facility] Comment on above: Order Comment: 1 Performed By: #### L 101.9900, L500.4050, L100.0100, L3300.1200, L501.42222, L3200.1100, L501.9520, L506.0400, L2100.0000, L504.2610, L3100.3425, L5500.0550, L3410.2400, L501.6710, L3100.5440 ####[facility] [address] [place], [place], [phone] Thyroid Stim Hormone (TSH)on 01-18-2024 TSH 3.110 uIU/mL Normal 0.358-3.740 [facility] Comment on above: Order Comment: 1 Performed By: #### L 101.9900, L500.4050, L100.0100, L3300.1200, L501.67270, L3200.1100, L501.9520, L506.0400, L2100.0000, L504.2610, L3100.3425, L5500.0550, L3410.2400, L501.6710, L3100.5440 ####[facility] [address] [place], [place], [phone] CNOVon 01-10-2024 CNOV Office Visit ([facility] ) RAUS,LEANA R ([id number]) 1955 F [facility] Date Time Provider Department 01/10/24 1:30 PM DEBBI PATEL During your visit today, we recorded the following information about you: Debbi Patel APRN.TUBING SUPERVISOR 01/10/2024 1:59 PM Signed FOLLOW UP VISIT - ENDOSCOPY Leana Mancera 1955 [id number] REFERRING PHYSICIAN: No referring provider defined for this encounter. Leana Mancera is a patient I am following for constipation, nausea, GERD. Dr. Pate performed upper and lower endoscopy on 12/31/23. EGD Impression: - Normal nasopharynx. - Small hiatal hernia. - [place]-colored mucosa suspicious for short-segment Ascencio's esophagus. Biopsied. - Gastritis. Biopsied. - Multiple gastric polyps. Biopsied. - Normal ampulla, duodenal bulb, first portion of the duodenum and second portion of the duodenum. Biopsied. COLONOSCOPY Impression: - Preparation of the colon was poor. - Hemorrhoids found on perianal exam. - Two 1 to 3 mm polyps in the cecum, removed with a cold snare. Resected and retrieved. - The examination was otherwise normal. PATHOLOGY FINAL DIAGNOSIS A. Duodenum, biopsy: - Small bowel mucosa with no diagnostic abnormality. B. Stomach, antrum, biopsy: - Gastric antral-type mucosa with mild reactive gastropathy. C. Stomach, polyp, biopsy: - Fundic gland polyp. D. Esophagogastric junction, biopsy: - Gastric cardia-type mucosa with chronic inflammation, negative for intestinal metaplasia or dysplasia. - Squamous mucosa with mild reactive/hyperplastic changes suggestive of gastroesophageal reflux. E. Cecal polyps, biopsies: - One tubular adenoma. - Separate fragments of colonic mucosa with intramucosal lymphoid aggregates. JEL 01/03/2024 Diagnosis Comment B. No Helicobacter pylori organisms are identified. The patient notes continued problems with constipation. Leana refers she is getting 35-40g of fiber daily through her diet. She notes bloating. She has started to use Miralax often with more bowel regularity. She plays [employer] ball 4x a week and walks on the off days. She refers adequate water intake. VITALS: There were no vitals taken for this visit. General: patient is alert, cooperative, pleasant and in no acute distress On examination, the abdomen is benign. Assessment ASSESSMENT/PLAN: 1. Gastroesophageal reflux disease, unspecified whether esophagitis present - ICD9: 530.81, ICD10: K21.9 (primary diagnosis) - Start Prilosec 20mg daily x 3 months - Work on lifestyle factors that increase GERD - Consult to GI d/t chronic constipation not relieved with lifestyle adjustments like exercise, fiber, adequate water intake, OTC supplements 2. Adenomatous polyp of colon, unspecified part of colon - ICD9: 211.3, ICD10: D12.6 - Repeat colonoscopy in 2 years The operative findings and pathology report were reviewed with the patient, and the patient has had the opportunity to ask questions and have questions answered. If the patient notes any problems or changes in bowel function, the patient should contact me immediately. Otherwise I recommend follow up EGD AND colonoscopy in 2 years d/t poor prep. HM updated and recall letter generated. Discussed treatment plan and patient voices understanding. Patient's questions answered appropriately. Medications and potential side effects were discussed and patient voices understanding. Return to the office as scheduled or as needed for worsening/no improvement. Debbi Patel APRN.Debbi Obrien APRN.DANN 01/10/2024 1:56 PM Signed GASTRITIS/GERD I discussed with you the findings of your upper endoscopy. Your upper endoscopy demonstrated signs of peptic ulcer disease or irritation. This can be seen as a range of issues from actual ulcers in the stomach or duodenum (first part of the small bowel) or irritation ranging from redness to more significant irritation with erosions of the stomach or duodenum. These conditions are usually caused from a combination of too much acid production or too little protective mucus production in the stomach. Factors that increase acid production include smoking and stress. If you smoke, stopping smoking will often cure these issues without needing other medications. Factors that decrease the stomach's production of protective mucus include alcohol consumption, smoking, aspirin and other anti-inflammatory use. Over the counter medications including antiacids and acid reducing medications including H2 blockers (Zantac and the like) and proton pump inhibitors (prilosec, prevacid and the like) neutralize or prevent acid production. Avoiding smoking, alcohol and antiinflammatory medications are important in the successful treatment of peptic diseases. (more content not included)... Normal [facility] 01-10-2024 SERAFIN Telephone (GENSWS) LEANA MANCERA ([id number]) 1955 F T Date Time Provider Department 01/10/24 DEBBI PATEL During your visit today, we recorded the following information about you: Debbi Patel APRN.CNP 01/10/2024 1:57 PM Signed Please fax GI consult to Dr. Shepard's office at [facility]. 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 - cholecalciferol (VITAMIN D-3) 50 mcg (2,000 unit) tablet Take 2,000 Units by mouth once daily. - estradiol (ESTRACE) 0.01 % (0.1 mg/gram) vaginal cream Use 1 g vaginally one time a week. - lisinopril (ZESTRIL) 10 mg tablet Take 5 mg by mouth once daily. - hydroCHLOROthiazide (HYDRODIURIL, ESIDRIX) 25 mg tablet Take 12.5 mg by mouth once daily. Problem List As Of Date 01/10/2024 Noted Resolved Abnormal mammogram, unspecified [R92.8] 09/11/2010 Family history of colonic polyps [Z83.719] 12/15/2012 Solitary cyst of breast [N60.09] 03/26/2014 Chest pain [R07.9] Hypertension [I10] Constipation [K59.00] 12/31/2023 Gastroesophageal reflux disease [K21.9] 12/31/2023 Nausea [R11.0] 12/31/2023 Upset stomach [K30] 12/31/2023 Encounter Status:Closed by FRITZ ROYAL on 01/10/24 [facility] ANES POSTPROC EVALon 024 ANES POSTPROC EVAL HNO ID: [id number] Author: LARA SEGAL MD Service: Anesthesiology Author Type: Anesthesiologist Type: Anesthesia Postprocedure Evaluation Filed: 12/31/2023 09:53 Note Text: POST ANESTHESIA EVALUATION NOTE : 1955 Procedure Summary Date: 12/31/23 Room / Location: [facility] Endoscopy Anesthesia Start: 832 Anesthesia Stop: 938 Procedures: COLONOSCOPY DIAGNOSTIC EGD DIAGNOSTIC Diagnosis: Constipation, unspecified constipation type Nausea Upset stomach Gastroesophageal reflux disease, unspecified whether esophagitis present (Heartburn) (High risk colon cancer surveillance: Personal history of colonic polyps) (FH of Colon Cancer - multiple 1st degree relatives) Scheduled Providers: Shaina Pate DO; Asaf De La Torre, ARTILLERY SPECIALIST.BILLET BED OPERATOR; Lara Segal MD Responsible Provider: Lara Segal MD Anesthesia Type: MAC ASA Status: 2 Anesthesia Type: MAC Last Vitals Vitals Value Taken Time BP 106/59 12/31/23 0945 Temp 36.1 ?C (97 ?F) 12/31/23 0938 Pulse 48 12/31/23 0951 Resp 24 12/31/23 0951 SpO2 98 % 12/31/23 0951 Vitals shown include unfiled device data. Post Anesthesia Patient Status Patient Evaluation: PACU. PACU/ICU Patient Condition: stable. Anticipated Disposition: phase 2 then home. Neurological Status: aware and responsive. Pulmonary Status: breathing comfortably on room air Airway Control: returned to baseline unsupported. Cardiovascular Status: stable. Pain Management: clinically adequate - multimodal analgesia pain management approach Postoperative Hydration: acceptable. Intraoperative Events: no significant anesthesia events Post Operative Nausea/Vomiting Status: no significant post operative nausea or vomiting Recommendation: continue current plan of care. Anesthesia Observations No Documentation SIGNATURE: Lara Segal MD PATIENT NAME: Leana Mancera DATE: December 31, 2023 TIME: 9:52 AM CSN: [id number] Normal [facility] ANES PRE-OPon 12-31-2023 ANES PRE-OP HNO ID: [id number] Author: LARA SEGAL MD Service: Anesthesiology Author Type: Anesthesiologist Type: Anesthesia Preprocedure Evaluation Filed: 12/31/2023 07:44 Note Text: ANESTHESIOLOGY DAY OF SURGERY NOTE : 1955 Procedure Information Date/Time: 12/31/23 0830 Scheduled providers: Shaina Pate DO; Asaf De La Torre, ARTILLERY SPECIALIST.BILLET BED OPERATOR; Lara Segal MD Procedures: COLONOSCOPY DIAGNOSTIC EGD DIAGNOSTIC Location: [facility] Endoscopy Estimated body mass index is 26.73 kg/m? as calculated from the following: Height as of this encounter: 175.3 cm (5' 9). Weight as of this encounter: 82.1 kg (181 lb). Most recent hematocrit and potassium results: Hematocrit 38.1 05/15/2023 Potassium 4.1 05/15/2023 Relevant Problems No relevant active problems I - PHYSICAL EVALUATION AIRWAY Patient intubated: No. Tracheostomy tube not present Mallampati: II. TM distance: >3 FB. Neck ROM: full ROM without neurological symptoms. Mouth opening: adequate. Short neck: no. Thick neck: no DENTAL Dental findings: teeth intact. Additional exam findings: yes. CARDIOVASCULAR Rhythm: regular Rate: normal PULMONARY Breath sounds clear to auscultation. II - ANESTHESIA PLAN ASA Score: 2 Anesthetic Plan: MAC The patient is not a current smoker. NPO Status: adequate Beta Jose Alejandro Monitoring Plan Monitoring plan: standard ASA. Post Procedure Analgesic Plan Postoperative analgesic plan: multimodal analgesia. Informed Consent Anesthetic risks, benefits, alternatives and personnel discussed. Consent obtained from: patient. Anesthetic risks, benefits, alternatives, personnel and consent discussed: yes. Patient / Responsible Constitution Party agrees to proceed: yes Patient / Surrogate agrees to blood products: blood products not planned DNR status not reviewed with patient and/or family prior to surgery. Significant changes in the patient condition since the History and Physical, not otherwise documented in primary service progress note: no. Potential Anesthesia issues that may suggest increased risk of complications or contraindication to planned procedure: none. Vitals Value Taken Time BP 103/57 12/31/23716 Pulse Resp 18 12/31/23716 Temp 37.1 ?C (98.8 ?F) 12/31/23716 SpO2 94 % 12/31/23716 Outpatient Medications as of 12/31/2023 Medication Sig estradiol (ESTRACE) 0.01 % (0.1 mg/gram) vaginal cream Use 1 g vaginally one time a week. lisinopril (ZESTRIL) 10 mg tablet Take 5 mg by mouth once daily. cholecalciferol (VITAMIN D-3) 50 mcg (2,000 unit) tablet Take 2,000 Units by mouth once daily. hydroCHLOROthiazide (HYDRODIURIL, ESIDRIX) 25 mg tablet Take 12.5 mg by mouth once daily. Facility-Administered Medications as of 12/31/2023 Medication Dose Route Frequency lidocaine (PF) 10 mg/mL (1 %) 1-2 mg injection (XYLOCAINE) 0.1-0.2 mL INTRADERMAL PRN lactated ringers iv infusion 30 mL/hr INTRAVENOUS CONTINUOUS I have interviewed and examined the patient. I have reviewed the medical record and/or the pre-anesthesia evaluation, pertinent labs, and test results. This contains updated information obtained within 48 hours of Surgery/Procedure. SIGNATURE: Lara Segal MD PATIENT NAME: Leana Mancera DATE: December 31, 2023 TIME: 7:44 AM CSN: [id number] Normal [facility] Colonoscopyon 12-31-2023 Colonoscopy [facility] Gastrointestinal Endoscopy Patient Name: Leana Mancera Procedure Date: 12/31/2023 8:20 AM Date of : 1955 Admit Type: Outpatient Age: 68 Room: [facility] A Gender: Female Note Status: Finalized Attending MD: Shaina Pate , , [id number] Procedure: Colonoscopy Indications: High risk colon cancer surveillance: Personal history of colonic polyps, Family history of colon cancer in multiple first-degree relatives Providers: Shaina Pate Patient Profile: This is a 68 year old female. Refer to note in patient chart for documentation of history and physical. Last Colonoscopy: 5 years ago. Referring Physician: Debbi Patel (Referring MD) Medicines: See the Anesthesia note for documentation of the administered medications Complications: No immediate complications. Requesting Provider: Procedure: Pre-Anesthesia Assessment: - Prior to the procedure, a History and Physical was performed, and patient medications and allergies were reviewed. The patient is competent. The risks and benefits of the procedure and the sedation options and risks were discussed with the patient. All questions were answered and informed consent was obtained. Patient identification and proposed procedure were verified by the physician, the nurse, the anesthesiologist and the airport operations supervisor in the pre-procedure area in the endoscopy suite. Mental Status Examination: alert and oriented. Airway Examination: normal oropharyngeal airway and neck mobility. Respiratory Examination: clear to auscultation. CV Examination: normal. Prophylactic Antibiotics: The patient does not require prophylactic antibiotics. Prior Anticoagulants: The patient has taken no anticoagulant or antiplatelet agents. ASA Grade Assessment: II - A patient with mild systemic disease. After reviewing the risks and benefits, the patient was deemed in satisfactory condition to undergo the procedure. The anesthesia plan was to use monitored anesthesia care (MAC). Immediately prior to administration of medications, the patient was re-assessed for adequacy to receive sedatives. The heart rate, respiratory rate, oxygen saturations, blood pressure, adequacy of pulmonary ventilation, and response to care were monitored throughout the procedure. The physical status of the patient was re-assessed after the procedure. After I obtained informed consent, the scope was passed under direct vision. Throughout the procedure, the patient's blood pressure, pulse, and oxygen saturations were monitored continuously. The Colonoscope was introduced through the anus and advanced to the terminal ileum, with identification of the appendiceal orifice and IC valve. The colonoscopy was somewhat difficult due to poor bowel prep with stool present. Successful completion of the procedure was aided by lavage. The patient tolerated the procedure well. The colonoscopy was somewhat difficult due to a redundant colon. The patient tolerated the procedure well. The quality of the bowel preparation was poor. The terminal ileum, the ileocecal valve, the appendiceal orifice and the rectum were photographed. Scope Withdrawal Time: 0 hours 20 minutes 35 seconds Moderate Sedation: See the other procedure note for documentation of moderate sedation with intraservice time. MAC anesthesia was administered by the anesthesia team. Total Procedure Duration: 0 hours 34 minutes 5 seconds Findings: Hemorrhoids were found on perianal exam. Two sessile polyps were found in the cecum. The polyps were 1 to 3 mm in size. These polyps were removed with a cold snare. Resection and retrieval were complete. Verification of patient identification for the specimen was done by the physician and nurse using the patient's name, date and medical record number. Estimated blood loss was minimal. The exam was otherwise without abnormality. Impression: - Preparation of the colon was poor. - Hemorrhoids found on perianal exam. - Two 1 to 3 mm polyps in the cecum, removed with a cold snare. Resected and retrieved. - The examination was otherwise normal. Recommendation: - Written discharge instructions were provided to the patient. - The signs and symptoms of potential delayed complications were discussed with the patient. - Patient has a contact number available for emergencies. - Return to normal activities tomorrow. - Resume previous diet. - Await pathology results. - Repeat colonoscopy after studies are complete for surveillance based on pathology results. - Return to referring physician after studies are complete. - Patient has a contact number available for emergencies. The signs and symptoms of potential delayed complications were discussed with the patient. Return to normal activities tomorrow. Written discharge instructions were provided to the patient. - Contin (more content not included)... Normal [facility] EGD Study observation Narrat promise 12-31-2023 [facility] Gastrointestinal Endoscopy Patient Name: Leana Mancera Procedure Date: 12/31/2023 8:20 AM Date of : 1955 Admit Type: Outpatient Age: 68 Room: [facility] Gender: Female Note Status: Finalized Attending MD: Shaina Pate , , [phone] Procedure: Colonoscopy Indications: High risk colon cancer surveillance: Personal history of colonic polyps, Family history of colon cancer in multiple first-degree relatives Providers: Shaina Pate Patient Profile: This is a 68 year old female. Refer to note in patient chart for documentation of history and physical. Last Colonoscopy: 5 years ago. Referring Physician: Debbi Patel (Referring MD) Medicines: See the Anesthesia note for documentation of the administered medications Complications: No immediate complications. Requesting Provider: Procedure: Pre-Anesthesia Assessment: - Prior to the procedure, a History and Physical was performed, and patient medications and allergies were reviewed. The patient is competent. The risks and benefits of the procedure and the sedation options and risks were discussed with the patient. All questions were answered and informed consent was obtained. Patient identification and proposed procedure were verified by the physician, the nurse, the anesthesiologist and the airport operations supervisor in the pre-procedure area in the endoscopy suite. Mental Status Examination: alert and oriented. Airway Examination: normal oropharyngeal airway and neck mobility. Respiratory Examination: clear to auscultation. CV Examination: normal. Prophylactic Antibiotics: The patient does not require prophylactic antibiotics. Prior Anticoagulants: The patient has taken no anticoagulant or antiplatelet agents. ASA Grade Assessment: II - A patient with mild systemic disease. After reviewing the risks and benefits, the patient was deemed in satisfactory condition to undergo the procedure. The anesthesia plan was to use monitored anesthesia care (MAC). Immediately prior to administration of medications, the patient was re-assessed for adequacy to receive sedatives. The heart rate, respiratory rate, oxygen saturations, blood pressure, adequacy of pulmonary ventilation, and response to care were monitored throughout the procedure. The physical status of the patient was re-assessed after the procedure. After I obtained informed consent, the scope was passed under direct vision. Throughout the procedure, the patient's blood pressure, pulse, and oxygen saturations were monitored continuously. The Colonoscope was introduced through the anus and advanced to the terminal ileum, with identification of the appendiceal orifice and IC valve. The colonoscopy was somewhat difficult due to poor bowel prep with stool present. Successful completion of the procedure was aided by lavage. The patient tolerated the procedure well. The colonoscopy was somewhat difficult due to a redundant colon. The patient tolerated the procedure well. The quality of the bowel preparation was poor. The terminal ileum, the ileocecal valve, the appendiceal orifice and the rectum were photographed. Scope Withdrawal Time: 0 hours 20 minutes 35 seconds Moderate Sedation: See the other procedure note for documentation of moderate sedation with intraservice time. MAC anesthesia was administered by the anesthesia team. Total Procedure Duration: 0 hours 34 minutes 5 seconds Findings: Hemorrhoids were found on perianal exam. Two sessile polyps were found in the cecum. The polyps were 1 to 3 mm in size. These polyps were removed with a cold snare. Resection and retrieval were (more content not included)... [facility] Radiology Study observation (narrative) [facility] Flexible sigmoidoscopy study on 12-31-2023 [facility] Gastrointestinal Endoscopy Patient Name: Leana Mancera Procedure Date: 12/31/2023 8:21 AM Date of : 1955 Admit Type: Outpatient Age: 68 Room: [facility] Gender: Female Note Status: Finalized Attending MD: Shaina Pate , , [phone] Procedure: Upper GI endoscopy Indications: Heartburn, Suspected gastro-esophageal reflux disease Providers: Shaina Pate Patient Profile: This is a 68 year old female. Refer to note in patient chart for documentation of history and physical. Patient has symptoms of acute epigastric abdominal pain, acute heartburn and acute nausea. The symptoms first began within the past few months. Referring Physician: Debbi Patel (Referring MD) Medicines: See the Anesthesia note for documentation of the administered medications Complications: No immediate complications. Requesting Provider: Procedure: Pre-Anesthesia Assessment: - Prior to the procedure, a History and Physical was performed, and patient medications and allergies were reviewed. The patient is competent. The risks and benefits of the procedure and the sedation options and risks were discussed with the patient. All questions were answered and informed consent was obtained. Patient identification and proposed procedure were verified by the physician, the nurse, the anesthesiologist and the airport operations supervisor in the pre-procedure area in the endoscopy suite. Mental Status Examination: alert and oriented. Airway Examination: normal oropharyngeal airway and neck mobility. Respiratory Examination: clear to auscultation. CV Examination: normal. Prophylactic Antibiotics: The patient does not require prophylactic antibiotics. Prior Anticoagulants: The patient has taken no anticoagulant or antiplatelet agents. ASA Grade Assessment: II - A patient with mild systemic disease. After reviewing the risks and benefits, the patient was deemed in satisfactory condition to undergo the procedure. The anesthesia plan was to use monitored anesthesia care (MAC). Immediately prior to administration of medications, the patient was re-assessed for adequacy to receive sedatives. The heart rate, respiratory rate, oxygen saturations, blood pressure, adequacy of pulmonary ventilation, and response to care were monitored throughout the procedure. The physical status of the patient was re-assessed after the procedure. After obtaining informed consent, the endoscope was passed under direct vision. Throughout the procedure, the patient's blood pressure, pulse, and oxygen saturations were monitored continuously. The was introduced through the mouth, and advanced to the second part of duodenum. The upper GI endoscopy was accomplished with ease. The patient tolerated the procedure well. Moderate Sedation: See the other procedure note for documentation of moderate sedation with intraservice time. MAC anesthesia was administered by the anesthesia team. Total Procedure Duration: 0 hours 7 minutes 35 seconds Findings: The nasopharynx was normal. A small hiatal hernia was present. Circumferential salmon-colored mucosa was present at 45 cm. Ulcerations were present at 45 cm. Biopsies were taken with a cold forceps for histology. Verification of patient identification for the specimen was done by the physician and nurse using the patient's name, date and medical record number. Estimated blood loss was minimal. A small hiatal hernia was present. Scattered mild inflammation characterized by erosions and erythema was found in the gastric antrum. Biopsies were taken with a cold forceps for histology. Verification of patient identification for the specimen was done by the physician and nurse using the patient's name, date and medical record number. (more content not included)... PR[facility]ATION [facility] Radiology Study observation (narrative) [facility] HISTORY PHYSICALon HISTORY PHYSICAL HNO ID: [id number] Author: SHAINA PATE DO Service: General Surgery Author Type: Physician Type: H&P Filed: 12/31/2023 08:37 Note Text: PROCEDURAL SEDATION HISTORY AND PHYSICAL EXAM SERVICE DATE: 12/31/2023 SERVICE TIME: 8:36 AM Subjective HPI: This is a 68 year old female who presents for surveillance colonoscopy and EGD. Personal history of polyps and family history of colon cancer. 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 Sleep apnea Thyroid nodule PAST SURGICAL HISTORY Procedure Laterality Date ADENOIDECTOMY PRIMARY Adenoidectomy ARTHRP ACETBLR/PROX FEM PROSTC AGRFT/ALGRFT Bilateral COLONOSCOPY 2019 repeat 5 years COLONOSCOPY FLX DX W/COLLJ SPEC WHEN PFRMD 09/11/2006 normal colonscopy DILATION AND CURETTAGE DXAND/THER NONOBSTETRIC Dilation AND curettage EXC BREAST LES PREOP PLMT RAD MARKER OPEN 1 LES 04/30/2014 RIGHT NUCLEAR STRESS LEXISCAN (CARD) 2015 TONSILLECTOMY PRIMARY/SECONDARY Tonsillectomy TOTAL KNEE REPLACEMENT VAGINAL HYSTERECTOMY UTERUS 250 GM/< 2006 Hysterectomy, vaginal Prior to Admission medications as of 12/31/23 0710 Medication Sig Last Dose Taking estradiol (ESTRACE) 0.01 % (0.1 mg/gram) vaginal cream Use 1 g vaginally one time a week. Past Week Yes lisinopril (ZESTRIL) 10 mg tablet Take 5 mg by mouth once daily. 12/30/2023 Yes cholecalciferol (VITAMIN D-3) 50 mcg (2,000 unit) tablet Take 2,000 Units by mouth once daily. 12/27/2023 hydroCHLOROthiazide (HYDRODIURIL, ESIDRIX) 25 mg tablet Take 12.5 mg by mouth once daily. 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 AIRWAY: Airway Visualization of Uvula: Yes Mouth opening greater than 2 fingerbreadths: Yes Neck Full Range of Motion: Yes LUNGS: Lungs clear to auscultation CARDIAC: Regular rhythm,Regular rate Assessment/Plan ASA Class: ASA Class: Patient with mild systemic disease Active Problems: * No active hospital problems. * Resolved Problems: * No resolved hospital problems. * Medication and Non-Pharmacologic VTE Prophylaxis/Anticoagul ants VTE Prophylaxis: NA Provisional Diagnosis/Treatment Plan: EGD and colonoscopy Sedation Goal: Anesthesia (MAC) SIGNATURE: Shaina Pate DO PATIENT NAME: Leana Mancera DATE: December 31, 2023 TIME: 8:36 AM [facility] SURGICAL PATHOLOGYon 024 CASE REPORT [facility] Comment on above: Order Comment: [facility] Type: TISSUE SPECIMENOrdering Facility: [facility] Address: [address] [place] [address] Result Comment: Surg [facility] Pathology Report Case: [id number] Authorizing Provider: Shaina Pate DO Collected: 12/31/2023 08:47 AM Ordering Location: [facility] Endoscopy Received: 12/31/2023 10:19 AM Pathologist: Sharif Ramirez MD Specimens: A) - Small Bowel, Duodenum, Biopsy, R/O Celiac Sprue B) - Stomach, Antrum, Biopsy, R/O H. Pylori C) - Stomach, Polyp, Biopsy D) - Esophagogastric Junction, Biopsy E) - Colon, Cecum, Polyp, Cecal Polyps times 2 Performed By: #### S ####[email or web address] LABORATORYCLIA [id number] [address] DIAGNOSIS COMMENT B. No Helicobacter pylori organisms are identified. [facility] Comment on above: Order Comment: [facility]i [facility] Type: TISSUE SPECIMENOrdering Facility: [facility] Address: [address] [place] [address] Performed By: #### S ####[email or web address] LABORATORYCLIA [id number] [address] FINAL DIAGNOSIS [facility] Comment on above: Order Comment: [facility] Type: TISSUE SPECIMENOrdering Facility: [facility] Address: [address] [place] [address] Result Comment: A. D uodenum, biopsy: - Small bowel mucosa with no diagnostic abnormality. B. Stomach, antrum, biopsy: - Gastric antral-type mucosa with mild reactive gastropathy. C. Stomach, polyp, biopsy: - Fundic gland polyp. D. Esophagogastric junction, biopsy: - Gastric cardia-type mucosa with chronic inflammation, negative for intestinal metaplasia or dysplasia. - Squamous mucosa with mild reactive/hyperplastic changes suggestive of gastroesophageal reflux. E. Cecal polyps, biopsies: - One tubular adenoma. - Separate fragments of colonic mucosa with intramucosal lymphoid aggregates. JEL 01/03/2024 Performed By: #### S ####[facility] LABORATORYCLIA [id number] [address] [place] FINAL PERFORMING LAB Normal [facility] Comment on above: Order Comment: Speci men Type: TISSUE SPECIMENOrdering Facility: [facility] Address: [address] [place] [address] Result Comment: Diag nostic interpretation performed at [facility], [address] [place] [address] CLIA# [id number] Quenching Car Operator: Brian Santamaria M.D. Performed By: #### S ####[facility] LABORATORYCLIA [id number] [address] [place] GROSS DESCRIPTION Normal [facility] Comment on above: Order Comment: Speci men Type: TISSUE SPECIMENOrdering Facility: [facility] Address: [address] [place] [address] Result Comment: A. S mall Bowel, Duodenum, Biopsy Received in formalin are two pieces of cooper, soft tissue aggregating to 0.4 x 0.2 x 0.1 cm. Totally submitted in one cassette. B. Stomach, Antrum, Biopsy Received in formalin are two pieces of cooper, soft tissue aggregating to 0.8 x 0.2 x 0.1 cm. Totally submitted in one cassette. C. Stomach, Polyp, Biopsy Received in formalin is one piece of cooper, soft tissue measuring 0.3 x 0.2 x 0.1 cm. Totally submitted in one cassette. D. Esophagogastric Junction, Biopsy Received in formalin is one piece of cooper, soft tissue measuring 0.2 x 0.2 x 0.1 cm. Totally submitted in one cassette. E. Colon, Cecum, Polyp Received in formalin are multiple pieces of cooper, soft tissue aggregating to 0.9 x 0.2 x 0.1 cm. Totally submitted in one cassette. [facility] December 31, 2023 2:05 PM Gross examination performed at [facility], [address] [place] [address] Performed By: #### S ####[facility] LABORATORYCLIA [id number] [place] [id number] [facility] [place] Upper GI endoscopyon 024 Upper GI endoscopy [facility] Gastrointestinal Endoscopy Patient Name: Leana Mancera Procedure Date: 12/31/2023 8:21 AM Date of : 1955 Admit Type: Outpatient Age: 68 Room: [facility] Gender: Female Note Status: Finalized Attending MD: Shaina Pate , , [id number] Procedure: Upper GI endoscopy Indications: Heartburn, Suspected gastro-esophageal reflux disease Providers: Shaina Pate Patient Profile: This is a 68 year old female. Refer to note in patient chart for documentation of history and physical. Patient has symptoms of acute epigastric abdominal pain, acute heartburn and acute nausea. The symptoms first began within the past few months. Referring Physician: Debbi Patel (Referring MD) Medicines: See the Anesthesia note for documentation of the administered medications Complications: No immediate complications. Requesting Provider: Procedure: Pre-Anesthesia Assessment: - Prior to the procedure, a History and Physical was performed, and patient medications and allergies were reviewed. The patient is competent. The risks and benefits of the procedure and the sedation options and risks were discussed with the patient. All questions were answered and informed consent was obtained. Patient identification and proposed procedure were verified by the physician, the nurse, the anesthesiologist and the airport operations supervisor in the pre-procedure area in the endoscopy suite. Mental Status Examination: alert and oriented. Airway Examination: normal oropharyngeal airway and neck mobility. Respiratory Examination: clear to auscultation. CV Examination: normal. Prophylactic Antibiotics: The patient does not require prophylactic antibiotics. Prior Anticoagulants: The patient has taken no anticoagulant or antiplatelet agents. ASA Grade Assessment: II - A patient with mild systemic disease. After reviewing the risks and benefits, the patient was deemed in satisfactory condition to undergo the procedure. The anesthesia plan was to use monitored anesthesia care (MAC). Immediately prior to administration of medications, the patient was re-assessed for adequacy to receive sedatives. The heart rate, respiratory rate, oxygen saturations, blood pressure, adequacy of pulmonary ventilation, and response to care were monitored throughout the procedure. The physical status of the patient was re-assessed after the procedure. After obtaining informed consent, the endoscope was passed under direct vision. Throughout the procedure, the patient's blood pressure, pulse, and oxygen saturations were monitored continuously. The was introduced through the mouth, and advanced to the second part of duodenum. The upper GI endoscopy was accomplished with ease. The patient tolerated the procedure well. Moderate Sedation: See the other procedure note for documentation of moderate sedation with intraservice time. MAC anesthesia was administered by the anesthesia team. Total Procedure Duration: 0 hours 7 minutes 35 seconds Findings: The nasopharynx was normal. A small hiatal hernia was present. Circumferential salmon-colored mucosa was present at 45 cm. Ulcerations were present at 45 cm. Biopsies were taken with a cold forceps for histology. Verification of patient identification for the specimen was done by the physician and nurse using the patient's name, date and medical record number. Estimated blood loss was minimal. A small hiatal hernia was present. Scattered mild inflammation characterized by erosions and erythema was found in the gastric antrum. Biopsies were taken with a cold forceps for histology. Verification of patient identification for the specimen was done by the physician and nurse using the patient's name, date and medical record number. Estimated blood loss was minimal. Biopsies were taken with a cold forceps for Helicobacter pylori testing. Verification of patient identification for the specimen was done by the physician and nurse using the patient's name, date and medical record number. Estimated blood loss was minimal. Multiple 1 to 10 mm hyperplastic polyps with no stigmata of recent bleeding were found on the greater curvature of the stomach. Biopsies were taken with a cold forceps for histology. Verification of patient identification for the specimen was done by the physician and nurse using the patient's name, date and medical record number. Estimated blood loss was minimal. The ampulla, duodenal bulb, first portion of the duodenum and second portion of the duodenum were normal. Biopsies were taken with a cold forceps for histology. Verification of patient identification for the specimen was done by the physician and nurse using the patient's name, date and medical record number. Estimated blood loss was minimal. The exam was otherwise without abnormality. Impression (more content not included)... Normal [facility] 12-30-2023 [facility] Telephone (Surface TensionJimmy) LEANA MANCERA ([id number]) 1955 F T Date Time Provider Department 12/30/23 SHAINA PATE During your visit today, we recorded the following information about you: María Elena Lobo RN 12/30/2023 11:52 AM Signed Patient call. She has colonoscopy AND EGDtomorrow morning with Dr Pate. She takes lisinopril once daily in am for her B/P She was told that her colonoscopy is to be done under general anesthesia and not twilight. She is not sure if she should take or hold the lisinopril in the morning. She did not take it today either Please advise if she should take it to day or tomorrow at all. [phone] (home) [phone] (cell) María Elena Lobo RN 12/30/2023 11:58 AM Signed Spoke with Pretty Geiger Pa-C Advised to take lisinopril today. Hold lisinopril in the morning. Advised to drink plenty of fluids today up until midnight to keep her BP form dropping Advised that if B/P is high when checking her B/P in hospital tomorrow they can give her some lisinopril before she goes to OR. Patient verbalizes understanding and has no further questions or concerns at this time. Was advised to call as needed for future problems. Encounter closed. 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 - estradiol (ESTRACE) 0.01 % (0.1 mg/gram) vaginal cream Use 1 g vaginally one time a week. - lisinopril (ZESTRIL) 10 mg tablet Take 5 mg by mouth once daily. - hydroCHLOROthiazide (HYDRODIURIL, ESIDRIX) 25 mg tablet Take 12.5 mg by mouth once daily. Problem List As Of Date 12/30/2023 Noted Resolved Abnormal mammogram, unspecified [R92.8] 09/11/2010 Family history of colonic polyps [Z83.719] 12/15/2012 Solitary cyst of breast [N60.09] 03/26/2014 Chest pain [R07.9] Hypertension [I10] Encounter Status:Closed by MARÍA ELENA LOBO on 12/30/23 [facility] CNOVon 12-21-2023 CNOV Office Visit (AGRHEUHWN) GUILLERMO MANCERATy Perla ([id number]) 1955 F [facility] Date Time Provider Department 12/21/23 1:00 PM JULIÁN NICHOLS During your visit today, we recorded the following information about you: Temperature Pulse Blood pressure Weight 98.3 degrees 62/minute 132/82 85.4 kg Julián Nichols MD 12/21/2023 1:26 PM Signed This note was created using [employer]. Subjective Leana Mancera is a 68 year old female. I am good I am not in pain Intermittent left wrist , at time is stiff Still playing pickle ball Riding bike Rare use of aleve Review of Systems Objective BP 132/82 Pulse 62 Temp 36.8 ?C (98.3 ?F) (Temporal) Wt 85.4 kg (188 lb 4.8 oz) SpO2 97% BMI 27.81 kg/m? Physical Exam Vitals reviewed. Constitutional: General: She is not in acute distress. Appearance: She is not ill-appearing or toxic-appearing. Cardiovascular: [...] No cervical adenopathy. Skin: Findings: No rash. Assessment and Plan First visit 08/31/22 right handed Palindromic Rheumatism ( pseudoseptic arthritis ) (cannot excluded pseudogout) 2023 Quantiferon M. Tb neg 2022 Hep C ab, Hep B S Ag neg. 2021 right knee aspirate culture crystal neg, wbc 62154, esr 20 (<30 ) crp 54 ( <3 ) , wbc 9300 normal. 2022 RF CCP TEMITOPE neg CRP 3.93 ( < 3 ) 2014 1,25 [place] D 63 normal 2023 esr 10 crp normal, uric 5.7 '''' 2015 chest xr normal 02/07 chest xr Degenerative disc disease TS (( Fatique 04/2020 onset, retired from [employer] and did not get better) ( [...] fluid in the knee inflammatory 08/31/22 (( was tt with antibiotic oral 10 day ) (( Right knee replacement in 02/07 and [...] a day and stop if not flare. 12/21/2023 pt off plaquenil since 04/2023 (thunder clap headache and went off all med ) , see as needed, if flare to call us will bring her in right away. Drug and disease monitoring 2015 wbc 4000 low diff not done. 2015 CK 70 09/08 cbc cmp normal 2023 cbc dfif cmp cr 0.79 tsh normal 2014 Vit B 1 11 normal, [...] ) Paresthesia 2014 ( ) 2016 myocardial (more content not included)... Normal [facility] CNOVon 11-25-2023 CNOV Office Visit (GENSWS ) LEANA MARQUEZ ([id number]) 1955 [facility] Date Time Provider Department 11/25/23 10:00 AM DEBBI PATEL During your visit today, we recorded the following information about you: Temperature Pulse Blood pressure Weight 97.2 degrees 66/minute 118/68 84.5 kg Height 1.753 m Debbi Patel APRN.TUBING SUPERVISOR 11/25/2023 11:17 AM Signed HISTORY AND PHYSICAL Leana Mancera : 1955 REFERRING PHYSICIAN: No referring provider defined for this encounter. CHIEF COMPLAINT: Patient presents with: Consult: Chronic constipation HPI: Leana is a 67 year old female referred for endoscopy. Leana notes chronic constipation. When he was at [facility] ER on 11/23/2019 for after not having a bowel movement for 6 days. She refers that she struggles with constipation but typically can relieve herself at home by eating fiber AND taking MiraLAX and that she has never gone this long. The morning she arrived to the emergency room she had developed nausea and vomiting. Leana requested a CT scan in the emergency department which was negative for any intestinal abnormality. It did show a irregular subcapsular mass in the right lobe of the liver. Since the emergency room visit she did 3 capfuls of MiraLAX per ED physician recommendation and she states this has helped. Bowel movements are typically daily with MiraLAX daily. Before she became constipated during this episode her stools were thin and skinny Patient denies weight changes, blood in stools, black tarry stools or abdominal pain. Refers family history of colon issues.-Father with colon cancer in father sister both had colon cancer at the cecum. Leana notes some upper GI complaints. She refers she gets reflux a lot, and she gets full and must eat small meals. She uses Tums, Pepto, and [place] for relief. She denies dysphagia. Leana also refers that her father has something called watermelon stomach and has frequent GI bleeds. In April 2023 Leana presented to [facility] ED with blurred vision and left-sided headache and nausea. There was no evidence of stroke, however part of the workup included an echo which showed a small PFO. She complained of palpitations and wanted to see cardiology she follows with [facility] last visit was 07/27/2023. Last echo 04/20/2023 with an EF of 65%, stress test completed 06/22/2023 which was normal. No concerns from cardiology at this time. Leana denies EP, SOB, palpitations, dizziness, syncope Leana has undergone prior endoscopy. Last colonoscopy was 04/04/2019 at [facility] with Dr. Rinaldi. She has never had an EGD. Impression: -Hemorrhoids found in the perianal exam. -One 7 mm polyp in the descending colon, removed with cold biopsy forceps. Resected and retrieved -Diverticulosis in the sigmoid colon and in the descending colon Pathology: A. Colon, random biopsy -Fragments of colonic mucosa, no pathologic diagnosis B. Descending colon polyp, biopsy -Fragment of colonic mucosa with focal hyperplastic changes Current Outpatient Medications Medication Sig cholecalciferol (VITAMIN D-3) 50 mcg (2,000 unit) tablet Take 2,000 Units by mouth once daily. estradiol (ESTRACE) 0.01 % (0.1 mg/gram) vaginal cream Use 1 g vaginally one time a week. lisinopril (ZESTRIL) 10 mg tablet Take 5 mg by mouth once daily. hydroCHLOROthiazide (HYDRODIURIL, ESIDRIX) 25 mg tablet Take 12.5 mg by mouth once daily. peg 3350-Electrolytes (GOLYTELY) 236-22.74-6.74 -5.86 gram suspension Take 4,000 mL by mouth one time only for 1 dose. Refer to printed prep instructions from your provider. No current facility-administered medications for this visit. ALLERGIES: Benadryl [Diphenhydramine Hcl] and Dopgxbvd-1-Dc5 Antimigraine Agents PAST MEDICAL HISTORY No date: Chest pain No date: Esophageal reflux Comment: Gastroesophageal reflux No date: Hypertension PAST SURGICAL HISTORY No date: ADENOIDECTOMY PRIMARY Comment: Adenoidectomy No date: ARTHRP ACETBLR/PROX FEM PROSTC AGRFT/ALGRFT; Bilateral : COLONOSCOPY FLX DX W/COLLJ SPEC WHEN PFRMD Comment: normal colonscopy No date: DILATION AND CURETTAGE DXAND/THER NONOBSTETRIC Comment: Dilation AND curettage 04-30-14: EXC BREAST LES PREOP PLMT RAD MARKER OPEN 1 LES Comment: RIGHT 2015: NUCLEAR STRESS LEXISCAN (CARD) No date: TONSILLECTOMY PRIMARY/SECONDARY Comment: Tonsillectomy 2006: VAGINAL HYSTERECTOMY UTERUS 250 GM/< Comment: Hysterectomy, vaginal FAMILY HISTORY Problem Relation Age of Onset Hypertension Father Heart Father Coronary Artery Disease Father Colon Cancer Father 82 Allergies Father Diabetes Maternal Grandfather Breast Cancer Maternal Grandmother Colon Cancer Maternal Grandmother 50 Allergies Mother Colon Cancer Maternal Aunt 79 Social History Tobacco Use Smoking status: Never Smokeless tobacco: Never Vaping Use (more content not included)... Normal [facility] Abdomen/Pelvis W IV Cont ONL Yon 11-23-2023 Abdomen/Pelvis W IV Cont ONLY [facility] Imaging Services [address] [place] [id number] Abdomen/Pelvis W IV Cont ONLY MR#: [id number] Acct: [id number] Name: LEANA MANCERA Rep #: [id number] : 1955 F 67 From: Bj Moralez PCP: Dr. Clement Oneal MD Status: DEP ER Study: Abdomen/Pelvis W IV Cont ONLY Date of Exam: Exam# [id number] Ordering Dr: Alek Saul MD [id number] EXAM: CT ABDOMEN AND PELVIS WITH INTRAVENOUS CONTRAST CLINICAL INDICATION: vomiting, diffuse abd discomfort TECHNIQUE: Helically acquired images were obtained of the abdomen and pelvis with intravenous contrast. This CT exam was performed using one or more of the following dose reduction techniques: automated exposure control, adjustment of the mA and/or kV according to patient size, and/or use of iterative reconstruction technique. CONTRAST: 100 cc of Isovue-370 IV. RADIATION DOSE: CTDIvol = 16.39 mGy, DLP = 1004.72 mGy-cm COMPARISON: No relevant prior studies available. FINDINGS: LOWER THORAX: Unremarkable. Lung bases are clear. No cardiomegaly. No significant pericardial effusion. ABDOMEN: LIVER: Irregular subcapsular mass measuring 2 x 1.4 x 1.5 cm in the periphery of the right lobe of the liver in segment 5. This likely represents a hemangioma but imaging characteristics are not definitive. GALLBLADDER AND BILE DUCTS: Unremarkable. No calcified gallstones. No gallbladder distention or wall edema. No intra- or extrahepatic biliary ductal dilation. PANCREAS: Unremarkable. No focal cystic or solid mass. SPLEEN: Unremarkable. Normal size without focal cystic or solid mass. ADRENALS: Unremarkable. No nodules. KIDNEYS AND URETERS: Unremarkable. Normal renal size and position. No hydronephrosis. STOMACH AND BOWEL: Unremarkable. No stomach or bowel distention. No focal inflammatory change. PELVIS: APPENDIX: Normal appendix. BLADDER: Unremarkable. REPRODUCTIVE: Unremarkable as visualized. No mass. ABDOMEN and PELVIS: INTRAPERITONEAL SPACE: Unremarkable. No ascites or other fluid collection. No free air. BONES/JOINTS: Bilateral total hip arthroplasties. Components appear well seated. No suspicious lytic or blastic abnormality. SOFT TISSUES: Unremarkable. No discrete abdominal or pelvic wall hernia. VASCULATURE: Unremarkable. Abdominal aorta is non-dilated. LYMPH NODES: Unremarkable. No enlarged lymph nodes. CT/Abdomen/Pelvis W IV Cont ONLY IMPRESSION: 1. No acute abdominal pelvic abnormality. 2. Irregular subcapsular mass measuring 2 x 1.4 x 1.5 cm in the periphery of the right lobe of the liver in segment 5. This likely represents a hemangioma but imaging characteristics are not definitive. Consider hepatic MR for further evaluation. Electronically Signed: Bj De Los Santos MD at 3:00 EDT , CC: Dr. Alek Saul MD; Dr. Clement Oneal MD Evp General Counsel: Signed Normal [facility] CBC W/Diff, Automatedon Absolute Lymph 1.93 X10 3/uL Normal 0.83-4.51 [facility] Comment on above: Performed By: #### L 500.4050, L100.0100 ####[facility] [address] [place], [address] Absolute Neut 2.8 X10 3/uL Normal 2.0-7.7 [facility] Comment on above: Performed By: #### L 500.4050, L100.0100 ####[facility] [address] [place], [address] Basophils/100 WBC (Bld) 0.6 % Normal 0-1 [facility] Comment on above: Performed By: #### L 500.4050, L100.0100 ####[facility] [address] [place], [address] Eosinophils/100 WBC (Bld) 2.4 % Normal 0-5 [facility] Comment on above: Performed By: #### L 500.4050, L100.0100 ####[facility] [address] [place], [address] Erythrocyte distribution width (RBC) [Ratio] 13.4 % Normal 11.6-14.6 [facility] Comment on above: Performed By: #### L 500.4050, L100.0100 ####[facility] [address] [place], [address] Hematocrit (Bld) [Volume fraction] 37.5 % Normal 37-47 [facility] Comment on above: Performed By: #### L 500.4050, L100.0100 ####[facility] [address] [place], [address] Hemoglobin (Bld) [Mass/Vol] 12.2 g/dL Normal 12.0-15.0 [facility] Comment on above: Performed By: #### L 500.4050, L100.0100 ####[facility] [address] [place], [address] IG% 0.200 Normal 0.0-0.9 [facility] Comment on above: Result Comment: IG% - Immature Granulocytes (promyelocytes, myelocytes and metamyelocytes) > 1% indicates that a LEFT SHIFT is Present. Performed By: #### L 500.4050, L100.0100 ####[facility] [address] [place], [address] Lymphocytes/100 WBC (Bld) 36.2 % Normal 19-41 [facility] Comment on above: Performed By: #### L 500.4050, L100.0100 ####[facility] [address] [place], [address] MCH (RBC) [Entitic mass] 29.3 pg Normal 27.0-32.0 [facility] Comment on above: Performed By: #### L 500.4050, L100.0100 ####[facility] [address] [place], [address] MCHC (RBC) [Mass/Vol] 32.5 g/dL Normal 32-36 [facility] Comment on above: Performed By: #### L 500.4050, L100.0100 ####[facility] [address] [place], [address] MCV (RBC) [Entitic vol] 90.1 fL Normal 81-99 [facility] Comment on above: Performed By: #### L 500.4050, L100.0100 ####[facility] [address] [place], [address] Monocytes/100 WBC (Bld) 8.4 % Normal 0-10 [facility] Comment on above: Performed By: #### L 500.4050, L100.0100 ####[facility] [address] [place], [address] Neutrophils/100 WBC (Bld) 52.2 % Normal 47-70 [facility] Comment on above: Performed By: #### L 500.4050, L100.0100 ####[facility] [address] [place], [address] Nucleated RBC (Bld) [#/Vol] 0 10*3/uL Normal 0-5 [facility] Comment on above: Performed By: #### L 500.4050, L100.0100 ####[facility] [address] [place], [address] Platelet mean volume (Bld) [Entitic vol] 9.5 fL Normal 6.2-12.0 [facility] Comment on above: Performed By: #### L 500.4050, L100.0100 ####[facility] [address] [place], [address] Platelets (Bld) [#/Vol] 203 10*3/uL Normal 150-450 [facility] Comment on above: Performed By: #### L 500.4050, L100.0100 ####[facility] [address] [place], [address] RBC (Bld) [#/Vol] 4.16 10*6/uL Low 4.2-5.4 [facility] Comment on above: Performed By: #### L 500.4050, L100.0100 ####[facility] [address] [place], [address] RDW SD 44.7 fl High 35.1-43.9 [facility] Comment on above: Performed By: #### L 500.4050, L100.0100 ####[facility] [address] [place], [address] WBC (Bld) [#/Vol] 5.3 10*3/uL Normal 4.4-11.0 [facility] Comment on above: Performed By: #### L 500.4050, L100.0100 ####[facility] [address] [place], [address] Comprehensive Metabolic Prof ilon 11-23-2023 Albumin [Mass/Vol] 3.5 g/dL Normal 3.2-5.0 [facility] Comment on above: Performed By: #### L 500.4050, L100.0100 ####[facility] [address] [place], [address] Albumin/Globulin [Mass ratio] 1.1 {ratio} Normal 0.9-2.4 [facility] Comment on above: Performed By: #### L 500.4050, L100.0100 ####[facility] [address] [place], [address] ALK P 58 U/L Normal 45-117 [facility] Comment on above: Performed By: #### L 500.4050, L100.0100 ####[facility] [address] [place], [address] ALT [Catalytic activity/Vol] 30 U/L Normal 13-56 [facility] Comment on above: Performed By: #### L 500.4050, L100.0100 ####[facility] [address] [place], [address] AST [Catalytic activity/Vol] 21 U/L Normal 15-37 [facility] Comment on above: Performed By: #### L 500.4050, L100.0100 ####[facility] [address] [place], [address] Bilirubin [Mass/Vol] 0.30 mg/dL Normal 0.20-1.00 [facility] Comment on above: Result Comment: For patients on eltrombopag therapy, use of Dimension [place] TBIL is not recommended. Performed By: #### L 500.4050, L100.0100 ####[facility] [address] [place], [address] BUN/CRE 23.8 RATIO High 10-20 [facility] Comment on above: Performed By: #### L 500.4050, L100.0100 ####[facility] [address] [place], [address] CA,Total 8.9 mg/dL Normal 8.5-10.1 [facility] Comment on above: Performed By: #### L 500.4050, L100.0100 ####[facility] [address] [place], [address] Chloride [Moles/Vol] 106 mmol/L Normal 98-107 [facility] Comment on above: Performed By: #### L 500.4050, L100.0100 ####[facility] [address] [place], [address] CO2 [Moles/Vol] 29.0 mmol/L Normal 21.0-32.0 [facility] Comment on above: Performed By: #### L 500.4050, L100.0100 ####[facility] [address] [place], [address] Creatinine [Mass/Vol] 0.96 mg/dL Normal 0.55-1.02 [facility] Comment on above: Result Comment: The validity of the calculated GFR GFRAA in patients over 70 years has not been determined. Clinical correlation is essential. Performed By: #### L 500.4050, L100.0100 ####[facility] [address] [place], [address] ECRCL 62.43 ml/min Normal [facility] Comment on above: Performed By: #### L 500.4050, L100.0100 ####[facility] [address] [place], [address] EST GFR - AA 74 mL/min Normal >60 [facility] Comment on above: Result Comment: Afri can [place] GFR Calc Performed By: #### L 500.4050, L100.0100 ####[facility] [address] [place], [address] GAP 7 Normal 5-15 [facility] Comment on above: Performed By: #### L 500.4050, L100.0100 ####[facility] [address] [place], [address] GFR/1.73 sq M.predicted among non-blacks MDRD (S/P/Bld) [Vol rate/Area] 61 mL/min/{1.73_m2} Normal >60 [facility] Comment on above: Result Comment: Non- GFR Calc Performed By: #### L 500.4050, L100.0100 ####[facility] [address] [place], [address] Globulin (S) [Mass/Vol] 3.1 g/dL Normal 2.2-4.2 [facility] Comment on above: Performed By: #### L 500.4050, L100.0100 ####[facility] [address] [place], [address] Glucose [Mass/Vol] 100 mg/dL Normal 74-106 [facility] Comment on above: Result Comment: Fast ing Glucose result from 100 to 125 mg/dL suggests IMPAIRED HOMEOSTASIS per A.D.A. criteria. Performed By: #### L 500.4050, L100.0100 ####[facility] [address] [place], [address] Potassium [Moles/Vol] 4.0 mmol/L Normal 3.5-5.1 [facility] Comment on above: Performed By: #### L 500.4050, L100.0100 ####[facility] [address] [place], [address] Sodium [Moles/Vol] 142 mmol/L Normal 136-145 [facility] Comment on above: Performed By: #### L 500.4050, L100.0100 ####[facility] [address] [place], [address] T PROT 6.6 g/dL Normal 6.4-8.2 [facility] Comment on above: Performed By: #### L 500.4050, L100.0100 ####[facility] [address] [place], [address] Urea nitrogen [Mass/Vol] 23 mg/dL High 7-18 [facility] Comment on above: Performed By: #### L 500.4050, L100.0100 ####[facility] [address] [place], [address] Emergency Department Summary on 11-23-2023 Emergency Department Summary [facility] Medical Records Department [address] [place] [address] Emergency Department Summary 11/23/23 MR#: [id number] Acct: [id number] Name: LEANA MANCERA Rep #: [id number] : 1955 67 From: Alek Saul MD PCP: Dr. Clement Oneal MD Status:REG ER Location: ED HPI HPI - GI History of Present Illness Chief Complaint: Constipation Informant: patient Narrative Narrative: 67-year-old female presents because of abdominal fullness without pain, feels constipated, and states she has not had a bowel movement in 6 days. She has a longstanding history of constipation but usually able to deal with it by eating fiber, taking MiraLAX, but she has never gone this long without a bowel movement. She feels very uncomfortable. Today she started having nausea and vomiting. No hematemesis or bright red blood per rectum. She denies any anal pain or rectal discomfort right now. No fevers or chills. No problems urinating. No pain in her back. She has not tried any enemas. [facility] Medical History GERD (gastroesophageal reflux disease) Hypercholesteremia Depression Parathyroid adenoma Thyroid nodule History of hypertension Autoimmune disorder Palindromic rheumatism Sleep apnea Constipation HTN (hypertension) Home Medications ???Medication ???Instructions ???Recorded ???Last Taken ???Type cholecalciferol (vitamin D3) 25 2,000 unit PO DAILY vitamin 04/25/14 Unknown History mcg (1,000 unit) tablet estradiol 0.01% (0.1 mg/gram) See Rx Instructions vaginal 03/23/23 Unknown Rx vaginal cream .COMPLEX hormone #42.5 grams hydrochlorothiazide 25 mg tablet 12.5 mg PO DAILY PRN diuretic 06/16/23 Unknown History lisinopril 10 mg tablet 5 mg PO DAILY blood pressure 06/16/23 Unknown History Allergy/AdvReac Type Severity Reaction Status Date / Time diphenhydramine HCl (From AdvReac Other Verified 11/23/23 00:52 Benadryl) Family History Father Colon cancer Heart disease Hypertension Thyroid disorder Afib Hx of CABG Mother Breast cancer Afib Mitral valve disease Unknown Breast cancer Brother Alcoholism Sister Autoimmune disease Aunt Breast cancer Sister Breast cancer, Onset Age: 60 Surgical History Total knee replacement status H/O bilateral hip replacements History of tonsillectomy History of breast lump/mass excision S/P partial hysterectomy Social History household members: significant other current occupational status: employed current occupation: [employer] Smoking Status: Never smoker alcohol intake: current alcohol intake frequency: a few times a month substance use type: does not use diet: other what type of physical activity do you participate in: walking, yoga and other frequency: 3-4 times per week seatbelt use: always do you feel safe at home: Yes additional social history: single ROS ROS ED Constitutional Constitutional ED: Denies chills or fever(s) Eyes Eyes: Denies change in vision or diplopia ENT ENT ED: Denies rhinorrhea or sore throat Cardiovascular Cardiovascular: Denies chest pain or palpitations Respiratory/Chest Respiratory/Chest: Denies cough or dyspnea Gastrointestinal Gastrointestinal: Reports constipation, nausea and vomiting; Denies abdominal pain or diarrhea Genitourinary Genitourinary ED: Denies dysuria or hematuria Musculoskeletal Musculoskeletal: Denies back pain or neck pain Integumentary Denies abscess or rash Neurologic Neurologic: Denies headache(s), paresthesias or weakness Psychiatric Psychiatric: Denies suicidal thoughts EXAM Physical Exam Const Vital Signs: 11/23/23 00:48 Temperature 96.5 F L Temperature Source Temporal Pulse Rate 66 Respiratory Rate 18 Blood Pressure 109/81 H Blood Pressure Mean 90 Pulse Ox 94 Oxygen Delivery Method Room Air Positive well nourished and well developed General Appearance ED: well developed and NAD HEENT Reports moist mucous membranes normocephalic and atraumatic Eyes PERRL and EOMs intact bilaterally Neck full ROM and supple Resp normal respiratory effort and clear to auscultation bilaterally Cardio regular rate, regular rhythm and no murmurs GI non-tender and non-distended GI Narrative: Declines rectal Auscultation: normoactive bowel sounds Palpation: soft Back/Spine no CVA tenderness General Back: other FROM Extremity normal to inspection General Extremety ED: Negative for edema, pulses abnormal or tenderness General Extremity: Negative for edema or pulses abnormal Neuro oriented x3, CN's II-XII intact bilat (more content not included)... Normal [facility] Cardiology Visit Reporton Cardiology Visit Report [facility] [address] [place] [address]. [address] [place] [address] OFFICE VISIT Date of Service: 07/27/23 MR#: [id number] Acct: [id number] Name: LEANA MANCERA Rep #: [id number] : 1955 Provider: GEM hebert Age/Sex: 67/F Location: [facility] Status: Signed [facility] History of Present Illness Details: This is a pleasant 67-year-old lady who presents to the office today for a cardiovascular follow-up visit. She has no previous cardiac history who says that she had presented to the emergency room in April of this year with blurred vision and left-sided headache and some nausea. Her blood pressure was noted to be elevated neurology consulted was executed and her MRI demonstrated no evidence of acute infarct. She had an echocardiogram which demonstrated a small PFO and she was discharged with a diagnosis of a complex migraine. She has continued to have blood pressures which have been fluctuating and she is concerned about this diagnosis of migraine. She had had some palpitations and wanted to investigate this further and therefore presented to cardiology for further evaluation and management. She underwent a stress test on which was noted to be normal. Patient's most recent event monitor demonstrated normal sinus rhythm with first-degree AV block, and an average heart rate of 71 bpm. She did have 3 episodes of atrial tachycardia with the longest/fastest 8 beats at average 107 bpm 235 bpm. PACs 0.1%, PVCs less than 0.1%. She did undergo a 24-hour ambulatory blood pressure monitor on 06/25/2023 which demonstrated an overall blood pressure of 115/65. From a cardiac standpoint, the patient is doing well. She does acknowledge occasional palpitations. She denies chest pain, pressure or heaviness. She denies SOB, Orthopnea, and PND. She does not have bleeding issues; no blood in urine, stool or nosebleeds. She denies any decrease in energy level, myalgias, or claudication. She does not have edema, or sudden weight gain. She denies dizziness, lightheadedness, syncopal or near syncopal episodes, and headaches. 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 Is patient in pain?: No Allergies diphenhydramine HCl [From Benadryl] Adverse Reaction (Verified 07/27/23 10:25) Other Medications cholecalciferol (vitamin D3) 25 mcg (1,000 unit) tablet 2,000 unit PO DAILY vitamin 04/25/14 [History Confirmed 07/27/23] estradiol 0.01% (0.1 mg/gram) vaginal cream See Rx Instructions vaginal .COMPLEX hormone #42.5 grams 03/23/23 [Rx Confirmed 07/27/23] amitriptyline 10 mg tablet 10 mg PO QHS 04/26/23 [History Confirmed 07/27/23] hydroxychloroquine 200 mg tablet 400 mg PO BID 05/10/23 [History Confirmed 07/27/23] hydrochlorothiazide 25 mg tablet 12.5 mg PO DAILY PRN diuretic 06/16/23 [History Confirmed 07/27/23] lisinopril 10 mg tablet 5 mg PO DAILY blood pressure 06/16/23 [History Confirmed 07/27/23] PFSH Medical History (Reviewed 07/27/23 @ 09:24 by Varsha Calderon COMMISSION SPECIALIST, COMMISSION SPECIALIST-C) Autoimmune disorder Constipation Depression GERD (gastroesophageal reflux disease) History of hypertension HTN (hypertension) Hypercholesteremia Palindromic rheumatism Parathyroid adenoma Sleep apnea Thyroid nodule Surgical History H/O bilateral hip replacements History of breast lump/mass excision History of tonsillectomy S/P partial hysterectomy Total knee replacement status Family History Father Colon cancer Heart disease Hypertension Thyroid disorder Afib Hx of CABG Mother Breast cancer Afib Mitral valve disease Unknown Breast cancer Brother Alcoholism Sister Autoimmune disease Aunt Breast cancer Sister Breast cancer, Onset Age: 60 Social History household members: significant other current occupational status: employed current occupation: [employer] Smoking Status: Never smoker alcohol intake: current alcohol intake frequency: a few times a month substance use type: does not use diet: other what type of physical activity do you participate in: walking, yoga and other frequency: 3-4 times per week seatbelt use: always do you feel safe at home: Yes additional social history: single ROS Const Const: Negative for fatigue, weakness, fever(s), headache(s), chills, frequent falls, weight gain or weight loss Eyes Eyes: Negative for blind spots, loss of peripheral vision, transient loss (more content not included)... Normal [facility] CBC W Auto Differential pane l (Bld)on 05-15-2023 Basophils (Bld) [#/Vol] 0.03 10*3/uL Normal <0.11 [facility] Comment on above: Order Comment: Speci men Type: BLOOD SPECIMENOrdering Facility: [facility] Address: [address] [place] [address] Performed By: #### 5 7021-8 ####[facility] LABCLIA [id number] [place] [address] [place] Basophils/100 WBC (Bld) 0.7 % Normal [facility] Comment on above: Order Comment: Speci men Type: BLOOD SPECIMENOrdering Facility: [facility] Address: [address] [place] [address] Performed By: #### 5 7021-8 ####[facility] LABCLIA [id number] [place] [address] [place] Differential cell count method Nom (Bld) Auto Normal [facility] Comment on above: Order Comment: Speci men Type: BLOOD SPECIMENOrdering Facility: [facility] Address: [address] [place] [address] Performed By: #### 5 7021-8 ####[facility] LABCLIA [id number] [place] [address] [place] Eosinophils (Bld) [#/Vol] 0.10 10*3/uL Normal <0.46 [facility] Comment on above: Order Comment: Speci men Type: BLOOD SPECIMENOrdering Facility: [facility] Address: [address] [place] [address] Performed By: #### 5 7021-8 ####[facility] LABCLIA [id number] [place] [address] [place] Eosinophils/100 WBC (Bld) 2.3 % Normal [facility] Comment on above: Order Comment: Speci men Type: BLOOD SPECIMENOrdering Facility: [facility] Address: [address] [place] [address] Performed By: #### 5 7021-8 ####[facility] LABCLIA [id number] [place] [address] [place] Erythrocyte distribution width (RBC) [Ratio] 12.8 % Normal 11.5-15.0 [facility] Comment on above: Order Comment: Speci men Type: BLOOD SPECIMENOrdering Facility: [facility] Address: [address] [place] [address] Performed By: #### 5 7021-8 ####[facility] LABIA [id number] [place] [address] [place] Hematocrit (Bld) [Volume fraction] 38.1 % Normal 36.0-46.0 [facility] Comment on above: Order Comment: Speci men Type: BLOOD SPECIMENOrdering Facility: [facility] Address: [address] [place] [address] Performed By: #### 5 7021-8 ####[facility] LABIA [id number] [place] [address] [place] Hemoglobin (Bld) [Mass/Vol] 12.6 g/dL Normal 11.5-15.5 [facility] Comment on above: Order Comment: Speci men Type: BLOOD SPECIMENOrdering Facility: [facility] Address: [address] [place] [address] Performed By: #### 5 7021-8 ####[facility] LABIA [id number] [place] [address] [place] Immature granulocytes (Bld) [#/Vol] 10*3/uL Normal <0.10 [facility] Comment on above: Order Comment: Speci men Type: BLOOD SPECIMENOrdering Facility: [facility] Address: [address] [place] [address] Performed By: #### 5 7021-8 ####[facility] LABIA [id number] [place] [address] [place] Immature granulocytes/100 WBC (Bld) 0.0 % Normal [facility] Comment on above: Order Comment: Speci men Type: BLOOD SPECIMENOrdering Facility: [facility] Address: [address] [place] [address] Performed By: #### 5 7021-8 ####[facility] LABCLIA [id number] [place] [address] [place] Lymphocytes (Bld) [#/Vol] 1.54 10*3/uL Normal 1.00-4.00 [facility] Comment on above: Order Comment: Speci men Type: BLOOD SPECIMENOrdering Facility: [facility] Address: [address] [place] [address] Performed By: #### 5 7021-8 ####[facility] LABCLIA [id number] [place] [address] [place] Lymphocytes/100 WBC (Bld) 35.5 % Normal [facility] Comment on above: Order Comment: Speci men Type: BLOOD SPECIMENOrdering Facility: [facility] Address: [address] [place] [address] Performed By: #### 5 7021-8 ####[facility] LABIA [id number] [place] [address] [place] MCH (RBC) [Entitic mass] 29.6 pg Normal 26.0-34.0 [facility] Comment on above: Order Comment: Speci men Type: BLOOD SPECIMENOrdering Facility: [facility] Address: [address] [place] [address] Performed By: #### 5 7021-8 ####[facility] LABIA [id number] [place] [address] [place] MCHC (RBC) [Mass/Vol] 33.1 g/dL Normal 30.5-36.0 [facility] Comment on above: Order Comment: Speci men Type: BLOOD SPECIMENOrdering Facility: [facility] Address: [address] [place] [address] Performed By: #### 5 7021-8 ####[facility] LABIA [id number] [place] [address] [place] MCV (RBC) [Entitic vol] 89.6 fL Normal 80.0-100.0 [facility] Comment on above: Order Comment: Speci men Type: BLOOD SPECIMENOrdering Facility: [facility] Address: [address] [place] [address] Performed By: #### 5 7021-8 ####[facility] LABCLIA [id number] [place] [address] [place] Monocytes (Bld) [#/Vol] 0.34 10*3/uL Normal <0.87 [facility] Comment on above: Order Comment: Speci men Type: BLOOD SPECIMENOrdering Facility: [facility] Address: [address] [place] [address] Performed By: #### 5 7021-8 ####[facility] LABCLIA [id number] [place] [address] [place] Monocytes/100 WBC (Bld) 7.8 % Normal [facility] Comment on above: Order Comment: Speci men Type: BLOOD SPECIMENOrdering Facility: [facility] Address: [address] [place] [address] Performed By: #### 5 7021-8 ####[facility] LABCLIA [id number] [place] [address] [place] Neutrophils (Bld) [#/Vol] 2.33 10*3/uL Normal 1.45-7.50 [facility] Comment on above: Order Comment: Speci men Type: BLOOD SPECIMENOrdering Facility: [facility] Address: [address] [place] [address] Performed By: #### 5 7021-8 ####[facility] LABCLIA [id number] [place] [address] [place] Neutrophils/100 WBC (Bld) 53.7 % Normal [facility] Comment on above: Order Comment: Speci men Type: BLOOD SPECIMENOrdering Facility: [facility] Address: [address] [place] [address] Performed By: #### 5 7021-8 ####[facility] LABCLIA [id number] [place] [address] [place] Nucleated RBC (Bld) [#/Vol] 10*3/uL Normal <0.01 [facility] Comment on above: Order Comment: Speci men Type: BLOOD SPECIMENOrdering Facility: [facility] Address: [address] [place] [address] Performed By: #### 5 7021-8 ####[facility] LABCLIA [id number] [place] [address] [place] Nucleated RBC/100 WBC (Bld) [Ratio] 0.0 /100 WBC Normal [facility] Comment on above: Order Comment: Speci men Type: BLOOD SPECIMENOrdering Facility: [facility] Address: [address] [place] [address] Performed By: #### 5 7021-8 ####[facility] LABIA [id number] [place] [address] [place] Platelet mean volume (Bld) [Entitic vol] 9.5 fL Normal 9.0-12.7 [facility] Comment on above: Order Comment: Speci men Type: BLOOD SPECIMENOrdering Facility: [facility] Address: [address] [place] [address] Performed By: #### 5 7021-8 ####[facility] LABCLIA [id number] [place] [address] [place] Platelets (Bld) [#/Vol] 227 10*3/uL Normal 150-400 [facility] Comment on above: Order Comment: Speci men Type: BLOOD SPECIMENOrdering Facility: [facility] Address: [address] [place] [address] Performed By: #### 5 7021-8 ####[facility] LABCLIA [id number] [place] [address] [place] RBC (Bld) [#/Vol] 4.25 10*6/uL Normal 3.90-5.20 [facility] Comment on above: Order Comment: Speci men Type: BLOOD SPECIMENOrdering Facility: [facility] Address: [address] [place] [address] Performed By: #### 5 7021-8 ####[facility] LABCLIA [id number] [place] [address] [place] WBC (Bld) [#/Vol] 4.34 10*3/uL Normal 3.70-11.00 [facility] Comment on above: Order Comment: Speci men Type: BLOOD SPECIMENOrdering Facility: [facility] Address: [address] [place] [address] Performed By: #### 5 7021-8 ####[facility] LABCLIA [id number] [place] [address] [place] Carboxyhemoglobin (BldCoV) [ Mass fraction]on 05-15-2023 Carboxyhemoglobin (BldV) [Mass fraction] 2.3 % High 0.0-2.0 [facility] Comment on above: Order Comment: Speci men Type: BLOOD SPECIMENOrdering Facility: [facility] Address: [address] [place] [address] Result Comment: Carb oxyhemoglobin Reference Range for Smokers: 2.0-8.0% Performed By: #### 6 3524-3 ####[facility] LABCLIA [id number] [place] [id number] [place] Comprehensive metabolic 2000 panelon 05-15-2023 Albumin [Mass/Vol] 4.3 g/dL Normal 3.9-4.[address] [facility] Comment on above: Order Comment: Speci men Type: BLOOD SPECIMENOrdering Facility: [facility] Address: [address] [place] [address] Performed By: #### 3 3762-6, [id number], 62902-0, 17978-7 ####[facility] LABCLIA [id number] [address] [address] [place] ALP [Catalytic activity/Vol] 62 U/L Normal 34-123 [facility] Comment on above: Order Comment: Speci men Type: BLOOD SPECIMENOrdering Facility: [facility] Address: [address] [place] [address] Performed By: #### 3 3762-6, [id number], , ####[facility] LABCLIA [id number] [place] [address] [place] ALT [Catalytic activity/Vol] 25 U/L Normal 7-38 [facility] Comment on above: Order Comment: Speci men Type: BLOOD SPECIMENOrdering Facility: [facility] Address: [address] [place] [address] Performed By: #### 3 3762-6, [id number], , ####[facility] LABCLIA [id number] [place] [address] [place] Anion gap [Moles/Vol] 10 mmol/L Normal 9-18 [facility] Comment on above: Order Comment: Speci men Type: BLOOD SPECIMENOrdering Facility: [facility] Address: [address] [place] [address] Performed By: #### 3 3762-6, [id number], , ####[facility] LABCLIA [id number] [place] [address] [place] AST [Catalytic activity/Vol] 18 U/L Normal 13-35 [facility] Comment on above: Order Comment: Speci men Type: BLOOD SPECIMENOrdering Facility: [facility] Address: [address] [place] [address] Performed By: #### 3 3762-6, [id number], , ####[facility] LABCLIA [id number] [address] [address] [place] Bilirubin [Mass/Vol] 0.4 mg/dL Normal 0.2-1.3 [facility] Comment on above: Order Comment: Speci men Type: BLOOD SPECIMENOrdering Facility: [facility] Address: [address] [place] [address] Performed By: #### 3 3762-6, [id number], , ####[facility] LABCLIA [id number] [place] [address] [place] Calcium [Mass/Vol] 9.8 mg/dL Normal 8.5-10.[address] [facility] Comment on above: Order Comment: Speci men Type: BLOOD SPECIMENOrdering Facility: [facility] Address: [address] [place] [address] Performed By: #### 3 3762-6, [id number], , ####[facility] LABCLIA [id number] [place] [address] [place] Chloride [Moles/Vol] 106 mmol/L High 97-105 [facility] Comment on above: Order Comment: Speci men Type: BLOOD SPECIMENOrdering Facility: [facility] Address: [address] [place] [address] Performed By: #### 3 3762-6, [id number], , ####[facility] LABCLIA [id number] [place] [id number] [place] CO2 [Moles/Vol] 25 mmol/L Normal 22-30 [facility] Comment on above: Order Comment: Speci men Type: BLOOD SPECIMENOrdering Facility: [facility] Address: [address] [place] [address] Performed By: #### 3 3762-6, [id number], , ####[facility] LABCLIA [id number] [place] [address] [place] Creatinine [Mass/Vol] 0.79 mg/dL Normal 0.58-0.96 [facility] Comment on above: Order Comment: Khanh chapman Type: BLOOD SPECIMENOrdering Facility: [facility] Address: [address] [place] [address] Performed By: #### 3 3762-6, [id number], , ####[facility] LABCLIA [id number] [place] [address] [place] Creatinine and Glomerular filtration rate.predicted panel (S/P/Bld) 83 mL/min/1.73m??? Normal >=60 [facility] Comment on above: Order Comment: Khanh chapman Type: BLOOD SPECIMENOrdering Facility: [facility] Address: [address] [place] [address] Result Comment: Ariana mated Glomerular Filtration Rate (eGFR) is calculated using the 2020 CKD-EPI creatinine equation. This equation utilizes serum creatinine, sex, and age as parameters. The creatinine assay has traceable calibration to isotope dilution-mass spectrometry. Refer to KDIGO guidelines for clinical interpretation. In patients with unstable renal function, e.g. those with acute kidney injury, the eGFR may not accurately reflect actual GFR. Performed By: #### 3 3762-6, [id number], , ####[facility] LABCLIA [id number] [place] [id number] [place] Glucose [Mass/Vol] 94 mg/dL Normal 74-[address] [facility] Comment on above: Order Comment: Khanh chapman Type: BLOOD SPECIMENOrdering Facility: [facility] Address: [address] [place] [address] Result Comment: The [place] [employer] (ADA) provides guidance for cutoff values for fasting glucose and random glucose. The ADA defines fasting as no caloric intake for at least 8 hours. Fasting plasma glucose results between 100 to 125 mg/dL indicate increased risk for diabetes (prediabetes). Fasting plasma glucose results greater than or equal to 126 mg/dL meet the criteria for diagnosis of diabetes. In the absence of unequivocal hyperglycemia, results should be confirmed by repeat testing. In a patient with classic symptoms of hyperglycemia or hyperglycemic crisis, random plasma glucose results greater than or equal to 200 mg/dL meet the criteria for diagnosis of diabetes. Reference: Standards of Medical Care in Diabetes 2016, [place] [employer]. Diabetes Care. 2016.39(Suppl 1). Performed By: #### 3 3762-6, [id number], 82586-0, 20117-9 ####[facility] LABCLIA [id number] [place] [address] [place] Potassium [Moles/Vol] 4.1 mmol/L Normal 3.7-5.1 [facility] Comment on above: Order Comment: Khanh chapman Type: BLOOD SPECIMENOrdering Facility: [facility] Address: [address] [place] [address] Performed By: #### 3 3762-6, [id number], , ####[facility] LABCLIA [id number] [place] [address] [place] Protein [Mass/Vol] 6.5 g/dL Normal 6.3-8.[address] [facility] Comment on above: Order Comment: Khanh chapman Type: BLOOD SPECIMENOrdering Facility: [facility] Address: [address] [place] [address] Performed By: #### 3 3762-6, [id number], , ####[facility] LABCLIA [id number] [place] [address] [place] Sodium [Moles/Vol] 141 mmol/L Normal 136-[address] [facility] Comment on above: Order Comment: Kirtii men Type: BLOOD SPECIMENOrdering Facility: [facility] Address: [address] [place] [address] Performed By: #### 3 3762-6, [id number], , 80880-7 ####[facility] LABCLIA [id number] [place] [address] [place] Urea nitrogen [Mass/Vol] 17 mg/dL Normal 7-21 [facility] Comment on above: Order Comment: Speci men Type: BLOOD SPECIMENOrdering Facility: [facility] Address: [address] [place] [address] Performed By: #### 3 3762-6, [id number], 06156-1, 14815-3 ####[facility] LABCLIA [id number] [place] [address] [place] ECG COMPLETEon 05-15-2023 ECG COMPLETE Ventricular Rate : 5 4 BPM Atrial Rate : 54 BPM P-R Interval : 210 ms QRS Duration : 90 ms Q-T Interval : 454 ms QTC Calculation(Bazett) : 430 ms Calculated P [place] : 24 degrees Calculated R [place] : -16 degrees Calculated T [place] : 23 degrees SINUS BRADYCARDIA WITH 1ST DEGREE AV BLOCK MINIMAL VOLTAGE CRITERIA FOR LVH, MAY BE NORMAL VARIANT BORDERLINE ECG 2047 Confirmed by Precious GALICIA JOHN ([id number]), editor department CEDRICK BENDER ([id number]) on 05/18/2023 8:18:40 AM NAME : LEANA MANCERA PID : [id number] : 1955 Gender : Female Race : ORD : [id number] Procedure Date : May 15 2023 20:45:41 Edit Date : May 18 2023 08:18:41 Diagnosis: SINUS BRADYCARDIA WITH 1ST DEGREE AV BLOCK MINIMAL VOLTAGE CRITERIA FOR LVH, MAY BE NORMAL VARIANT BORDERLINE ECG 2047 Confirmed by Precious GALICIA JOHN ([id number]), editor department CEDRICK BENDER ([id number]) on 05/18/2023 8:18:40 AM Test Reason : Chest Pain Location : 2 : EDNS E018 Overread By : Precious GALICIA JOHN Edited By : CEDRICK BENDER Referred By : , Acquired by : Zaid FRANCOIS [facility] ED NOTEon 05-15-2023 ED NOTE HNO ID: [id number] Author: SINGH BARKER, RN Service: Emergency Medicine Author Type: Registered Nurse Type: ED Notes Filed: 05/18/2023 09:37 Note Text: Emergency Services: ED Call Back Questionnaire SERVICE DATE: 05/15/2023 Are you feeling better? Yes Any questions about discharge instructions and follow-up care? No Were you able to make a follow up appointment? Yes Do you have any further questions? No Is there anything that we could have done differently to improve your ED visit? No SIGNATURE: Singh Barker RN PATIENT NAME: Leana Mancera DATE: May 18, 2023 TIME: 9:37 AM Normal [facility] ED NOTE HNO ID: [id number] Author: PRECIOUS MACE RN Service: Emergency Medicine Author Type: Registered Nurse Type: ED Notes Filed: 05/15/2023 22:47 Note Text: IV DC cath intact, 2x2 placed, bleeding controlled, pt awaiting DC instructions Normal [facility] ED NOTE HNO ID: [id number] Author: PRECIOUS MACE RN Service: Emergency Medicine Author Type: Registered Nurse Type: ED Notes Filed: 05/15/2023 22:22 Note Text: Report received from Stevie COLUNGA, introduction provided, pt and spouse updated on care, snack provided, lights dimmed, call light in reach, no distress noted Normal [facility] ED NOTE HNO ID: [id number] Author: VAISHALI WAYNE RN Service: ? Author Type: Registered Nurse Type: ED Notes Filed: 05/15/2023 18:06 Note Text: Bed: E18-08 Expected date: Expected time: Means of arrival: Comments: Triage Normal [facility] ED PROV NOTEon 05-15-2023 ED PROV NOTE HNO ID: [id number] Author: TARAN GALICIA MD Service: Emergency Medicine Author Type: Physician Type: ED Provider Notes Filed: 05/16/2023 16:07 Note Text: ED Provider Note Patient Name: Leana Mancera : 1955 SERVICE DATE: 05/15/23 History Patient presents with: Neurologic Problem: Pt presents with c/o NAVA, difficulty finding words, and fogginess. This is 3rd ED visit in the past week for same complaint. Also saw neuro and was diagnosed with complex migraines. Took elavil last night but has not been taking it every night. Reports left side facial numbness which started today around noon--same presentation as previous events. 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 Pt reports that she awoke this morning feeling cognitively foggy, fatigued. She went about her day but in the afternoon began having a sharp, stabbing leftsided headache, associated difficulty focusing her vision. She took a nap and an aspirin, and her sxs have since improved. She denies any flashers or floaters to vision, slurred speech, numbness, tingling, weakness to extremities, neck pain or stiffness. She denies preceding head injury, illness. Pt states that this is not her first headache of this type, reporting that on 04/20 she began having new headache type. The initial headache was while she was at work, she felt a pop inher head followed by vision chagnes, pain, lightheadedness. She was admitted at [facility], had workup including MRI which was negative and was diagnosed with complex migraines. She was seen at [facility] ED for same on 04/23, had negative CTA head and neck and improved with medications. She saw neurology 04/26 who agreed with dx of complex migraine. She has been on Elavil since the initial visit, states she was doing well for the last week and a half but then had return of sxs today. Pt also reports she has improved her diet and has avoided sugar and other dietary migraine triggers. She was previously prescribed antihypertensive medications and plaquenil, but has been off of these since her admission, reporting she just restarted them two days ago. PAST MEDICAL HISTORY Diagnosis Date Chest pain Esophageal reflux Gastroesophageal reflux Hypertension PAST SURGICAL HISTORY Procedure Laterality Date ADENOIDECTOMY PRIMARY Adenoidectomy ARTHRP ACETBLR/PROX FEM PROSTC AGRFT/ALGRFT Bilateral COLONOSCOPY FLX DX W/COLLJ SPEC WHEN PFRMD normal colonscopy DILATION AND CURETTAGE DXAND/THER NONOBSTETRIC Dilation AND curettage EXC BREAST LES PREOP PLMT RAD MARKER OPEN 1 LES 04-30-14 RIGHT NUCLEAR STRESS LEXISCAN (CARD) 2015 TONSILLECTOMY PRIMARY/SECONDARY Tonsillectomy VAGINAL HYSTERECTOMY UTERUS 250 GM/< 2006 Hysterectomy, vaginal FAMILY HISTORY Problem Relation Age of Onset Hypertension Father Heart Father Coronary Artery Disease Father Colon Cancer Father 82 Allergies Father Diabetes Maternal Grandfather Breast Cancer Maternal Grandmother Colon Cancer Maternal Grandmother 50 Allergies Mother Colon Cancer Maternal Aunt 79 Social History Tobacco Use Smoking status: Never Smokeless tobacco: Never Vaping Use Vaping Use: Never used Substance and Sexual Activity Alcohol use: Yes Comment: Once a week: wine Drug use: No Sexual activity: Yes Partners: Male ALLERGIES Allergen Reactions Benadryl [Diphenhyd* Other: See Comments knocks me out [id number] Anti* Contraindication-Medic al Surgical 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 Constitutional: Appearance: She is well-developed. Comments: Nontoxic appearing female sitting reclined in bed in no apparent distress HENT: Head: Normocephalic and atraumatic. Comments: No temporal tenderness. TMJ intact. Eyes: Extraocular Movements: Extraocular movements intact. Conjunctiva/sclera: Conjunctivae normal. Pupils: Pupils are equal, round, and reactive to light. Comments: No conjunctival injection, drainage or discharge Cardiovascular: Rate and Rhythm: Normal rate and regular rhythm. Heart sounds: Normal heart sounds. Pulmonary: Effort: Pulmonary effort is normal. Breath sounds: Normal breath sounds. Abdominal: General: Bowel sounds are normal. Palpations: Abdomen is soft. Tenderness: There is no abdominal tenderness. Musculoskeletal: General: Normal range of motion. Cervical back: Normal range of motion and neck supple. No rigidity. Skin: General: Skin is warm and dry. Neurological: Mental Status: She is alert and oriented to person, place, and time. GCS: GCS eye subscore (more content not included)... Normal [facility] FLUABV+SARS-CoV-2+RSV Pnl Re sp JOHN+probeon 05-15-2023 FLUABV+SARS-CoV-2+RSV Pnl Resp JOHN+probe COVID 19 RESULT: Not detected The method used is RT-PCR or an equivalent NAAT method. Reference Range(the expected result in uninfected individuals): Not detected INFLUENZA A PCR: Not detected INFLUENZA B PCR: Not detected RSV PCR: Not detected Normal [facility] Comment on above: Performed By: #### 9 5941-1 ####[facility] LABCLIA [id number] [place] [address] [place] HIGH SENSITIVITY TROPONIN T (INITIAL)on 05-15-2023 Troponin T.cardiac High sensitivity method [Mass/Vol] <6 Normal <12 [facility] Comment on above: Order Comment: Speci men Type: BLOOD SPECIMENOrdering Facility: [facility] Address: [address] [place] [address] Result Comment: When assessing risk for acute coronary syndromes: In patients undergoing blood draw greater than or equal to 2 hours from symptom onset, with history of very low to moderate risk and non-ischemic ECG, an initial hs-Troponin T less than 12 ng/L AND a 1 hour delta hs-Troponin T less than 3 ng/L should be considered very low risk for 30 day MACE. Performed By: #### 3 3762-6, [id number], 75874-8, 38189-7 ####[facility] LABCLIA [id number] [place] [address] [place] HIGH SENSITIVITY TROPONIN T (SECOND)on 05-15-2023 Troponin T.cardiac High sensitivity method [Mass/Vol] <6 Normal <12 [facility] Comment on above: Order Comment: Speci men Type: BLOOD SPECIMENOrdering Facility: [facility] Address: [address] [place] [address] Result Comment: When assessing risk for acute coronary syndromes: In patients undergoing blood draw greater than or equal to 2 hours from symptom onset, with history of very low to moderate risk and non-ischemic ECG, an initial hs-Troponin T less than 12 ng/L AND a 1 hour delta hs-Troponin T less than 3 ng/L should be considered very low risk for 30 day MACE. Performed By: #### L [id number] ####[facility] LABCLIA [id number] [place] [id number] [place] Magnesium SerPl-mCncon 05-15 Magnesium [Mass/Vol] 2.2 mg/dL Normal 1.7-2.3 [facility] Comment on above: Order Comment: Khanh men Type: BLOOD SPECIMENOrdering Facility: [facility] Address: [address] [place] [address] Performed By: #### 3 3762-6, [id number], 94645-4, 99477-1 ####[facility] LABCLIA [id number] [place] [address] [place] NT-proBNP [facility] 05-15 Natriuretic peptide.B prohormone N-Terminal [Mass/Vol] 119 pg/mL Normal <125 [facility] Comment on above: Order Comment: Khanh adela Type: BLOOD SPECIMENOrdering Facility: [facility] Address: [address] [place] [address] Performed By: #### 3 3762-6, [id number], 21286-8, 96049-1 ####[facility] LABCLIA [id number] [place] [address] [place] No Panel InformationOrdered By: Kevin Solomon on 04-29-2023 Parathyroid Hormone (Intact) 43.8 pg/mL 18.4-80.1 [facility] Vitamin D 25-Hydroxy 43.0 ng/mL [facility] Comment on above: Vitamin D 25(OH) Sta tus Range Deficiency <20 ng/mL (50nmol/L) Insufficiency 20 - 30 ng/mL (50 - 75 nmol/L) Sufficiency 30 - 100 ng/mL (75 - 250 nmol/L) Toxicity >100 ng/mL (>250 nmol/L) CNOVon 04-26-2023 CNOV Office Visit (NEURMM ) LEANA MANCERA ([id number]) 1955 F CHT Date Time Provider Department 04/26/23 1:00 PM OJ RON During your visit today, we recorded the following information about you: Pulse Respiration Blood pressure Weight 60/minute 16/minute 91/58 83.5 kg Oj Ron MD 04/26/2023 1:58 PM Signed [facility] - new patient evaluation Date: April 26, 2023 Patient Name: Leana Mancera Referring physician: Tina Vincent [address] [facility] [address] Primary physician: Taran Tyler ([facility]) [address] [place] [address] Reason for Evaluation: Headaches HPI: The pt [...] tingling started in ED. patient went to [facility] ED 04/23/2023 with left sided facial numbness, dizziness, 'fuzzy headachness', difficulty walking (felt drunk). Had prior admission to [facility] 04/20/2023 for stroke eval, diagnosed with complex migraine given normal MRI brain. Patient woke on 04/23/2023 with headache associated with above symptoms as well as distorted vision, trouble concentrating, slow to find words. CTH NAP, CTA HANDN without LVO. Per patient, she has a history of ocular migraines as a teenager without any headache components. She gets them rarely now. The week before [place], she did have bronchitis and was on [...] painless OS>OD vision loss and BLE weakness. [place] like a 'pop'. These symptoms lasted a few seconds.. The exploding sensation didn't hurt and wasn't associated with a sound but was so intense she physically went to her knees. They passed though and she was able to check in the patient. 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 She did feel like her legs still [...] she was packing for a trip to [place] when she started feeling off cognitively. She [...] associated with speech changes while working at [employer]. Prior neurological workup: 04/23/2023 CTH, CTA HANDN 12/19/14 MRI brain o OUTPATIENT MEDICATIONS Current Facility-Administered Medications on File [...] Procedure Laterality Date ADENOIDECTOMY PRIMARY Adenoidectomy ARTHRP ACETBLR/P (more content not included)... Normal [facility] Laboratory - Chemistry and C hemistry - challengeOrdered By: Kevin Solomon on 04-26-2023 Free T4 [Mass/Vol] 0.96 ng/dL 0.76-1.46 [facility] No Panel InformationOrdered By: Kevin Solomon on 04-26-2023 Thyroid Stimulating Hormone (TSH) 4.30 uIU/mL 0.358-3.74 [facility] Serum or plasma thyroperoxid ase antibody assay (units/volume)Ordered By: Kevin Solomon on 04-26-2023 TPO Ab Qn [IU]/mL 0-34 [facility] Comment on above: Performed at: [address] Director: Vic Rodriguez PhD, Phone: [phone] [facility] 04-23-2023 [facility] HNO ID: [id number] Author: VINAY WANG RT(R) Service: Radiology Author Type: Technologist Type: Allied Health Filed: 04/23/2023 14:31 Note Text: Radiology Service Progress Note PATIENT NAME: Leana Mancera DATE OF SERVICE: April 23, 2023 TIME: 2:14 PM PATIENT IDENTITY VERIFICATION COMPLETED USING TWO (2) IDENTIFIERS: Name and Date of confirmed by patient verbally and Name and Date of confirmed by identification band. FALL SCREENING: Has the patient had 2 falls in the last year or 1 fall with injury or currently using an Ambulatory Assistive Device (Walker, Cane, Wheelchair, Crutches, etc.)? No PATIENT GENDER DATA: Female. status: : No status: NO. PATIENT RELEVANT IMPLANT DATA REVIEWED: Yes RADIOLOGY DEPARTMENT: CT; Exam(s) Completed: Brain , CTA Brain , and CTA Neck PERIPHERAL IV DATA: Inpatient: see LDA documentation SIGNED BY: RT Izabella(R) April 23, 2023 2:[address] [facility] HNO ID: [id number] Author: LEONOR ARANGO RT(Minda) Service: Radiology Author Type: Basket Grader Type: Allied Health Filed: 04/23/2023 13:24 Note Text: Radiology Service Progress Note PATIENT NAME: Leana Mancera DATE OF SERVICE: April 23, 2023 TIME: 1:24 PM PATIENT IDENTITY VERIFICATION COMPLETED USING TWO (2) IDENTIFIERS: Name and Date of confirmed by patient verbally. FALL SCREENING: Has the patient had 2 falls in the last year or 1 fall with injury or currently using an Ambulatory Assistive Device (Walker, Cane, Wheelchair, Crutches, etc.)? Emergency Room Patient: Screened in ED PATIENT GENDER DATA: Female. status: : No status: NO. PATIENT RELEVANT IMPLANT DATA REVIEWED: Not Applicable RADIOLOGY DEPARTMENT: General X-ray: Exam(s) Completed: Chest X-Ray PERIPHERAL IV DATA: Not applicable SIGNED BY: RT Bran(R) April 23, 2023 1:24 PM [facility] Basic metabolic 2000 panelon 04-23-2023 Anion gap [Moles/Vol] 8 mmol/L Low 9-18 [facility] Comment on above: Order Comment: Khanh chapman Type: BLOOD SPECIMEN [facility] Address: [address] [place] [address] Performed By: #### H STNT, 16502-7, 3016-3 #### [facility] CLIA [id number] [address] [place] [address] [place] Calcium [Mass/Vol] 9.5 mg/dL Normal 8.5-10.2 [facility] Comment on above: Order Comment: Khanh chapman Type: BLOOD SPECIMEN [facility] Address: [address] [place] [address] Performed By: #### H STNT, 49249-8, 3016-3 #### [facility] CLIA [id number] [address] [place] [address] [place] Chloride [Moles/Vol] 104 mmol/L Normal 97-105 [facility] Comment on above: Order Comment: Speci men Type: BLOOD SPECIMEN [facility] Address: [address] [place] [address] Performed By: #### H STNT, 42787-9, 3016-3 #### [facility] CLIA [id number] [address] [place] [address] [place] CO2 [Moles/Vol] 27 mmol/L Normal 22-30 [facility] Comment on above: Order Comment: Khanh chapman Type: BLOOD SPECIMEN [facility] Address: [address] [place] [address] Performed By: #### H STNT, 07471-3, 3016-3 #### [facility] CLIA [id number] [address] [place] [address] [place] Creatinine [Mass/Vol] 0.78 mg/dL Normal 0.58-0.96 [facility] Comment on above: Order Comment: Khanh chapman Type: BLOOD SPECIMEN [facility] Address: [address] [place] [address] Performed By: #### H STNT, 38560-4, 3016-3 #### [facility] CLIA [id number] [address] [place] Creatinine and Glomerular filtration rate.predicted panel (S/P/Bld) 84 mL/min/1.73m??? Normal >=60 [facility] Comment on above: Order Comment: Khanh chapman Type: BLOOD SPECIMEN [facility] Address: [address] [place] [address] Result Comment: Ariana mated Glomerular Filtration Rate (eGFR) is calculated using the 2020 CKD-EPI creatinine equation. This equation utilizes serum creatinine, sex, and age as parameters. The creatinine assay has traceable calibration to isotope dilution-mass spectrometry. Refer to KDIGO guidelines for clinical interpretation. In patients with unstable renal function, e.g. those with acute kidney injury, the eGFR may not accurately reflect actual GFR. Performed By: #### H KENNEDYT, 14114-0, 6-3 #### [facility] CLIA [id number] [address] [place] [address] [place] Glucose [Mass/Vol] 85 mg/dL Normal 74-99 [facility] Comment on above: Order Comment: Khanh chapman Type: BLOOD SPECIMEN [facility] Address: [address] [place] [address] Result Comment: The [place] [employer] (ADA) provides guidance for cutoff values for fasting glucose and random glucose. The ADA defines fasting as no caloric intake for at least 8 hours. Fasting plasma glucose results between 100 to 125 mg/dL indicate increased risk for diabetes (prediabetes). Fasting plasma glucose results greater than or equal to 126 mg/dL meet the criteria for diagnosis of diabetes. In the absence of unequivocal hyperglycemia, results should be confirmed by repeat testing. In a patient with classic symptoms of hyperglycemia or hyperglycemic crisis, random plasma glucose results greater than or equal to 200 mg/dL meet the criteria for diagnosis of diabetes. Reference: Standards of Medical Care in Diabetes 2016, [place] [employer]. Diabetes Care. 2016.39(Suppl 1). Performed By: #### H STNT, 08852-7, 6-3 #### [facility] CLIA [id number] [address] [place] [address] [place] Potassium [Moles/Vol] 4.3 mmol/L Normal 3.7-5.1 [facility] Comment on above: Order Comment: Khanh chapman Type: BLOOD SPECIMEN [facility] Address: [address] [place] [address] Performed By: #### H STNT, 79508-2, 6-3 #### [facility] CLIA [id number] [address] [place] [address] [place] Sodium [Moles/Vol] 139 mmol/L Normal 136-144 [facility] Comment on above: Order Comment: Khanh chapman Type: BLOOD SPECIMEN [facility] Address: [address] [place] [address] Performed By: #### H KENNEDYT, 96094-1, 6-3 #### [facility] CLIA [id number] [address] [place] [address] [place] Urea nitrogen [Mass/Vol] 24 mg/dL High 7- [facility] Comment on above: Order Comment: Speci men Type: BLOOD SPECIMEN [facility] Address: [address] [place] [address] Performed By: #### H STNT, 15805-7, 6-3 #### [facility] CLIA [id number] [address] [place] [address] [place] CBC panel Auto (Bld)on 04-23 Erythrocyte distribution width (RBC) [Ratio] 12.5 % Normal 11.5-15.0 [facility] Comment on above: Order Comment: Speci men Type: BLOOD SPECIMENOrdering Facility: [facility] Address: [address] [place] [address] Performed By: #### 5 8410-2 ####[facility] [id number] [address] [place] Hematocrit (Bld) [Volume fraction] 41.7 % Normal 36.0-46.0 [facility] Comment on above: Order Comment: Speci men Type: BLOOD SPECIMENOrdering Facility: [facility] Address: [address] [place] [address] Performed By: #### 5 8410-2 ####[facility] [id number] [address] [place] Hemoglobin (Bld) [Mass/Vol] 13.6 g/dL Normal 11.5-15.5 [facility] Comment on above: Order Comment: Speci men Type: BLOOD SPECIMENOrdering Facility: [facility] Address: [address] [place] [address] Performed By: #### 5 8410-2 ####[facility] [id number] [address] [place] MCH (RBC) [Entitic mass] 29.9 pg Normal 26.0-34.0 [facility] Comment on above: Order Comment: Speci men Type: BLOOD SPECIMENOrdering Facility: [facility] Address: [address] [place] [address] Performed By: #### 5 8410-2 ####[facility] [id number] [address] STATES [facility] MCHC (RBC) [Mass/Vol] 32.6 g/dL Normal 30.5-36.0 [facility] Comment on above: Order Comment: Speci men Type: BLOOD SPECIMENOrdering Facility: [facility] Address: [address] [place] [address] Performed By: #### 5 8410-2 ####[facility] [id number] [address] MCV (RBC) [Entitic vol] 91.6 fL Normal 80.0-100.0 [facility] Comment on above: Order Comment: Speci men Type: BLOOD SPECIMENOrdering Facility: [facility] Address: [address] [place] [address] Performed By: #### 5 8410-2 ####[facility] [id number] [address] Nucleated RBC (Bld) [#/Vol] 10*3/uL Normal <0.01 [facility] Comment on above: Order Comment: Speci men Type: BLOOD SPECIMENOrdering Facility: [facility] Address: [address] [place] [address] Performed By: #### 5 8410-2 ####HILL LABORATORYCLIA [id number] [address] [place] Platelet mean volume (Bld) [Entitic vol] 9.5 fL Normal 9.0-12.7 [facility] Comment on above: Order Comment: Speci men Type: BLOOD SPECIMENOrdering Facility: [facility] Address: [address] [place] [address] Performed By: #### 5 8410-2 ####HILL LABORATORYCLIA [id number] [address] Platelets (Bld) [#/Vol] 250 10*3/uL Normal 150-400 [facility] Comment on above: Order Comment: Speci men Type: BLOOD SPECIMENOrdering Facility: [facility] Address: [address] [place] [address] Performed By: #### 5 8410-2 ####HILL LABORATORYCLIA [id number] [address] RBC (Bld) [#/Vol] 4.55 10*6/uL Normal 3.90-5.20 [facility] Comment on above: Order Comment: Speci men Type: BLOOD SPECIMENOrdering Facility: [facility] Address: [address] [place] [address] Performed By: #### 5 8410-2 ####HILL LABORATORYCLIA [id number] [place] [id number] [facility] WBC (Bld) [#/Vol] 4.48 10*3/uL Normal 3.70-11.00 [facility] Comment on above: Order Comment: Speci men Type: BLOOD SPECIMENOrdering Facility: [facility] Address: [address] [place] [address] Performed By: #### 5 8410-2 ####HILL LABORATORYCLIA [id number] [address] BRAIN WO IVCONon 04-23-19 CT BRAIN WO IVCON * * *Final Report* * * DATE OF EXAM: Apr 23 2023 2:29PM [facility] 0504 - CT BRAIN WO IVCON / PROCEDURE REASON: Focal neuro deficit, new, fixed, or worsening, 4.5 to 24 hours, NIHSS 6 or great * * * * Physician Interpretation * * * * EXAMINATION: CT BRAIN WO IVCON CLINICAL HISTORY: Neurologic deficit, facial numbness TECHNIQUE: Serial axial images without IV contrast were obtained from the vertex to the foramen magnum. MQ: CTBWO_3 CT Radiation dose: Integrated Dose-Length Product (DLP) for this visit = 1322 mGy*cm CT Dose Reduction Employed: Automated exposure control(AEC) and iterative recon COMPARISON: 12/13/2015 CT brain. RESULT: Post-operative change: None. Acute change: No evidence of an acute infarct or other acute parenchymal process. Hemorrhage: No evidence of acute intracranial hemorrhage. ECASS hemorrhagic transformation score: Not Applicable Mass Lesion / Mass Effect: There is no evidence of an intracranial mass or extraaxial fluid collection. No significant mass effect. Chronic change: None apparent. Parenchyma: Bilateral symmetrical volume loss limited to the frontal lobes appears slightly more marked than in 2016.. The brain parenchyma is otherwise within normal limits for age. Ventricles: The ventricles are within normal limits of size and configuration for age. Paranasal sinuses and skull base: The visualized paranasal sinuses are grossly clear. The skull base and imaged soft tissues are unremarkable. Director Of Group Counseling Program (topogram) images: Unremarkable. IMPRESSION: No acute finding on CT brain. No mass effect, hemorrhage, or hydrocephalus. No definite acute infarct. Evp General Counsel: PSCB Transcribe Date/Time: Apr 23 2023 2:30P Dictated by : TARAN PINZON MD This examination was interpreted and the report reviewed and electronically signed by: TARAN PINZON MD on Apr 23 2023 2:38PM EST [id number] [facility] CTA HEAD W IVCONon CTA HEAD W IVCON * * *Final Report* * * DATE OF EXAM: Apr 23 2023 2:29PM [facility] 0022 - CTA HEAD W IVCON / PROCEDURE REASON: Focal neuro deficit, new, fixed, or worsening, 4.5 to 24 hours, NIHSS < 6, strok * * * * Physician Interpretation * * * * CTA HEAD W IVCON, CTA NECK W IVCON HISTORY: Focal neuro deficit TECHNIQUE: CTA head and neck. 3-D post-processed images were created, reviewed and archived. MQ: CTAHN_3 Contrast: IV administration of 80 cc Omnipaque 350 Dose-Length Product (DLP): 1322 mGy*cm CT Dose Reduction Employed: Automated exposure control(AEC) and iterative recon COMPARISON: CT brain 04/23/2023, 12/13/2015 RESULT: BRAIN: Evaluation of the individual slices of the CTA demonstrates no evidence of an acute stroke. ASPECT Score = 10 Hemorrhage: No evidence of acute intracranial hemorrhage. ECASS hemorrhagic transformation score: Not Applicable NECK: Soft tissues: Approximately 15 mm heterogeneous nodule in the right posterior thyroid lobe. Spine: Grade 1 degenerative spondylolisthesis at C3-4. Mild-moderate spondylosis. Lungs: The imaged lungs are clear. CT ARTERIOGRAM: EXTRACRANIAL CIRCULATION: Aortic arch and branch vessels: Conventional 3-vessel arch branch anatomy. No significant stenosis in the proximal brachiocephalic vessels. Carotid Stenosis: Right Common: No significant stenosis. Right Internal Carotid Plaque: No significant plaque formation. Right Internal Carotid Stenosis (% by NASCET Criteria): 0% Left Common: No significant stenosis. Left Internal Carotid Plaque: No significant plaque formation. Left Internal Carotid Stenosis (% by NASCET Criteria): 0% Cervical Vertebral Arteries: Patency: Bilateral Dominance: Right INTRACRANIAL CIRCULATION: Anterior circulation: Distal ICAs, ACAs and MCAs are normal in caliber. A1 segments are codominant. Posterior circulation: Distal vertebral arteries, basilar trunk and reefer engineer are normal in caliber. No vessel cut off, filling defect, significant focal narrowing, or evidence of aneurysm. Opacified dural venous sinuses and major deep and superficial draining veins are patent. Director Of Group Counseling Program (topogram) images: No additional findings. IMPRESSION: No large vessel occlusion or high-grade stenosis in the head or neck. Arterial blood flow was measured to detect acute large vessel occlusion by computer aided detection software: Not Performed. ACTIONABLE RESULT: FOLLOW-UP Findings: Endocrine (thyroid) Routing Code: EMI_1 Recommendation: US THYROID/PARATHYROID Time Frame: At the discretion of the clinical team. COMMUNICATION: Results will be communicated with the ordering provider via [employer] staff message or phone message by [facility] [employer] Services within 2 business days of report finalization. --END OF FINDING-- Evp General Counsel: MG Transcribe Date/Time: Apr 23 2023 2:31P Dictated by : SUZANNE CLAYTON MD This examination was interpreted and the report reviewed and electronically signed by: SUZANNE CLAYTON MD on Apr 23 2023 2:34PM EST [id number] ACTIONABLE Invalid Interpretation Code [facility] CTA NECK W IVCONon 4 CTA NECK W IVCON * * *Final Report* * * DATE OF EXAM: Apr 23 2023 2:29PM [facility] 0024 - CTA NECK W IVCON / PROCEDURE REASON: Focal neuro deficit, new, fixed, or worsening, 4.5 to 24 hours, NIHSS < 6, strok * * * * Physician Interpretation * * * * CTA HEAD W IVCON, CTA NECK W IVCON HISTORY: Focal neuro deficit TECHNIQUE: CTA head and neck. 3-D post-processed images were created, reviewed and archived. MQ: CTAHN_3 Contrast: IV administration of 80 cc Omnipaque 350 Dose-Length Product (DLP): 1322 mGy*cm CT Dose Reduction Employed: Automated exposure control(AEC) and iterative recon COMPARISON: CT brain 04/23/2023, 12/13/2015 RESULT: BRAIN: Evaluation of the individual slices of the CTA demonstrates no evidence of an acute stroke. ASPECT Score = 10 Hemorrhage: No evidence of acute intracranial hemorrhage. ECASS hemorrhagic transformation score: Not Applicable NECK: Soft tissues: Approximately 15 mm heterogeneous nodule in the right posterior thyroid lobe. Spine: Grade 1 degenerative spondylolisthesis at C3-4. Mild-moderate spondylosis. Lungs: The imaged lungs are clear. CT ARTERIOGRAM: EXTRACRANIAL CIRCULATION: Aortic arch and branch vessels: Conventional 3-vessel arch branch anatomy. No significant stenosis in the proximal brachiocephalic vessels. Carotid Stenosis: Right Common: No significant stenosis. Right Internal Carotid Plaque: No significant plaque formation. Right Internal Carotid Stenosis (% by NASCET Criteria): 0% Left Common: No significant stenosis. Left Internal Carotid Plaque: No significant plaque formation. Left Internal Carotid Stenosis (% by NASCET Criteria): 0% Cervical Vertebral Arteries: Patency: Bilateral Dominance: Right INTRACRANIAL CIRCULATION: Anterior circulation: Distal ICAs, ACAs and MCAs are normal in caliber. A1 segments are codominant. Posterior circulation: Distal vertebral arteries, basilar trunk and reefer engineer are normal in caliber. No vessel cut off, filling defect, significant focal narrowing, or evidence of aneurysm. Opacified dural venous sinuses and major deep and superficial draining veins are patent. Director Of Group Counseling Program (topogram) images: No additional findings. IMPRESSION: No large vessel occlusion or high-grade stenosis in the head or neck. Arterial blood flow was measured to detect acute large vessel occlusion by computer aided detection software: Not Performed. ACTIONABLE RESULT: FOLLOW-UP Findings: Endocrine (thyroid) Routing Code: EMI_1 Recommendation: US THYROID/PARATHYROID Time Frame: At the discretion of the clinical team. COMMUNICATION: Results will be communicated with the ordering provider via [employer] staff message or phone message by [facility] Support [facility] within 2 business days of report finalization. --END OF FINDING-- Evp General Counsel: MG Transcribe Date/Time: Apr 23 2023 2:31P Dictated by : SUZANNE CLAYTON MD This examination was interpreted and the report reviewed and electronically signed by: SUZANNE CLAYTON MD on Apr 23 2023 2:34PM EST [id number] ACTIONABLE Invalid Interpretation Code [facility] ED NOTEon 04-23-2023 ED NOTE HNO ID: [id number] Author: CLOVIS KRISHNAN, CRISTINE Service: ? Author Type: Registered Nurse Type: ED Notes Filed: 04/23/2023 16:48 Note Text: Pt verbalized discharge instructions and the need to follow up [facility] ED NOTE HNO ID: [id number] Author: CLOVIS KRISHNAN, CRISTINE Service: ? Author Type: Registered Nurse Type: ED Notes Filed: 04/23/2023 16:14 Note Text: Pt medicated for pain and given po fluids and crackers [facility] ED NOTE HNO ID: [id number] Author: SINGH HUNTER RN Service: ? Author Type: Registered Nurse Type: ED Notes Filed: 04/23/2023 12:18 Note Text: Stroke Protocol per Dr. Vincent. [facility] ED NOTE HNO ID: [id number] Author: LYNNE MONROE RN Service: ? Author Type: Registered Nurse Type: ED Notes Filed: 04/23/2023 12:09 Note Text: Dr. Vincent notified of pt [facility] ED NOTE HNO ID: [id number] Author: LYNNE MONROE RN Service: ? Author Type: Registered Nurse Type: ED Notes Filed: 04/23/2023 12:03 Note Text: Pt to ED with c/o waking at 0800 with headache and left sided facial numbness and not acting like herself, forgetting her medical cards, etc. Pt was admitted on Wednesday of this week for headache and loss of vision in left eye, CT and MRI did NOT show stroke, she was diagnosed with complex migraine. Has been having irregular BP readings. Did take her migraine meds last night even though she did not have a headache at bedtime. [facility] ED PROV NOTEon 04-23-2023 ED PROV NOTE HNO ID: [id number] Author: TINA VINCENT MD Service: ? Author Type: Physician Type: ED Provider Notes Filed: 04/23/2023 17:19 Note Text: ED Provider Note Patient Name: Leana Mancera : 1955 SERVICE DATE: 04/23/23 History Patient presents with: Headache Numbness Patient with admission at [facility] for stroke workup 3 days ago, diagnosed with complex migraine, presents with headache, left-sided facial numbness, dizziness and fuzzy headedness, and difficulty walking, feeling like she is drunk. Patient went to bed last night, having canceled her evening plans because she was vomiting and had a headache. This morning she woke up with a headache, /, and noted that she was having left facial numbness, felt like she was walking like she was drunk, was having distorted vision (not double vision), and having trouble concentrating, slow to find words. Earlier this week she had a severe headache that felt like a pop, had loss of vision, and was seen at [facility], with stroke workup, admission for MRI, and no concerning findings for stroke or intracranial hemorrhage. Patient is not on anticoagulation. PAST MEDICAL HISTORY Diagnosis Date Chest pain Esophageal reflux Gastroesophageal reflux Hypertension PAST SURGICAL HISTORY Procedure Laterality Date ADENOIDECTOMY PRIMARY Adenoidectomy ARTHRP ACETBLR/PROX FEM PROSTC AGRFT/ALGRFT Bilateral COLONOSCOPY FLX DX W/COLLJ SPEC WHEN PFRMD normal colonscopy DILATION AND CURETTAGE DXAND/THER NONOBSTETRIC Dilation AND curettage EXC BREAST LES PREOP PLMT RAD MARKER OPEN 1 LES 15 RIGHT NUCLEAR STRESS LEXISCAN (CARD) 2015 TONSILLECTOMY PRIMARY/SECONDARY Tonsillectomy VAGINAL HYSTERECTOMY UTERUS 250 GM/< 2006 Hysterectomy, vaginal FAMILY HISTORY Problem Relation Age of Onset Hypertension Father Heart Father Coronary Artery Disease Father Colon Cancer Father 82 Allergies Father Diabetes Maternal Grandfather Breast Cancer Maternal Grandmother Colon Cancer Maternal Grandmother 50 Allergies Mother Colon Cancer Maternal Aunt 79 Social History Tobacco Use Smoking status: Never Smokeless tobacco: Never Vaping Use Vaping Use: Never used Substance and Sexual Activity Alcohol use: Yes Comment: Once a week: wine Drug use: No Sexual activity: Yes Partners: Male ALLERGIES Allergen Reactions Benadryl [Diphenhyd* Other: See Comments knocks me out Review of Systems Constitutional: Pertinent positives and negatives as per HPI. Physical Exam Vitals [04/23/23 1200] BP Pulse Temp Temp src Resp SpO2 Weight Height 118/72 65 36.7 ?C (98.1 ?F) Temporal 18 98 % 84.4 kg (186 lb) -- Physical Exam Vitals and nursing note reviewed. Exam conducted with a dictating machine transcriber present. Constitutional: General: She is not in acute distress. Appearance: Normal appearance. She is not ill-appearing. HENT: Head: Normocephalic. Nose: Nose normal. Mouth/Throat: Mouth: Mucous membranes are moist. Eyes: General: No visual field deficit. Extraocular Movements: Extraocular movements intact. Conjunctiva/sclera: Conjunctivae normal. Pupils: Pupils are equal, round, and reactive to light. Comments: No nystagmus Cardiovascular: Rate and Rhythm: Normal rate and regular rhythm. Pulses: Normal pulses. Heart sounds: No murmur heard. Pulmonary: Effort: Pulmonary effort is normal. No respiratory distress. Musculoskeletal: General: Normal range of motion. Cervical back: Normal range of motion and neck supple. Skin: General: Skin is warm and dry. Neurological: Mental Status: She is alert. Cranial Nerves: No dysarthria or facial asymmetry. Sensory: Sensory deficit (Diminished sensation to light touch of the left side of the face (entire face) and diminished sensation to light touch of the distal left lower extremity. Sensation is symmetric on the remainder of the leg and the upper extremities) present. Motor: Weakness (Symmetric lower extremity weakness (leg drift)) present. No pronator drift. Coordination: Cnpfyp-Ozhf-Zrfjnx Test and Heel to [place] Test normal. Gait: Gait abnormal (Patient ambulates without difficulty but cannot balance with inline heel-to-toe walking). Psychiatric: Mood and Affect: Mood normal. Behavior: Behavior normal. ED STROKE DOCUMENTATION (last 48 hours) Stroke Care Path Flowsheet Row Name 04/23/23 1220 Last Known Well Date Patient Last Known Well 04/22/23 -LD Time Patient Last Known Well 2300 -LD NIHSS NIHSS - Initial or Subsequent Initial -LD NIHSS Initial - LIP ENTRY ONLY !!!!! REMEMBER TO VALIDATE DATE AND TIME !!!!! LOC 0 - alert and responsive -LD LOC Questions 0 - both correct -LD LOC Commands 0 - both correct -LD Best Gaze 0 - normal gaze -LD Visual 0 - no visual loss -LD Facial Palsy 0 - normal -LD Motor Left Arm 0 - no drift -LD Motor Right Arm 0 - no drift -LD Motor Left Leg 1 - (more content not included)... Normal [facility] FLUABV+SARS-CoV-2+RSV Pnl Re sp JOHN+probeon 04-23-2023 FLUABV+SARS-CoV-2+RSV Pnl Resp JOHN+probe COVID 19 RESULT: Not detected The method used is RT-PCR or an equivalent NAAT method. Reference Range(the expected result in uninfected individuals): Not detected INFLUENZA A PCR: Not detected INFLUENZA B PCR: Not detected RSV PCR: Not detected Normal [facility] Comment on above: Performed By: #### 9 5941-1 ####P[facility] LABORATORYCLIA [id number] [address] [place] HIGH SENSITIVITY TROPONIN To n 04-23-2023 Troponin T.cardiac High sensitivity method [Mass/Vol] <6 Normal <12 [facility] Comment on above: Order Comment: Khanh chapman Type: BLOOD SPECIMEN [facility] Address: [address] [place] [address] Result Comment: When assessing risk for acute coronary syndromes: In patients undergoing blood draw greater than or equal to 2 hours from symptom onset, with history of very low to moderate risk and non-ischemic ECG, an initial hs-Troponin T less than 12 ng/L AND a 1 hour delta hs-Troponin T less than 3 ng/L should be considered very low risk for 30 day MACE. Performed By: #### H STNT, 44615-8, 3016-3 #### [facility] CLIA [id number] [place] PT panel Coag (PPP)on 2023 INR Coag (PPP) [Relative time] 1.0 {INR} Normal 0.9-1.3 [facility] Comment on above: Order Comment: Khanh chapman Type: BLOOD SPECIMENOrdering Facility: [facility] Address: [address] [place] [address] Result Comment: Melisa min K Antagonist (VKA) Therapeutic Range: INR 2 to 3 (Target INR of 2.5) Note: For patients treated with VKA drugs, such as warfarin, the [place] [employer] 2012 Guideline recommends a therapeutic INR range of 2 to 3 (target INR of 2.5). This recommendation includes high-risk patients with antiphospholipid syndrome with previous arterial or venous thromboembolism, current-generation mechanical or bioprosthetic aortic heart valve replacement. Note: Patients with mechanical aortic valve replacement and additional risk factors for thromboembolic events (atrial fibrillation, previous thromboembolism, LV dysfunction, hypercoagulable conditions) or an older generation mechanical AVR (i.e., ball in-Cage) or any mechanical MVR should have a INR therapeutic range of 2.5 to 3.5 (target INR of 3). Beau GH, et al. Chest 2012, 141:7S-47S Deejay RA, et al. JAC 2017, 70: 252-289 Performed By: #### 3 4528-0, 74894-6 ####[facility] LABORATORYCLIA [id number] [address] STATES OF [facility] PT Coag (PPP) [Time] 10.8 s Normal 9.7-13.0 [facility] Comment on above: Order Comment: Speci men Type: BLOOD SPECIMENOrdering Facility: [facility] Address: [address] [place] [address] Performed By: #### 3 4528-0, 12623-4 ####[facility] LABORATORYCLIA [id number] [address] OF [facility] TSH SerPl-aCncon 04-23-2023 TSH Qn 4.060 m[IU]/L Normal 0.270-4.200 [facility] Comment on above: Order Comment: [facility] Type: BLOOD SPECIMENOrdering Facility: [facility] Address: [address] [place] [address] Performed By: #### H STNT, 19271-8, 3016-3 ####[facility] LABORATORYCLIA [id number] [address] [place] XR CHEST 1V FRONTAL PORTon 0 04-23-2023 XR CHEST 1V FRONTAL PORT * * *Final Report* * * DATE OF EXAM: Apr 23 2023 1:21PM MDX [id number] - XR CHEST 1V FRONTAL PORT / PROCEDURE REASON: Focal neuro deficit, new, fixed, or worsening, 4.5 to 24 hours, NIHSS < 6, strok * * * * Physician Interpretation * * * * EXAMINATION: CHEST RADIOGRAPH (PORTABLE SINGLE VIEW AP) Exam Date/Time: 04/23/2023 1:21 PM CLINICAL HISTORY: Focal neuro deficit, new, fixed, or worsening, 4.5 to 24 hours, NIHSS < 6, stroke suspected, Mental status change MQ: XCPR_5 Comparison: 12/13/2015 RESULT: 1. Lines, Tubes, and Devices: None 2. Lungs and Pleura: Question of a focal area of consolidation projecting over the area just above the RIGHT hemidiaphragm. 3. Cardiomediastinal silhouette: Heart size within normal limits. Pulmonary vascularity is unremarkable. 4. Other: Bony structures unremarkable. IMPRESSION: Question of a focal density possibly an infiltrate projecting over the RIGHT lower lung field. Follow-up studies recommended Evp General Counsel: MG Transcribe Date/Time: Apr 23 2023 1:36P Dictated by : CHRISTIAN ROSAS DO This examination was interpreted and the report reviewed and electronically signed by: CHRISTIAN ROSAS DO on Apr 23 2023 1:45PM EST [id number] Normal [facility] aPTT PPPon 04-23-2023 aPTT Coag (PPP) [Time] 29.0 s Normal 23.0-32.4 [facility] Comment on above: Order Comment: Speci men Type: BLOOD SPECIMENOrdering Facility: [facility] Address: [address] [place] [address] Performed By: #### 3 4528-0, 61050-7 ####[facility] G[facility] LABORATORYCLIA [id number] [place] [address] [place] CNPMarika 04-22-2023 CNPN Telephone (CATHMN) LEANA MANCERA ([id number]) 1955 F CHT Date Time Provider Department 04/22/23 VIJAYA PEDERSEN During your visit today, we recorded the following information about you: Joey Patrick 04/22/2023 1:13 PM Signed Rec'd call from scheduling office asking for date to schedule pt for PFO consultation Allergies As of Date: 04/22/2023 Noted Allergy Reaction BENADRYL (DIPHENHYDRAMINE HCL) 12/15/2012 14 - Other: See Comments Comments: knocks me out Date Reviewed: 12/22/2022 Reviewed by: Daysi Lau LPN - Fully Assessed Reason for Visit: Appointment [186] Prescriptions as of 04/22/2023 - hydrOXYchloroQUINE (PLAQUENIL) 200 mg tablet Take 1 tablet by mouth two times a day. - naproxen sodium (ALEVE ORAL) Take 1 tablet by mouth once daily. - ibuprofen (MOTRIN) 200 mg tablet Take 200 mg by mouth every 6 hours as needed for pain. - lisinopril (ZESTRIL) 10 mg tablet Take 10 mg by mouth once daily. - hydroCHLOROthiazide (HYDRODIURIL, ESIDRIX) 25 mg tablet Take 25 mg by mouth once daily. Problem List As Of Date 04/22/2023 Noted Resolved Abnormal mammogram, unspecified [R92.8] 09/11/2010 Family history of colonic polyps [Z83.719] 12/15/2012 Solitary cyst of breast [N60.09] 03/26/2014 Chest pain [R07.9] Hypertension [I10] Encounter Status:Closed by JOEY PATRICK on 04/22/23 Normal [facility] Absolute lymphocyte countOrd ered By: Summer Ruiz on 04-21-2023 Lymphocytes Auto (Unsp spec) [#/Vol] 1.55 10*3/uL 0.83-4.51 [facility] Basophil percentageOrdered B y: Summer Ruiz on 04-21-2023 Basophil percentage 3.4 mg/dL 2.5-4.9 [facility] Basophils/100 WBC (Bld) 0.9 % 0-1 [facility] Chloride [Moles/Vol] 107 mmol/L 98-[address] [facility] Cholesterol [Mass/Vol] 201 mg/dL <200 [facility] Comment on above: <200 mg/dL Desirable 200-240 mg/dL Borderline >240 mg/dL High Risk Eosinophils/100 WBC (Bld) 3.9 % 0-5 [facility] Glucose [Mass/Vol] 113 mg/dL 74-106 [facility] Comment on above: Fasting Glucose resu lt from 100 to 125 mg/dL suggests IMPAIRED HOMEOSTASIS per A.D.A. criteria. Neutrophils (Bld) [#/Vol] 2.4 10*3/uL 2.0-7.7 [facility] Neutrophils/100 WBC (Bld) 52.0 % 47-70 [facility] Potassium [Moles/Vol] 4.1 mmol/L 3.5-5.1 [facility] Sodium [Moles/Vol] 139 mmol/L 136-145 [facility] Triglyceride [Mass/Vol] 32 mg/dL <199 [facility] Comment on above: The drugs N-Acetylcy steine and Metamizole may falsely depress this assay.Serum Triglycerides Reference Interval Normal <150 mg/dL Borderline high 150 - 199 mg/dL High 200 - 499 mg/dL Very High > or = 500 mg/dL WBC (Bld) [#/Vol] 4.6 10*3/uL 4.4-11.0 [facility] Blood erythrocytes count (nu mber/volume)Ordered By: Summer Ruiz on 04-21-2023 RBC (Bld) [#/Vol] 4.19 10*6/uL 4.2-5.4 [facility] Blood hemoglobin measurement (mass/volume)Ordered By: Summer Ruiz on 04-21-2023 Hemoglobin (Bld) [Mass/Vol] 12.3 g/dL 12.0-15.0 [facility] Blood lymphocytes/100 leukoc ytesOrdered By: Summer Ruiz on 04-21-2023 Lymphocytes/100 WBC (Bld) 33.8 % 19-41 [facility] Blood monocytes/100 leukocyt esOrdered By: Summer Ruiz on 04-21-2023 Monocytes/100 WBC (Bld) 9.2 % 0-10 [facility] Blood platelet mean volumeOr dered By: Summer Ruiz on 04-21-2023 Platelet mean volume (Bld) [Entitic vol] 9.8 fL 6.2-12.0 [facility] Determination of erythrocyte mean corpuscular volume (MCV)Ordered By: Summer Ruiz on 04-21-2023 MCV (RBC) [Entitic vol] 91.4 fL 81-99 [facility] Hematocrit Auto (Bld) [Volum e fraction]Ordered By: Summer Ruiz on 04-21-2023 Hematocrit (Bld) [Volume fraction] 38.3 % 37-47 [facility] Laboratory - Chemistry and C hemistry - challengeOrdered By: Summer Ruiz on 04-21-2023 CO2 [Moles/Vol] 30.0 mmol/L 21.0-32.0 [facility] Magnesium [Mass/Vol] 2.2 mg/dL 1.6-2.6 [facility] Urea nitrogen/Creatinine [Mass ratio] 32.1 mg/mg 10-20 [facility] - Hematology and Cell countsOrdered By: Summer Ruiz on 04-21-2023 Erythrocyte distribution width (RBC) [Entitic vol] 42.6 fL 35.1-43.9 [facility] Erythrocyte distribution width (RBC) [Ratio] 12.8 % 11.6-14.6 [facility] Immature granulocytes/100 WBC (Bld) 0.200 % 0.0-0.9 [facility] Comment on above: IG% - Immature Granu locytes (promyelocytes, myelocytes and metamyelocytes) > 1% indicates that a LEFT SHIFT is Present. MCH (RBC) [Entitic mass] 29.4 pg 27.0-32.0 [facility] Nucleated RBC/100 WBC (Bld) [Ratio] 0 % 0-5 [facility] MCHC Auto (RBC) [Mass/Vol]Or dered By: Summer Ruiz on 04-21-2023 MCHC (RBC) [Mass/Vol] 32.1 g/dL 32-36 [facility] No Panel InformationOrdered By: Summer Ruiz on 04-21-2023 Estimated Creatinine Clearance Calc 57.83 ml/min [facility] Estimated GFR (MDRD) Amer 95 mL/min >60 [facility] Comment on above: GFR Calc Estimated GFR (MDRD) Non-Af Amer 79 mL/min >60 [facility] Comment on above: Non- GFR Calc Platelets bldOrdered By: Queenie Ruiz on 04-21-2023 Platelets (Bld) [#/Vol] 227 10*3/uL 150-450 [facility] Serum or plasma calcium melvin urement (mass/volume)Ordered By: Summer Ruiz on 04-21-2023 Calcium [Mass/Vol] 8.7 mg/dL 8.5-10.1 [facility] Serum or plasma cholesterol in HDL measurement (mass/volume)Ordered By: Summer Ruiz on 04-21-2023 Cholesterol in HDL [Mass/Vol] 94 mg/dL >40 [facility] Comment on above: The drugs N-Acetylcy steine and Metamizole may falsely depress this assay. Reference Range HDL <40 mg/dL Low HDL Cholesterol HDL >or= 60 mg/dL High HDL Cholesterol Serum or plasma cholesterol in VLDL measurement (mass/volume)Ordered By: Summer Ruiz on 04-21-2023 Cholesterol in VLDL [Mass/Vol] 6 mg/dL 5-40 [facility] Serum or plasma creatinine m easurement (mass/volume)Ordered By: Summer Ruiz on 04-21-2023 Creatinine [Mass/Vol] 0.78 mg/dL 0.55-1.02 [facility] Comment on above: The validity of the calculated GFR & GFRAA in patients over 70 years has not been determined. Clinical correlation is essential. Serum or plasma low density lipoprotein (LDL) cholesterol measurement (mass/volume)Ordered By: Summer Ruiz on 04-21-2023 Cholesterol in LDL [Mass/Vol] 101 mg/dL 0-130 [facility] Serum or plasma urea nitroge n measurement (mass/volume)Ordered By: Summer Ruiz on 04-21-2023 Urea nitrogen [Mass/Vol] 25 mg/dL 7-18 [facility] Thin prep Papanicolaou smear with manual screeningOrdered By: Summer Ruiz on 04-21-2023 Thin prep Papanicolaou smear with manual screening 2 5-15 [facility] Absolute lymphocyte countOrd ered By: Valeriy Ralph on 04-20-2023 Lymphocytes Auto (Unsp spec) [#/Vol] 1.38 10*3/uL 0.83-4.51 [facility] Basophil percentageOrdered B y: Valeriy Ralph on 04-20-2023 Basophils/100 WBC (Bld) 1.1 % 0-1 [facility] Chloride [Moles/Vol] 101 mmol/L 98-107 [facility] Eosinophils/100 WBC (Bld) 2.2 % 0-5 [facility] Glucose [Mass/Vol] 110 mg/dL 74-106 [facility] Comment on above: Fasting Glucose resu lt from 100 to 125 mg/dL suggests IMPAIRED HOMEOSTASIS per A.D.A. criteria. Neutrophils (Bld) [#/Vol] 2.7 10*3/uL 2.0-7.7 [facility] Neutrophils/100 WBC (Bld) 58.9 % 47-70 [facility] Potassium [Moles/Vol] 3.4 mmol/L 3.5-5.1 [facility] Sodium [Moles/Vol] 136 mmol/L 136-145 [facility] WBC (Bld) [#/Vol] 4.7 10*3/uL 4.4-11.0 [facility] Blood erythrocytes count (nu mber/volume)Ordered By: Valeriy Ralph on 04-20-2023 RBC (Bld) [#/Vol] 4.56 10*6/uL 4.2-5.4 [facility] Blood hemoglobin measurement (mass/volume)Ordered By: Valeriy Ralph on 04-20-2023 Hemoglobin (Bld) [Mass/Vol] 13.3 g/dL 12.0-15.0 [facility] Blood lymphocytes/100 leukoc ytesOrdered By: Valeriy Ralph on 04-20-2023 Lymphocytes/100 WBC (Bld) 29.7 % 19-41 [facility] Blood monocytes/100 leukocyt esOrdered By: Valeriy Ralph on 04-20-2023 Monocytes/100 WBC (Bld) 7.7 % 0-10 [facility] Blood platelet mean volumeOr dered By: Valeriy Ralph on 04-20-2023 Platelet mean volume (Bld) [Entitic vol] 9.4 fL 6.2-12.0 [facility] Determination of erythrocyte mean corpuscular volume (MCV)Ordered By: Valeriy Ralph on 04-20-2023 MCV (RBC) [Entitic vol] 90.4 fL 81-99 [facility] Erythrocyte sedimentation ra teOrdered By: Summer Ruiz on 04-20-2023 ESR (Bld) [Velocity] 8 mm/h 0-30 [facility] Hematocrit Auto (Bld) [Volum e fraction]Ordered By: Valeriy Ralph on 04-20-2023 Hematocrit (Bld) [Volume fraction] 41.2 % 37-47 [facility] INR in Blood by Coagulation assayOrdered By: Valeriy Ralph on 04-20-2023 INR Coag (Bld) [Relative time] 0.9 {INR} [facility] - Chemistry and C hemistry - challengeOrdered By: Valeriy Ralph on 04-20-2023 CO2 [Moles/Vol] 28.0 mmol/L 21.0-32.0 [facility] Urea nitrogen/Creatinine [Mass ratio] 34.4 mg/mg 10-20 [facility] - CoagulationOrde red By: Valeriy Ralph on 04-20-2023 aPTT Coag (Bld) [Time] 25.2 s 24.1-36.2 [facility] PT Coag (PPP) [Time] 12.2 s 11.7-14.9 [facility] Laboratory - Hematology and Cell countsOrdered By: Valeriy Ralph on 04-20-2023 Erythrocyte distribution width (RBC) [Entitic vol] 41.5 fL 35.1-43.9 [facility] Erythrocyte distribution width (RBC) [Ratio] 12.6 % 11.6-14.6 [facility] Immature granulocytes/100 WBC (Bld) 0.400 % 0.0-0.9 [facility] Comment on above: IG% - Immature Granu locytes (promyelocytes, myelocytes and metamyelocytes) > 1% indicates that a LEFT SHIFT is Present. MCH (RBC) [Entitic mass] 29.2 pg 27.0-32.0 [facility] Nucleated RBC/100 WBC (Bld) [Ratio] 0 % 0-5 [facility] MCHC Auto (RBC) [Mass/Vol]Or dered By: Valeriy Ralph on 04-20-2023 MCHC (RBC) [Mass/Vol] 32.3 g/dL 32-36 [facility] No Panel InformationOrdered By: Valeriy Ralph on 04-20-2023 Estimated Creatinine Clearance Calc 58.42 ml/min [facility] Estimated GFR (MDRD) Amer 72 mL/min >60 [facility] Comment on above: GFR Calc Estimated GFR (MDRD) Non-Af Amer 60 mL/min >60 [facility] Comment on above: Non- GFR Calc Troponin I High Sensitivity 5 pg/mL 3.0-54.0 [facility] Comment on above: Please Note: New Amee t Units and Gender Specific Reference Ranges. For more information see Policy Stat Procedure [place] High Sensitivity Troponin (TNIH) and attachments. Platelets bldOrdered By: Erik Ralph on 04-20-2023 Platelets (Bld) [#/Vol] 234 10*3/uL 150-450 [facility] Serum or plasma C reactive p rotein measurement (mass/volume)Ordered By: Summer Ruiz on 04-20-2023 CRP [Mass/Vol] mg/L 0.0-3.0 [facility] Comment on above: C-Reactive Protein ( CRP) provides useful information for thediagnosis, therapy and monitoring of inflammatory processesand associated diseases. For the evaluation of Relative Riskfor Cardiovascular Disease, a High Sensitivity CRP (HSCRP)should be ordered. Serum or plasma calcium melvin urement (mass/volume)Ordered By: Valeriy Ralph on 04-20-2023 Calcium [Mass/Vol] 9.4 mg/dL 8.5-10.1 [facility] Serum or plasma creatinine m easurement (mass/volume)Ordered By: Valeriy Ralph on 04-20-2023 Creatinine [Mass/Vol] 0.99 mg/dL 0.55-1.02 [facility] Comment on above: The validity of the calculated GFR & GFRAA in patients over 70 years has not been determined. Clinical correlation is essential. Serum or plasma urea nitroge n measurement (mass/volume)Ordered By: Valeriy Ralph on 04-20-2023 Urea nitrogen [Mass/Vol] 34 mg/dL 7-18 [facility] Thin prep Papanicolaou smear with manual screeningOrdered By: Valeriy Ralph on 04-20-2023 Thin prep Papanicolaou smear with manual screening 7 5-15 [facility] Whole blood hemoglobin A1c/t otal hemoglobin ratio (mass fraction)Ordered By: Summer Ruiz on 04-20-2023 HbA1c (Bld) [Mass fraction] 5.1 % 3.8-5.6 [facility] Comment on above: Normal < 5.7 % Predi abetic 5.7 - 6.4 % Diabetic >or= 6.5 % Please note range changes. CNOVon 12-22-2022 CNOV Office Visit ([place]) LEANA MANCERA ([id number]) 1955 F T Date Time Provider Department 12/22/22 1:00 PM JULIÁN NICHOLS During your visit today, we recorded the following information about you: Temperature Pulse Blood pressure Weight 97.6 degrees 67/minute 97/52 84.4 kg Height 1.727 m Julián Nichols MD 12/22/2022 1:09 PM Signed This note was created using [employer]. Subjective Leana Mancera is a 67 year [...] (97.6 ?F) (Temporal) Height 172.7 cm (5' 8) Weight 84.4 kg (186 lb) Oxygen Saturation [...] right knee aspirate culture crystal neg, wbc 86109, esr 20 (<30 ) crp 54 ( <3 ) , wbc 9300 normal. 06/11 RF CCP TEMITOPE neg CRP 3.93 ( < 3 ) 2014 1,25 [place] D 63 normal 09/08 esr 10 crp normal, uric 5.7 '''' 2015 chest xr normal 02/07 chest xr Degenerative disc disease TS (( [place] 04/2020, retired from [employer] and did not get [...] pain, 20 cc removed ) (08/31/22 still n (more content not included)... Normal [facility] Bacterial body fluid culture Ordered By: Dr. Lai on 08-26-2022 Bacteria identified Cx Nom (Body fld) Culture exhibits no growth. [facility] Anaerobic cultureOrdered By: Dr. Lai on 08-25-2022 Bacteria identified Anaer cx Nom (Unsp spec) No anaerobic bacteria isolated. [facility] * Body fluid crystals type b y light microscopyOrdered By: Dr. Lai on 08-21-2022 Crystals LM Nom (Body fld) NO CRYSTALS SEEN [facility] Comment on above: CRYSTAL RESULT IS PRELIMINARY. SEE PATH REVIEW FOR FINAL REPORT. Blood lymphocytes/100 leukoc ytesOrdered By: Dr. Lai on 08-21-2022 Lymphocytes/100 WBC (Bld) 16 % [facility] Color of Synovial fluidOrder ed By: Dr. Lai on 08-21-2022 Color (Syn fld) Yellow Pale Yellow [facility] Determination of appearance of synovial fluidOrdered By: Dr. Lai on 08-21-2022 Appearance (Syn fld) Cloudy CLEAR [facility] Gram stain for investigation of transfusion reactionOrdered By: Dr. Lai on 08-21-2022 Microscopic observation Gram stain Nom (Unsp spec) [facility] No Panel InformationOrdered By: Dr. Lai on 08-21-2022 Synovial Fluid Mononuclear WBCs 1.205 10^3/ul [facility] Synovial Fluid Mononuclear WBCs % 47.4 % [facility] Synovial Fluid Polynuclear WBCs 1.339 10^3/uL [facility] Synovial Fluid Polynuclear WBCs % 52.6 % [facility] Synovial Fluid Total Cells Counted 2.7460 10^3/uL 0.000-0.000 [facility] Comment on above: This is the Total Nu mber of Nucleated Cell Types in the Body Fluid. Review by pathologistOrdered By: Dr. Lai on 08-21-2022 Pathologist review Iglesia (Unsp spec) [Interp] May follow [facility] Pathologist review Iglesia (Unsp spec) [Interp] Will follow [facility] Pathologist review Iglesia (Unsp spec) [Interp] Reviewed [facility] Comment on above: Previous reported re sult: Will follow Edited by: RGOJAI on 08/25/22:932Negative for malignant cells and crystals.Frank Santos M.D. 08/25/22 AMENDED REPORT 08/25/22 0933 PATH REV previously reported as: Will follow Specimen source identificati on of body fluidOrdered By: Dr. Lai on 05-05-2023 Specimen source Nom (Body fld) SYNOVIAL [facility] Specimen source Nom (Body fld) RIGHT KNEE [facility] Synovial fluid erythrocytes count (number/volume)Ordered By: Dr. Lai on 08-21-2022 RBC (Syn fld) [#/Vol] 0.017 10^6/uL 0-0 [facility] Synovial fluid leukocytes co unt (number/volume)Ordered By: Dr. Lai on 08-21-2022 WBC (Syn fld) [#/Vol] 2.5440 10^3/uL 0.000-0.00 2 [facility] Synovial fluid monocyte perc entageOrdered By: Dr. Lai on 08-21-2022 Monocytes/100 WBC (Syn fld) 37 % [facility] Synovial fluid neutrophil pe rcentageOrdered By: Dr. Lai on 08-21-2022 Neutrophils/100 WBC (Syn fld) 46 % 0-25 [facility] Synovial fluid plasma cell c ountOrdered By: Dr. Lai on 08-21-2022 Plasma cells/100 WBC Manual cnt (Syn fld) 1 % [facility] Erythrocyte sedimentation ra teOrdered By: Dr. Lai on 08-20-2022 ESR (Bld) [Velocity] 20 mm/h 0-30 [facility] Serum or plasma C reactive p rotein measurement (mass/volume)Ordered By: Dr. Lai on 08-20-2022 CRP [Mass/Vol] 54.30 mg/L 0.0-3.0 [facility] Comment on above: C-Reactive Protein ( CRP) provides useful information for thediagnosis, therapy and monitoring of inflammatory processesand associated diseases. For the evaluation of Relative Riskfor Cardiovascular Disease, a High Sensitivity CRP (HSCRP)should be ordered. Absolute lymphocyte countOrd ered By: Dr. Burleson on 08-19-2022 Lymphocytes Auto (Unsp spec) [#/Vol] 0.50 10*3/uL 0.83-4.51 [facility] Basophil percentageOrdered B y: Dr. Burleson on 08-19-2022 Basophils/100 WBC (Bld) 0.2 % 0-1 [facility] Eosinophils/100 WBC (Bld) 0.0 % 0-5 [facility] Neutrophils (Bld) [#/Vol] 8.6 10*3/uL 2.0-7.7 [facility] Neutrophils/100 WBC (Bld) 92.5 % 47-70 [facility] WBC (Bld) [#/Vol] 9.3 10*3/uL 4.4-11.0 [facility] Blood erythrocytes count (nu mber/volume)Ordered By: Dr. Burleson on 08-19-2022 RBC (Bld) [#/Vol] 4.25 10*6/uL 4.2-5.4 [facility] Blood hemoglobin measurement (mass/volume)Ordered By: Dr. Burleson on 08-19-2022 Hemoglobin (Bld) [Mass/Vol] 12.7 g/dL 12.0-15.0 [facility] Blood lymphocytes/100 leukoc ytesOrdered By: Dr. Burleson on 08-19-2022 Lymphocytes/100 WBC (Bld) 5.4 % 19-41 [facility] Blood manual differential co mment interpretation (narrative result)Ordered By: Dr. Burleson on 08-19-2022 Manual differential comment Iglesia (Bld) [Interp] SCANNED [facility] Comment on above: LYMPHOPENIA NOTED Blood monocytes/100 leukocyt esOrdered By: Dr. Burleson on 08-19-2022 Monocytes/100 WBC (Bld) 1.7 % 0-10 [facility] Blood platelet mean volumeOr dered By: Dr. Burleson on 08-19-2022 Platelet mean volume (Bld) [Entitic vol] 10.2 fL 6.2-12.0 [facility] Determination of erythrocyte mean corpuscular volume (MCV)Ordered By: Dr. Burleson on 08-19-2022 MCV (RBC) [Entitic vol] 92.5 fL 81-99 [facility] Hematocrit Auto (Bld) [Volum e fraction]Ordered By: Dr. Burleson on 08-19-2022 Hematocrit (Bld) [Volume fraction] 39.3 % 37-47 [facility] Laboratory - Hematology and Cell countsOrdered By: Dr. Burleson on 08-19-2022 Erythrocyte distribution width (RBC) [Entitic vol] 45.7 fL 35.1-43.9 [facility] Erythrocyte distribution width (RBC) [Ratio] 13.5 % 11.6-14.6 [facility] Immature granulocytes/100 WBC (Bld) 0.200 % 0.0-0.9 [facility] Comment on above: IG% - Immature Granu locytes (promyelocytes, myelocytes and metamyelocytes) > 1% indicates that a LEFT SHIFT is Present. MCH (RBC) [Entitic mass] 29.9 pg 27.0-32.0 [facility] Nucleated RBC/100 WBC (Bld) [Ratio] 0 % 0-5 [facility] MCHC Auto (RBC) [Mass/Vol]Or dered By: Dr. Burleson on 08-19-2022 MCHC (RBC) [Mass/Vol] 32.3 g/dL 32-36 [facility] Platelets bldOrdered By: Dr. Burleson on 08-19-2022 Platelets (Bld) [#/Vol] 247 10*3/uL 150-450 [facility] Absolute lymphocyte countOrd ered By: Man Carbone on 05-26-2022 Lymphocytes Auto (Unsp spec) [#/Vol] 1.17 10*3/uL 0.83-4.51 [facility] Basophil percentageOrdered B y: Man Carbone on 05-26-2022 Basophils/100 WBC (Bld) 0.7 % 0-1 [facility] Bilirubin [Mass/Vol] 0.60 mg/dL 0.20-1.00 [facility] Comment on above: For patients on eltr ombopag therapy, use of Dimension [place] TBIL is not recommended. Chloride [Moles/Vol] 108 mmol/L 98-107 [facility] Eosinophils/100 WBC (Bld) 2.0 % 0-5 [facility] Glucose [Mass/Vol] 89 mg/dL 74-106 [facility] Neutrophils (Bld) [#/Vol] 2.8 10*3/uL 2.0-7.7 [facility] Neutrophils/100 WBC (Bld) 63.2 % 47-70 [facility] Potassium [Moles/Vol] 4.4 mmol/L 3.5-5.1 [facility] Protein [Mass/Vol] 6.9 g/dL 6.4-8.2 [facility] Sodium [Moles/Vol] 142 mmol/L 136-145 [facility] WBC (Bld) [#/Vol] 4.4 10*3/uL 4.4-11.0 [facility] Blood erythrocytes count (nu mber/volume)Ordered By: Man Carbone on 05-26-2022 RBC (Bld) [#/Vol] 4.33 10*6/uL 4.2-5.4 [facility] Blood hemoglobin measurement (mass/volume)Ordered By: Man Carbone on 05-26-2022 Hemoglobin (Bld) [Mass/Vol] 12.4 g/dL 12.0-15.0 [facility] Blood lymphocytes/100 leukoc ytesOrdered By: Man Carbone on 05-26-2022 Lymphocytes/100 WBC (Bld) 26.6 % 19-41 [facility] Blood monocytes/100 leukocyt esOrdered By: Man Carbone on 05-26-2022 Monocytes/100 WBC (Bld) 7.3 % 0-10 [facility] Blood platelet mean volumeOr dered By: Man Carbone on 05-26-2022 Platelet mean volume (Bld) [Entitic vol] 9.7 fL 6.2-12.0 [facility] Determination of erythrocyte mean corpuscular volume (MCV)Ordered By: Man Carbone on 05-26-2022 MCV (RBC) [Entitic vol] 91.5 fL 81-99 [facility] Erythrocyte sedimentation ra teOrdered By: Man Carbone on 05-26-2022 ESR (Bld) [Velocity] 3 mm/h 0-30 [facility] Hematocrit Auto (Bld) [Volum e fraction]Ordered By: Man Carbone on 05-26-2022 Hematocrit (Bld) [Volume fraction] 39.6 % 37-47 [facility] - Chemistry and C hemistry - challengeOrdered By: Man Carbone on 05-26-2022 ALP [Catalytic activity/Vol] 66 U/L 45-117 [facility] ALT [Catalytic activity/Vol] 21 U/L 13-56 [facility] CO2 [Moles/Vol] 27.0 mmol/L 21.0-32.0 [facility] Cobalamin (Vitamin B12) [Mass/Vol] 475 pg/mL 211-911 [facility] Globulin (S) [Mass/Vol] 3.2 g/dL 2.2-4.2 [facility] Magnesium [Mass/Vol] 2.3 mg/dL 1.6-2.6 [facility] Urea nitrogen/Creatinine [Mass ratio] 30.6 mg/mg 10-20 [facility] - Hematology and Cell countsOrdered By: Man Carbone on 05-26-2022 Erythrocyte distribution width (RBC) [Entitic vol] 44.9 fL 35.1-43.9 [facility] Erythrocyte distribution width (RBC) [Ratio] 13.3 % 11.6-14.6 [facility] Immature granulocytes/100 WBC (Bld) 0.200 % 0.0-0.9 [facility] Comment on above: IG% - Immature Granu locytes (promyelocytes, myelocytes and metamyelocytes) > 1% indicates that a LEFT SHIFT is Present. MCH (RBC) [Entitic mass] 28.6 pg 27.0-32.0 [facility] Nucleated RBC/100 WBC (Bld) [Ratio] 0 % 0-5 [facility] MCHC Auto (RBC) [Mass/Vol]Or dered By: Man Carbone on 05-26-2022 MCHC (RBC) [Mass/Vol] 31.3 g/dL 32-36 [facility] No Panel InformationOrdered By: Man Carbone on 05-26-2022 Anti-Nuclear Antibody Screen Negative Negative [facility] Comment on above: Performed at: [facility] [address] [id number] Director: Vic Rodriguez PhD, Phone: [phone] Estimated GFR (MDRD) Amer 124 mL/min >60 [facility] Comment on above: GFR Calc Estimated GFR (MDRD) Non-Af Amer 103 mL/min >60 [facility] Comment on above: Non- GFR Calc Thyroid Stimulating Hormone (TSH) 3.71 uIU/mL 0.358-3.74 [facility] Platelets bldOrdered By: Dorcas Carbone on 05-26-2022 Platelets (Bld) [#/Vol] 240 10*3/uL 150-450 [facility] Serum cyclic citrullinated p eptide IgG antibody assay (units/volume)Ordered By: Man Carbone on 05-26-2022 Cyclic citrullinated peptide IgG Qn 5 units 0-19 [facility] Comment on above: Negative <20 Weak po sitive 20 - 39 Moderate positive 40 - 59 Strong positive >59Performed at: [facility] [id number] Director: Vic Rodriguez PhD, Phone: [phone] Serum or plasma C reactive p rotein measurement (mass/volume)Ordered By: Man Carbone on 05-26-2022 CRP [Mass/Vol] 3.93 mg/L 0.0-3.0 [facility] Comment on above: C-Reactive Protein ( CRP) provides useful information for thediagnosis, therapy and monitoring of inflammatory processesand associated diseases. For the evaluation of Relative Riskfor Cardiovascular Disease, a High Sensitivity CRP (HSCRP)should be ordered. Serum or plasma albumin melvin urement (mass/volume)Ordered By: Man Carbone on 05-26-2022 Albumin [Mass/Vol] 3.7 g/dL 3.2-5.0 [facility] Serum or plasma albumin/glob ulin mass ratioOrdered By: Man Carbone on 05-26-2022 Albumin/Globulin [Mass ratio] 1.2 {ratio} 0.9-2.4 [facility] Serum or plasma calcium melvin urement (mass/volume)Ordered By: Man Carbone on 05-26-2022 Calcium [Mass/Vol] 9.2 mg/dL 8.5-10.1 [facility] Serum or plasma creatinine m easurement (mass/volume)Ordered By: Man Carbone on 05-26-2022 Creatinine [Mass/Vol] 0.62 mg/dL 0.55-1.02 [facility] Comment on above: The validity of the calculated GFR & GFRAA in patients over 70 years has not been determined. Clinical correlation is essential. Serum or plasma urea nitroge n measurement (mass/volume)Ordered By: Man Carbone on 05-26-2022 Urea nitrogen [Mass/Vol] 19 mg/dL 7-18 [facility] Serum rheumatoid factor dete ctionOrdered By: Man Carbone on 05-26-2022 Rheumatoid factor Ql (S) < 10.0 IU/mL <15 [facility] Thin prep Papanicolaou smear with manual screeningOrdered By: Man Carbone on 05-26-2022 Thin prep Papanicolaou smear with manual screening 12 U/L 15-37 [facility] Thin prep Papanicolaou smear with manual screening 7 5-15 [facility] Laboratory - Chemistry and C hemistry - challengeon 09-03-2021 Cobalamin (Vitamin B12) [Mass/Vol] 405 pg/mL 211-911 [facility] Work Phone: No Panel Informationon 09-03 Vitamin D 25-Hydroxy 26.1 ng/mL [facility] Work Phone: Comment on above: Vitamin D 25(OH) Sta tus Range Deficiency <20 ng/mL (50nmol/L) Insufficiency 20 - 30 ng/mL (50 - 75 nmol/L) Sufficiency 30 - 100 ng/mL (75 - 250 nmol/L) Toxicity >100 ng/mL (>250 nmol/L) Basophil percentageon 2021 Bilirubin [Mass/Vol] 0.50 mg/dL 0.20-1.00 [facility] Work Phone: Comment on above: For patients on eltr ombopag therapy, use of Dimension [place] TBIL is not recommended. Chloride [Moles/Vol] 101 mmol/L 98-107 [facility] Work Phone: Glucose [Mass/Vol] 91 mg/dL 74-106 [facility] Work Phone: Potassium [Moles/Vol] 3.9 mmol/L 3.5-5.1 [facility] Work Phone: [phone] Protein [Mass/Vol] 7.3 g/dL 6.4-8.2 [facility] Work Phone: Sodium [Moles/Vol] 134 mmol/L 136-145 [facility] Work Phone: [phone] WBC (Bld) [#/Vol] 5.0 10*3/uL 4.4-11.0 [facility] Work Phone: [phone] Blood erythrocytes count (nu mber/volume)on 07-23-2021 RBC (Bld) [#/Vol] 4.37 10*6/uL 4.2-5.4 [facility] Work Phone: [phone] Blood hemoglobin measurement (mass/volume)on 07-23-2021 Hemoglobin (Bld) [Mass/Vol] 13.0 g/dL 12.0-15.0 [facility] Work Phone: [phone] Blood platelet mean volumeon 07-23-2021 Platelet mean volume (Bld) [Entitic vol] 9.8 fL 6.2-12.0 [facility] Work Phone: [phone] Determination of erythrocyte mean corpuscular volume (MCV)on 07-23-2021 MCV (RBC) [Entitic vol] 92.7 fL 81-99 [facility] Work Phone: [phone] Hematocrit Auto (Bld) [Volum e fraction]on 07-23-2021 Hematocrit (Bld) [Volume fraction] 40.5 % 37-47 [facility] Work Phone: [phone] Laboratory - Chemistry and C hemistry - challengeon 07-23-2021 ALP [Catalytic activity/Vol] 50 U/L 45-117 [facility] Work Phone: [phone] ALT [Catalytic activity/Vol] 26 U/L 13-56 [facility] Work Phone: [phone] CO2 [Moles/Vol] 29.0 mmol/L 21.0-32.0 [facility] Work Phone: [phone] Globulin (S) [Mass/Vol] 3.4 g/dL 2.2-4.2 [facility] Work Phone: [phone] Urea nitrogen/Creatinine [Mass ratio] 26.3 mg/mg 10-20 [facility] Work Phone: Laboratory - Hematology and Cell countson 07-23-2021 Erythrocyte distribution width (RBC) [Entitic vol] 43.4 fL 35.1-43.9 [facility] Work Phone: [phone] Erythrocyte distribution width (RBC) [Ratio] 12.7 % 11.6-14.6 [facility] Work Phone: [phone] MCH (RBC) [Entitic mass] 29.7 pg 27.0-32.0 [facility] Work Phone: [phone] MCHC Auto (RBC) [Mass/Vol]on 07-23-2021 MCHC (RBC) [Mass/Vol] 32.1 g/dL 32-36 [facility] Work Phone: No Panel Informationon 07-23 Estimated GFR (MDRD) Amer 93 mL/min >60 [facility] Work Phone: [phone] Comment on above: GFR Calc Estimated GFR (MDRD) Non-Af Amer 77 mL/min >60 [facility] Work Phone: [phone] Comment on above: Non- GFR Calc Thyroid Stimulating Hormone (TSH) 2.33 uIU/mL 0.358-3.74 [facility] Work Phone: Platelets bldon 07-23-2021 Platelets (Bld) [#/Vol] 259 10*3/uL 150-450 [facility] Work Phone: [phone] Serum or plasma albumin melvin urement (mass/volume)on 07-23-2021 Albumin [Mass/Vol] 3.9 g/dL 3.2-5.0 [facility] Work Phone: [phone] Serum or plasma albumin/glob ulin mass ratioon 07-23-2021 Albumin/Globulin [Mass ratio] 1.1 {ratio} 0.9-2.4 [facility] Work Phone: [phone] Serum or plasma calcium melvin urement (mass/volume)on 07-23-2021 Calcium [Mass/Vol] 9.2 mg/dL 8.5-10.1 [facility] Work Phone: Serum or plasma creatinine m easurement (mass/volume)on 07-23-2021 Creatinine [Mass/Vol] 0.80 mg/dL 0.55-1.02 [facility] Work Phone: Comment on above: The validity of the calculated GFR & GFRAA in patients over 70 years has not been determined. Clinical correlation is essential. Serum or plasma urea nitroge n measurement (mass/volume)on 07-23-2021 Urea nitrogen [Mass/Vol] 21 mg/dL 7-18 [facility] Work Phone: Thin prep Papanicolaou smear with manual screeningon 07-23-2021 Thin prep Papanicolaou smear with manual screening 15 U/L 15-37 [facility] Work Phone: Thin prep Papanicolaou smear with manual screening 4 5-15 [facility] Work Phone: No Panel Informationon 04-16 Miscellaneous Test Comment MAILED SPECIMEN [facility] Work Phone: Vital Signs Date Time Vital Sign Value Performing Clinician Facility 02-14-2025 11:33-0400 Body height 175 cm Coco Kat MD Work Phone: [facility] 02-14-2025 11:33-0400 Body height 175.26 cm Coco Kat MD Work Phone: [facility] 02-14-2025 11:33-0400 Body mass index (BMI) [Ratio] 26.97 kg/m2 Coco Kat MD Work Phone: [facility] 02-14-2025 11:33-0400 Body weight 83 kg Coco Kat MD Work Phone: [facility] 02-14-2025 11:33-0400 Body weight 82.56 kg Coco Kat MD Work Phone: [facility] 02-14-2025 11:33-0400 BP SITE #1 Coco Kat MD Work Phone: [facility] 02-14-2025 11:33-0400 Diastolic blood pressure 72 mm[Hg] Coco Kat MD Work Phone: [facility] 02-14-2025 11:33-0400 Heart rate 90 /min Coco Kat MD Work Phone: [facility] 02-14-2025 11:33-0400 HGHTCHNVIS Coco Kat MD Work Phone: [facility] 02-14-2025 11:33-0400 Systolic blood pressure 104 mm[Hg] Coco Kat MD Work Phone: [facility] 02-14-2025 11:33-0400 VITALSDONE Coco Kat MD Work Phone: [facility] 01-03-2025 14:51-0400 Body height 175 cm Lou Corrigall ARTILLERY SPECIALIST-TUBING SUPERVISOR Work Phone: [facility] 01-03-2025 14:51-0400 Body height 175.26 cm Lou Corrigall ARTILLERY SPECIALIST-TUBING SUPERVISOR Work Phone: [facility] 01-03-2025 14:51-0400 Body mass index (BMI) [Ratio] 26.97 kg/m2 Lou Corrigall ARTILLERY SPECIALIST-TUBING SUPERVISOR Work Phone: [facility] 01-03-2025 14:51-0400 Body weight 83 kg Lou Corrigall ARTILLERY SPECIALIST-TUBING SUPERVISOR Work Phone: [facility] 01-03-2025 14:51-0400 Body weight 82.56 kg Lou Corrigall ARTILLERY SPECIALIST-TUBING SUPERVISOR Work Phone: [facility] 01-03-2025 14:51-0400 BP SITE #1 Lou Corrigall ARTILLERY SPECIALIST-TUBING SUPERVISOR Work Phone: [facility] 01-03-2025 14:51-0400 Diastolic blood pressure 78 mm[Hg] Lou Corrigall ARTILLERY SPECIALIST-TUBING SUPERVISOR Work Phone: [facility] 01-03-2025 14:51-0400 Heart rate 81 /min Lou Corrigall ARTILLERY SPECIALIST-TUBING SUPERVISOR Work Phone: [facility] 01-03-2025 14:51-0400 HGHTCHNVIS Lou Corrigall ARTILLERY SPECIALIST-TUBING SUPERVISOR Work Phone: [facility] 01-03-2025 14:51-0400 Systolic blood pressure 125 mm[Hg] Lou Corrigall ARTILLERY SPECIALIST-TUBING SUPERVISOR Work Phone: [facility] 01-03-2025 14:51-0400 VITALSDONE Lou Corrigall ARTILLERY SPECIALIST-TUBING SUPERVISOR Work Phone: [facility] 12-31-2023 10:15-0400 Diastolic blood pressure 65 mm[Hg] Shaina Finelli DO Work Phone: [facility] 12-31-2023 10:15-0400 Heart rate 58 /min Shaina Finelli DO Work Phone: [facility] 12-31-2023 10:15-0400 SaO2% (BldA) [Mass fraction] 95 % Shaina Finelli DO Work Phone: [facility] 12-31-2023 10:15-0400 Systolic blood pressure 140 mm[Hg] Shaina Finelli DO Work Phone: [facility] 12-31-2023 10:00-0400 Respiratory rate 20 /min Shaina Finelli DO Work Phone: [facility] 12-31-2023 09:38-0400 Body temperature 97 [degF] Shaina Finelli DO Work Phone: [facility] 12-31-2023 07:17-0400 Body height 175.3 cm Shaina Finelli DO Work Phone: [facility] 12-31-2023 07:17-0400 Body mass index (BMI) [Ratio] 26.73 kg/m2 Shaina Finelli DO Work Phone: [facility] 12-31-2023 07:17-0400 Body weight 82.1 kg Shaina Finelli DO Work Phone: [facility] 12-21-2023 13:03-0400 Body mass index (BMI) [Ratio] 27.81 kg/m2 Julián Nichols MD Work Phone: [facility] 12-21-2023 13:03-0400 Body temperature 98.29 [degF] Julián Nichols MD Work Phone: [facility] 12-21-2023 13:03-0400 Body weight 85.41 kg Julián Nichols MD Work Phone: [facility] 12-21-2023 13:03-0400 Diastolic blood pressure 82 mm[Hg] Julián Nichols MD Work Phone: [facility] 12-21-2023 13:03-0400 Heart rate 62 /min Julián Nichols MD Work Phone: [facility] 12-21-2023 13:03-0400 SaO2% (BldA) [Mass fraction] 97 % Julián Nichols MD Work Phone: [facility] 12-21-2023 13:03-0400 Systolic blood pressure 132 mm[Hg] Julián Nichols MD Work Phone: [facility] 11-25-2023 09:59-0400 Body height 175.3 cm Debbi Patel ARTILLERY SPECIALIST.TUBING SUPERVISOR Work Phone: [facility] 11-25-2023 09:59-0400 Body mass index (BMI) [Ratio] 27.5 kg/m2 Debbi Leonid ARTILLERY SPECIALIST.TUBING SUPERVISOR Work Phone: [facility] 11-25-2023 09:59-0400 Body temperature 97.2 [degF] Debbi Leonid ARTILLERY SPECIALIST.TUBING SUPERVISOR Work Phone: [facility] 11-25-2023 09:59-0400 Body weight 84.46 kg Debbi Leonid ARTILLERY SPECIALIST.TUBING SUPERVISOR Work Phone: [facility] 11-25-2023 09:59-0400 Diastolic blood pressure 68 mm[Hg] Debbi Leonid ARTILLERY SPECIALIST.TUBING SUPERVISOR Work Phone: [facility] 11-25-2023 09:59-0400 Heart rate 66 /min Debbi Leonid ARTILLERY SPECIALIST.TUBING SUPERVISOR Work Phone: [facility] 11-25-2023 09:59-0400 SaO2% (BldA) [Mass fraction] 99 % Debbi Leonid ARTILLERY SPECIALIST.TUBING SUPERVISOR Work Phone: [facility] 11-25-2023 09:59-0400 Systolic blood pressure 118 mm[Hg] Debbi Leonid ARTILLERY SPECIALIST.TUBING SUPERVISOR Work Phone: [facility] 06-16-2023 11:21-0500 Body height 175.26 cm DO Man Tona Work Phone: [facility] 06-16-2023 11:21-0500 Body mass index (BMI) [Ratio] 27.4 kg/m2 DO Man Tona Work Phone: [facility] 06-16-2023 11:21-0500 Body weight 84.36 kg DO Man Tona Work Phone: [facility] 06-16-2023 11:21-0500 Diastolic blood pressure 77 mm[Hg] DO Man Tona Work Phone: [facility] 06-16-2023 11:21-0500 Heart rate 68 /min DO Man Tona Work Phone: [facility] 06-16-2023 11:21-0500 Respiratory rate 16 /min DO Man Tona Work Phone: [facility] 06-16-2023 11:21-0500 Systolic blood pressure 122 mm[Hg] DO Man Tona Work Phone: [facility] 04-26-2023 09:14-0500 Body height 175.26 cm DO Man Tona Work Phone: [facility] 04-26-2023 09:14-0500 Body mass index (BMI) [Ratio] 27 kg/m2 DO Man Tona Work Phone: [facility] 04-26-2023 09:14-0500 Body temperature 98.4 [degF] DO Man Tona Work Phone: [facility] 04-26-2023 09:14-0500 Body weight 83 kg DO Man Tona Work Phone: [facility] 04-26-2023 09:14-0500 Diastolic blood pressure 63 mm[Hg] DO Man Tona Work Phone: [facility] 04-26-2023 09:14-0500 Heart rate 71 /min DO Man Tona Work Phone: [facility] 04-26-2023 09:14-0500 SaO2% (BldA) [Mass fraction] 96 % DO Man Tona Work Phone: [facility] 04-26-2023 09:14-0500 Systolic blood pressure 98 mm[Hg] DO Man Tona Work Phone: [facility] 04-21-2023 13:22-0500 Body temperature 98 [degF] DO Man Tona Work Phone: [facility] 04-21-2023 13:22-0500 Diastolic blood pressure 87 mm[Hg] DO Man Tona Work Phone: [facility] 04-21-2023 13:22-0500 Heart rate 55 /min DO Man Tona Work Phone: [facility] 04-21-2023 13:22-0500 Respiratory rate 12 /min DO Man Tona Work Phone: [facility] 04-21-2023 13:22-0500 SaO2% (BldA) [Mass fraction] 97 % DO Man Tona Work Phone: [facility] 04-21-2023 13:22-0500 Systolic blood pressure 114 mm[Hg] DO Man Tona Work Phone: [facility] 04-21-2023 11:25-0500 Body temperature 98 [degF] DO Man Tona Work Phone: [facility] 04-21-2023 11:25-0500 Diastolic blood pressure 87 mm[Hg] DO Man Tona Work Phone: [facility] 04-21-2023 11:25-0500 Heart rate 55 /min DO Man Tona Work Phone: [facility] 04-21-2023 11:25-0500 Respiratory rate 12 /min DO Man Tona Work Phone: [facility] 04-21-2023 11:25-0500 SaO2% (BldA) [Mass fraction] 97 % DO Man Tona Work Phone: [facility] 04-21-2023 11:25-0500 Systolic blood pressure 114 mm[Hg] DO Man Tona Work Phone: [facility] 04-21-2023 05:32-0500 Body mass index (BMI) [Ratio] 27.8 kg/m2 DO Man Tona Work Phone: [facility] 04-21-2023 05:32-0500 Body weight 85.5 kg DO Man Tona Work Phone: [facility] 04-20-2023 11:25-0500 Body height 175.26 cm DO Man Tona Work Phone: [facility] 04-20-2023 10:44-0500 Diastolic blood pressure 71 mm[Hg] DO Man Tona Work Phone: [facility] 04-20-2023 10:44-0500 Heart rate 59 /min DO Man Tona Work Phone: [facility] 04-20-2023 10:44-0500 Respiratory rate 14 /min DO Man Otna Work Phone: [facility] 04-20-2023 10:44-0500 SaO2% (BldA) [Mass fraction] 96 % DO Man Tona Work Phone: [facility] 04-20-2023 10:44-0500 Systolic blood pressure 140 mm[Hg] DO Man Tona Work Phone: [facility] 04-20-2023 08:22-0500 Body height 175.26 cm DO Man Tona Work Phone: [facility] 04-20-2023 08:22-0500 Body mass index (BMI) [Ratio] 28.4 kg/m2 DO Man Tona Work Phone: [facility] 04-20-2023 08:22-0500 Body weight 87.3 kg DO Man Tona Work Phone: [facility] 04-20-2023 08:09-0500 Body temperature 97.7 [degF] DO Man Tona Work Phone: [facility] 03-23-2023 15:31-0500 Body mass index (BMI) [Ratio] 26.8 kg/m2 DO Man Tona Work Phone: [facility] 03-23-2023 15:31-0500 Body weight 83.63 kg DO Man Tona Work Phone: [facility] 03-23-2023 15:31-0500 Diastolic blood pressure 70 mm[Hg] DO Man Tona Work Phone: [facility] 03-23-2023 15:31-0500 Systolic blood pressure 116 mm[Hg] DO Man Yooner Work Phone: [facility] 08-31-2022 11:30-0400 Body height 172.7 cm Julián Nichols MD Work Phone: [facility] 08-31-2022 11:30-0400 Body temperature 97.7 [degF] Julián Nichols MD Work Phone: [facility] 08-31-2022 11:30-0400 Body weight 84.37 kg Julián Nichols MD Work Phone: [facility] 08-31-2022 11:30-0400 Diastolic blood pressure 81 mm[Hg] Julián Nichols MD Work Phone: [facility] 08-31-2022 11:30-0400 Heart rate 58 /min Julián Nichols MD Work Phone: [facility] 08-31-2022 11:30-0400 Systolic blood pressure 121 mm[Hg] Julián Nichols MD Work Phone: [facility] 08-04-2022 07:53-0400 Body height 176.53 cm DO Man Tona Work Phone: [facility] 08-04-2022 07:53-0400 Body mass index (BMI) [Ratio] 27.1 kg/m2 DO Man Tona Work Phone: [facility] 08-04-2022 07:53-0400 Body temperature 97.6 [degF] DO Man Tona Work Phone: [facility] 08-04-2022 07:53-0400 Body weight 84.36 kg DO Man Tona Work Phone: [facility] 08-04-2022 07:53-0400 Diastolic blood pressure 82 mm[Hg] DO Man Tona Work Phone: [facility] 08-04-2022 07:53-0400 Heart rate 50 /min DO Man Tona Work Phone: [facility] 08-04-2022 07:53-0400 Respiratory rate 18 /min DO Man Tona Work Phone: [facility] 08-04-2022 07:53-0400 SaO2% (BldA) [Mass fraction] 97 % DO Man Tona Work Phone: [facility] 08-04-2022 07:53-0400 Systolic blood pressure 119 mm[Hg] DO Man Tona Work Phone: [facility] 06-04-2022 06:24-0500 Body height 176.53 cm DO Man Tona Work Phone: [facility] 06-04-2022 06:24-0500 Body mass index (BMI) [Ratio] 27.1 kg/m2 DO Man Tona Work Phone: [facility] 06-04-2022 06:24-0500 Body temperature 97.6 [degF] DO Man Tona Work Phone: [facility] 06-04-2022 06:24-0500 Body weight 84.36 kg DO Man Tona Work Phone: [facility] 06-04-2022 06:24-0500 Diastolic blood pressure 71 mm[Hg] DO Man Tona Work Phone: [facility] 06-04-2022 06:24-0500 Heart rate 60 /min DO Man Tona Work Phone: [facility] 06-04-2022 06:24-0500 Respiratory rate 18 /min DO Man Tona Work Phone: [facility] 06-04-2022 06:24-0500 SaO2% (BldA) [Mass fraction] 98 % DO Man Tona Work Phone: [facility] 06-04-2022 06:24-0500 Systolic blood pressure 112 mm[Hg] DO Man Tona Work Phone: [facility] 04-16-2021 09:14-0500 Body height 176.[address] Taran Stephenson Work Phone: [facility] Work Phone: 04-16-2021 09:14-0500 Body mass index (BMI) [Ratio] 26.4 kg/m2 Dr. Taran Stephenson Work Phone: [facility] Work Phone: 04-16-2021 09:14-0500 Body weight 82.[address] Taran Stephenson Work Phone: [facility] Work Phone: 04-16-2021 09:14-0500 Diastolic blood pressure 70 mm[Hg] Dr. Taran Stephenson Work Phone: [facility] Work Phone: 04-16-2021 09:14-0500 Systolic blood pressure 118 mm[Hg] Dr. Taran Stephenson Work Phone: [facility] Work Phone: Encounters Encounter Date Encounter Type Care Provider Facility Start: 02-14-2025 Visit out of hours Coco Caicedo MD Work Phone: [employer] Work Phone: Start: 02-14-2025 In-person encounter Coco guerrero MD Work Phone: [facility] Work Phone: Start: 01-10-2025 Visit out of hours Lou ugarte ARTILLERY SPECIALIST-TUBING SUPERVISOR Work Phone: [employer] Work Phone: Start: 01-03-2025 In-person encounter Lou villalba ARTILLERY SPECIALIST-TUBING SUPERVISOR Work Phone: [facility] [place] [facility] Work Phone: Start: 12-20-2024 End: 12-21-2024 Refill Julián Nichols MD Work Phone: [facility] [place] Comment on above: Refill Request Start: 07-25-2024 End: 07-25-2024 ambulatory Varsha Calderon NP Facility:[facility] Start: 07-23-2024 End: 07-24-2024 ambulatory Oj Ron MD Work Phone: Neurology Comment on above: Amitriptyline Start: 06-07-2024 End: 06-07-2024 ambulatory Meg Raymond NP Facility:[facility] Start: 05-29-2024 End: 05-30-2024 ambulatory Lara Luis Facility:[facility] Start: 05-10-2024 End: 05-10-2024 ambulatory Lara Luis Facility:[facility] Start: 03-07-2024 End: 03-07-2024 ambulatory Irineo Shepard Facility:[facility] Start: 01-24-2024 End: 01-24-2024 ambulatory Nu Swanson Facility:[facility] Start: 01-22-2024 End: 01-22-2024 ambulatory Nu Swanson Facility:[facility] Start: 01-18-2024 End: 01-18-2024 ambulatory Nu Swanson Facility:[facility] Start: 01-18-2024 End: 01-18-2024 ambulatory Nu Swanson Facility:[facility] Start: 01-10-2024 End: 01-10-2024 Telephone encounter Debbi Patel APRN.CNP Work Phone: General Surgery Comment on above: Appointment Start: 01-10-2024 End: 01-10-2024 ambulatory DEBBI PATEL Facility:[facility] Start: 01-10-2024 End: 01-10-2024 Patient encounter procedure Debbi Patel APRN.TUBING SUPERVISOR Work Phone: General Surgery Comment on above: Gastroesophageal ref lux disease, unspecified whether esophagitis present (Primary Dx); Adenomatous polyp of colon, unspecified part of colon; Redundant colon; Constipation, unspecified constipation type Start: 12-31-2023 ambulatory LARA SEGAL Facility:[facility] Start: 12-31-2023 End: 12-31-2023 Subsequent hospital visit by physician Shaina Pate DO Work Phone: [facility] Endoscopy Comment on above: Constipation, unspec ified constipation type [K59.00] Start: 12-30-2023 End: 12-30-2023 Telephone encounter Shaina Ptae DO Work Phone: General Surgery Comment on above: Patient Question Start: 12-21-2023 End: 12-21-2023 Patient encounter procedure Julián Nichols MD Work Phone: [facility] Ar[facility]ritis & Rheumatology Comment on above: Palindromic rheumati sm (Primary Dx) Start: 12-21-2023 End: 12-21-2023 ambulatory JULIÁN NICHOLS Facility:[facility] Start: 11-25-2023 End: 11-25-2023 Patient encounter procedure Debbi Patel APRN.CNP Work Phone: General Surgery Comment on above: Constipation, unspec ified constipation type (Primary Dx); Nausea; Upset stomach; Gastroesophageal reflux disease, unspecified whether esophagitis present Start: 11-25-2023 End: 11-25-2023 ambulatory DEBBI PATEL Facility:[facility] Start: 11-23-2023 End: 11-23-2023 Emergency department patient visit Alek Kg Facility:[facility] Start: 07-27-2023 End: 07-27-2023 ambulatory Man Carbone Facility:[facility] Start: 06-22-2023 Non-patient / Non-visit DO Dorcas Carbone Work Phone: [facility] Start: 06-22-2023 End: 06-22-2023 ambulatory DO Man Carbone Work Phone: [facility] Work Phone: Start: 06-22-2023 End: 06-22-2023 Patient encounter procedure DO Man Carbone Work Phone: [facility]Cardiovascula [facility] Services Work Phone: Start: 06-16-2023 End: 06-16-2023 Patient encounter procedure DO Man Yooner Work Phone: [facility] Work Phone: Start: 05-15-2023 End: 05-15-2023 Emergency department patient visit TARAN GALICIA Facility:[facility] Start: 05-11-2023 End: 05-11-2023 ambulatory DO Man Carbone Work Phone: [facility] Work Phone: Start: 05-11-2023 End: 05-11-2023 Patient encounter procedure DO Man Yooner Work Phone: [facility]-Outpatient Bone Densitometry Work Phone: Start: 04-29-2023 End: 04-29-2023 ambulatory DO Man Carbone Work Phone: [facility] Work Phone: Start: 04-29-2023 End: 04-29-2023 Patient encounter procedure DO Man Carbone Work Phone: [facility]Ul[facility]ound, [facility] Work Phone: Start: 04-26-2023 End: 04-26-2023 ambulatory DO Man Carbone Work Phone: [facility] Work Phone: Start: 04-26-2023 End: 04-26-2023 Patient encounter procedure DO Man Yooner Work Phone: [facility] Endocrinology Work Phone: Start: 04-23-2023 End: 04-23-2023 Emergency department patient visit TINA VINCENT Facility:[facility] Start: 04-21-2023 Non-patient / Non-visit DO Dorcas Yooner Work Phone: [facility] Work Phone: Start: 04-20-2023 Non-patient / Non-visit DO Dorcas penan Tona Work Phone: [facility] Work Phone: Start: 04-20-2023 End: 04-21-2023 Evaluation and management of inpatient DO Man Carbone Work Phone: [facility]-Progressive Care Unit Work Phone: Start: 04-20-2023 End: 04-21-2023 observation encounter DO Man Hahnnger Work Phone: [facility] Work Phone: Start: 03-23-2023 End: 03-23-2023 Patient encounter procedure DO Man Carbone Work Phone: [facility] [place] [facility] Work Phone: Start: 02-24-2023 End: 02-24-2023 ambulatory [facility] Work Phone: Start: 02-24-2023 End: 02-24-2023 Patient encounter procedure [facility] Breast [facility] Work Phone: Start: 01-19-2023 Refill Julián ventura MD Work Phone: [facility] [place] Comment on above: Refill Request Start: 12-22-2022 End: 12-22-2022 ambulatory INDERGABRIELLE NICHOLS Facility:[facility] Start: 08-31-2022 End: 08-31-2022 Patient encounter procedure Julián Nichols MD Work Phone: [facility] [place] Comment on above: Palindromic rheumati sm (Primary Dx) Start: 08-28-2022 ambulatory Facility:[facility] Start: 08-21-2022 End: 08-21-2022 ambulatory DO Man Segura Tona Work Phone: [facility] Work Phone: Start: 08-21-2022 End: 08-21-2022 Patient encounter [facility] Start: 08-20-2022 End: 08-20-2022 Patient encounter procedure [facility] Start: 08-19-2022 End: 08-19-2022 ambulatory DO Man Carbone Work Phone: [facility] Work Phone: Start: 08-19-2022 End: 08-19-2022 Patient encounter procedure DO Man Carbone Work Phone: [facility] Start: 08-18-2022 End: 08-18-2022 ambulatory DO Man Carbone Work Phone: [facility] Work Phone: Start: 08-18-2022 End: 08-18-2022 Patient encounter procedure DO Man [facility] Start: 08-04-2022 End: 08-04-2022 Patient encounter procedure DO Man Carbone Work Phone: [facility] Start: 06-23-2022 End: 06-23-2022 ambulatory DO Man Carbone Work Phone: [facility] Work Phone: Start: 06-23-2022 End: 06-23-2022 Patient encounter procedure DO Man Yooner [facility] Start: 06-04-2022 End: 06-04-2022 Patient encounter procedure DO Man Yooner [facility] Start: 05-26-2022 End: 05-26-2022 Patient encounter procedure DO Man Yooner Work Phone: [facility] Start: 09-03-2021 End: 09-03-2021 Patient encounter procedure [facility] Start: 07-23-2021 End: 07-23-[address] Taran Stephenson Work Phone: [facility] Start: 04-16-2021 End: 04-16-[address] Taran Stephenson Work Phone: [facility] Procedures Date Procedure Procedure Detail Performing Clinician Start: 02-14-2025 Blood pressure within normal parameters - no follow-up required Coco Kat MD Work Phone: Start: 02-14-2025 BMI outside of normal parameters - no follow-up plan/reason not given Coco Kat MD Work Phone: Start: 02-14-2025 Current tobacco non-user cad cap copd pv dm Coco Kat MD Work Phone: Start: 02-14-2025 Documentation of current medications Coco Kat MD Work Phone: Start: 02-14-2025 Falls plan of care not done for unspecified reasons Coco Kat MD Work Phone: Start: 02-14-2025 Falls risk not documented - reason not given Coco Kat MD Work Phone: Start: 02-14-2025 Pain assessment documented as negative - follow-up not required Coco Kat MD Work Phone: Start: 02-14-2025 Pt falls assess docd 2/> falls/fall w/injury/yr Coco Kat MD Work Phone: Start: 01-10-2025 Blood pressure within normal parameters - no follow-up required Lou Corrigall ARTILLERY SPECIALIST-TUBING SUPERVISOR Work Phone: Start: 01-10-2025 BMI documented as above normal parameters - follow-up documented Lou Corrigall ARTILLERY SPECIALIST-TUBING SUPERVISOR Work Phone: Start: 01-10-2025 Current tobacco non-user cad cap copd pv dm Lou Corrigall ARTILLERY SPECIALIST-TUBING SUPERVISOR Work Phone: Start: 01-10-2025 Documentation of current medications Lou Luna ARTILLERY SPECIALIST-TUBING SUPERVISOR Work Phone: Start: 01-10-2025 Pain assessment documented as positive - follow-up documented Lou Luna ARTILLERY SPECIALIST-TUBING SUPERVISOR Work Phone: Start: 12-31-2023 Colonoscopy flx dx w/collj spec when pfrmd Debbi Patel ARTILLERY SPECIALIST.TUBING SUPERVISOR Work Phone: Start: 12-31-2023 Esophagogastroduodenoscopy transoral diagnostic Debbi Patel ARTILLERY SPECIALIST.TUBING SUPERVISOR Work Phone: Start: 12-31-2023 Colonoscopy Shaina Tatiannalli DO Work Phone: Start: 05-11-2023 Dual energy X-ray absorptiometry DO Mazin Carbone Work Phone: Start: 04-29-2023 US scan of thyroid DO Man Carbone Work Phone: Start: 04-20-2023 MRI of brain without contrast DO Man Carbone Work Phone: Start: 04-20-2023 Plain chest X-ray DO aMn Carbone Work Phone: Start: 04-20-2023 CT angiography of head and neck DO Urszula Carbone Work Phone: Start: 04-20-2023 CT of head without contrast DO Man redd Work Phone: Start: 02-24-2023 Screening mammography Start: 08-19-2022 Plain x-ray of wrist DO Man Carbone Work Phone: Start: 11-26-2015 Mammography Julián Nichols MD Work Phone: Start: 12-20-2014 Lipid 1996 panel - Serum or Plasma Aurora Nichols MD Work Phone: Start: 01-06-2013 Colonoscopy Julián Nichols MD Work Phone: Anaerobic microbial culture DO Man Carbone Work Phone: Bacterial culture DO Man Carbone Work Phone: Investigation of tra nsfusion reaction DO Man Carbone Work Phone: Plan of Treatment Date Care Activity Detail Author Start: 12-30-2033 Screening for malignant neoplasm of colon [facility] Start: 12-01-2032 Urine microalbumin profile DTaP,Tdap,Td Vaccine (2 - Td or Tdap) [facility] Start: 12-15-2031 RSV Vaccine (1 - 1-dose 75+ series) RSV Vaccine (1 - 1-dose 75+ series) [facility] Start: 05-15-2026 Diabetes Screening Diabetes Screening [facility] Start: 09-01-2025 Diabetes Screening Diabetes Screening [facility] Start: 04-10-2025 End: 04-10-2025 Patient encounter procedure 04/10/2025 1:40 PM EST Office Visit [facility] [address] [place] [address] Julián Nichols MD [address] [place], [place] [id number] Follow up [facility] Comment on above: Follow up Start: 02-14-2025 End: 02-14-2025 Noah. Work Phone: Start: 02-14-2025 Dxa bone density study 1/> sites [facility] Noah. Work Phone: Start: 12-18-2024 Influenza vaccination Influenza Vaccine (#1) [facility] Start: 11-24-2024 BP Controlled (<130/80) BP Controlled (<130/80) [facility] Start: 04-19-2024 Advance Directive Discussion Advance Directive Discussion [facility] Start: 12-31-2023 End: 12-31-2023 Patient encounter procedure [facility] Comment on above: Nausea [R11.0]; Upset stomach [K30]; Gas troesophageal reflux disease, unspecified whether esophagitis present Start: 12-23-2023 BP Controlled (<130/80) BP Controlled (<130/80) [facility] Start: 12-21-2023 End: 12-21-2023 Patient encounter procedure 12/21/2023 1:00 PM EDT Office Visit [facility] [address] [place], [place] [id number] Julián Nichols MD [address] [place] [address] 1 year [facility] Comment on above: 1 year Start: 12-19-2023 Covid-19 Vaccine () Covid-19 Vaccine () [facility] Start: 12-19-2023 Covid-19 Vaccine () Covid-19 Vaccine () [facility] Start: 12-19-2023 Influenza vaccination Influenza Vaccine (#1) [facility] Start: 04-21-2023 Patient discharge [facility] Start: 04-21-2023 Following clinical pathway protocol [facility] Start: 04-20-2023 Continuous positive airway pressure ventilation treatment [facility] Start: 04-20-2023 Following clinical pathway protocol [facility] Start: 04-20-2023 Ambulation without limitation [facility] Start: 04-20-2023 Assessment of risk of venous thromboembolism [facility] Start: 04-20-2023 Cardiac monitoring [facility] Start: 04-20-2023 Catheterization of vein [facility] Start: 04-20-2023 Continuous pulse oximetry [facility] Start: 04-20-2023 Elevation of head of bed [facility] Start: 04-20-2023 Exercises [facility] Start: 04-20-2023 Implementation of planned interventions [facility] Start: 04-20-2023 Insertion of catheter into peripheral vein [facility] Start: 04-20-2023 Measuring intake and output [facility] Start: 04-20-2023 Notification of physician [facility] Start: 04-20-2023 Oxygen therapy [facility] Start: 04-20-2023 Providing care according to standard [facility] Start: 04-20-2023 Referral to occupational therapist [facility] Start: 04-20-2023 Referral to service [facility] Start: 04-20-2023 Telemedicine consultation with patient [facility] Start: 04-20-2023 Tobacco use cessation education [facility] Start: 04-20-2023 [facility] Start: 04-20-2023 Vital signs measurements [facility] Start: 04-20-2023 MRI of brain without contrast Brain without Contrast [facility] Start: 04-20-2023 Hospital admission, emergency, from emergency room, medical nature [facility] Start: 04-20-2023 Verification routine [facility] Start: 04-20-2023 Admission procedure [facility] Start: 04-20-2023 Oxygen therapy [facility] Start: 04-20-2023 End: 04-20-2023 [facility] Start: 04-19-2023 Advance Directive Discussion Advance Directive Discussion [facility] Start: 01-06-2023 Colonoscopy COLONOSCOPY [facility] Start: 01-06-2023 COLORECTAL CANCER SCREENING COLORECTAL CANCER SCREENING [facility] Start: 01-06-2023 Screening for malignant neoplasm of colon [facility] Start: 12-18-2022 Covid-19 Vaccine ( season) Covid-19 Vaccine () [facility] Start: 12-18-2022 Influenza vaccination [facility] Start: 08-31-2022 End: 10-31-2022 C reactive protein [Mass/volume] in Serum or Plasma C-REACTIVE PROTEIN (CRP) Lab Routine Palindromic rheumatism Expected: 08/31/2022, Expires: 10/31/2022 [facility] Work Phone: Comment on above: Expected: 08/31/2022, Expires: 3 Start: 08-31-2022 End: 10-31-2022 CBC W Auto Differential panel - Blood CBC + DIFF Lab Routine Palindromic rheumatism Expected: 08/31/2022, Expires: 10/31/2022 [facility] Work Phone: Comment on above: Expected: 08/31/2022, Expires: 3 Start: 08-31-2022 End: 10-31-2022 Comprehensive metabolic 2000 panel - Serum or Plasma COMP METABOLIC PANEL Lab Routine Palindromic rheumatism Expected: 08/31/2022, Expires: 10/31/2022 [facility] Work Phone: Comment on above: Expected: 08/31/2022, Expires: 3 Start: 08-31-2022 End: 10-31-2022 Erythrocyte sedimentation rate SED RATE WESTERGREN Lab Routine Palindromic rheumatism Expected: 08/31/2022, Expires: 10/31/2022 [facility] Work Phone: Comment on above: Expected: 08/31/2022, Expires: 3 Start: 08-31-2022 End: 10-31-2022 Hepatitis B virus surface Ag [Presence] in Serum HEP B SURF AG SCRN Lab Routine Palindromic rheumatism Expected: 08/31/2022, Expires: 10/31/2022 [facility] Work Phone: Comment on above: Expected: 08/31/2022, Expires: 3 Start: 08-31-2022 End: 10-31-2022 Hepatitis C virus Ab [Presence] in Serum HEP C AB IA W/CONF SCRN Lab Routine Palindromic rheumatism Expected: 08/31/2022, Expires: 10/31/2022 [facility] Work Phone: Comment on above: Expected: 08/31/2022, Expires: 3 Start: 08-31-2022 End: 10-31-2022 Urate [Mass/volume] in Serum or Plasma URIC ACID BLOOD Lab Routine Palindromic rheumatism Expected: 08/31/2022, Expires: 10/31/2022 [facility] Work Phone: Comment on above: Expected: 08/31/2022, Expires: 3 Start: 08-21-2022 [facility] Start: 04-19-2022 ADVANCE DIRECTIVE DISCUSSION ADVANCE DIRECTIVE DISCUSSION [facility] Start: 04-19-2022 DEPRESSION ASSESSMENT DEPRESSION ASSESSMENT [facility] Start: 2021 BONE DENSITY BONE DENSITY [facility] Start: 08-28-2022 Bone Density Screening Bone Density Screening [facility] Start: 2021 Pneumococcal Vaccine: 65+ (1 - PCV) Pneumococcal Vaccine: 65+ (1 - PCV) [facility] Start: 2021 Pneumococcal Vaccine: 65+ (1 of 1 - PCV) Pneumococcal Vaccine: 65+ (1 of 1 - PCV) [facility] Start: 2021 PNEUMOCOCCAL: 65+ (1 - PCV) PNEUMOCOCCAL: 65+ (1 - PCV) [facility] Start: 2021 Screening for osteoporosis Bone Density Screening [facility] Start: 11-17-2021 Medicare Annual Wellness Visit Medicare Annual Wellness Visit [facility] Start: 07-19-2020 COVID-19 VACCINE (3 - Booster for Moderna series) COVID-19 VACCINE (3 - Booster for Moderna series) [facility] Start: 07-19-2020 Covid-19 Vaccine (3 - Moderna series) Covid-19 Vaccine (3 - Moderna series) [facility] Start: 12-21-2019 Lipid 1996 panel - Serum or Plasma Lipid Screening [facility] Start: 12-21-2019 Lipid panel Lipid Screening [facility] Start: 12-21-2019 LIPID SCREEN LIPID SCREEN [facility] Start: 12-13-2018 DIABETES SCREEN DIABETES SCREEN [facility] Start: 2016 RSV Vaccine (1 - 1-dose 60+ series) RSV Vaccine (1 - 1-dose 60+ series) [facility] Start: 11-25-2016 Mammography [facility] Start: 11-25-2016 Screening for malignant neoplasm of breast Mammogram Screening [facility] Start: 2006 Pneumococcal Vaccine: 50+ (1 of 1 - PCV) Pneumococcal Vaccine: 50+ (1 of 1 - PCV) [facility] Start: 2006 SHINGRIX VACCINE (1 of 2) SHINGRIX VACCINE (1 of 2) [facility] Start: 2001 COLOGUARD (FIT-DNA) COLOGUARD (FIT-DNA) [facility] Start: [address] COLONOGRAPHY [facility] Start: 2001 FECAL OCCULT BLOOD FECAL OCCULT BLOOD [facility] Start: 2001 Screening for malignant neoplasm of colon [facility] Start: 2001 SIGMOIDOSCOPY SIGMOIDOSCOPY [facility] Start: 12-15-1975 Urine microalbumin profile [facility] Start: 1974 ANNUAL PCP TEAM CHRONIC DISEASE VISIT ANNUAL PCP TEAM CHRONIC DISEASE VISIT [facility] Start: 1974 Anxiety Screening Anxiety Screening [facility] Start: 1974 BP CONTROLLED (<130/80) BP CONTROLLED (<130/80) [facility] Start: 1974 Depression Screening Depression Screening [facility] Start: 1974 HEPATITIS C SCREENING HEPATITIS C SCREENING [facility] Start: 1974 HIV SCREENING HIV SCREENING [facility] Acid fast bacilli culture [facility] Anaerobic microbial culture Anaerobic Culture [facility] Bacterial culture Body Fluid Culture [facility] DXA Bone [Mass/Area] Bone density [facility] End: 11-24-2024 EGD DIAGNOSTIC EGD DIAGNOSTIC Endoscopy Routine Nausea Upset stomach Gastroesophageal reflux disease, unspecified whether esophagitis present 1 Occurrences starting 11/25/2023 until 11/24/2024 [facility] Comment on above: 1 Occurrences starting 11/25/2023 until 11/24/2024 End: 11-24-2024 Flexible sigmoidoscopy study COLONOSCOPY DIAGNOSTIC Endoscopy Routine Constipation, unspecified constipation type 1 Occurrences starting 11/25/2023 until 11/24/2024 [facility] Work Phone: Comment on above: 1 Occurrences starting 11/25/2023 until 11/24/2024 Hemoglobin A1c/Hemoglobin.total in Blood [facility] Mycobacterium sp identified in Unspecified specimen by Organism specific culture [facility] Patient referral [facility] Work Phone: SURGICAL PATHOLOGY [facility] Work Phone: Comment on above: Release Upon Ordering for 1 Occurrences starting 12/31/2023, 1 [facility] Immunizations Immunization Date Immunization Notes Care Provider Fa raghu 03-26-2021 influenza virus vaccine, unspecified formulation Julián Nichols MD Work Phone: [facility] 02-17-[address] Taran Stephenson Work Phone: [facility] Payers Date Payer Category Payer Self-pay [id number] 2021 Blue [employer] Blue [employer] ANTHEM ME DICARE SUPPLEMENT Member Subscriber Plan / Payer (Effective 2021-Present) Name: Leana Mancera Relation to Subscriber: Self Name: Leana Mancera Payer ID: [id number] (NAIC) Group ID: [id number] Type: Indemnity Address: [place] [id number] 2021 Medicare [id number] 2021 Unknown ANTHEM ANTHEM ME DICARE SUPPLEMENT [id number] 2021-Present [phone] [address] [place] [id number] Indemnity [id number] 2021 Medicare [id number] 2021 Unknown [id number] 2012 Unknown [id number] 1955 Unknown [id number] 594 Unknown [id number] Unknown [id number] 462 Unknown [id number] [id number]. 462 Unknown [id number] [id number]. 462 Unknown [id number] [id number]. 462 Unknown [id number] [id number]. 462 Unknown [id number]. 462 Unknown [id number] 2.16.840.1.302932.3.579.2. 462 Unknown [id number] [id number]. 462 Unknown [id number] 2.16.840.1.190750.3.579.2. 462 Unknown [id number] [id number]. 462 Unknown [id number] [id number]. 462 Unknown [id number]. 462 Unknown [id number]. 462 Social History Date Type Detail Facility Start: 04-16-2021 End: 06-16-2023 Tobacco smoking status NJIS Unknown if ever smoked [facility] Start: 04-03-2019 Non-smoker [facility] Start: 1955 Sex Assigned At Female [facility] Start: 06-12-2013 End: 04-26-2023 Tobacco smoking status NHIS Never smoked tobacco [facility] Start: 06-12-2013 End: 04-26-2023 Tobacco use and exposure Smokeless tobacco non-user [facility] Start: 08-31-2022 End: 01-07-2024 Alcohol intake Current drinker of alcohol (finding) [facility] Start: 08-31-2022 Alcohol Comment [facility] 1955 Sex Assigned At Not on file [facility] Start: 08-31-2022 End: 01-07-2024 History of Social function [facility] Start: 08-31-2022 End: 02-14-2025 Tobacco use panel [facility] Start: 03-20-2012 National Score (1-100), lower number is lower risk 66 [facility] Goals Date Patient Goal Desired Activity /State Functional Status Date Assessment Result Facility 02-14-2025 Functional Status without [facility] Work Phone: 02-14-2025 dependent [facility] Work Phone: 01-03-2025 Functional Status with [facility] Work Phone: 01-03-2025 dependent [facility] Work Phone: 04-21-2023 Functional status Ambulates [facility] Work Phone: 05-07-2014 Are you deaf, or do you have serious difficulty hearing No 05/07/2014 3:43 PM Evgeny Patton No [facility] 05-07-2014 Are you blind, or do you have serious difficulty seeing, even when wearing glasses No 05/07/2014 3:43 PM Evgeny Patton No [facility] 05-07-2014 Do you have serious difficulty walking or climbing stairs No 05/07/2014 3:43 PM Evgeny Patton [facility] 05-07-2014 Do you have difficul ty dressing or bathing No 05/07/2014 3:43 PM Evgeny Patton [facility] 05-07-2014 Because of a physica l, mental, or emotional condition, do you have difficulty doing errands alone such as visiting a physician's office or shopping No 05/07/2014 3:43 PM Evgeny Patton [facility] Mental Status Date Assessment Result Facility 04-21-2023 Cognitive function Voice/Name [facility] Work Phone: 04-20-2023 Cognitive function Level Of Cons ciousness Awake;Alert;Appropriate;Fol lows Commands [facility] Work Phone: 05-07-2014 Because of a physica l, mental, or emotional condition, do you have serious difficulty concentrating, remembering, or making decisions No 05/07/2014 3:43 PM Evgeny Patton [facility] Clinical Notes 08-31-2022 to 12-21-2024 Telephone Encounter - Sariah Hernandez MA - 12/21/2024 9:56 AM EDTTelephone Encounter - Sariah Hernandez MA - 12/21/2024 9:56 AM EDTTelephone Encounter - Sariah Hernandez MA - 12/21/2024 9:55 AM EDT Note Date & Type Note Facility 12-21-2024 Telephone encounter Note 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 Now having a lot of joint pain. She is setting up an appointment to see you but wants to start back on Hydroxychloroquine again. 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 Now having a lot of joint pain. She is setting up an appointment to see you but wants to start back on Hydroxychloroquine again. Patient called requesting the following refill. Requested Prescriptions Pending Prescriptions Disp Refills hydrOXYchloroQUINE (PLAQUENIL) 200 mg tablet [Pharmacy Med Name: hydroxychloroquine 200 mg tablet] 60 tablet 2 Sig: Take 1 tablet by mouth two times a day. Patient last appointment: 12/21/2023 Next Appointment: Visit date not found Patient Phone numbers: [phone] (home) Request is for script(s) to be escript to pharmacy. Sariah Hernandez MA I left message with patient. Supposed to be off of this medication. Is she having a flare. I left my extension for patient to call me back [phone] documented in this encounter [facility] 12-21-2024 Telephone encounter Note Patient called requesting the following refill. Requested Prescriptions Pending Prescriptions Disp Refills hydrOXYchloroQUINE (PLAQUENIL) 200 mg tablet [Pharmacy Med Name: hydroxychloroquine 200 mg tablet] 60 tablet 2 Sig: Take 1 tablet by mouth two times a day. Patient last appointment: 12/21/2023 Next Appointment: Visit date not found Patient Phone numbers: [phone] (home) Request is for script(s) to be escript to pharmacy. Sariah Hernandez MA [facility] 12-20-2024 Telephone encounter Note I left message with patient. Supposed to be off of this medication. Is she having a flare. I left my extension for patient to call me back [phone] [facility] 03-07-2024 Note [facility] Medical Records Department [address] [place] [address] History Physical Exam 03/07/24 0637 MR#: [id number] Acct: [id number] Name: LEANA MANCEAR Rep #: [id number] : [id number] From: Irineo Friend DO PCP: Dr. Clement Oneal MD Status:[facility] Location: [place] [address] History and Physical Date of Admission: 03/07/24 Chief Complaint: Constipation, bloating Details: LEANA MANCERA is a 68 F who presents to the office today for establishment with [facility] with complaints abdominal bloating and constipation. She reports a visit to the emergency department on 11/23/23 for no bowel movement over [address] showed no acute abdominal or pelvic abnormality, but did show a subcapsular mass in the right lobe of the liver, possibly a hemangioma. ER physician offered SSE but she refused. 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 She was then advised to consume 1/2 a bottle of Miralax, as for a colonoscopy prep, and she reports clearing her abdomen of stool after that. Today, she states that it's been 6 days since her last BM and she's attempted to use Miralax daily dosing without results. She reports taking a probiotic, eating plenty of fiber with her meals and she is active with bicycling. She denies difficulty chewing, swallowing, excessive gas, hematochezia and melena. She reports history of GERD, last EGD showed small hiatal hernia, gastric polyps, and tissue changes at gastroesophageal junction(negative for Ascencio's). Colonoscopy showed diverticulosis, internal nonbleeding hemorrhoids, and 2 1-3mm polyps(one being tubular adenoma). ROS Const Constitutional: Positive for fatigue and decreased energy; No abnormal sleep pattern Eyes Eyes: No change in vision ENT ENT: No abnormal hearing or difficulty swallowing Resp Respiratory: No cough Cardio Cardiology: No chest pain at rest, chest pain with exertion or leg pain with exertion Gastro GI: Positive for bloating, change in bowel habits, constipation, heartburn and nausea/dyspepsia; No coffee ground emesis, diarrhea, difficulty swallowing, feeling full early, excessive flatus, incontinent of stools, Vomiting blood/hematemesis, Blood in stool, loose stools, Black,tarry stools, pain with swallowing or vomiting Genitourinary-Female: No difficulty urinating Musc Musculoskeletal: No abnormal gait or leg pain with exertion Skin Skin: No yellowing of the eye or itchy eyes Neuro Neurology: No abnormal gait or abnormal hearing Psych Psychiatric: No abnormal sleep pattern Endo Endocrine: Positive for change in body appearance and fatigue Aller/Imm Allergy/Immunologic: No food intolerance or itchy eyes Odilon/Lymp Hematologic/Lymphatic: No easy bleeding or easy bruising Exam Const General: cooperative, healthy appearing and comfortable Nutritional Appearance: average body habitus and overweight Orientation: alert [facility] Head: normal to inspection Ears: hearing grossly normal bilaterally Nose: external nose normal Face and sinus: normal facial exam and face symmetric Mouth: oral mucosae normal Eyes General: appearance normal, both eyes and all related structures Sclera: sclerae normal Neck Neck: normal visual inspection and full ROM Neck mass: No Chest Chest palpation inspection: normal inspection of the chest Resp Effort Inspection: normal respiratory effort, able to speak in complete sentences and symmetric chest movement GI Inspection: normal to inspection and distended Auscultation: normal bowel sounds Palpation: soft and no hepatosplenomegaly Skin General: no rashes or lesions noted Neuro General: patient alert, patient awake and patient oriented x3 Cognition: normal cognition Speech: speech normal Gait: normal gait Motor: muscle tone normal throughout Extrem General: full ROM Psych Appearance: well kempt Mood: congruent mood Affect: normal affect Speech and Movement: speech and movement normal Attitude: cooperative Thought Process: normal Assessment and Plan Assessment and Plan (1) Constipation: Status: Acute Qualifiers: Constipation type: unspecified constipation type Qualified Code(s): K59.00 - Constipation, unspecified Plan: LEANA MANCERA, is a 68 F who presents to the office today for establishment with [facility] with complaints abdominal bloating and constipation. She reports a visit to the emergency department on 11/23/23 for no bowel movement over [address] showed no acute abdominal or pelvic abnormality, but did show a subcapsular mass in the right lobe of the liver, possibly a hemangioma. Differential diagnoses include: pelvic floor dysfunction, IBS-D, IBD, CIC. * order blood for allergy, hormone, IBS/D panel, inflammatory markers * order stool for enzymes and inflammatory markers * sitz marker study to evaluate pelvic f (more content not included)... [facility] 01-10-2024 Telephone encounter Note GI consult faxed with [facility] [employer] [facility] to contact patient on schedule with Devyn Sullivan [facility] 01-10-2024 Miscellaneous Notes GI consult faxed with [facility] to contact patient on schedule with Devyn Sullivan Please fax GI consult to Dr. Shepard's office at [facility]. Thank you, Debbi Patel APRN.CNP documented in this encounter [facility] 01-10-2024 Telephone encounter Note Please fax GI consult to Dr. Shepard's office at [facility]. Thank you, Debbi Patel APRN.DANN [facility] 01-10-2024 Instructions Debbi Patel APRN.DANN - 01/10/2024 1:56 PM EDT GASTRITIS/GERD I discussed with you the findings of your upper endoscopy. Your upper endoscopy demonstrated signs of peptic ulcer disease or irritation. This can be seen as a range of issues from actual ulcers in the stomach or duodenum (first part of the small bowel) or irritation ranging from redness to more significant irritation with erosions of the stomach or duodenum. These conditions are usually caused from a combination of too much acid production or too little protective mucus production in the stomach. Factors that increase acid production include smoking and stress. If you smoke, stopping smoking will often cure these issues without needing other medications. Factors that decrease the stomach's production of protective mucus include alcohol consumption, smoking, aspirin and other anti-inflammatory use. Over the counter medications including antiacids and acid reducing medications including H2 blockers (Zantac and the like) and proton pump inhibitors (prilosec, prevacid and the like) neutralize or prevent acid production. Avoiding smoking, alcohol and antiinflammatory medications are important in the successful treatment of peptic diseases. Your esophagus can look normal at upper endoscopy and you still have GERD. Multiple factors effect GERD symptoms - acid production, obesity, smoking, food consumption, and time of meals Other factors that contribute to GERD and esophagitis are being overweight, eating large meals before laying down and certain foods. Weight loss will help improve many GERD complaints. Remaining upright after eating large meals and having a small supper will also help symptoms. Avoiding food that contribute to reflux - chocolate, caffeine, cheddar cheese may also help. New or worsening symptoms such are epigastric pain, burning, difficulty swallowing or food sticking should be relayed to your physician. Feeling full early after eating, or black, tarry, foul smelling stools are also worrisome. If you have any difficulties or concerns, you should contact our office immediately. documented in this encounter [facility] 01-10-2024 History of Present illness Narrative FOLLOW UP VISIT - ENDOSCOPY Leana Mancera 1955 [id number] REFERRING PHYSICIAN: No referring provider defined for this encounter. Leana Mancera is a patient I am following for constipation, nausea, GERD. Dr. Pate performed upper and lower endoscopy on 12/31/23. EGD Impression: - Normal nasopharynx. - Small hiatal hernia. - [place]-colored mucosa suspicious for short-segment Ascencio's esophagus. Biopsied. - Gastritis. Biopsied. - Multiple gastric polyps. Biopsied. - Normal ampulla, duodenal bulb, first portion of the duodenum and second portion of the duodenum. Biopsied. COLONOSCOPY Impression: - Preparation of the colon was poor. - Hemorrhoids found on perianal exam. - Two 1 to 3 mm polyps in the cecum, removed with a cold snare. Resected and retrieved. - The examination was otherwise normal. PATHOLOGY FINAL DIAGNOSIS A. Duodenum, biopsy: - Small bowel mucosa with no diagnostic abnormality. B. Stomach, antrum, biopsy: - Gastric antral-type mucosa with mild reactive gastropathy. C. Stomach, polyp, biopsy: - Fundic gland polyp. D. Esophagogastric junction, biopsy: - Gastric cardia-type mucosa with chronic inflammation, negative for intestinal metaplasia or dysplasia. - Squamous mucosa with mild reactive/hyperplastic changes suggestive of gastroesophageal reflux. E. Cecal polyps, biopsies: - One tubular adenoma. - Separate fragments of colonic mucosa with intramucosal lymphoid aggregates. JEL 01/03/2024 Diagnosis Comment B. No Helicobacter pylori organisms are identified. The patient notes continued problems with constipation. Leana refers she is getting 35-40g of fiber daily through her diet. She notes bloating. She has started to use Miralax often with more bowel regularity. She plays [employer] ball 4x a week and walks on the off days. She refers adequate water intake. VITALS: There were no vitals taken for this visit. General: patient is alert, cooperative, pleasant and in no acute distress On examination, the abdomen is benign. Assessment ASSESSMENT/PLAN: 1. Gastroesophageal reflux disease, unspecified whether esophagitis present - ICD9: 530.81, ICD10: K21.9 (primary diagnosis) - Start Prilosec 20mg daily x 3 months - Work on lifestyle factors that increase GERD - Consult to GI d/t chronic constipation not relieved with lifestyle adjustments like exercise, fiber, adequate water intake, OTC supplements 2. Adenomatous polyp of colon, unspecified part of colon - ICD9: 211.3, ICD10: D12.6 - Repeat colonoscopy in 2 years The operative findings and pathology report were reviewed with the patient, and the patient has had the opportunity to ask questions and have questions answered. If the patient notes any problems or changes in bowel function, the patient should contact me immediately. Otherwise I recommend follow up EGD & colonoscopy in 2 years d/t poor prep. HM updated and recall letter generated. Discussed treatment plan and patient voices understanding. Patient's questions answered appropriately. Medications and potential side effects were discussed and patient voices understanding. Return to the office as scheduled or as needed for worsening/no improvement. Debbi Patel APRN.DANN documented in this encounter [facility] 01-10-2024 Note HNO ID: [id number] Author: DEBBI PATEL APRN.TUBING SUPERVISOR Service: ? Author Type: Nurse Practitioner Type: Progress Notes Filed: 01/10/2024 13:59 Note Text: FOLLOW UP VISIT - ENDOSCOPY Leana Mancera 1955 [id number] REFERRING PHYSICIAN: No referring provider defined for this encounter. Leana Mancera is a patient I am following for constipation, nausea, GERD. Dr. Pate performed upper and lower endoscopy on 12/31/23. EGD Impression: - Normal nasopharynx. - Small hiatal hernia. - [place]-colored mucosa suspicious for short-segment Ascencio's esophagus. Biopsied. - Gastritis. Biopsied. - Multiple gastric polyps. Biopsied. - Normal ampulla, duodenal bulb, first portion of the duodenum and second portion of the duodenum. Biopsied. COLONOSCOPY Impression: - Preparation of the colon was poor. - Hemorrhoids found on perianal exam. - Two 1 to 3 mm polyps in the cecum, removed with a cold snare. Resected and retrieved. - The examination was otherwise normal. PATHOLOGY FINAL DIAGNOSIS A. Duodenum, biopsy: - Small bowel mucosa with no diagnostic abnormality. B. Stomach, antrum, biopsy: - Gastric antral-type mucosa with mild reactive gastropathy. C. Stomach, polyp, biopsy: - Fundic gland polyp. D. Esophagogastric junction, biopsy: - Gastric cardia-type mucosa with chronic inflammation, negative for intestinal metaplasia or dysplasia. - Squamous mucosa with mild reactive/hyperplastic changes suggestive of gastroesophageal reflux. E. Cecal polyps, biopsies: - One tubular adenoma. - Separate fragments of colonic mucosa with intramucosal lymphoid aggregates. JEL 01/03/2024 Diagnosis Comment B. No Helicobacter pylori organisms are identified. The patient notes continued problems with constipation. Leana refers she is getting 35-40g of fiber daily through her diet. She notes bloating. She has started to use Miralax often with more bowel regularity. She plays pickle ball 4x a week and walks on the off days. She refers adequate water intake. VITALS: There were no vitals taken for this visit. General: patient is alert, cooperative, pleasant and in no acute distress On examination, the abdomen is benign. Assessment ASSESSMENT/PLAN: 1. Gastroesophageal reflux disease, unspecified whether esophagitis present - ICD9: 530.81, ICD10: K21.9 (primary diagnosis) - Start Prilosec 20mg daily x 3 months - Work on lifestyle factors that increase GERD - Consult to GI d/t chronic constipation not relieved with lifestyle adjustments like exercise, fiber, adequate water intake, OTC supplements 2. Adenomatous polyp of colon, unspecified part of colon - ICD9: 211.3, ICD10: D12.6 - Repeat colonoscopy in 2 years The operative findings and pathology report were reviewed with the patient, and the patient has had the opportunity to ask questions and have questions answered. If the patient notes any problems or changes in bowel function, the patient should contact me immediately. Otherwise I recommend follow up EGD AND colonoscopy in 2 years d/t poor prep. HM updated and recall letter generated. Discussed treatment plan and patient voices understanding. Patient's questions answered appropriately. Medications and potential side effects were discussed and patient voices understanding. Return to the office as scheduled or as needed for worsening/no improvement. Debbi Patel APRN.DANN [facility] 12-31-2023 History and physical note PROCEDURAL SEDATION HISTORY AND PHYSICAL EXAM SERVICE DATE: 12/31/2023 SERVICE TIME: 8:36 AM Subjective HPI: This is a 68 year old female who presents for surveillance colonoscopy and EGD. Personal history of polyps and family history of colon cancer. 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 Sleep apnea Thyroid nodule PAST SURGICAL HISTORY Procedure Laterality Date ADENOIDECTOMY PRIMARY Adenoidectomy ARTHRP ACETBLR/PROX FEM PROSTC AGRFT/ALGRFT Bilateral COLONOSCOPY 2019 repeat 5 years COLONOSCOPY FLX DX W/COLLJ SPEC WHEN PFRMD 09/11/2006 normal colonscopy DILATION & CURETTAGE DX&/THER NONOBSTETRIC Dilation & curettage EXC BREAST LES PREOP PLMT RAD MARKER OPEN 1 LES 04/30/2014 RIGHT NUCLEAR STRESS LEXISCAN (CARD) 2015 TONSILLECTOMY PRIMARY/SECONDARY Tonsillectomy TOTAL KNEE REPLACEMENT VAGINAL HYSTERECTOMY UTERUS 250 GM/< 2006 Hysterectomy, vaginal Prior to Admission medications as of 12/31/23 0710 Medication Sig Last Dose Taking estradiol (ESTRACE) 0.01 % (0.1 mg/gram) vaginal cream Use 1 g vaginally one time a week. Past Week Yes lisinopril (ZESTRIL) 10 mg tablet Take 5 mg by mouth once daily. 12/30/2023 Yes cholecalciferol (VITAMIN D-3) 50 mcg (2,000 unit) tablet Take 2,000 Units by mouth once daily. 12/27/2023 hydroCHLOROthiazide (HYDRODIURIL, ESIDRIX) 25 mg tablet Take 12.5 mg by mouth once daily. 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 AIRWAY: Airway Visualization of Uvula: Yes Mouth opening greater than 2 fingerbreadths: Yes Neck Full Range of Motion: Yes LUNGS: Lungs clear to auscultation CARDIAC: Regular rhythm,Regular rate Assessment/Plan ASA Class: ASA Class: Patient with mild systemic disease Active Problems: * No active hospital problems. * Resolved Problems: * No resolved hospital problems. * Medication and Non-Pharmacologic VTE Prophylaxis/Anticoagulants VTE Prophylaxis: NA Provisional Diagnosis/Treatment Plan: EGD and colonoscopy Sedation Goal: Anesthesia (MAC) SIGNATURE: Shaina Pate DO PATIENT NAME: Leana Mancera DATE: December 31, 2023 TIME: 8:36 AM [facility] 12-31-2023 History and physical note PROCEDURAL SEDATION HISTORY AND PHYSICAL EXAM SERVICE DATE: 12/31/2023 SERVICE TIME: 8:36 AM Subjective HPI: This is a 68 year old female who presents for surveillance colonoscopy and EGD. Personal history of polyps and family history of colon cancer. 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 Sleep apnea Thyroid nodule PAST SURGICAL HISTORY Procedure Laterality Date ADENOIDECTOMY PRIMARY <AGE 13 Adenoidectomy ARTHRP ACETBLR/PROX FEM PROSTC AGRFT/ALGRFT Bilateral COLONOSCOPY 2019 repeat 5 years COLONOSCOPY FLX DX W/COLLJ SPEC WHEN PFRMD 09/11/2006 normal colonscopy DILATION & CURETTAGE DX&/THER NONOBSTETRIC Dilation & curettage EXC BREAST LES PREOP PLMT RAD MARKER OPEN 1 LES 04/30/2014 RIGHT NUCLEAR STRESS LEXISCAN (CARD) 2015 TONSILLECTOMY PRIMARY/SECONDARY <AGE 13 Tonsillectomy TOTAL KNEE REPLACEMENT VAGINAL HYSTERECTOMY UTERUS 250 GM/< 2006 Hysterectomy, vaginal Prior to Admission medications as of 12/31/23 0710 Medication Sig Last Dose Taking estradiol (ESTRACE) 0.01 % (0.1 mg/gram) vaginal cream Use 1 g vaginally one time a week. Past Week Yes lisinopril (ZESTRIL) 10 mg tablet Take 5 mg by mouth once daily. 12/30/2023 Yes cholecalciferol (VITAMIN D-3) 50 mcg (2,000 unit) tablet Take 2,000 Units by mouth once daily. 12/27/2023 hydroCHLOROthiazide (HYDRODIURIL, ESIDRIX) 25 mg tablet Take 12.5 mg by mouth once daily. 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 AIRWAY: Airway Visualization of Uvula: Yes Mouth opening greater than 2 fingerbreadths: Yes Neck Full Range of Motion: Yes LUNGS: Lungs clear to auscultation CARDIAC: Regular rhythm,Regular rate Assessment/Plan ASA Class: ASA Class: Patient with mild systemic disease Active Problems: * No active hospital problems. * Resolved Problems: * No resolved hospital problems. * Medication and Non-Pharmacologic VTE Prophylaxis/Anticoagulants VTE Prophylaxis: NA Provisional Diagnosis/Treatment Plan: EGD and colonoscopy Sedation Goal: Anesthesia (MAC) SIGNATURE: Shaina Pate DO PATIENT NAME: Leana Mancera DATE: December 31, 2023 TIME: 8:36 AM documented in this encounter [facility] 12-30-2023 Telephone encounter Note Spoke with Pretty Geiger Pa-C Advised to take lisinopril today. Hold lisinopril in the morning. Advised to drink plenty of fluids today up until midnight to keep her BP form dropping Advised that if B/P is high when checking her B/P in hospital tomorrow they can give her some lisinopril before she goes to OR. Patient verbalizes understanding and has no further questions or concerns at this time. Was advised to call as needed for future problems. Encounter closed. [facility] 12-30-2023 Miscellaneous Notes Spoke with Pretty Geiger Pa-C Advised to take lisinopril today. Hold lisinopril in the morning. Advised to drink plenty of fluids today up until midnight to keep her BP form dropping Advised that if B/P is high when checking her B/P in hospital tomorrow they can give her some lisinopril before she goes to OR. Patient verbalizes understanding and has no further questions or concerns at this time. Was advised to call as needed for future problems. Encounter closed. Patient call. She has colonoscopy & EGDtomorrow morning with Dr Pate. She takes lisinopril once daily in am for her B/P She was told that her colonoscopy is to be done under general anesthesia and not twilight. She is not sure if she should take or hold the lisinopril in the morning. She did not take it today either Please advise if she should take it to day or tomorrow at all. [phone] (home) [phone] (cell) documented in this encounter [facility] 12-30-2023 Telephone encounter Note Patient call. She has colonoscopy & EGDtomorrow morning with Dr Pate. She takes lisinopril once daily in am for her B/P She was told that her colonoscopy is to be done under general anesthesia and not twilight. She is not sure if she should take or hold the lisinopril in the morning. She did not take it today either Please advise if she should take it to day or tomorrow at all. [phone] (home) [phone] (cell) [facility] 12-21-2023 Note HNO ID: [id number] Author: JULIÁN NICHOLS MD Service: ? Author Type: Physician Type: Progress Notes Filed: 12/21/2023 13:26 Note Text: This note was created using [employer]. Subjective Leana Mancera is a 68 year old female. I am good I am not in pain Intermittent left wrist , at time is stiff Still playing eBuilderle ball Riding bike Rare use of aleve Review of Systems Objective BP 132/82 Pulse 62 Temp 36.8 ?C (98.3 ?F) (Temporal) Wt 85.4 kg (188 lb 4.8 oz) SpO2 97% BMI 27.81 kg/m? Physical Exam Vitals reviewed. Constitutional: General: She is not in acute distress. Appearance: She is not ill-appearing or toxic-appearing. Cardiovascular: [...] No cervical adenopathy. Skin: Findings: No rash. Assessment and Plan First visit 08/31/22 right handed Palindromic Rheumatism ( pseudoseptic arthritis ) (cannot excluded pseudogout) 2023 Quantiferon M. Tb neg 2022 Hep C ab, Hep B S Ag neg. 2021 right knee aspirate culture crystal neg, wbc [id number], esr 20 (<30 ) crp 54 ( <3 ) , wbc 9300 normal. 2022 RF CCP TEMITOPE neg CRP 3.93 ( < 3 ) 2014 1,25 [place] D 63 normal 2023 esr 10 crp normal, uric 5.7 '''' 2015 chest xr normal 02/07 chest xr Degenerative disc disease TS (( Fatique 04/2020 onset, retired from [employer] and did not get better) ( [...] fluid in the knee inflammatory 08/31/22 (( was tt with antibiotic oral 10 day ) (( Right knee replacement in 02/07 and [...] a day and stop if not flare. 12/21/2023 pt off plaquenil since 04/2023 (thunder clap headache and went off all med ) , see as needed, if flare to call us will bring her in right away. Drug and disease monitoring 2015 wbc 4000 low diff not done. 2015 CK 70 09/08 cbc cmp normal 2023 cbc dfif cmp cr 0.79 tsh normal 2014 Vit B 1 11 normal, [...] hemispheres as described above. chronic microvascular disease 2023 CT brain CTA : Bilateral symmetrical volume loss limited to the fr (more content not included)... [facility] 12-21-2023 History of Present illness Narrative This note was created using [employer]. Subjective Leana Mancera is a 68 year old female. I am good I am not in pain Intermittent left wrist , at time is stiff Still playing pickle ball Riding bike Rare use of aleve Review of Systems Objective BP 132/82 Pulse 62 Temp 36.8 C (98.3 F) (Temporal) Wt 85.4 kg (188 lb 4.8 oz) SpO2 97% BMI 27.81 kg/m Physical Exam Vitals reviewed. Constitutional: General: She is not in acute distress. Appearance: She is not ill-appearing or toxic-appearing. Cardiovascular: [...] No cervical adenopathy. Skin: Findings: No rash. Assessment and Plan First visit 08/31/22 right handed Palindromic Rheumatism ( pseudoseptic arthritis ) (cannot excluded pseudogout) 2023 Quantiferon M. Tb neg 2022 Hep C ab, Hep B S Ag neg. 2021 right knee aspirate culture crystal neg, wbc 80303, esr 20 (<30 ) crp 54 ( <3 ) , wbc 9300 normal. 2022 RF CCP TEMITOPE neg CRP 3.93 ( < 3 ) 2014 1,25 OH D 63 normal 2023 esr 10 crp normal, uric 5.7 '''' 2015 chest xr normal 02/07 chest xr Degenerative disc disease TS (( Fatique 04/2020 onset, retired from [employer] and did not get better) ( [...] fluid in the knee inflammatory 08/31/22 (( was tt with antibiotic oral 10 day ) (( Right knee replacement in 02/07 and [...] a day and stop if not flare. 12/21/2023 pt off plaquenil since 04/2023 (thunder clap headache and went off all med ) , see as needed, if flare to call us will bring her in right away. Drug and disease monitoring 2015 wbc 4000 low diff not done. 2015 CK 70 09/08 cbc cmp normal 2023 cbc dfif cmp cr 0.79 tsh normal 2014 Vit B 1 11 normal, [...] hemispheres as described above. chronic microvascular disease 2023 CT brain CTA : Bilateral symmetrical volume loss limited to the frontal lobes appears slightly more marked than in 2016.. The brain parenchyma is otherwise within normal limits for age ((2014 right side of face numb, could not talk, went to [facility], BP was jorge a high, stroke stephenson all negative ) TT ( 04/2023 [place] ( nigh time cold and cough 11 pm one tsf dexromethorphan ) used and had explosion in brain 6.15 am , all med stopped , resumed BP med in 2 months ) (( was at work, was getting ready for the day, had cough, and had not slept well, felt lights flashing in the field of vision, hit the wall, no fall, in 30 second was back to senses, had numbness on face left side, continued to work, then went to [place] [facility], stroke protocol, was admitted over night. Few days later could not talk, felt fuzzy, then went to [facility] work up negative, then [facility] neurology, told all testing normal. Was told symptoms related to cold and cough med ) (( thunderclap headache )) ? 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 Wt issue 08/31/22 Ht 5'8 186 08/31/22 Colonoscopy 2012 normal. 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 Per Debbi Patel CNP, the patient is to hold her Lisinopril the morning of the procedure, unless anesthesiology advises her differently. The patient verbalized understanding and was given a number for questions.Lea Torres RN [facility] 11-25-2023 Nurse Note This Nurse reviewed and provided patient with copy of written instructions for EGD and colonoscopy prep and surgical education. Per Debbi Patel CNP, the patient is to hold her Lisinopril the morning of the procedure, unless anesthesiology advises her differently. The patient verbalized understanding and was given a number for questions.Lea Torres RN REVIEW OF SYSTEMS: General: The patient NOTES fatigue, denies weight loss, NOTES weight gain, denies feeling hot, and denies feelings of cold. Eyes: The patient denies glaucoma, denies eye injury/surgery, wears glasses or contacts. Ear/Nose/Throat: The patient NOTES allergies, denies hayfever, denies ear infections, and denies bloody noses. Cardiovascular: The patient NOTES chest pain, denies heart disease, NOTES high blood pressure,denies cardiac stent, denies prior heart attack, denies irregular heart beat, NOTES high cholesterol, denies poor circulation, denies heart failure, other cardiac issues, denies claudication, denies cold feet, denies peripheral arterial stent. Respiratory: The patient denies tuberculosis, denies pneumonia, denies frequent cough, denies pulmonary embolism, denies shortness of breath, denies coughing up blood and NOTES sleep apnea. Gastrointestinal: The patient denies difficulty swallowing, NOTES acid reflux, denies ulcers, denies vomiting, denies jaundice/hepatitis, denies gallbladder problems, denies black or tarry stools, NOTES hemorrhoids, denies bleeding from rectum, denies diverticulitis, NOTES constipation, NOTES diarrhea, denies loss of stool control, and denies hernias. Kidney/Bladder: The patient NOTES kidney stones, denies urine infections, and denies bloody urine. Skin: The patient denies a history of skin cancer, denies bleeding/changing moles, and denies a history of skin rash. Neurologic: The patient denies a history of epilepsy/convulsions, denies headaches, denies head/spinal injuries, and denies stroke/TIA. Psychiatric: The patient denies psychiatric medications, NOTES depression, and denies voices, denies substance abuse. Endocrine: The patient NOTES thyroid disorders, denies diabetes, and denies hormonal problems. Hematologic: The patient denies a history of bruising, denies bleeding, and denies anemia, denies blood clots. Infections: The patient NOTES a history of measles and mumps, denies rheumatic fever, and denies sexually transmitted diseases. Musculoskeletal: The patient NOTES back pain/injury, denies back problems, denies sciatica, NOTES knee/foot trouble, NOTES arthritis, or denies gout. When was patient's last Mammogram screening? 03/2023 Last Colonoscopy: 2019 Lae Torres RN documented in this encounter [facility] 11-25-2023 Nurse Note REVIEW OF SYSTEMS: General: The patient NOTES fatigue, denies weight loss, NOTES weight gain, denies feeling hot, and denies feelings of cold. Eyes: The patient denies glaucoma, denies eye injury/surgery, wears glasses or contacts. Ear/Nose/Throat: The patient NOTES allergies, denies hayfever, denies ear infections, and denies bloody noses. Cardiovascular: The patient NOTES chest pain, denies heart disease, NOTES high blood pressure,denies cardiac stent, denies prior heart attack, denies irregular heart beat, NOTES high cholesterol, denies poor circulation, denies heart failure, other cardiac issues, denies claudication, denies cold feet, denies peripheral arterial stent. Respiratory: The patient denies tuberculosis, denies pneumonia, denies frequent cough, denies pulmonary embolism, denies shortness of breath, denies coughing up blood and NOTES sleep apnea. Gastrointestinal: The patient denies difficulty swallowing, NOTES acid reflux, denies ulcers, denies vomiting, denies jaundice/hepatitis, denies gallbladder problems, denies black or tarry stools, NOTES hemorrhoids, denies bleeding from rectum, denies diverticulitis, NOTES constipation, NOTES diarrhea, denies loss of stool control, and denies hernias. Kidney/Bladder: The patient NOTES kidney stones, denies urine infections, and denies bloody urine. Skin: The patient denies a history of skin cancer, denies bleeding/changing moles, and denies a history of skin rash. Neurologic: The patient denies a history of epilepsy/convulsions, denies headaches, denies head/spinal injuries, and denies stroke/TIA. Psychiatric: The patient denies psychiatric medications, NOTES depression, and denies voices, denies substance abuse. Endocrine: The patient NOTES thyroid disorders, denies diabetes, and denies hormonal problems. Hematologic: The patient denies a history of bruising, denies bleeding, and denies anemia, denies blood clots. Infections: The patient NOTES a history of measles and mumps, denies rheumatic fever, and denies sexually transmitted diseases. Musculoskeletal: The patient NOTES back pain/injury, denies back problems, denies sciatica, NOTES knee/foot trouble, NOTES arthritis, or denies gout. When was patient's last Mammogram screening? 03/2023 Last Colonoscopy: 2018 Lea Torres RN [facility] 11-25-2023 History of Present illness Narrative HISTORY AND PHYSICAL Leana Mancera : 1955 REFERRING PHYSICIAN: No referring provider defined for this encounter. CHIEF COMPLAINT: Patient presents with: Consult: Chronic constipation HPI: Leana is a 67 year old female referred for endoscopy. Leana notes chronic constipation. When he was at [facility] ER on 11/23/2019 for after not having a bowel movement for 6 days. She refers that she struggles with constipation but typically can relieve herself at home by eating fiber & taking MiraLAX and that she has never gone this long. The morning she arrived to the emergency room she had developed nausea and vomiting. Leana requested a CT scan in the emergency department which was negative for any intestinal abnormality. It did show a irregular subcapsular mass in the right lobe of the liver. Since the emergency room visit she did 3 capfuls of MiraLAX per ED physician recommendation and she states this has helped. Bowel movements are typically daily with MiraLAX daily. Before she became constipated during this episode her stools were thin and skinny Patient denies weight changes, blood in stools, black tarry stools or abdominal pain. Refers family history of colon issues.-Father with colon cancer in father sister both had colon cancer at the cecum. Leana notes some upper GI complaints. She refers she gets reflux a lot, and she gets full and must eat small meals. She uses Tums, Pepto, and [place] for relief. She denies dysphagia. Leana also refers that her father has something called watermelon stomach and has frequent GI bleeds. In April 2023 Leana presented to [facility] ED with blurred vision and left-sided headache and nausea. There was no evidence of stroke, however part of the workup included an echo which showed a small PFO. She complained of palpitations and wanted to see cardiology she follows with [facility] last visit was 07/27/2023. Last echo 04/20/2023 with an EF of 65%, stress test completed 06/22/2023 which was normal. No concerns from cardiology at this time. Leana denies EP, SOB, palpitations, dizziness, syncope Leana has undergone prior endoscopy. Last colonoscopy was 04/04/2019 at [facility] with Dr. Rinaldi. She has never had an EGD. Impression: -Hemorrhoids found in the perianal exam. -One 7 mm polyp in the descending colon, removed with cold biopsy forceps. Resected and retrieved -Diverticulosis in the sigmoid colon and in the descending colon Pathology: A. Colon, random biopsy -Fragments of colonic mucosa, no pathologic diagnosis B. Descending colon polyp, biopsy -Fragment of colonic mucosa with focal hyperplastic changes Current Outpatient Medications Medication Sig cholecalciferol (VITAMIN D-3) 50 mcg (2,000 unit) tablet Take 2,000 Units by mouth once daily. estradiol (ESTRACE) 0.01 % (0.1 mg/gram) vaginal cream Use 1 g vaginally one time a week. lisinopril (ZESTRIL) 10 mg tablet Take 5 mg by mouth once daily. hydroCHLOROthiazide (HYDRODIURIL, ESIDRIX) 25 mg tablet Take 12.5 mg by mouth once daily. peg 3350-Electrolytes (GOLYTELY) 236-22.74-6.74 -5.86 gram suspension Take 4,000 mL by mouth one time only for 1 dose. Refer to printed prep instructions from your provider. No current facility-administered medications for this visit. ALLERGIES: Benadryl [Diphenhydramine Hcl] and [id number] Antimigraine Agents PAST MEDICAL HISTORY No date: Chest pain No date: Esophageal reflux Comment: Gastroesophageal reflux No date: Hypertension PAST SURGICAL HISTORY No date: ADENOIDECTOMY PRIMARY <AGE 13 Comment: Adenoidectomy No date: ARTHRP ACETBLR/PROX FEM PROSTC AGRFT/ALGRFT; Bilateral : COLONOSCOPY FLX DX W/COLLJ SPEC WHEN PFRMD Comment: normal colonscopy No date: DILATION & CURETTAGE DX&/THER NONOBSTETRIC Comment: Dilation & curettage 04-30-14: EXC BREAST LES PREOP PLMT RAD MARKER OPEN 1 LES Comment: RIGHT 2015: NUCLEAR STRESS LEXISCAN (CARD) No date: TONSILLECTOMY PRIMARY/SECONDARY <AGE 13 Comment: Tonsillectomy 2006: VAGINAL HYSTERECTOMY UTERUS 250 GM/< Comment: Hysterectomy, vaginal FAMILY HISTORY Problem Relation Age of Onset Hypertension Father Heart Father Coronary Artery Disease Father Colon Cancer Father 82 Allergies Father Diabetes Maternal Grandfather Breast Cancer Maternal Grandmother Colon Cancer Maternal Grandmother 50 Allergies Mother Colon Cancer Maternal Aunt 79 Social History Tobacco Use Smoking status: Never Smokeless tobacco: Never Vaping Use Vaping Use: Never used Substance Use Topics Alcohol use: Yes Comment: Once a week: wine Drug use: No REVIEW OF SYMPTOMS: The review of systems data was entered by the nurse and reviewed by me Nursing Notes: Lea Torres RN 11/25/2023 10:19 AM Signed REVIEW OF SYSTEMS: General: The patient NOTES fatigue, denies weight loss, NOTES weight gain, denies feeling hot, and denies feelings of cold. Eyes: The patient denies glaucoma, denies eye injury/surgery, wears glasses or contacts. Ear/Nose/Throat: The patient NOTES allergies, denies hayfever, denies ear infections, and denies bloody noses. Cardiovascular: The patient NOTES chest pain, denies heart disease, NOTES high blood pressure,denies cardiac stent, denies prior heart attack, denies irregular heart beat, NOTES high cholesterol, denies poor circulation, denies heart failure, other cardiac issues, denies claudication, denies cold feet, denies peripheral arterial stent. Respiratory: The patient denies tuberculosis, denies pneumonia, denies frequent cough, denies pulmonary embolism, denies shortness of breath, denies coughing up blood and NOTES sleep apnea. Gastrointestinal: The patient denies difficulty swallowing, NOTES acid reflux, denies ulcers, denies vomiting, denies jaundice/hepatitis, denies gallbladder problems, denies black or tarry stools, NOTES hemorrhoids, denies bleeding from rectum, denies diverticulitis, NOTES constipation, NOTES diarrhea, denies loss of stool control, and denies hernias. Kidney/Bladder: The patient NOTES kidney stones, denies urine infections, and denies bloody urine. Skin: The patient denies a history of skin cancer, denies bleeding/changing moles, and denies a history of skin rash. Neurologic: The patient denies a history of epilepsy/convulsions, denies headaches, denies head/spinal injuries, and denies stroke/TIA. Psychiatric: The patient denies psychiatric medications, NOTES depression, and denies voices, denies substance abuse. Endocrine: The patient NOTES thyroid disorders, denies diabetes, and denies hormonal problems. Hematologic: The patient denies a history of bruising, denies bleeding, and denies anemia, denies blood clots. Infections: The patient NOTES a history of measles and mumps, denies rheumatic fever, and denies sexually transmitted diseases. Musculoskeletal: The patient NOTES back pain/injury, denies back problems, denies sciatica, NOTES knee/foot trouble, NOTES arthritis, or denies gout. When was patient's last Mammogram screening? 03/2023 Last Colonoscopy: 2019 Lea Torres RN PHYSICAL EXAMINATION: General: The patient is 67 year old, female well nourished, well hydrated in no acute distress. The patient is oriented to time, place, and person. VITALS: Blood pressure 118/68, pulse 66, temperature 36.2 C (97.2 F), height 175.3 cm (5' 9), weight 84.5 kg (186 lb 3.2 oz), SpO2 99%. Body mass index is 27.5 kg/m . HEENT: Normal cephalic, ataumatic, pupils are equally round, sclera are anicteric, mucous membranes are moist, oropharynx is clear. Neck has no masses, asymmetry or lymphadenopathy. Respiratory: Clear to auscultation and percussion. Normal respiratory excursion and pattern. Cardiac: Examination is regular rate and rhythm. Normal S1/S2 Abdominal exam: Soft, nontender, with no palpable masses. No hepatosplenomegaly. No palpable hernias. Extremities: no clubbing, cyanosis or edema. No adenopathy. LABORATORY VALUES: As Noted RADIOLOGIC STUDIES: As Noted Assessment IMPRESSION: chronic constipation, nausea, upset stomach, acid reflux PLAN: I have reviewed my findings with the surgeon. Will plan for upper and lower endoscopy. We discussed the risks and benefits of the planned endoscopy. I have informed the patient that complications can occur including failure to complete the endoscopy and perforation. Leana had the opportunity to ask questions concerning the planned endoscopy. My staff has also explained the procedure to the patient in understandable terms and has given the patient printed material concerning the procedure. Leana freely consents to surgery. I plan to use Golytely bowel preparation I have explained to the patient the difference between IV conscious sedation and MAC anesthesia - and I have offered either, according to the patient's wishes. I have explained that with IV conscious sedation there is no anesthesia provider available and therefore there is a limitation of the amount of IV medications that can be given and that the patient may wake up in the middle of the procedure and/or experience pain/discomfort during the procedure. Further discussion was done and the patient was given the opportunity to ask questions and all questions were answered. MAC anesthesia d/t benadryl allergy Leana was counseled that if there are changes in his/her medical condition, to let the office know if surgery should proceed. If there are changes in patient's medical condition from time of this encounter to the day of the procedure that preclude anesthesia, patient may have procedure cancelled for patient's safety. Diagnoses: (K59.00) Constipation, unspecified constipation type (primary encounter diagnosis) (R11.0) Nausea (K30) Upset stomach (K21.9) Gastroesophageal reflux disease, unspecified whether esophagitis present Portions of this documentation were copied and pasted from previous office visit notes in order to provide a cohesive continuity of the history. The note has been reviewed and edited and updated as necessary. Debbi Patel APRN.DANN documented in this encounter [facility] 11-25-2023 Note HNO ID: [id number] Author: DEBBI PATEL APRN.CNP Service: ? Author Type: Nurse Practitioner Type: Progress Notes Filed: 11/25/2023 11:17 Note Text: HISTORY AND PHYSICAL Leana Mancera : 1955 REFERRING PHYSICIAN: No referring provider defined for this encounter. CHIEF COMPLAINT: Patient presents with: Consult: Chronic constipation HPI: Leana is a 67 year old female referred for endoscopy. Leana notes chronic constipation. When he was at [facility] ER on 11/23/2019 for after not having a bowel movement for 6 days. She refers that she struggles with constipation but typically can relieve herself at home by eating fiber AND taking MiraLAX and that she has never gone this long. The morning she arrived to the emergency room she had developed nausea and vomiting. Leana requested a CT scan in the emergency department which was negative for any intestinal abnormality. It did show a irregular subcapsular mass in the right lobe of the liver. Since the emergency room visit she did 3 capfuls of MiraLAX per ED physician recommendation and she states this has helped. Bowel movements are typically daily with MiraLAX daily. Before she became constipated during this episode her stools were thin and skinny Patient denies weight changes, blood in stools, black tarry stools or abdominal pain. Refers family history of colon issues.-Father with colon cancer in father sister both had colon cancer at the cecum. Leana notes some upper GI complaints. She refers she gets reflux a lot, and she gets full and must eat small meals. She uses Tums, Pepto, and [place] for relief. She denies dysphagia. Leana also refers that her father has something called watermelon stomach and has frequent GI bleeds. In April 2023 Leana presented to [facility] ED with blurred vision and left-sided headache and nausea. There was no evidence of stroke, however part of the workup included an echo which showed a small PFO. She complained of palpitations and wanted to see cardiology she follows with [facility] last visit was 07/27/2023. Last echo 04/20/2023 with an EF of 65%, stress test completed 06/22/2023 which was normal. No concerns from cardiology at this time. Leana denies EP, SOB, palpitations, dizziness, syncope Leana has undergone prior endoscopy. Last colonoscopy was 04/04/2019 at [facility] with Dr. Rinaldi. She has never had an EGD. Impression: -Hemorrhoids found in the perianal exam. -One 7 mm polyp in the descending colon, removed with cold biopsy forceps. Resected and retrieved -Diverticulosis in the sigmoid colon and in the descending colon Pathology: A. Colon, random biopsy -Fragments of colonic mucosa, no pathologic diagnosis B. Descending colon polyp, biopsy -Fragment of colonic mucosa with focal hyperplastic changes Current Outpatient Medications Medication Sig cholecalciferol (VITAMIN D-3) 50 mcg (2,000 unit) tablet Take 2,000 Units by mouth once daily. estradiol (ESTRACE) 0.01 % (0.1 mg/gram) vaginal cream Use 1 g vaginally one time a week. lisinopril (ZESTRIL) 10 mg tablet Take 5 mg by mouth once daily. hydroCHLOROthiazide (HYDRODIURIL, ESIDRIX) 25 mg tablet Take 12.5 mg by mouth once daily. peg 3350-Electrolytes (GOLYTELY) 236-22.74-6.74 -5.86 gram suspension Take 4,000 mL by mouth one time only for 1 dose. Refer to printed prep instructions from your provider. No current facility-administered medications for this visit. ALLERGIES: Benadryl [Diphenhydramine Hcl] and [id number] Antimigraine Agents PAST MEDICAL HISTORY No date: Chest pain No date: Esophageal reflux Comment: Gastroesophageal reflux No date: Hypertension PAST SURGICAL HISTORY No date: ADENOIDECTOMY PRIMARY Comment: Adenoidectomy No date: ARTHRP ACETBLR/PROX FEM PROSTC AGRFT/ALGRFT; Bilateral : COLONOSCOPY FLX DX W/COLLJ SPEC WHEN PFRMD Comment: normal colonscopy No date: DILATION AND CURETTAGE DXAND/THER NONOBSTETRIC Comment: Dilation AND curettage 04-30-14: EXC BREAST LES PREOP PLMT RAD MARKER OPEN 1 LES Comment: RIGHT 2015: NUCLEAR STRESS LEXISCAN (CARD) No date: TONSILLECTOMY PRIMARY/SECONDARY Comment: Tonsillectomy 2006: VAGINAL HYSTERECTOMY UTERUS 250 GM/< Comment: Hysterectomy, vaginal FAMILY HISTORY Problem Relation Age of Onset Hypertension Father Heart Father Coronary Artery Disease Father Colon Cancer Father 82 Allergies Father Diabetes Maternal Grandfather Breast Cancer Maternal Grandmother Colon Cancer Maternal Grandmother 50 Allergies Mother Colon Cancer Maternal Aunt 79 Social History Tobacco Use Smoking status: Never Smokeless tobacco: Never Vaping Use Vaping Use: Never used Substance Use Topics Alcohol use: Yes Comment: Once a week: wine Drug use: No REVIEW OF SYMPTOMS: The review of systems data was entered by the nurse and reviewed by il Nursing Notes: Lea Torres RN 11/25/2023 10:19 AM Signed REVIEW OF SY (more content not included)... [facility] 04-26-2023 Note HNO ID: [id number] Author: OJ RON MD Service: ? Author Type: Physician Type: Progress Notes Filed: 04/26/2023 13:58 Note Text: General Neurology Outpatient Clinic - new patient evaluation Date: April 26, 2023 Patient Name: Leana Mancera [facility]: [facility] [address] [facility] [address] Primary physician: Taran Tyler (Brea) [address] [place] [address] Reason for Evaluation: Headaches HPI: The pt [...] tingling started in ED. patient went to [place] ED 04/23/2023 with left sided facial numbness, dizziness, 'fuzzy headachness', difficulty walking (felt drunk). Had prior admission to [facility] 04/20/2023 for stroke eval, diagnosed with complex [...] painless OS>OD vision loss and BLE weakness. [place] like a 'pop'. These symptoms lasted a few seconds.. The exploding sensation didn't hurt and wasn't associated with a sound but was so intense she physically went to her knees. They passed though and she was able to check in the patient. 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 She did feel like her legs still [...] she was packing for a trip to [place] when she started feeling off cognitively. She [...] associated with speech changes while working at [employer]. Prior neurological workup: 04/23/2023 CTH, CTA HANDN 12/19/14 MRI brain [facility] OUTPATIENT MEDICATIONS Current Facility-Administered Medications on File [...] NUCLEAR STRESS L (more content not included)... [facility] 04-20-2023 History and physi tomy note Note Date/Time April 20, 2023 3:40pm [facility] Medical Records Department [address] [place] [address] H&P Exam - Hospitalist 04/20/23 1527 MR#: [id number] Acct: [id number] Name: LEANA MANCERA Rep #:[id number] : 1955 67 From: Summer Ruiz DO PCP: Man Carbone DO Status:ADM I NO [facility] - General General Date of Admission: 04/20/23 Date of Service: 04/20/23 Chief Complaint: Blurred vision/left face tingling HPI Narrative LEANA MANCERA, is a 67 F who presented to the emergency department at [facility] on 04/20/2022 with acute onset blurred vision and left face tingling. 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 She did indicate she had a restless night sleep which is atypical for her but otherwise was feeling okay. When she got to work she was getting ready to scan the patient when she felt a pop in the left side of her head temporal region after which she had acute onset headache and blurred vision in her left eye. After arrival to the emergency department she developed some tingling in her left face. She stated she did scan the patient but when the pop occurred and her headache started she felt very lightheaded and it sounds as if she had vertiginous symptoms. She stated she almost passed out. She never lost consciousness and was able to scan her next patient and then came to the emergency department. NIH on arrival was 1 for left facial tingling. She had no visual field but did complain of blurred vision in the eye. By the time I evaluated her her headache was resolving and she was feeling much better. Her vision was almost back to baseline and the tingling in her left face had resolved. She does have a history of hyper tension and is with her antihypertensive regimen at home she was recently diagnosed with rheumatoid arthritis and takes Plaquenil at baseline. She does states she has a history ofmigraine headaches that started when she started her period. She did say she had improvement in her migraine history as she got older and at the time of menopause her migraines returned however they were visual impairment only with no resultant headache. She states the visual loss that she had with this event were nothing like the visual losses she had experienced previously with migraines. She also indicates she does not get headaches frequently. Vital signs on presentation showed a temperature of 97.7, blood pressure was 156/92, heart rate was 71, respiratory was 14 and oxygen saturation was 99% on room air was unremarkable. Coags were normal. Chemistry panel revealed mild hypokalemia with potassium of 3.4 but was otherwise unremarkable. We obtained ahemoglobin A1c which was 5.1. Troponin was 5. I added on inflammatory markers in the form of CRP and ESR. They were both completely normal at less than 2.9 and 8 respectively. EKG was normal sinus rhythm without any ST-T wave changes concerning for acute ischemia and normal intervals. CT of the brain showed chronic involutional changes but no acute findings. CT of the head and neck showed normal [place] without any demonstrated aneurysm or thrombus or hemodynamically significant stenosis and normal bilateral carotid and vertebral artery exam. Chest x-ray had no acute findings. Stroke alert was called at presentation and she was evaluated by stroke neurologist from [facility]. The risk and benefits of tenecteplase use in the setting of her presentation were discussed with the patient and they elected not to proceed with any tenecteplase. [facility] Medical History Autoimmune disorder Constipation Constipation Family history of colon cancer in father HTN (hypertension) Palindromic rheumatism Sleep apnea Home Medications cholecalciferol (vitamin D3) 25 mcg (1,000 unit) tablet 2,000 unit PO DAILY 04/25/14 [History Last Taken Unknown] hydrochlorothiazide 25 mg tablet 25 mg PO DAILY 04/16/21 [History Last Taken 04/20/23] lisinopril 10 mg tablet 20 mg PO DAILY 04/16/21 [History Last Taken 04/20/23] hydroxychloroquine 200 mg tablet 200 mg PO DAILY 09/28/22 [History Last Taken 04/20/23] estradiol 0.01% (0.1 mg/gram) vaginal cream See Rx Instructions vaginal .COMPLEX#42.5 grams 03/23/23 [Rx Last Taken Unknown] Allergy/AdvReac Type Severity Reaction Status Date / Time diphenhydramine HCl AdvReac Other Verified 04/20/23 08:12 [From Benalenal] Family History Father Colon cancer Heart disease Hypertension Thyroid disorder Mother Breast cancer Unknown Breast cancer Brother Alcoholism Sister Autoimmune disease Aunt Breast cancer Sister Breast cancer, Onset Age: 60 Surgical History H/O bilateral hip replacements History of breast lump/mass excision History of tonsillectomy S/P partial hysterectomy Total knee replacement status Social History household members: significant other current occupational status: employed current occupation: [employer] Smoking Status: Never smoker alcohol intake: current alcohol intake frequency: a few times a month substance use type: does not use diet: other what type of physical activity do you participate in: walking, yoga and other frequency: 3-4 times per week seatbelt use: always do you feel safe at home: Yes additional social history: single ROS Constitutional Constitutional: Denies anorexia, change in weight, chills, fatigue, fever(s), malaise, night sweats, weakness or other Eyes Eyes: Denies blurry vision, change in eye color, change in vision, discharge from eye(s), double vision, erythema, eye pain, loss of vision or other ENT HEENT: Denies abnormal hearing, dysphagia, ear pain, epistaxis, headache(s), hearing loss, nasal congestion, nasal discharge, post nasal drip, sinus pressure, sore throat or other Cardiovascular Cardiovascular: Reports other Details: Presyncope ; Denies chest pain, claudication, dyspnea on exertion, edema, lightheadedness, orthopnea, palpitations, paroxysmal nocturnal dyspnea, rapid heart rate or syncope Respiratory/Chest Respiratory/Chest: Denies cough, dyspnea, excessive phlegm production, hemoptysis, productive cough, shortness of breath at rest, shortness of breath with exertion, wheezing or other Gastrointestinal Gastrointestinal: Denies abdominal pain, coffee ground emesis, constipation, diarrhea, dyspepsia, hematemesis, hematochezia, loose stools, melena, nausea, vomiting or other Genitourinary Genitourinary: Denies burning urination, difficulty urinating, dysuria, hematuria, nocturia, urinary frequency, urinary hesitancy, urinary incontinence,urinary urgency or other Musculoskeletal Musculoskeletal: Denies arthralgias, back pain, joint pain, joint stiffness, joint swelling, myalgias, neck pain or other Neurologic Neurologic: Reports headache(s), tingling and other Details: Blurred vision predominantly in left eye and tingling in left face Psychiatric Psychiatric: Denies anxiety, depression, homicidal ideation, suicidal ideation or other Endocrine Endocrinology: Denies change in body appearance, cold intolerance, excessive sweating, heat intolerance, polydipsia, polyuria or other Hematologic/Lymphatic Hematologic/Lymphatic: Denies anemia, easy bleeding, easy bruising, lymphadenopathy or other Allergic/Immunologic Allergic/Immunologic: Denies rhinitis, hives, eczemia, asthma or other Vital Signs Vital Signs Vital Signs: 04/20/23 08:09 04/20/23 08:22 04/20/23 08:39 Temperature 97.7 F L Temperature Source Oral Pulse Rate 71 69 Respiratory Rate 14 20 H Respiratory Effort Respiratory Depth Respiratory Pattern Blood Pressure 156/92 H 161/71 H Blood Pressure Mean 113 101 Blood Pressure Source Blood Pressure Position Blood Pressure Location Pulse Ox 99 Oxygen Delivery Method Room Air 04/20/23 08:48 04/20/23 09:08 04/20/23 09:18 Temperature Temperature Source Pulse Rate 65 55 L 59 L Respiratory Rate 17 14 14 Respiratory Effort Respiratory Depth Respiratory Pattern Blood Pressure 146/70 H 156/72 H 140/71 H Blood Pressure Mean 95 100 94 Blood Pressure Source Blood Pressure Position Blood Pressure Location Pulse Ox 97 96 96 Oxygen Delivery Method Room Air Room Air Room Air 04/20/23 09:38 04/20/23 10:00 04/20/23 11:41 Temperature 97.7 F L Temperature Source Oral Pulse Rate 55 L 53 L 54 L Respiratory Rate 14 14 12 Respiratory Effort Respiratory Depth Respiratory Pattern Blood Pressure 149/76 H 140/79 H 139/76 H Blood Pressure Mean 100 99 97 Blood Pressure Source Monitor Blood Pressure Position Supine Blood Pressure Location Left Arm Pulse Ox 97 97 98 Oxygen Delivery Method Room Air Room Air 04/20/23 10:44 04/20/23 11:20 04/20/23 11:41 Temperature 97.7 F L Temperature Source Oral Pulse Rate 59 L 54 L Respiratory Rate 14 12 Respiratory Effort Respiratory Depth Respiratory Pattern Blood Pressure 140/71 H 139/76 H Blood Pressure Mean 94 97 Blood Pressure Source Monitor Blood Pressure Position Sitting Blood Pressure Location Left Arm Pulse Ox 96 98 98 Oxygen Delivery Method Room Air Room Air Room Air 04/20/23 14:00 Temperature Temperature Source Pulse Rate Respiratory Rate Respiratory Effort Normal Respiratory Depth Normal Respiratory Pattern Normal Blood Pressure Blood Pressure Mean Blood Pressure Source Blood Pressure Position Blood Pressure Location Pulse Ox Oxygen Delivery Method Room Air Weight Weight: 87.3 kg Body Mass Index (BMI) 28.4 Physical Exam Const alert, oriented x3, no apparent distress, healthy appearing and well nourished Constitutional Narrative: Overweight, upper middle-aged, white female, sitting up in bed, family at bedside, patient appears comfortable and nontoxic HEENT normocephalic, head/scalp atraumatic, hearing grossly normal bilaterally and moist oral mucous membranes HEENT Narrative: Mallampati 3, no thrush, dentition is good Eyes PERRL, EOMs intact bilaterally and conjunctivae normal Eyes Narrative: No scleral icterus Neck no lymphadenopathy and supple Neck Narrative: Trachea midline, no thyroid enlargement Resp normal respiratory effort, no retractions, no use of accessory muscles and clearto auscultation bilaterally Auscultation: Negative for rales, rhonchi or wheezes Cardio regular rate, regular rhythm, S1 normal heart sound, S2 normal heart sound, no murmurs, no rub, no gallops and no clicks GI normal to inspection, nondistended, normoactive bowel sounds, soft to palpation and non-tender Extremity no clubbing, cyanosis or edema Extremity Narrative: Pedal pulses are 2+ Skin no wounds, skin turgor normal, no jaundice, no petechiae and no mottling Neuro oriented x3, CN's II-XII intact bilaterally, moves all extremities and no focal motor deficits Speech: speech normal Motor Exam: strength 5/5 throughout Psych affect normal Psych Narrative: Eye contact is good, patient interacts appropriately Results Lab / Micro Data 04/20/23 08:15 04/20/23 08:15 Labs: Laboratory Results - last 24 hr 04/20/23 08:15: WBC 4.7, RBC 4.56, Hgb 13.3, Hct 41.2, MCV 90.4, MCH 29.2, MCHC 32.3, RDW Std Deviation 41.5, RDW Coeff of [place]cre[place] 12.6, Plt Count 234, MPV 9.4, Immature Gran % (Auto) 0.400, Neut % (Auto) 58.9, Lymph % (Auto) 29.7, [place] % (Auto) 7.7, Eos % (Auto) 2.2, Baso % (Auto) 1.1 H, Absolute Neuts (auto) 2.7, Absolute Lymphs (auto) 1.38, Nucleated RBC % 0, ESR 8, PT 12.2, INR 0.9, APTT 25.2, Sodium 136, Potassium 3.4 L, Chloride 101, Carbon Dioxide 28.0, Anion Gap 7, BUN 34 H, Creatinine 0.99, Estim Creat Clear Calc 58.42, Est GFR (MDRD) Af Amer 72, Est GFR (MDRD) Non-Af 60, BUN/Creatinine Ratio 34.4 H, Glucose 110 H, Hemoglobin A1c 5.1, Calcium 9.4, Troponin I High Sens 5, C-React Prot Ext Range < 2.90 Imagaing Radiology Impression Brain CT 04/20/23 08:18 IMPRESSION: 1. Chronic involutional changes of the brain. 2. Concern for stroke/positive symptomatology should be further evaluated with CT brain perfusion/CTA or MRI of the brain for further assessment. N.B. : The above Results were Read Back by Min Torres MD to Vaelriy Ralph MD, and understanding confirmed on 04/20/2023 08:38:19 (ET). Electronically Signed: Min Torres MD at 8:39 EST , ADDENDUM: 04/20/23 0846 IMPRESSION: 1. Chronic involutional changes of the brain. 2. Concern for stroke/positive symptomatology should be further evaluated with CT brain perfusion/CTA or MRI of the brain for further assessment. N.B. : The above Results were Read Back by Min Torres MD to Valeriy Ralph MD, and understanding confirmed on 04/20/2023 08:38:19 (ET). Electronically Signed: Min Torres MD at 8:39 EST , Head/Neck CTA 04/20/23 08:18 IMPRESSION: 1. Normal [place] without a demonstrated aneurysm or thrombus or hemodynamically significant stenosis. 2. Normal bilateral cervical carotid and vertebral arteries. N.B. : The above Results were Read Back by Min Torres MD to Valeriy Ralph MD, and understanding confirmed on 04/20/2023 09:01:19 (ET). Electronically Signed: Min Torres MD at 9:02 EST , ADDENDUM: 04/20/23 0909 IMPRESSION: 1. Normal [place] without a demonstrated aneurysm or thrombus or hemodynamically significant stenosis. 2. Normal bilateral cervical carotid and vertebral arteries. N.B. : The above Results were Read Back by Min Torres MD to Valeriy Ralph MD, and understanding confirmed on 04/20/2023 09:01:19 (ET). Electronically Signed: Min Torres MD at 9:02 EST , Chest X-Ray 04/20/23 08:55 IMPRESSION: Cardiomegaly with mild hyperinflation and no acute or active cardiopulmonary disease. Electronically Signed: Asaf Stuart MD at 9:22 EST , Brain MRI 04/20/23 10:15 IMPRESSION: Involutional changes of the brain, as described above. Electronically Signed: Min Torres MD at 13:01 EST , Assessment & Plan Assessment/Plan (1) Blurred vision: (2) Left facial numbness: PLAN: Plan Patient with blurred vision and left facial numbness -Vision is almost back to baseline and facial numbness has resolved -NIH on presentation was 1 and currently 0 -CT of the brain and CTA of the head and neck were unremarkable -Check MRI -Continue aspirin -Continue high intensity dose statin -Hemoglobin A1c was within normal limits -Echocardiogram is pending -Check lipids -Hold antihypertensives and allow for some permissive hypertension -PRNs available for stroke parameters -PT/OT consultation -Patient passed dysphagia screen -I did obtain inflammatory markers which were unremarkable -Neurology consultation pending Hypertension -Hold antihypertensives and allow for some permissive hypertension with the above -PRNs available -If no stroke found and NIH is are stable will restart antihypertensives tomorrow JACK -Patient is compliant with CPAP at baseline -Continue CPAP nocturnally RA -Continue home Plaquenil Vitamin D deficiency -Continue home vitamin D supplementation DVT prophylaxis -Subcu Lovenox -CODE STATUS Full code Charges/Coding Visit Charges Inpatient E&M: 81011 Init Hosp L2 04/20/23 1540 <Electronically signed by Summer Ruiz DO> Cosigner Signature (if applicable): CC: Dr. Summer Ruiz DO; Man Carbone DO~ Signed [facility] Work Phone: 1(320) 898-695601-02-2024 Discharge summary Author Valeriy Ralph [facility] April 20, 2023 10:28am Note Date/Time April 20, 2023 8: 18am [facility] Medical Records Department [address] [place] [id number] Emergency Department Summary 04/20/23 MR#: [id number] Acct: [id number] Name: LEANA MANCERA Rep #:[id number] : 1955 67 From: Valeriy Ralph MD PCP: Man Carbone DO Status:ADM I NO Location: [place] [address] HPI History of Present Illness Chief Complaint: Neuro S/Sx Informant: patient Narrative Narrative: Patient presents with visual changes after a pop feeling in her head. She drove herself in. Patient went to work this morning. She was feeling normally. She felt a popping sensation in her left head somewhere. She states she lost some vision in both eyes but cannot tell if it was 1 quadrant or not. But it was more involving the left. That lasted very briefly. Now her vision is a little bit blurry on the left but very mild. She does not and never did have any other neurologic deficits. No nausea vomiting. No chest pain. Patient was seen quickly as she came into room 1. More details will be discussed when we get cory from CT which is being expedited due to her concerning story. [facility] Medical History Autoimmune disorder Constipation Constipation Family history of colon cancer in father HTN (hypertension) Palindromic rheumatism Sleep apnea Home Medications cholecalciferol (vitamin D3) 25 mcg (1,000 unit) tablet 2,000 unit PO DAILY 04/25/14 [History Last Taken Unknown] hydrochlorothiazide 25 mg tablet 25 mg PO DAILY 04/16/21 [History Last Taken 04/20/23] lisinopril 10 mg tablet 20 mg PO DAILY 04/16/21 [History Last Taken 04/20/23] hydroxychloroquine 200 mg tablet 200 mg PO DAILY 09/28/22 [History Last Taken 04/20/23] estradiol 0.01% (0.1 mg/gram) vaginal cream See Rx Instructions vaginal .COMPLEX#42.5 grams 03/23/23 [Rx Last Taken Unknown] Allergy/AdvReac Type Severity Reaction Status Date / Time diphenhydramine HCl AdvReac Other Verified 04/20/23 08:12 [From Benadryl] Family History Father Colon cancer Heart disease Hypertension Thyroid disorder Mother Breast cancer Unknown Breast cancer Brother Alcoholism Sister Autoimmune disease Aunt Breast cancer Sister Breast cancer, Onset Age: 60 Surgical History H/O bilateral hip replacements History of breast lump/mass excision History of tonsillectomy S/P partial hysterectomy Total knee replacement status Social History household members: significant other current occupational status: employed current occupation: [employer] Smoking Status: Never smoker alcohol intake: current alcohol intake frequency: a few times a month substance use type: does not use diet: other what type of physical activity do you participate in: walking, yoga and other frequency: 3-4 times per week seatbelt use: always do you feel safe at home: Yes additional social history: single ROS ROS ED Constitutional Constitutional ED: Denies chills or fever(s) Eyes Eyes: Reports change in vision ENT ENT ED: Denies sore throat Cardiovascular Cardiovascular: Denies chest pain, palpitations or racing heartbeat Respiratory/Chest Respiratory/Chest: Denies cough or dyspnea Gastrointestinal Gastrointestinal: Denies nausea or vomiting Musculoskeletal Musculoskeletal: Denies back pain or neck pain Integumentary Denies rash Neurologic Neurologic: Reports headache(s), paresthesias and other Details: Patient developed some left facial and arm paresthesias after she was here. But they also resolved over the later part of her stay to ; Denies weakness Endocrine Endocrinology: Denies polydipsia or polyuria Hematologic/Lymphatic Hematologic/Lymphatic: Denies easy bleeding or easy bruising Allergic/Immunologic Allergic/Immunologic ED: Denies urticaria EXAM Physical Exam Narrative Exam Narrative: CONSTITUTIONAL: Patient is nontoxic in appearance. The patient looks comfortable. Work of breathing looks normal. HEENT: No notable trauma. Mucous membranes moist. No facial drooping. EYES: No conjunctival injection. No proptosis. No notable photophobia. Range of motion is good. Gross visual kim are normal. She states that her left eye seems fuzzy but it is diffuse. But it is not a quadrant or hemianopsia. NECK:No JVD. No stridor. CARDIOVASCULAR: Regular rate. Regular rhythm. No notable murmur. No JVD. Not tachycardic or irregular. RESPIRATORY: No respiratory distress. Breathing is unlabored. No wheezes. No rhonchi. No rales. No pain with a deep breath. No chest wall tenderness. GASTROINTESTINAL: Not distended. Bowel sounds are normal. No tenderness. GENITOURINARY: No tenderness over the bladder. No CVA tenderness. MUSCULOSKELETAL: Atraumatic. No peripheral edema. No pallor. Normal pulses x 4. NEUROLOGICAL: Patient is alert and appropriate. No focal deficit noted. She looks concern for these symptoms which is understandable. Despite having complaints of some blurring vision she does not meet points on an NIH stroke scale. But her symptoms are still concerning and she is getting CT and CTA because aneurysm is also a possibility. SKIN: No noted rashes. No diaphoresis. PSYCHIATRIC: Patient is calm. Mood is appropriate. Const Vital Signs: 04/20/23 08:09 04/20/23 08:22 04/20/23 08:39 Temperature 97.7 F L Temperature Source Oral Pulse Rate 71 69 Respiratory Rate 14 20 H Blood Pressure 156/92 H 161/71 H Blood Pressure Mean 113 101 Pulse Ox 99 Oxygen Delivery Method Room Air 04/20/23 08:48 04/20/23 09:08 04/20/23 09:18 Temperature Temperature Source Pulse Rate 65 55 L 59 L Respiratory Rate 17 14 14 Blood Pressure 146/70 H 156/72 H 140/71 H Blood Pressure Mean 95 100 94 Pulse Ox 97 96 96 Oxygen Delivery Method Room Air Room Air Room Air 04/20/23 09:38 04/20/23 10:00 Temperature Temperature Source Pulse Rate 55 L 53 L Respiratory Rate 14 14 Blood Pressure 149/76 H 140/79 H Blood Pressure Mean 100 99 Pulse Ox 97 97 Oxygen Delivery Method Room Air MDM MDM MDM Narrative Medical decision making narrative: After I saw the patient she developed a little tingling sensation in her arm andface. But no weakness. At most she had an NIH of 1. But toward the end of herstay she had an NIH of 0. Stroke neurologist talk with her about possible considering TNK with the visual symptoms. But her visual symptoms are more a generalized sense of blurriness and no field cut. And her numbness is gone. Weagreed not to use TNK at this time as her symptoms were improving and mild. Patient CBC is overall normal including platelets. Patient's electrolytes show minimally low potassium at 3.4 which is not likely the source of her symptoms. Her troponin is negative at 5. My independent interpretation of her CT of the head and her CT angiogram showed no acute process. I did look at both of these images as soon as they were done. Final reading is also negative. Patient will be admitted for further workup. Lab Data Attestation: I reviewed the patient's lab results. Labs: Laboratory Results - last 24 hr 04/20/23 08:15 WBC 4.7 RBC 4.56 Hgb 13.3 Hct 41.2 MCV 90.4 MCH 29.2 MCHC 32.3 RDW Std Deviation 41.5 RDW Coeff of Lucrecia 12.6 Plt Count 234 MPV 9.4 Immature Gran % (Auto) 0.400 Neut % (Auto) 58.9 Lymph % (Auto) 29.7 [place] % (Auto) 7.7 Eos % (Auto) 2.2 Baso % (Auto) 1.1 H Absolute Neuts (auto) 2.7 Absolute Lymphs (auto) 1.38 Nucleated RBC % 0 PT 12.2 INR 0.9 APTT 25.2 Sodium 136 Potassium 3.4 L Chloride 101 Carbon Dioxide 28.0 Anion Gap 7 BUN 34 H Creatinine 0.99 Estim Creat Clear Calc 58.42 Est GFR (MDRD) Af Amer 72 Est GFR (MDRD) Non-Af 60 BUN/Creatinine Ratio 34.4 H Glucose 110 H Calcium 9.4 Troponin I High Sens 5 Radiography Diagnostic Testing: Clinical Impression(s) from Imaging Studies Brain CT 04/20/23 08:18 IMPRESSION: 1. Chronic involutional changes of the brain. 2. Concern for stroke/positive symptomatology should be further evaluated with CT brain perfusion/CTA or MRI of the brain for further assessment. N.B. : The above Results were Read Back by Min Torres MD to Valeriy Ralph MD, and understanding confirmed on 04/20/2023 08:38:19 (ET). Electronically Signed: Min Torres MD at 8:39 EST Reading Location ID and State: [facility] / [place] , Service support , ADDENDUM: 04/20/23 0846 IMPRESSION: 1. Chronic involutional changes of the brain. 2. Concern for stroke/positive symptomatology should be further evaluated with CT brain perfusion/CTA or MRI of the brain for further assessment. N.B. : The above Results were Read Back by Min Torres MD to Valeriy Ralph MD, and understanding confirmed on 04/20/2023 08:38:19 (ET). Electronically Signed: Min Torres MD at 8:39 EST , Head/Neck CTA 04/20/23 08:18 IMPRESSION: 1. Normal [place] without a demonstrated aneurysm or thrombus or hemodynamically significant stenosis. 2. Normal bilateral cervical carotid and vertebral arteries. N.B. : The above Results were Read Back by Min Torres MD to Valeriy Ralph MD, and understanding confirmed on 04/20/2023 09:01:19 (ET). Electronically Signed: Min Torres MD at 9:02 EST , ADDENDUM: 04/20/23 0909 IMPRESSION: 1. Normal [place] without a demonstrated aneurysm or thrombus or hemodynamically significant stenosis. 2. Normal bilateral cervical carotid and vertebral arteries. N.B. : The above Results were Read Back by Min Torres MD to Valeriy Ralph MD, and understanding confirmed on 04/20/2023 09:01:19 (ET). Electronically Signed: Min Torres MD at 9:02 EST , Chest X-Ray 04/20/23 08:55 IMPRESSION: Cardiomegaly with mild hyperinflation and no acute or active cardiopulmonary disease. Electronically Signed: Asaf Stuart MD at 9:22 EST , EKG Initial EKG: Comments: My independent interpretation patient's EKG was sinus rhythm with slightly bradycardic rate at 52. No ventricular ectopy. No acute ST elevation or depression. VT interval is slightly long showing first-degree AV block. But QRS duration and QTc are normal. Management Discussion w/another healthcare provider: Hospitalist, [employer] and Radiologist Discharge Plan Triage Chief Complaint: Neuro S/Sx ED Provider: Valeriy Ralph Dx/Rx/DC Orders Clinical Impression: Brain TIA, Headache, History of hypertension Prescriptions: No Action hydrochlorothiazide 25 mg tablet 25 mg PO DAILY hydroxychloroquine 200 mg tablet 200 mg PO DAILY estradiol 0.01 % (0.1 mg/gram) cream See Rx Instructions vaginal .COMPLEX Qty: 42.5 2RF Rx Instructions: small amount as directed vaginal every other day X 4 weeks then twice a week; cholecalciferol (vitamin D3) 1,000 UNIT tablet 2,000 unit PO DAILY Patient Comments: vitamin D lisinopril 10 mg tablet 20 mg PO DAILY Primary Care Provider: Man Carbone Referrals: Man Carbone DO [Primary Care Provider] - Disposition Disposition: Acute Care Hospital [facility] What to do if you have Problems For any increased pain, shortness of breath, bleeding, nausea or vomiting, chestpain, or any unexpected problems, contact your Primary Care Provider. Call [facility] ([phone]) or report to the closest Emergency Room. Call 911 if necessary. 04/20/23 1028 <Electronically signed by Valeriy Ralph MD> Cosigner Signature (if applicable): CC: Man Carbone DO ~ Signed [facility] Work Phone: 1(264) 289-655201-02-2024 Discharge summary Author Valeriy Ralph [facility] April 20, 2023 10:28am Note Date/Time April 20, 2023 8: 18am [facility] Medical Records Department [address] [place] [id number] Emergency Department Summary 04/20/23 MR#: [id number] Acct: [id number] Name: LEANA MANCERA Rep #:[id number] : 1955 67 From: Valeriy Ralph MD PCP: Man Carbone DO Status:ADM I NO Location: [place] [address] HPI History of Present Illness Chief Complaint: Neuro S/Sx Informant: patient Narrative Narrative: Patient presents with visual changes after a pop feeling in her head. She drove herself in. Patient went to work this morning. She was feeling normally. She felt a popping sensation in her left head somewhere. She states she lost some vision in both eyes but cannot tell if it was 1 quadrant or not. But it was more involving the left. That lasted very briefly. Now her vision is a little bit blurry on the left but very mild. She does not and never did have any other neurologic deficits. No nausea vomiting. No chest pain. Patient was seen quickly as she came into room 1. More details will be discussed when we get cory from CT which is being expedited due to her concerning story. [facility] Medical History Autoimmune disorder Constipation Constipation Family history of colon cancer in father HTN (hypertension) Palindromic rheumatism Sleep apnea Home Medications cholecalciferol (vitamin D3) 25 mcg (1,000 unit) tablet 2,000 unit PO DAILY 04/25/14 [History Last Taken Unknown] hydrochlorothiazide 25 mg tablet 25 mg PO DAILY 04/16/21 [History Last Taken 04/20/23] lisinopril 10 mg tablet 20 mg PO DAILY 04/16/21 [History Last Taken 04/20/23] hydroxychloroquine 200 mg tablet 200 mg PO DAILY 09/28/22 [History Last Taken 04/20/23] estradiol 0.01% (0.1 mg/gram) vaginal cream See Rx Instructions vaginal .COMPLEX#42.5 grams 03/23/23 [Rx Last Taken Unknown] Allergy/AdvReac Type Severity Reaction Status Date / Time diphenhydramine HCl AdvReac Other Verified 04/20/23 08:12 [From Benadryl] Family History Father Colon cancer Heart disease Hypertension Thyroid disorder Mother Breast cancer Unknown Breast cancer Brother Alcoholism Sister Autoimmune disease Aunt Breast cancer Sister Breast cancer, Onset Age: 60 Surgical History H/O bilateral hip replacements History of breast lump/mass excision History of tonsillectomy S/P partial hysterectomy Total knee replacement status Social History household members: significant other current occupational status: employed current occupation: [employer] Smoking Status: Never smoker alcohol intake: current alcohol intake frequency: a few times a month substance use type: does not use diet: other what type of physical activity do you participate in: walking, yoga and other frequency: 3-4 times per week seatbelt use: always do you feel safe at home: Yes additional social history: single ROS ROS ED Constitutional Constitutional ED: Denies chills or fever(s) Eyes Eyes: Reports change in vision ENT ENT ED: Denies sore throat Cardiovascular Cardiovascular: Denies chest pain, palpitations or racing heartbeat Respiratory/Chest Respiratory/Chest: Denies cough or dyspnea Gastrointestinal Gastrointestinal: Denies nausea or vomiting Musculoskeletal Musculoskeletal: Denies back pain or neck pain Integumentary Denies rash Neurologic Neurologic: Reports headache(s), paresthesias and other Details: Patient developed some left facial and arm paresthesias after she was here. But they also resolved over the later part of her stay to ; Denies weakness Endocrine Endocrinology: Denies polydipsia or polyuria Hematologic/Lymphatic Hematologic/Lymphatic: Denies easy bleeding or easy bruising Allergic/Immunologic Allergic/Immunologic ED: Denies urticaria EXAM Physical Exam Narrative Exam Narrative: CONSTITUTIONAL: Patient is nontoxic in appearance. The patient looks comfortable. Work of breathing looks normal. HEENT: No notable trauma. Mucous membranes moist. No facial drooping. EYES: No conjunctival injection. No proptosis. No notable photophobia. Range of motion is good. Gross visual kim are normal. She states that her left eye seems fuzzy but it is diffuse. But it is not a quadrant or hemianopsia. NECK:No JVD. No stridor. CARDIOVASCULAR: Regular rate. Regular rhythm. No notable murmur. No JVD. Not tachycardic or irregular. RESPIRATORY: No respiratory distress. Breathing is unlabored. No wheezes. No rhonchi. No rales. No pain with a deep breath. No chest wall tenderness. GASTROINTESTINAL: Not distended. Bowel sounds are normal. No tenderness. GENITOURINARY: No tenderness over the bladder. No CVA tenderness. MUSCULOSKELETAL: Atraumatic. No peripheral edema. No pallor. Normal pulses x 4. NEUROLOGICAL: Patient is alert and appropriate. No focal deficit noted. She looks concern for these symptoms which is understandable. Despite having complaints of some blurring vision she does not meet points on an NIH stroke scale. But her symptoms are still concerning and she is getting CT and CTA because aneurysm is also a possibility. SKIN: No noted rashes. No diaphoresis. PSYCHIATRIC: Patient is calm. Mood is appropriate. Const Vital Signs: 04/20/23 08:09 04/20/23 08:22 04/20/23 08:39 Temperature 97.7 F L Temperature Source Oral Pulse Rate 71 69 Respiratory Rate 14 20 H Blood Pressure 156/92 H 161/71 H Blood Pressure Mean 113 101 Pulse Ox 99 Oxygen Delivery Method Room Air 04/20/23 08:48 04/20/23 09:08 04/20/23 09:18 Temperature Temperature Source Pulse Rate 65 55 L 59 L Respiratory Rate 17 14 14 Blood Pressure 146/70 H 156/72 H 140/71 H Blood Pressure Mean 95 100 94 Pulse Ox 97 96 96 Oxygen Delivery Method Room Air Room Air Room Air 04/20/23 09:38 04/20/23 10:00 Temperature Temperature Source Pulse Rate 55 L 53 L Respiratory Rate 14 14 Blood Pressure 149/76 H 140/79 H Blood Pressure Mean 100 99 Pulse Ox 97 97 Oxygen Delivery Method Room Air MDM MDM MDM Narrative Medical decision making narrative: After I saw the patient she developed a little tingling sensation in her arm andface. But no weakness. At most she had an NIH of 1. But toward the end of herstay she had an NIH of 0. Stroke neurologist talk with her about possible considering TNK with the visual symptoms. But her visual symptoms are more a generalized sense of blurriness and no field cut. And her numbness is gone. Weagreed not to use TNK at this time as her symptoms were improving and mild. Patient CBC is overall normal including platelets. Patient's electrolytes show minimally low potassium at 3.4 which is not likely the source of her symptoms. Her troponin is negative at 5. My independent interpretation of her CT of the head and her CT angiogram showed no acute process. I did look at both of these images as soon as they were done. Final reading is also negative. Patient will be admitted for further workup. Lab Data Attestation: I reviewed the patient's lab results. Labs: Laboratory Results - last 24 hr 04/20/23 08:15 WBC 4.7 RBC 4.56 Hgb 13.3 Hct 41.2 MCV 90.4 MCH 29.2 MCHC 32.3 RDW Std Deviation 41.5 RDW Coeff of Lucrecia 12.6 Plt Count 234 MPV 9.4 Immature Gran % (Auto) 0.400 Neut % (Auto) 58.9 Lymph % (Auto) 29.7 [place] % (Auto) 7.7 Eos % (Auto) 2.2 Baso % (Auto) 1.1 H Absolute Neuts (auto) 2.7 Absolute Lymphs (auto) 1.38 Nucleated RBC % 0 PT 12.2 INR 0.9 APTT 25.2 Sodium 136 Potassium 3.4 L Chloride 101 Carbon Dioxide 28.0 Anion Gap 7 BUN 34 H Creatinine 0.99 Estim Creat Clear Calc 58.42 Est GFR (MDRD) Af Amer 72 Est GFR (MDRD) Non-Af 60 BUN/Creatinine Ratio 34.4 H Glucose 110 H Calcium 9.4 Troponin I High Sens 5 Radiography Diagnostic Testing: Clinical Impression(s) from Imaging Studies Brain CT 04/20/23 08:18 IMPRESSION: 1. Chronic involutional changes of the brain. 2. Concern for stroke/positive symptomatology should be further evaluated with CT brain perfusion/CTA or MRI of the brain for further assessment. N.B. : The above Results were Read Back by Min Torres MD to Valeriy Ralph MD, and understanding confirmed on 04/20/2023 08:38:19 (ET). Electronically Signed: Min Torres MD at 8:39 EST , ADDENDUM: 04/20/23 0846 IMPRESSION: 1. Chronic involutional changes of the brain. 2. Concern for stroke/positive symptomatology should be further evaluated with CT brain perfusion/CTA or MRI of the brain for further assessment. N.B. : The above Results were Read Back by Min Torres MD to Valeriy Ralph MD, and understanding confirmed on 04/20/2023 08:38:19 (ET). Electronically Signed: Min Torres MD at 8:39 EST , Head/Neck CTA 04/20/23 08:18 IMPRESSION: 1. Normal [place] without a demonstrated aneurysm or thrombus or hemodynamically significant stenosis. 2. Normal bilateral cervical carotid and vertebral arteries. N.B. : The above Results were Read Back by Min Torres MD to Valeriy Ralph MD, and understanding confirmed on 04/20/2023 09:01:19 (ET). Electronically Signed: Min Torres MD at 9:02 EST , ADDENDUM: 04/20/23 0909 IMPRESSION: 1. Normal [place] without a demonstrated aneurysm or thrombus or hemodynamically significant stenosis. 2. Normal bilateral cervical carotid and vertebral arteries. N.B. : The above Results were Read Back by Min Torres MD to Valeriy Ralph MD, and understanding confirmed on 04/20/2023 09:01:19 (ET). Electronically Signed: Min Torres MD at 9:02 EST , Chest X-Ray 04/20/23 08:55 IMPRESSION: Cardiomegaly with mild hyperinflation and no acute or active cardiopulmonary disease. Electronically Signed: Asaf Stuart MD at 9:22 EST , EKG Initial EKG: Comments: My independent interpretation patient's EKG was sinus rhythm with slightly bradycardic rate at 52. No ventricular ectopy. No acute ST elevation or depression. VT interval is slightly long showing first-degree AV block. But QRS duration and QTc are normal. Management Discussion w/another healthcare provider: Hospitalist, [employer] Guard and Radiologist Discharge Plan Triage Chief Complaint: Neuro S/Sx ED Provider: Valeriy Ralph Dx/Rx/DC Orders Clinical Impression: Brain TIA, Headache, History of hypertension Prescriptions: No Action hydrochlorothiazide 25 mg tablet 25 mg PO DAILY hydroxychloroquine 200 mg tablet 200 mg PO DAILY estradiol 0.01 % (0.1 mg/gram) cream See Rx Instructions vaginal .COMPLEX Qty: 42.5 2RF Rx Instructions: small amount as directed vaginal every other day X 4 weeks then twice a week; cholecalciferol (vitamin D3) 1,000 UNIT tablet 2,000 unit PO DAILY Patient Comments: vitamin D lisinopril 10 mg tablet 20 mg PO DAILY Primary Care Provider: Man Carbone Referrals: Man Carbone, [Primary Care Provider] - Disposition Disposition: Acute Care Hospital [facility] What to do if you have Problems For any increased pain, shortness of breath, bleeding, nausea or vomiting, chestpain, or any unexpected problems, contact your Primary Care Provider. Call [facility] ([phone]) or report to the closest Emergency Room. Call 911 if necessary. 04/20/23 1028 <Electronically signed by Valeriy Ralph MD> Cosigner Signature (if applicable): CC: Man Carbone DO ~ Signed [facility] Work Phone: 1(887) 289-443110-03-2023 Miscellaneous Notes* Telephone Encounter - Homa Bass LPN - 01/19/2023 7:32 AM EDT Patient MyChart message requesting the following refill Refill(s) Requested: Requested Prescriptions Pending Prescriptions Disp Refills hydrOXYchloroQUINE (PLAQUENIL) 200 mg tablet 60 tablet 2 Sig: Take 1 tablet by mouth two times a day. ALLERGIES Allergen Reactions Benadryl [Diphenhyd* Other: See Comments knocks me out (home) [phone] (cell) Last Office Visit Date: 12/22/2022 Last Distance Health Visit: Visit date not found Future Appointment: Visit date not found The patients preferred pharmacy has been captured for this encounter? yes Request is for script(s) to be escript to pharmacy. Homa Bass LPN documented in this encounterPark[facility] Health09-05-2023 NoteHNO ID: [id number] Author: Julián Nichols MD Service: ? Author Type: Physician Type: Progress Notes Filed: 12/22/2022 1:09 PM Note Text: This note was created using [employer]un[employer]. Subjective Leana Mancera is a 67 year [...] (97.6 ?F) (Temporal) Height 172.7 cm (5' 8) Weight 84.4 kg (186 lb) Oxygen Saturation [...] right knee aspirate culture crystal neg, wbc 18904, esr 20 (<30 ) crp 54 ( <3 ) , wbc 9300 normal. 06/11 RF CCP TEMITOPE neg CRP 3.93 ( < 3 ) 2014 1,25 OH D 63 normal 09/08 esr 10 crp normal, uric 5.7 '''' 2015 chest xr normal 02/07 chest xr Degenerative disc disease TS (( Fatique 04/2020, retired from [employer] and did not get [...] 2015 wbc 4000 low diff not done. 2015 CK 70 09/08 cbc cmp normal 2014 [...] abnormalities involving the c (more content not included)...[facility] 08-31-2022 History of Present illness Narrative* Julián Nichols MD - 08/31/2022 11:33 AM EDT This note was created using BizNet Software[employer]. Subjective Lenaa Mancera is a 66 year old female. ( 09/08 severe pain in right wrist pain 08/18/22 onset , numbness, thought had gout and went to PCP, night before was playing pickle ball 08/17/22, no inj, but at home was shivering, could not get warm, took hot shower felt something was wrong, shivering better during night time in blanket , PCP thoughtmay be infection , labs done, and then [...] somewhat better, using aleve 2 ever 5-6 hour) (( never with gout ) Never with [...] headaches, jaw claudication, abnormal tongue sensation, scalp tenderness,or episodes of diplopia or visual loss. Is not running any low grade fevers etc. Review of Systems Objective Blood Pressure 121/81 Pulse (Abnormal) 58 Temperature 36.5 C (97.7 F) Height 172.7 cm (5' 8) Weight 84.4 kg (186 lb) Body Mass [...] excluded pseudogout / polyarticular gout either ) (Richard Conley 04/2020, retired from [employer] and did not get better) 08/25/21 right knee aspirate culture crystal neg, wbc 06978, esr 20 (<30 ) crp 54 ( [...] went to PCP, night before was playing [employer] ball 08/17/22, no inj, but at home was shivering, could not get warm, took hot shower felt something was wrong, shivering better during night time in blanket , PCP thoughtmay be infection , labs done, and then [...] somewhat better, using aleve 2 ever 5-6 hour) (( never with gout ) 09/08 would [...] annoying pain, worse than low back pain, 8/, all day long, worse in, wakes up [...] wt bearing ) 08/31/22 ( no left kneepain ) ( no ankle feet pain, never [...] was jorge a high, stroke stephenson all negative) TT 08/31/22 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 ( [place] [employer] recommends monitoring CBC, Creatinine [...] then may have to stop the drugs. [place] [employer] ophthal[employer] guidelines:A baseline fundus examination should be performed to rule out preexisting maculopathy. Begin annual screening after 5 years for patients on acceptable d oses and without major risk factors.( 5 mg per kg body wt or 6.5 mg per kg ideal body wt ) documented in this encounterParkview HealthD[facility] hospital[facility] summary Author Summer Ruiz [facility] April 21, 2023 1:29pm Note Date/Time April 21, 2023 1: 21pm [facility] Medical Records Department [address] [place] [address] Discharge Summary 04/21/23 1320 MR#: [id number] Acct: [id number] Name: LEANA MANCERA Rep #:[id number] : 1955 67 From: Summer Ruiz DO PCP: Man Carbone DO Status:ADM I NO [facility] Prov[facility] Date of Admission: 04/20/23 Date of Discharge: 04/21/23 Primary Care Physician: Man Carbone DO Consultations 04/20/23 11:24 Consult: Tele-Neurology Routine Consulting Provider: [facility] Reason for Consult: Acute Ischemic Stroke/TIA EMERGENT Consult: No MD Notified: Yes Date Notified: 04/20/23 Time Notified: 11:39 Method of Notification: Answering Service Reason For Visit: BLURRED VISION R/O STROKE Diagnosis Discharge Diagnosis (1) Blurred vision: Status: Acute Code(s): H53.8 - Other visual disturbances (2) Left facial numbness: Status: Acute Code(s): R20.0 - Anesthesia of skin Medications at Discharge Home Medications cholecalciferol (vitamin D3) 25 mcg (1,000 unit) tablet 2,000 unit PO DAILY 04/25/14 hydrochlorothiazide 25 mg tablet 25 mg PO DAILY 04/16/21 lisinopril 10 mg tablet 20 mg PO DAILY 04/16/21 hydroxychloroquine 200 mg tablet 200 mg PO DAILY 09/28/22 estradiol 0.01% (0.1 mg/gram) vaginal cream See Rx Instructions vaginal .COMPLEX#42.5 grams 03/23/23 Hospital Course Procedures 2-D Echocardiogram and - (MRI brain/CT brain/CTA head and neck) Summary of Care Provided Minutes Spent on Discharge: 37 Hospital Course: LEANA MANCERA, is a 67 F who presented to the emergency department at [facility] on 04/20/2022 with acute onset blurred vision and left face tingling. 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 She did indicate that she had a restless night sleep which is atypical for her but otherwise she was feeling okay. When she got to work, she indicated she was ready to scan the patient and felt a pop on the leftside of her temporal region after which she had an acute onset headache and blurred vision in her left eye. After arrival to the emergency department she developed some tingling in her left face as well. She did report that she scanned the patient she was performing the MRI on after she heard the pop and then started feeling very lightheaded. It sounded as if that her symptoms were vertiginous however she does indicate she and was passed out. She never lost consciousness and was able to finish the scan and then came to the emergency department. NIH on arrival was 1 for left facial tingling. She had no visual field cut but did complain of blurred vision in the left eye predominantly. By the time I evaluated her her headache was resolving and she was feeling better overall. She still was complaining of some mild blurred vision however the tingling in her left face have resolved. She did report a history of migraine headache that started when she started menses. She did report improvement in her migraine history as she got older and by the time of menopause her migrainesreturned but were usually visual impairment only with scotomas and no resultant headache. She reported that her visual loss with this event is nothing like previous visual issues she has had with previous migraines. Vital signs on presentation showed a temperature of 97.7, blood pressure was 156/92, heart ratewas 71, respiratory was 14 and oxygen saturation was 99% on room air was unremarkable. Coags were normal. Chemistry panel revealed mild hypokalemia with potassium of 3.4 but was otherwise unremarkable. We obtained a hemoglobin A1c which was 5.1. Troponin was 5. I added on inflammatory markers in the formof CRP and ESR. They were both completely normal at less than 2.9 and 8 respectively. EKG was normal sinus rhythm without any ST-T wave changes concerning for acute ischemia and normal intervals. CT of the brain showed chronic involutional changes but no acute findings. CT of the head and neck showed normal [place] without any demonstrated aneurysm or thrombus or hemodynamically significant stenosis and normal bilateral carotid and vertebral artery exam. Chest x-ray had no acute findings. She was admitted to PCU and monitored on telemetry with no abnormal findings. MRI of the brain was performed and was negative for any acute infarct. Echocardiogram was performed and showed an EF of 65% with normal diastolic function. The patient does have aPFO that is small however in the absence of stroke no further workup needs performed at this time, and mild aortic valve insufficiency. She was reevaluated by neurology who feels that this is likely related to complex migraine and recommended discharge home with no changes in her home regimen. We did obtain a hemoglobin A1c and lipid panel per stroke workup. Hemoglobin A1c was 5.1, and her lipid panel showed a total cholesterol of 200, LDL of 100, HDL of 94 and triglycerides of 32. I did get CRP and sed rate and both were completely unremarkable. She was able to be discharged home with no medication changes on 04/21/2023. They did not recommend she have ongoing neurology follow-up and did recommend following up with her primary care physician within the next 2 to 4 weeks. Discharge diagnoses: Complex migraine-resolved Blurred vision-resolved Left facial tingling/numbness-resolved Hypertension JACK Rheumatoid arthritis Vitamin D deficiency Physical Exam Narrative Patient states her vision is back to baseline, no further face tingling/numbnessand her headache has resolved. Const alert, oriented x3, no apparent distress, healthy appearing and well nourished Constitutional Narrative: Overweight, upper middle-aged, white female, sitting up in a chair at the bedside, watching television, appears comfortable and nontoxic General Appearance: cooperative, comfortable, well kempt and well developed Orientation / Consciousness: awake, oriented to person, oriented to place and oriented to time Exam Limitations: no limitations Nutritional Appearance: overweight HEENT normocephalic, head/scalp atraumatic, hearing grossly normal bilaterally and moist oral mucous membranes HEENT Narrative: Mallampati 3, no thrush Eyes PERRL and conjunctivae normal Eyes Narrative: No scleral icterus Neck no lymphadenopathy and supple Neck Narrative: Trachea midline, no thyroid enlargement Resp normal respiratory effort, no retractions, no use of accessory muscles and clearto auscultation bilaterally Auscultation: Negative for rales, rhonchi or wheezes Cardio regular rate, regular rhythm, S1 normal heart sound, S2 normal heart sound, no murmurs, no rub, no gallops and no clicks GI normal to inspection, nondistended, normoactive bowel sounds, soft to palpation and non-tender Extremity no clubbing, cyanosis or edema Extremity Narrative: Pedal pulses are 2+ Skin no wounds, skin turgor normal, no jaundice, no petechiae and no mottling Neuro oriented x3, CN's II-XII intact bilaterally, moves all extremities and no focal motor deficits Speech: speech normal Motor Exam: strength 5/5 throughout Psych affect normal Psych Narrative: Eye contact is good, patient interacts appropriately Weight / BMI Weight Weight: 85.5 kg Body Mass Index (BMI) 27.8 ABG / Lab / Microbiology Data 04/21/23 05:12 04/21/23 05:12 Laboratory: Laboratory Results - last 24 hr 04/21/23 05:12: WBC 4.6, RBC 4.19 L, Hgb 12.3, Hct 38.3, MCV 91.4, MCH 29.4, MCHC 32.1, RDW Std Deviation 42.6, RDW Coeff of Lucrecia 12.8, Plt Count 227, MPV 9.8, Immature Gran % (Auto) 0.200, Neut % (Auto) 52.0, Lymph % (Auto) 33.8, [place]% (Auto) 9.2, Eos % (Auto) 3.9, Baso % (Auto) 0.9, Absolute Neuts (auto) 2.4, Absolute Lymphs (auto) 1.55, Nucleated RBC % 0, Sodium 139, Potassium 4.1, Chloride 107, Carbon Dioxide 30.0, Anion Gap 2 L, BUN 25 H, Creatinine 0.78, Estim Creat Clear Calc 57.83, Est GFR (MDRD) Af Amer 95, Est GFR (MDRD) Non-Af 79, BUN/Creatinine Ratio 32.1 H, Glucose 113 H, Calcium 8.7, Phosphorus 3.4, Magnesium 2.2, Triglycerides 32, Cholesterol 201 H, LDL Cholesterol 101, VLDL Cholesterol 6, HDL Cholesterol 94 Radiography Diagnostic Testing: Radiology Impression Echocardiogram 04/20/23 10:15 Interpretation Summary The left ventricular ejection fraction is 65 %. Bubble contrast study is suspicious for tiny PFO. Recommend GUILLE for further evaluation if clinically indicated. Mild (1+) aortic valve insufficiency. Ordering Physician: Summer Ruiz Referring Physician: MAN CARBONE Performed By: Berenice Raphael RDCS D/C Instructions Discharge Diet: Low fat / Low cholesterol Discharge Activity: Return to Normal Activity Meaningful Use Info Meaningful Use Diagnoses (Choose all that apply): None applicable Discharge Plan Admission Admit Date/Time: 04/20/23 10:07 Primary Reason for Your Visit: Blurred vision/left facial tingling/numbness Attending Provider: Summer Ruiz Primary Care Provider: Man Carbone Consulting Providers: Aries Blair; Tiara Salcedo; Ava Alejandro; Diana Busby; Lakeisha Head; Alejandro Dickson; Chika Momin; Fahad Savage; Sharif Talavera; Marilee Bell; Suzanne Sanders; Ruby Florence; Abdirizak Max; Elma Mehta; Valeriy Panchal; Constance Sainz; Rivas Hull; Ara Ruiz; Garfield Avila Discharge Orders/Prescriptions Prescriptions: Continued hydrochlorothiazide 25 mg tablet 25 mg PO DAILY hydroxychloroquine 200 mg tablet 200 mg PO DAILY estradiol 0.01 % (0.1 mg/gram) cream See Rx Instructions vaginal .COMPLEX Qty: 42.5 2RF Rx Instructions: small amount as directed vaginal every other day X 4 weeks then twice a week; cholecalciferol (vitamin D3) 1,000 UNIT tablet 2,000 unit PO DAILY Patient Comments: vitamin D lisinopril 10 mg tablet 20 mg PO DAILY Referrals / Follow Up: Man Carbone DO [Primary Care Provider] - Within 2 Weeks Disposition Disposition (needs filled in before D/C Order can be placed): Home, Self Care Charges/Coding Visit Charges Inpatient E&M: 02918 Disch Hosp >30min 04/21/23 1329 <Electronically signed by Summer Ruiz DO> Cosigner Signature (if applicable): CC: Dr. Summer Ruiz DO; Man Carbone DO~ Signed [facility] Work Phone: Evaluation note* Diagnosis Onset Date Resolution Status Atrophic vaginitis acute Family history of breast cancer acute Family history of colon cancer in father acute [facility] Work Phone: Evaluation noteNo assessment information available [facility] Work Phone: Evaluation note* Diagnosis Onset Date Resolution Status JACK (obstructive sleep apnea) chronic [facility] Work Phone: Evaluation note* Diagnosis Onset Date Resolution Status JACK (obstructive sleep apnea) chronic Daytime hypersomnia noneacti ve [facility] Work Phone: Evaluation note* Diagnosis Palindromic rheumatism- Primary Palindromic rheumatism, site unspecified documented in this encounter [facility] note* Diagnosis Onset Date Resolution Status Atrophic vaginitis acute Dense breast tissue on mammogram acute Family history of breast cancer acute Encounter for routine gynecological examination noneactive Brain TIA acute Headache acute History of hypertension acut e [facility] Work Phone: Evaluation note* Diagnosis Onset Date Resolution Status Atrophic vaginitis acute Dense breast tissue on mammogram acute Family history of breast cancer acute Encounter for routine gynecological examination noneactive Blurred vision acute Brain TIA acute Headache acute History of hypertension acut e Left facial numbness acute [facility] Work Phone: Evaluation note* Diagnosis Onset Date Resolution Status Atrophic vaginitis acute Dense breast tissue on mammogram acute Family history of breast cancer acute Encounter for routine gynecological examination noneactive Blurred vision resolved Headache resolved Left facial numbness resolve d Thyroid nodule acute [facility] Work Phone: Evaluation note* Diagnosis Onset Date Resolution Status Atrophic vaginitis acute Dense breast tissue on mammogram acute Family history of breast cancer acute Encounter for routine gynecological examination noneactive Blurred vision resolved Headache resolved Left facial numbness resolve d Thyroid nodule acute HTN (hypertension) chronic [facility] Work Phone: Evaluation note* Diagnosis Constipation, unspecified constipation type- Primary Nausea Nausea alone Upset stomach Dyspepsia and other specified disorders of function of stomach Gastroesophageal reflux disease, unspecified whether esophagitis present documented in this encounter [facility] note* Diagnosis Palindromic rheumatism- Primary Palindromic rheumatism, site unspecified documented in this encounter [facility] note* Diagnosis Personal history of colonic polyps- Primary Family history of colonic polyps Encounter for screening colonoscopy Special screening for malignant neoplasms, colon Nausea Nausea alone Gastroesophageal reflux disease, unspecified whether esophagitis present Constipation, unspecified constipation type Upset stomach Dyspepsia and other specified disorders of function of stomach documented in this encounter [facility] note* Diagnosis Gastroesophageal reflux disease, unspecified whether esophagitis present- Primary Adenomatous polyp of colon, unspecified part of colon Redundant colon Other congenital anomalies of intestine Constipation, unspecified constipation type documented in this encounter [facility] for referral (narrative)* Outpatient Procedure (Routine) - New Request Specialty Diagnoses / Procedures Referred By Junior garber Referred To Contact [facility] Diagnoses Nausea Upset stomach Gastroesophageal reflux disease, unspecified whether esophagitis present Procedures EGD DIAGNOSTIC ESOPHAGOGASTRODUODENOSC OPY TRANSORAL DIAGNOSTIC Debbi Patel APRN.TUBING SUPERVISOR [address] [place] [address] [address] Referral ID Status Reason Start Date Expiration Date Visits Requested Visits Authorized [id number] New Request Auto-Generat ed Referral 11/25/2023 11/24/2024 1 1 * Outpatient Procedure (Routine) - New Request Specialty Diagnoses / Procedures Referred By Junior garber Referred To [facility] Diagnoses Constipation, unspecified constipation type Procedures COLONOSCOPY DIAGNOSTIC COLONOSCOPY FLX DX W/COLLJ SPEC WHEN PFDebbi Villarreal APRN.TUBING SUPERVISOR [address] [place] [address] [address] Referral ID Status Reason Start Date Expiration Date Visits Requested Visits Authorized [id number] New Request Auto-Generat ed Referral 11/25/2023 11/24/2024 1 1 [facility] for referral (narrative)* Outpatient Procedure (Routine) - Closed Specialty Diagnoses / Procedures Referred By Junior garber Referred To Contact [facility] Diagnoses Nausea Upset stomach Gastroesophageal reflux disease, unspecified whether esophagitis present Procedures EGD DIAGNOSTIC ESOPHAGOGASTRODUODENOSC OPY TRANSORAL DIAGNOSTIC Debbi Patel APRN.TUBING SUPERVISOR [address] [place] [address] [address] Referral ID Status Reason Start Date Expiration Date V isits Requested Visits Authorized [id number] Closed Auto-Generate d Referral 11/25/2023 11/24/2024 1 1 * Outpatient Procedure (Routine) - Closed Specialty Diagnoses / Procedures Referred By Junior garber Referred To Contact [facility] Diagnoses Constipation, unspecified constipation type Procedures COLONOSCOPY DIAGNOSTIC COLONOSCOPY FLX DX W/COLLJ SPEC WHEN PFDebbi Villarreal APRN.TUBING SUPERVISOR [address] [place] [address] [facility] [address] [place] [id number] Referral ID Status Reason Start Date Expiration Date V isits Requested Visits Authorized [id number] Closed Auto-Generate d Referral 11/25/2023 11/24/2024 1 1 [facility] Procedure (Routine) - Closed Specialty Diagnoses / Procedures Referred By Junior garber Referred To Contact [facility] Diagnoses Nausea Upset stomach Gastroesophageal reflux disease, unspecified whether esophagitis present Procedures EGD DIAGNOSTIC ESOPHAGOGASTRODUODENOSC OPY TRANSORAL DIAGNOSTIC Debbi Patel APRN.TUBING SUPERVISOR [address] [facility] [place] [address] [facility] [address] [address] Referral ID Status Reason Start Date Expiration Date V isits Requested Visits Authorized [id number] Closed Auto-Generate d Referral 11/25/2023 11/24/2024 1 1 [facility] Chief Complaint and Reason for Visit Chief Complaint 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 Reason for Visit Atrophic vaginitis Family history of breast cancer Family history of colon cancer in father Chief Complaint EORDER Chief Complaint Sleep apnea JACK Reason for Visit JACK (obstructive sle ep apnea) Chief Complaint Sleep apnea JACK 2 M FU- Sleep study was Neg wanted appt per pt HYPERSOMNIA LAB AND WRIST XRAY Reason for Visit JACK (obstructive sle ep apnea) Daytime hypersomnia Chief Complaint SCREENING Chief Complaint SCREENING 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 (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 SPECIALIST) BLURRED VISION R/O STROKE Reason for Visit Atrophic vaginitis Dense breast tissue on mammogram Family history of breast cancer Encounter for routine gynecological examination Brain TIA Headache History of hypertension Chief Complaint SCREENING Annual (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 SPECIALIST) BLURRED VISION R/O STROKE BLURRED VISION R/O STROKE BLURRED VISION R/O STROKE Reason for Visit Atrophic vaginitis Dense breast tissue on mammogram Family history of breast cancer Encounter for routine gynecological examination Blurred vision Brain TIA Headache History of hypertension Left facial numbness Chief Complaint SCREENING Annual (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 SPECIALIST) BLURRED VISION R/O STROKE BLURRED VISION R/O STROKE BLURRED VISION R/O STROKE 7 M FU INT LABS NODULE Reason for Visit Atrophic vaginitis Dense breast tissue on mammogram Family history of breast cancer Encounter for routine gynecological examination Blurred vision Headache Left facial numbness Thyroid nodule Chief Complaint SCREENING Annual (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 SPECIALIST) BLURRED VISION R/O STROKE BLURRED VISION R/O STROKE BLURRED VISION R/O STROKE 7 M FU INT LABS NODULE AGE-RELATED OSTEOPOROSIS Reason for Visit Atrophic vaginitis Dense breast tissue on mammogram Family history of breast cancer Encounter for routine gynecological examination Blurred vision Headache Left facial numbness Thyroid nodule Chief Complaint Annual (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 SPECIALIST) BLURRED VISION R/O STROKE BLURRED VISION R/O STROKE BLURRED VISION R/O STROKE 7 M FU INT LABS NODULE AGE-RELATED OSTEOPOROSIS ABN ECHO (SELF) HYPERTENSION HYPERTENSION Reason for Visit Atrophic vaginitis Dense breast tissue on mammogram Family history of breast cancer Encounter for routine gynecological examination Blurred vision Headache Left facial numbness Thyroid nodule HTN (hypertension) Family History Relationship Condition Age at Onset Recorded Date/T [place] father Malignant neoplasm of colon Unknown Cardiac disease Unknown Hypertension Unknown Disorder of thyroid Unknown mother Malignant neoplasm of breast Unknown Not Specified Malignant neoplasm of breast Unknown Relationship Condition Age at Onset Recorded Date/T [place] father Malignant neoplasm of colon Unknown Cardiac disease Unknown Hypertension Unknown Disorder of thyroid Unknown mother Malignant neoplasm of breast Unknown Not Specified Malignant neoplasm of breast Unknown brother Alcoholism Unknown sister Autoimmune disease Unknown Relationship Condition Age at Onset Recorded Date/T [place] father Malignant neoplasm of colon Unknown Cardiac disease Unknown Hypertension Unknown Disorder of thyroid Unknown mother Malignant neoplasm of breast Unknown Not Specified Malignant neoplasm of breast Unknown brother Alcoholism Unknown sister Autoimmune disease Unknown aunt Malignant neoplasm of breast Unknown sister Malignant neoplasm of breast 60 Relationship Condition Age at Onset Recorded Date/T [place] father Malignant neoplasm of colon Unknown Cardiac disease Unknown Hypertension Unknown Disorder of thyroid Unknown Atrial fibrillation Unknown History of coronary artery bypass surgery Unknown mother Malignant neoplasm of breast Unknown Mitral valve disease Unknown Not Specified Malignant neoplasm of breast Unknown brother Alcoholism Unknown sister Autoimmune disease Unknown aunt Malignant neoplasm of breast Unknown sister Malignant neoplasm of breast 60 Family Member Condition Full Brother High blood pressure Full Brother Arthritis Full Brother No Medical History Father High blood pressure Mother breast cancer Full Brother Alive Full Sister No Medical History Full Sister Alive Father Cancer Father Heart disease Father Alive Mother afib Mother Alive Family Member Condition Full Brother High blood pressure Full Brother Arthritis Full Brother No Medical History Father High blood pressure Mother breast cancer Full Brother Alive Full Sister No Medical History Full Sister Alive Father Cancer Father Heart disease Father Alive Mother afib Mother Alive Advance Directives Advance Directive Response Recorded Date/ Time Advance Directives No April 25, 2014 4:09pm Living Will No April 03, 11:45am Power of Pre K Special Education Teacher No April 03, 2019 11:45am Advance Directive Response Recorded Date/ Time Advance Directives No April 25, 2014 3:09pm Living Will No April 03 10:45am Power of Pre K Special Education Teacher No April 03, 2019 10:45am Advance Directive Response Recorded Date/ Time Advance Directives No April 25, 2014 3:09pm Living Will No April 20 4 8:23am Power of Pre K Special Education Teacher No April 20 8:23am Advance Directive Response Recorded Date/ Time Advance Directives No April 25, 2014 3:09pm Living Will No April 20 4 11:25am Power of Pre K Special Education Teacher No April 20 11:25am Advance Directive Response Recorded Date/ Time Advance Directives No April 26, 2023 9:14am Living Will No April 26 9:14am Power of Pre K Special Education Teacher No April 26 9:14am Summary Purpose Reason for Referral Specialty Diagnoses / Procedures Referred By Junior garber Referred To Contact G[facility]ology Diagnoses Redundant colon Constipation, unspecified constipation type Procedures CONSULT TO GASTROENTEROLOGY OFFICE/OUTPATIENT [facility] 60 MINUTES Debbi Patel, LESLI.TUBING SUPERVISOR [address] [place] [address] Referral ID Status Reason Start Date Expiration Date Visits Requested Visits Authorized [id number] Authorized PCP Requested Referral 01/10/2024 01/09/2025 1 1 Additional Source Comments Goals (unrecognized section and content) Goals may be documented in a n alternate sectionGoals may be documented in an alternate sectionGoals may be documented in an alternate sectionGoals may be documented in an alternate sectionGoals may be documented in an alternate sectionGoals may be documented in an alternate sectionGoals may be documented in an alternate sectionGoals may be documented in an alternate section No Information Available No Information Available Care Teams (unrecognized sec tion and content) Team Status: Active Member Role Status Dates Dr. Taran Stephenson MD Family Provider Active Man Carbone , DO Primary Care Provider Active Team Status: Inactive Member Role Status Dates Man Carbone , DO Primary Care Provider, Referring Provider Active Dr. Celestino Bartholomew , DO Attending Provider Active Team Status: Inactive Member Role Status Dates Man Carbone , DO Primary Care Provi jairo, Attending Provider, Referring Provider Active Team Status: Inactive Member Role Status Dates Man Carbone , DO Primary Care Provider Active Dr. Celestino Bartholomew , DO Attending Provider, Referring Pro vider Active Team Status: Inactive Member Role Status Dates Man Carbone , DO Primary Care Provider, Referring Provider Active Marie Hagan COMMISSION SPECIALIST, COMMISSION SPECIALIST-C Attending Provider Active Team Status: Inactive Member Role Status Dates Man Carbone , DO Primary Care Provider Active Marie Hagan COMMISSION SPECIALIST, COMMISSION SPECIALIST-C Attending Provider, Referrin g Provider Active Team Status: Active Member Role Status Dates Man Carbone , DO Primary Care Provider Active Dr. Annalisa Burleson MD Attending Provider, Referring P rovider Active Team Status: Active Member Role Status Dates Man Carbone , DO Primary Care Provider Active Dr. Donn Lai MD Attending Provider, Referring P rovider Active Team Status: Inactive Member Role Status Dates Man Carbone DO Primary Care Provider Active Dr. Annalisa Burleson MD Attending Provider, Referring P rovider Active Team Status: Inactive Member Role Status Dates Man Carbone , DO Primary Care Provider Active Dr. Donn Lai MD Attending Provider, Referring P rovider Active Airway Controller Relationship Specialty Start Date End Date Taran Tyler MD PCP - General Family Medicine 12/24/15 Airway Controller Relationship Specialty Start Date End Date Taran Tylre MD PCP - General Family Medicine 12/24/15 Team Status: Inactive Member Role Status Dates Man Yooner , DO Primary Care Provider Active Meg Raymond COMMISSION SPECIALIST, COMMISSION SPECIALIST-C Attending Provider, Referring Provider Active Team Status: Inactive Member Role Status Dates Man Hahnnger , DO Primary Care Provider, Referring Provider Active Meg Raymond COMMISSION SPECIALIST, COMMISSION SPECIALIST-C Attending Provider Active Team Status: Active Member Role Status Dates Man Carbone , DO Primary Care Provider Active Dr. Valeriy Ralph MD Emergency Provider Active Dr. Summer Ruiz , DO Admit Provider, Attending Provide r Active Team Status: Active Member Role Status Dates Man Imelda HahnTona , DO Primary Care Provider Active Dr. Valeriy Ralph MD Emergency Provider Active Dr. Summer Ruiz , DO Admit Provider, Att ending Provider, Other Provider Active Aries Blair MD Other Provider Active Dr. Tiara Salcedo MD Other Provider Active Ava Alejandro MD Other Provider Active Dr. Diana Busby , Other Provider Active Dr. Lakeisha Head MD Other Provider Active Dr. Alejandro Dickson MD Other Provider Active Dr. Chika Momin MD Other Provider Active Dr. Fahad Savage MD Other Provider Active Dr. Sharif Talavera MD Other Provider Active Marilee Bell MD Other Provider Active Dr. Suzanne Sanders MD Other Provider Active Dr. Ruby Florence MD Other Provider Active Dr. Abdirizak Max MD Other Provider Active Dr. Elma Mehta MD Other Provider Active Dr. Valeriy Panchal MD Other Provider Active Dr. Constance Sainz MD Other Provider Active Dr. Rivas Hull MD Other Provider Active Dr. Ara Ruiz MD Other Provider Active Garfield Avila MD Other Provider Active Team Status: Active Member Role Status Dates Manty Carbone , DO Primary Care Provider Active Dr. Iris Garcia MD Attending Provider Active Team Status: Inactive Member Role Status Dates Man Carbone , DO Primary Care Provider Active Dr. Valeriy Ralph MD Emergency Provider Active Dr. Summer Ruiz , DO Admit Provider, Attending Provide r Active Aries Blair MD Other Provider Active Dr. Tiara Salcedo MD Other Provider Active Ava Alejandro MD Other Provider Active Dr. Diana Busby , DO Other Provider Active Dr. Lakeisha Head MD Other Provider Active Dr. Alejandro Dickson MD Other Provider Active Dr. Chika Momin MD Other Provider Active Dr. Fahad Savage MD Other Provider Active Dr. Sharif Talavera MD Other Provider Active Marilee Bell MD Other Provider Active Dr. Suzanne Sanders MD Other Provider Active Dr. Ruby Florence MD Other Provider Active Dr. Abdirizak Max MD Other Provider Active Dr. Elma Mehta MD Other Provider Active Dr. Valeriy Panchal MD Other Provider Active Dr. Constance Sainz MD Other Provider Active Dr. Rivas Hull MD Other Provider Active Dr. Ara Ruiz MD Other Provider Active Garfield Avila MD Other Provider Active Team Status: Inactive Member Role Status Dates Man Carbone , DO Primary Care Provider, Referring Provider Active Dr. Kevin Solomon MD Attending Provider Active Team Status: Inactive Member Role Status Dates Man Carbone , DO Primary Care Provider Active Dr. Kevin Solomon MD Attending Provider, Referring Provi jairo Active Team Status: Active Member Role Status Dates Man Carbone , DO Primary Care Provider Active Dr. Kevin Solomon MD Attending Provider, Referring Provi jairo Active Team Status: Inactive Member Role Status Dates Man Carbone , DO Primary Care Provider, Referring Provider Active Dr. Javier Hartman MD Attending Provider Active Team Status: Active Member Role Status Dates Man Carbone , DO Primary Care Provider Active Dr. Javier Hartman MD Attending Provider, Referring Provider, Other Provider Active Team Status: Inactive Member Role Status Dates Man Carbone , DO Primary Care Provider Active Dr. Javier Hartman MD Attending Provider, Referring Pro vider Active Airway Controller Relationship Specialty Start Date End Date Clement Oneal MD [address] [place] [address] PCP - General Internal Medicine 11/25/23 Airway Controller Relationship Specialty Start Date End Date Clement Oneal MD [address] [place] [address] PCP - General Internal Medicine 11/25/23 Airway Controller Relationship Specialty Start Date End Date Clement Oneal MD [address] [facility] [address] [place] [address] PCP - General Internal Medicine 11/25/23 Airway Controller Relationship Specialty Start Date End Date Clement Oneal MD [address] [facility] [address] [place] [address] PCP - General Internal Medicine 11/25/23 Airway Controller Relationship Specialty Start Date End Date Clement Oneal MD [address] [facility] [address] [place] [address] PCP - General Internal Medicine 11/25/23 Airway Controller Relationship Specialty Start Date End Date Clement Oneal MD [address] [facility] [address] [place] [address] PCP - General Internal Medicine 11/25/23 Airway Controller Relationship Specialty Start Date End Date Clement Oneal MD [address] [facility] [address] [place] [address] PCP - General Internal Medicine 11/25/23 Airway Controller Relationship Specialty Start Date End Date Clement Oneal MD [address] [facility] [address] [place] [address] PCP - General Internal Medicine 11/25/23 INFORMATION SOURCE (unrecogn ized section and content) DATE CREATED AUTHOR 08/31/2022 [facility] DATE CREATED AUTHOR AUTHOR'S ORGANIZ ATION 12/22/2023 [facility] DATE CREATED AUTHOR AUTHOR'S ORGANIZ ATION 01/04/2024 [facility] DATE CREATED AUTHOR AUTHOR'S ORGANIZ ATION 01/12/2024 [facility] DATE CREATED AUTHOR AUTHOR'S ORGANIZ ATION 07/25/2024 [facility] Source Comments (unrecognize d section and content) In the event this informatio n is protected by the Federal Confidentiality of Alcohol and Drug Abuse Patient Records regulations: The Federal rules restrict any use of the information to criminally investigate or prosecute any alcohol or drug abuse patient.[facility] the event this information is protected by the Federal Confidentiality of Alcohol and Drug Abuse Patient Records regulations: The Federal rules restrict any use of the information to criminally investigate or prosecute any alcohol or drug abuse patient.[facility] HealthIn the event this information is protected by the Federal Confidentiality of Alcohol and Drug Abuse Patient Records regulations: The Federal rules restrict any use of the information to criminally investigate or prosecute any alcohol or drug abuse patient.[facility] the event this information is protected by the Federal Confidentiality of Alcohol and Drug Abuse Patient Records regulations: The Federal rules restrict any use of the information to criminally investigate or prosecute any alcohol or drug abuse patient.[facility] HealthIn the event this information is protected by the Federal Confidentiality of Alcohol and Drug Abuse Patient Records regulations: The Federal rules restrict any use of the information to criminally investigate or prosecute any alcohol or drug abuse patient.[facility] HealthIn the event this information is protected by the Federal Confidentiality of Alcohol and Drug Abuse Patient Records regulations: The Federal rules restrict any use of the information to criminally investigate or prosecute any alcohol or drug abuse patient.[facility] HealthIn the event this information is protected by the Federal Confidentiality of Alcohol and Drug Abuse Patient Records regulations: The Federal rules restrict any use of the information to criminally investigate or prosecute any alcohol or drug abuse patient.[facility] HealthIn the event this information is protected by the Federal Confidentiality of Alcohol and Drug Abuse Patient Records regulations: The Federal rules restrict any use of the information to criminally investigate or prosecute any alcohol or drug abuse patient.[facility] HealthIn the event this information is protected by the Federal Confidentiality of Alcohol and Drug Abuse Patient Records regulations: The Federal rules restrict any use of the information to criminally investigate or prosecute any alcohol or drug abuse patient.[facility] HealthIn the event this information is protected by the Federal Confidentiality of Alcohol and Drug Abuse Patient Records regulations: The Federal rules restrict any use of the information to criminally investigate or prosecute any alcohol or drug abuse patient.[facility] Reason for Visit (unrecogniz ed section and content) lower back pain, Test Result Reason Comments New Patient Right wrist and hand pain - started 2 weeks agoConcerns about fatigue Reason Onset Date Comments Refill Request 01/19/2023 Reason Comments Consult Chronic constipation Reason Comments Follow Up 1 year Reason Comments Patient Question Reason Comments Follow Up Review EGD and colon oscopy results. Reason Comments Appointment Reason Comments Refill Request FOR RECORDS PERTAINING TO PATIENTS WHO ARE [...] BE BASED ON THE PRIMARY CLINICAL RECORDS. [facility]. provides no warranty or guarantee of the accuracy or completeness of information in this document.
[2025-04-11 12:24] LABS: Hematocrit 39.5 % (37-47); Hemoglobin 12.6 g/dL (12.0-15.0); Immature Granulocytes Count 0.030 X10^3/uL (0.0-0.0); Mean Corp Hgb Conc 31.9 g/dL (32-36); Mean Corpuscular Volume 91.6 fL (81-99); Mean Platelet Vol. 9.6 fl (6.2-12.0); NRBC Flagged by Analyzer 0 % (0-5); Platelet Count 253 K/mm3 (150-450); RBC Distribution Width CV 13.7 % (11.6-14.6); RBC Distribution Width SD 46.4 fl (35.1-43.9); Red Blood Count 4.31 M/mm3 (4.2-5.4); White Blood Count 4.5 K/mm3 (4.4-11.0)
[2025-04-11 12:57] LABS: AST(SGOT) 33 U/L (<=31); Alanine Aminotransfer ALT/SGPT 38 U/L (<=34); Albumin, Serum 4.1 g/dL (3.4-4.8); Alkaline Phosphatase 57 U/L (35-104); Anion Gap 10 (7-18); BUN 22 mg/dL (4-19); BUN/Creat Ratio 28.9 RATIO (10-20); Calcium,Total 8.9 mg/dL (7.6-11.0); Carbon Dioxide 26.2 mmol/L (20.0-29.0); Chloride 104 mmol/L (96-106); Cholesterol 184 mg/dL (<=200); Globulin 2.3 g/dL (2.2-4.2); Glucose 89 mg/dL (70-99); Low Density Lipoprotein Calc. 82 mg/dL; Potassium 3.8 mmol/L (3.5-5.1); Triglycerides 35 mg/dL; Very Low Density Lipoprotein 7 mg/dL (5-40); Vitamin D,25 Hydroxy 29.1 ng/mL (30-100); cholesterol:hdl ratio screen 1.96
== END | disposition home or self-care (01) ==
LOC: MTLAB 10:24
PROVIDERS: PCP Family Medicine; Referring Provider Family Medicine; Visit Provider Family Medicine
DX: I10 Essential (primary) hypertension (principal); E55.9 Vitamin D deficiency, unspecified; R53.83 Other fatigue
CPT/HCPCS: 36415; 80053; 80061; 82306; 84443; 85025